=== PATIENT | male | born 1950 | race Caucasian/White ===

== ENCOUNTER → 2020-01-15 11:50 | Outpatient (CLI) | payer MEDICARE, OTHER, SELFPAY | PROVIDERS: PCP Family Medicine; Referring Provider Physician Assistant; Visit Provider Physician Assistant | DX: R50.9 Fever, unspecified (principal); R19.7 Diarrhea, unspecified | CPT/HCPCS: 87635; G2023; U0003 ==

== ENCOUNTER → 2020-11-22 16:24 | Outpatient (CLI) | payer MEDICARE, OTHER, SELFPAY | PROVIDERS: PCP Family Medicine; Referring Provider Physician Assistant Surgical; Visit Provider Physician Assistant Surgical | DX: U07.1 COVID-19 (principal) | CPT/HCPCS: 87635; C9803; U0002 ==

== ENCOUNTER → 2020-11-29 15:33 | Outpatient (CLI) | payer MEDICARE, OTHER, SELFPAY | PROVIDERS: PCP Family Medicine; Referring Provider Specialist; Visit Provider Specialist | DX: Z11.52 Encounter for screening for COVID-19 (principal) | CPT/HCPCS: 87635; C9803; U0002 ==

== ENCOUNTER 2022-08-21 10:38 | Outpatient (CLI) | payer MEDICARE, SELFPAY ==
[2022-08-21 12:18] LABS: Absolute Lymphocyte Count 1.38 X10^3/uL (0.83-4.51); Absolute Neutrophil Count 3.7 X10^3/uL (2.0-7.7); Basophil# 0.03 X10^3/uL; Basophil% 0.5 % (0-1); Eosinophil# 0.12 X10^3/uL; Eosinophils% 2.1 % (0-5); Hematocrit 42.5 % (40-54); Hemoglobin 14.8 g/dL (13.0-16.5); Lymphocyte # 1.38 X10^3/ul (0.83-4.51); Lymphocyte % 24.2 % (19-41); Mean Corp Hgb Conc 34.8 g/dL (32-36); Mean Corpuscular Hgb 31.8 pg (27.0-32.0); Mean Corpuscular Volume 91.4 fL (80-94); Mean Platelet Vol. 9.9 fl (6.2-12.0); Monocyte# 0.46 X10^3/uL; Monocyte% 8.1 % (0-10); NRBC Flagged by Analyzer 0 % (0-5); Neutrophil % 64.7 % (47-70); Platelet Count 226 K/mm3 (150-450); RBC Distribution Width CV 12.4 % (11.6-14.6); RBC Distribution Width SD 41.1 fl (35.1-43.9); Red Blood Count 4.65 M/mm3 (4.6-6.2); White Blood Count 5.7 K/mm3 (4.4-11.0)
[2022-08-21 12:19] LABS: Erythrocyte Sedimentation Rate 6 mm/hr (0-20)
[2022-08-21 12:52] LABS: CRP 4.56 mg/L (0.0-3.0)
== END 2022-08-21 23:59 | disposition home or self-care (01) ==
PROVIDERS: PCP Family Medicine; Referring Provider Specialist; Visit Provider Specialist
DX: Z96.641 Presence of right artificial hip joint (principal)
CPT/HCPCS: 36415; 85025; 85652; 86140

== ENCOUNTER 2023-02-18 14:59 | Inpatient (IN) | payer MEDICARE, SELFPAY ==
[2023-02-18] VITALS (18 sets, daily range): BP systolic 143–173; BP diastolic 84–119; PULSE 62–82; RESP 10–20; TEMP 36.1–36.7; O2SAT 95–100; BMI 31.8
--- NOTE | 2023-02-18 15:11 | EKG12_ITS ---
Test Reason : CHEST PAIN Blood Pressure : / mmHG Vent. Rate : 073 BPM Atrial Rate : 073 BPM P-R Int : 190 ms QRS Dur : 118 ms QT Int : 404 ms P-R-T Axes : 058 030 063 degrees QTc Int : 445 ms Normal sinus rhythm Non-specific intra-ventricular conduction delay ST elevation consider inferolateral injury or acute infarct ACUTE MO / STEMI Abnormal ECG Confirmed by MARRY MORALES, RICARDO ([id number]), order editor ELIZA VELASQUEZ ([id number]) on 02/22/2023 8:38:49 AM Referred By: Mame Foss Confirmed By:BRIGHT FOSS MD
--- NOTE | 2023-02-18 15:12 | ED.VIS.CHEST ---
HPI History of Present Illness Chief Complaint: Chest Pain Informant: patient Onset/Context/Timing Onset: Today Activity at onset: sudden Timing: Continuous Quality: Positive for Pressure Location: Substernal Worsened By: Nothing Relieved By: Nothing Associated Symptoms: Positive for Nausea and Dyspnea; Negative for Vomiting, Diaphoresis, Cough, Fever, Lightheadedness, Acid Reflux or Palpitations Narrative Narrative: Presents with chest pain that began approximately 50 minutes prior to arrival. Patient states he was working on his car when he started having some pain in his chest. Patient describes it as a pressure. Patient states nothing makes it better nothing makes it worse. Patient denies any diaphoresis. Patient admits to nausea but denies any vomiting. Patient denies any cough or fevers. Patient states he was able to mow his lawn earlier today. Patient admits to some slight shortness of breath. CVD Risk Factors: Positive for Hypertension; Negative for Diabetes, Hypercholesterolemia, Family History 1' </=55 or Smoking PE Risk Factors: Negative for Recent Travel/Surgery, Recent Immobilization, Prior DVT or PE or Cancer [facility] Medical History (Updated 02/18/23 @ 15:[address] Emre Domingo MD) Hypertension Home Medications hydrochlorothiazide 25 mg tablet 25 mg PO DAILY 04/08/14 [History Last Taken Unknown] potassium chloride 10 mEq tablet,extended release (Klor-Con) 10 meq PO DAILY 04/08/14 [History Last Taken 02/17/23] amlodipine 10 mg tablet mg 02/18/23 [History Last Taken 02/17/23] Allergy/AdvReac Type Severity Reaction Status Date / Time No Known Allergies Allergy Verified 02/18/23 15:03 Surgical History (Updated 02/18/23 @ 15:44 by Bernardo Quiles) History of herniorrhaphy History of total right hip replacement Hx of appendectomy Social History Smoking Status: Never smoker ROS ROS ED Constitutional Constitutional ED: Denies chills or fever(s) Eyes Eyes: Denies blurry vision or change in vision ENT ENT ED: Denies rhinorrhea or sore throat Cardiovascular Cardiovascular: Reports chest pain; Denies palpitations Respiratory/Chest Respiratory/Chest: Denies cough or dyspnea Gastrointestinal Gastrointestinal: Reports nausea; Denies abdominal pain or vomiting Genitourinary Genitourinary ED: Denies dysuria or hematuria Musculoskeletal Musculoskeletal: Denies back pain or neck pain Integumentary Denies abscess or rash Neurologic Neurologic: Denies headache(s) or weakness Allergic/Immunologic Allergic/Immunologic ED: Denies mouth swelling or urticaria EXAM Physical Exam Const Vital Signs: 02/18/23 15:03 02/18/23 15:08 02/18/23 15:13 Temperature 97.0 F L Temperature Source Temporal Pulse Rate 75 78 Respiratory Rate 18 10 L 13 Blood Pressure 173/100 H Blood Pressure Mean 124 Pulse Ox 97 97 Oxygen Delivery Method Room Air Room Air Oxygen Flow Rate (L/min) 02/18/23 15:17 02/18/23 15:21 02/18/23 15:23 Temperature Temperature Source Pulse Rate 78 77 Respiratory Rate 12 15 Blood Pressure 164/119 H 158/84 H Blood Pressure Mean 134 108 Pulse Ox 99 99 Oxygen Delivery Method Room Air Nasal Cannula Nasal Cannula Oxygen Flow Rate (L/min) 3 3 02/18/23 15:30 Temperature Temperature Source Pulse Rate 74 Respiratory Rate 11 L Blood Pressure 162/99 H Blood Pressure Mean 120 Pulse Ox 99 Oxygen Delivery Method Nasal Cannula Oxygen Flow Rate (L/min) Positive well nourished, well developed and obese General Appearance ED: well developed and NAD Nutritional Appearance: obese HEENT normocephalic and atraumatic Eyes PERRL and EOMs intact bilaterally Neck supple and no JVD Chest Wall palpation of chest normal Resp normal respiratory effort and clear to auscultation bilaterally Effort and Inspection: Negative for respiratory distress Cardio regular rate, regular rhythm and no murmurs GI normal to inspection, nondistended, normoactive bowel sounds, soft to palpation, non-tender and non-distended Extremity normal to inspection Extremity Narrative: Radial and femoral pulses are equal bilaterally. General Extremety ED: Negative for edema or tenderness General Extremity: Negative for edema Neuro oriented x3, CN's II-XII intact bilaterally and no sensory deficits noted Sensorium / Orientation: awake and alert Motor Exam: strength 5/5 throughout Psych mental status grossly normal Heart Score History: Highly Suspicious ECG: Significant ST-Depression Age: >/= 65 years Risk Factors: 1 or 2 Risk Factors Score: 7 MDM MDM MDM Narrative Medical decision making narrative: Differential diagnosis includes STEMI, and cardiac ischemia. EKG will be obtained to assess for cardiac ischemia and STEMI. CBC will be obtained to assess for leukocytosis and anemia. Basic metabolic profile will be obtained to assess for electrolyte abnormality and renal function. High-sensitivity troponin will be obtained to assess for cardiac ischemia. PT with INR and PTT will be obtained to assess for coagulopathy. Chest x-ray will be obtained to assess for pneumonia and widened mediastinum. Lab Data Attestation: I reviewed the patient's lab results. Lab results narrative: CBC was reviewed and was within normal limits. PT with INR and PTT were reviewed and were within normal limits. Basic metabolic profile was reviewed. BUN was slightly elevated at 19. Creatinine was 1.27. The remainder is within normal limits. High-sensitivity troponin was reviewed and was normal at 22. Labs: Laboratory Results - last 24 hr 02/18/23 15:17 WBC 10.1 RBC 4.71 Hgb 15.2 Hct 43.4 MCV 92.1 MCH 32.3 H MCHC 35.0 RDW Std Deviation 40.9 RDW Coeff of Shante 12.0 Plt Count 271 MPV 9.7 Immature Gran % (Auto) 0.200 Neut % (Auto) 77.3 H Lymph % (Auto) 14.3 L [place] % (Auto) 7.1 Eos % (Auto) 0.8 Baso % (Auto) 0.3 Absolute Neuts (auto) 7.8 H Absolute Lymphs (auto) 1.45 Nucleated RBC % 0 PT 13.3 INR 1.0 APTT 26.2 Sodium 138 Potassium 3.6 Chloride 104 Carbon Dioxide 29.0 Anion Gap 5 BUN 19 H Creatinine 1.27 Estim Creat Clear Calc 61.91 Est GFR (MDRD) Af Amer 71 Est GFR (MDRD) Non-Af 59 L BUN/Creatinine Ratio 15.0 Glucose 108 H Calcium 9.1 Troponin I High Sens 22 Radiography Chest X-Ray - ED: 1 View, Read by ED Physician, Read by Radiologist and No Acute Disease Diagnostic Testing: Portable 1 view chest x-ray was obtained. On my independent interpretation, lung jimenez are clear. There is normal cardiac silhouette. Bony thorax is normal. There is no acute process noted. Radiologist also interpreted the x-ray and agrees. EKG Initial EKG: Attestation: I personally reviewed and interpreted this EKG as follows: Interpretation: Sinus Rhythm (73), S-T Elevation (II, III, aVF, V4 through V6) and S-T Depression (I, aVL, V1, and V2) Comments: EKG was obtained. On my independent interpretation, there is a normal sinus rhythm with a rate of 73. [place] interval was normal at 190 ms. QRS interval was normal at 118 ms. QTc interval was normal at 445 ms. [place] was normal at 30. There is ST elevation in leads II, III, aVF, V4, V5, and V6. Prior EKG tracings: not available for review Prior: No Prior Management Discussion w/another healthcare provider: Industrial Commercial Groundskeeper (Dr. Foss) Treatment and Re-Evaluation :: STEMI alert was called. Patient was given aspirin, heparin, and Brilinta. Patient was also given a dose of morphine. Nitroglycerin was withheld due to the ST changes in the inferior leads. Case was discussed with Dr. Foss from cardiology. He will be in to evaluate the patient and take the patient to the [facility]. Case will be discussed with the hospitalist. Patient will be admitted to ICU after the Ing[facility]ient [facility] to the service of Dr. Domingo. Patient understood and was agreeable with the plan. All questions were answered. Critical Care Time Critical Care Time: Yes Critical care time (excluding procedures): 30-74 minutes (31), Including time spent:, Discussing w/Patient &/or Family/Parking Lot Spotter, Discussing w/Consultants, Arranging Admission or Transfer and Performing Direct Patient Care at Bedside Discharge Plan Dx/Rx/DC Orders Clinical Impression: Acute ST elevation myocardial infarction (STEMI), Hypertension Disposition [facility]
[2023-02-18] MEDS: TICAGRELOR 90 MG TABLET 180 MG PO (15:16)
[2023-02-18] MEDS: Morphine 4 MG/ML Syringe IV (15:16)
[2023-02-18] MEDS: Aspirin 81 MG TAB.CHEW 324 MG PO (15:16)
[2023-02-18] MEDS: Heparin Injection (Vial) 5,000 UNIT/ML VIAL 4000 UNIT IV (15:16)
--- NOTE | 2023-02-18 15:23 | ED.RN ---
Pt. belongings given to . belongings include shirt, shoes, shorts, wallet, phone
[2023-02-18 15:28] LABS: Absolute Lymphocyte Count 1.45 X10^3/uL (0.83-4.51); Absolute Neutrophil Count 7.8 X10^3/uL (2.0-7.7); Basophil# 0.03 X10^3/uL; Basophil% 0.3 % (0-1); Eosinophil# 0.08 X10^3/uL; Eosinophils% 0.8 % (0-5); Hematocrit 43.4 % (40-54); Hemoglobin 15.2 g/dL (13.0-16.5); Lymphocyte # 1.45 X10^3/ul (0.83-4.51); Lymphocyte % 14.3 % (19-41); Mean Corpuscular Hgb 32.3 pg (27.0-32.0); Mean Corpuscular Volume 92.1 fL (80-94); Mean Platelet Vol. 9.7 fl (6.2-12.0); Monocyte# 0.72 X10^3/uL; Monocyte% 7.1 % (0-10); NRBC Flagged by Analyzer 0 % (0-5); Neutrophil # 7.81 X10^3/uL (2.7-7.7); Neutrophil % 77.3 % (47-70); Platelet Count 271 K/mm3 (150-450); RBC Distribution Width SD 40.9 fl (35.1-43.9); Red Blood Count 4.71 M/mm3 (4.6-6.2); White Blood Count 10.1 K/mm3 (4.4-11.0)
--- NOTE | 2023-02-18 15:31 | RAD_ITS ---
EXAM: XR CHEST, 1 VIEW CLINICAL INDICATION: Chest pain. TECHNIQUE: Frontal view of the chest. COMPARISON: None. FINDINGS: LUNGS AND PLEURAL SPACES: Unremarkable. No pneumothorax. No effusion. No suspicious infiltrates. HEART: Cardiomegaly. MEDIASTINUM: Central airways and mediastinal contour are unremarkable. BONES/JOINTS: Unremarkable. SOFT TISSUES: Unremarkable. RAD/Chest 1 View (Portable) IMPRESSION: No acute findings in the chest. Electronically Signed: Momo Crump MD at 15:49 EDT ,
[2023-02-18 15:34] LABS: Prothrombin Time (Protime)PT. 13.3 SECONDS (11.7-14.9)
[2023-02-18 15:35] LABS: Partial Thromboplast Time 26.2 Seconds (24.1-36.2)
[2023-02-18 15:42] LABS: Anion Gap 5 (5-15); BUN 19 mg/dL (7-18); Calcium,Total 9.1 mg/dL (8.5-10.1); Chloride 104 mmol/L (98-107); Creatinine, Serum 1.27 mg/dL (0.70-1.30); EST Glomerular Filtration Rate 59 mL/min (>60); Est Glom Filt Rate - Afr Amer 71 mL/min (>60); Estimated Creatinine Clearance 61.91 ml/min; Glucose 108 mg/dL (74-106); Potassium 3.6 mmol/L (3.5-5.1); Sodium Level 138 mmol/L (136-145); Troponin-I HS 22 pg/mL (3.0-78.0)
--- NOTE | 2023-02-18 15:47 | PCM.HP.STD ---
HPI - General General Date of Admission: 02/18/23 Date of Service: 02/18/23 Chief Complaint: Sudden onset of chest pressure about 1 and half hours ago associated with shortness of breath. STEMI alert HPI Narrative DAYANNA SARABIA, is a 72 M with no significant past medical history except hypertension was brought to ED for chest pressure that is started about 50 minutes prior to arrival. Patient stated he was doing lawn mowing and then he was working on his car in the hot weather. He got tired and was resting in home when he got chest pressure. He described chest pressure as in the middle feels like heavyweight put on the chest, 6-7/10 in intensity without radiation to arms, back neck or in epigastric region. This is associated mild shortness of breath. Patient denies dizziness lightheadedness or vertigo. Patient never had MRI ordered chest pain/pressure like this. He denies any chronic heart disease or lung disease. He is a non-smoker. In ED, patient had twelve-lead EKG, individually reviewed shows normal sinus rhythm at [address] elevation V4 to V6, 2 3 and aVF about [address] depression in V1 V2 and aVR. [place] interval 190 ms, QRS 118 ms, QTc 445 ms. Previous EKG reviewed in April 08, 2014, normal sinus rhythm [address]-T changes. Patient stated he recently had echo about a month ago in [facility]. He had treadmill EKG stress test many years ago and was normal at that time as per patient. Patient was straight taken to the [facility] from ER. [facility] Medical History Hypertension Home Medications hydrochlorothiazide 25 mg tablet 25 mg PO DAILY 04/08/14 [History Last Taken Unknown] potassium chloride 10 mEq tablet,extended release (Klor-Con) 10 meq PO DAILY 04/08/14 [History Last Taken 02/17/23] amlodipine 10 mg tablet mg 02/18/23 [History Last Taken 02/17/23] Allergy/AdvReac Type Severity Reaction Status Date / Time No Known Allergies Allergy Verified 02/18/23 15:03 Family History no significant family his no significant family history Surgical History History of herniorrhaphy History of total right hip replacement Hx of appendectomy Social History Smoking Status: Never smoker ROS ROS Narrative Constitutional: Reports fatigue and weakness. No fever. HEENT: Reports systems reviewed and no addt'l complaints, except as documented Respiratory/Chest: Associated mild shortness of breath as described in HPI. Denies chronic lung disease/COPD or emphysema. CVS: Continued chest pressure, no improvement or deterioration. Denies history of peripheral arterial disease Gastrointestinal: Denies coffee ground emesis, hematemesis or vomiting Genitourinary: Denies burning urination or new urinary tract symptoms Musculoskeletal: Denies acute joint pain or limited range of motion. No acute injury Neurologic: Denies seizure-like symptoms. No prior stroke. skin: No ulcer. No rash Endocrinology: Reports systems reviewed and no addt'l complaints, except as documented Hematologic/Lymphatic: Reports systems reviewed and no addt'l complaints, except as documented Rest 14 ROS are negative except as mentioned in HPI Vital Signs Vital Signs Vital Signs: 02/18/23 15:03 02/18/23 15:08 02/18/23 15:13 Temperature 97.0 F L Temperature Source Temporal Pulse Rate 75 78 Respiratory Rate 18 10 L 13 Blood Pressure 173/100 H Blood Pressure Mean 124 Pulse Ox 97 97 Oxygen Delivery Method Room Air Room Air Oxygen Flow Rate (L/min) 02/18/23 15:17 02/18/23 15:21 02/18/23 15:23 Temperature Temperature Source Pulse Rate 78 77 Respiratory Rate 12 15 Blood Pressure 164/119 H 158/84 H Blood Pressure Mean 134 108 Pulse Ox 99 99 Oxygen Delivery Method Room Air Nasal Cannula Nasal Cannula Oxygen Flow Rate (L/min) 3 3 02/18/23 15:30 02/18/23 15:44 Temperature 97.6 F L Temperature Source Temporal Pulse Rate 74 76 Respiratory Rate 11 L 16 Blood Pressure 162/99 H 169/99 H Blood Pressure Mean 120 122 Pulse Ox 99 100 Oxygen Delivery Method Nasal Cannula Nasal Cannula Oxygen Flow Rate (L/min) 3 Weight Weight: 255 lb 1.197 oz Body Mass Index (BMI) 31.8 Physical Exam Narrative General: Alert, Oriented x3, Cooperative HEENT: Atraumatic, PERRLA, EOMI, Normocephalic Oral: Oral mucosa dry. No Gingival or Mucosal Lesions/ Ulcerations Neck: Supple, No JVD, Negative Carotid Bruits Lungs: Air entry equal and symmetrical in bilateral lung bases. No crepitation/rhonchi Cardiovascular: Regular rate, Regular Rhythm, Normal S1, Normal S2, No murmurs Abdomen: Bowel Sounds Present, Soft, Non Tender, Non-Distended : No renal angle tenderness. No suprapubic tenderness. Extremities: No edema, Capillary Refill Less than 3 Seconds Skin: No rashes, No breakdown Musculoskeletal: No Tenderness to Palpation of Joints or Extremities. Muscle strength 5/5 at major joints of extremities. Neurological: Cranial nerves II-XII grossly intact, DTR 2+/4. No acute focal neurological defic Psych/Mental Status: Flat affect. Results Lab / Micro Data 02/18/23 15:17 02/18/23 15:17 Labs: Laboratory Results - last 24 hr 02/18/23 15:17: WBC 10.1, RBC 4.71, Hgb 15.2, Hct 43.4, MCV 92.1, MCH 32.3 H, MCHC 35.0, RDW Std Deviation 40.9, RDW Coeff of Shante 12.0, Plt Count 271, MPV 9.7, Immature Gran % (Auto) 0.200, Neut % (Auto) 77.3 H, Lymph % (Auto) 14.3 L, [place] % (Auto) 7.1, Eos % (Auto) 0.8, Baso % (Auto) 0.3, Absolute Neuts (auto) 7.8 H, Absolute Lymphs (auto) 1.45, Nucleated RBC % 0, PT 13.3, INR 1.0, APTT 26.2, Sodium 138, Potassium 3.6, Chloride 104, Carbon Dioxide 29.0, Anion Gap 5, BUN 19 H, Creatinine 1.27, Estim Creat Clear Calc 61.91, Est GFR (MDRD) Af Amer 71, Est GFR (MDRD) Non-Af 59 L, BUN/Creatinine Ratio 15.0, Glucose 108 H, Calcium 9.1, Troponin I High Sens 22 Assessment & Plan Assessment/Plan (1) Acute ST elevation myocardial infarction (STEMI): QUALIFIERS: Involved coronary artery: unspecified coronary artery Qualified Code(s): I21.3 - ST elevation (STEMI) myocardial infarction of unspecified site PLAN: Plan This 72-year-old gentleman is being admitted for chest pressure and EKG changes consistent with anterior inferior wall STEMI. 1. Anterior inferior wall STEMI: STEMI protocol was followed in ED and the travel pta was notified. Patient is in [facility] and will be admitted to the ICU after the cardiac cath. The patient was given aspirin 324 mg, Brilinta 180 mg loading dose and IV heparin drip in ED. Continue aspirin, Brilinta and high intensity statin. Depending upon hemodynamic status patient will be considered for beta-maribel and SARAH BETH/ARB. Fasting profile,, A1c, TSH tomorrow AM. 2D echo tomorrow AM. 2. Hypertension: Patient on HCTZ 25 mg daily, amlodipine 10 mg daily and K-Dur 10 mEq at home. Serum potassium 3.6 at lower lower limit normal. KCl 40 mEq 1 dose ordered. Serum magnesium and phosphorus ordered. 3. VTE prophylaxis: Moderate-risk: Lovenox 40 mill subcu daily. Discontinue if platelet count drops less than 50,000 or hemoglobin less than 8 g% Living will/advanced directive/end of life care: Patient does have living will or advanced directive. 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 After discussion of benefits/risks procedures involved with full code, DNR CC arrest and DNR CC, the patient and his opted for full code for reversible causes of cardiac arrest/cardiopulmonary arrest Patient does want artificial life support including intubation, tube feed, ventilator and/chest compression, central venous catheter, vasopressor and DC shock if needed in the beginning but does not want to be in a very stable state if it becomes dependent on life support. Full code ordered Total time spent in [id number] encounter in discussion of advanced directive 17 minutes. Laboratory Results 02/18/23 15:17: WBC 10.1, RBC 4.71, Hgb 15.2, Hct 43.4, MCV 92.1, MCH 32.3 H, MCHC 35.0, RDW Std Deviation 40.9, RDW Coeff of Shante 12.0, Plt Count 271, MPV 9.7, Immature Gran % (Auto) 0.200, Neut % (Auto) 77.3 H, Lymph % (Auto) 14.3 L, [place] % (Auto) 7.1, Eos % (Auto) 0.8, Baso % (Auto) 0.3, Absolute Neuts (auto) 7.8 H, Absolute Lymphs (auto) 1.45, Nucleated RBC % 0, PT 13.3, INR 1.0, APTT 26.2, Sodium 138, Potassium 3.6, Chloride 104, Carbon Dioxide 29.0, Anion Gap 5, BUN 19 H, Creatinine 1.27, Estim Creat Clear Calc 61.91, Est GFR (MDRD) Af Amer 71, Est GFR (MDRD) Non-Af 59 L, BUN/Creatinine Ratio 15.0, Glucose 108 H, Calcium 9.1, Troponin I High Sens 22 Clinical Impression(s) from Imaging Studies Chest X-Ray 02/18/23 15:31 IMPRESSION: No acute findings in the chest. Charges/Coding Visit Charges Inpatient E&M: 30128 Init Hosp L3 Procedures Hospitalists Procedures: 52944 Advncd Care Plan 30 Min
[2023-02-18 16:19] LABS: Magnesium 1.9 mg/dL (1.6-2.6)
--- NOTE | 2023-02-18 16:30 | EKG12_ITS ---
Test Reason : AM Blood Pressure : / mmHG Vent. Rate : 065 BPM Atrial Rate : 065 BPM P-R Int : 174 ms QRS Dur : 122 ms QT Int : 444 ms P-R-T Axes : 041 -32 -36 degrees QTc Int : 461 ms Sinus rhythm with frequent Premature ventricular complexes Left axis deviation Inferior infarct , age undetermined ST & T wave abnormality, consider lateral ischemia Abnormal ECG When compared with ECG of 19-FEB-2023 10:50, MANUAL COMPARISON REQUIRED, DATA IS UNCONFIRMED Confirmed by MARRY MORALES, RICARDO ([id number]), purchase request editor ELIZA VELASQUEZ ([id number]) on 02/22/2023 9:02:52 AM Referred By: Mame Foss Confirmed By:BRIGHT FOSS MD
--- NOTE | 2023-02-18 17:41 | CON.PCM.CA_ITS ---
Assessment & Plan Assessment/Plan (1) Acute ST elevation myocardial infarction (STEMI): QUALIFIERS: Involved coronary artery: unspecified coronary artery Qualified Code(s): I21.3 - ST elevation (STEMI) myocardial infarction of unspecified site PLAN: Treated with thrombectomy and drug-eluting stent placement to the RCA. We will keep the patient on aspirin, Brilinta, statin and beta-maribel. We will keep him on Integrilin overnight. Agree with 2D echo for LV function. HPI Consult Data Date of Consult: 02/18/23 HPI Narrative Reason for Consultation: STEMI HPI Narrative: DAYANNA SARABIA, is a 72 M who presents with chest pain. Patient was found to have inferior ST elevation [place] on the EKG and a STEMI alert was called. Patient was evaluated and brought emergently to the cardiac Moving Worker and underwent coronary angiography. 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 He has some residual disease in the LAD and circumflex which are also ectatic. These lesions will be treated medically at this time. Patient is being admitted to the CCU for further management of his ST elevation ME. Review of systems: All systems reviewed. All else is negative except in HPI. [facility] Medical History Hypertension Home Medications hydrochlorothiazide 25 mg tablet 25 mg PO DAILY 04/08/14 [History Last Taken Unknown] potassium chloride 10 mEq tablet,extended release (Klor-Con) 10 meq PO DAILY 04/08/14 [History Last Taken 02/17/23] amlodipine 10 mg tablet mg 02/18/23 [History Last Taken 02/17/23] Allergy/AdvReac Type Severity Reaction Status Date / Time No Known Allergies Allergy Verified 02/18/23 15:03 Family History no significant family his Surgical History History of herniorrhaphy History of total right hip replacement Hx of appendectomy Social History Smoking Status: Never smoker Physical Exam Const alert and oriented x3 HEENT normocephalic Eyes no scleral icterus Resp normal respiratory effort Cardio Rate: regular rate Skin no rashes or lesions noted Psych mental status grossly normal Risk Stratification Risk Stratification Applicable: No Charges/Coding Visit Charges Inpatient E&M: 74944 Init Hosp L2 Objective Data Vital Signs: Vital Signs Temp Pulse Resp BP Pulse Ox O2 Del Method O2 Flow Rate 97.6 F L 76 16 169/99 H 100 Nasal Cannula 3 02/18/23 15:44 02/18/23 15:44 02/18/23 15:44 02/18/23 15:44 02/18/23 15:44 02/18/23 15:44 02/18/23 15:44 Oxygen Flow Rate (L/min) 3 Oxygen Delivery Method Nasal Cannula Weight: 255 lb 1.197 oz Body Mass Index (BMI) 31.8 Lab / Micro Data 02/18/23 15:17 02/18/23 15:17 Labs: Laboratory Results - last 24 hr 02/18/23 15:17: WBC 10.1, RBC 4.71, Hgb 15.2, Hct 43.4, MCV 92.1, MCH 32.3 H, MCHC 35.0, RDW Std Deviation 40.9, RDW Coeff of Shante 12.0, Plt Count 271, MPV 9.7, Immature Gran % (Auto) 0.200, Neut % (Auto) 77.3 H, Lymph % (Auto) 14.3 L, [place] % (Auto) 7.1, Eos % (Auto) 0.8, Baso % (Auto) 0.3, Absolute Neuts (auto) 7.8 H, Absolute Lymphs (auto) 1.45, Nucleated RBC % 0, PT 13.3, INR 1.0, APTT 26.2, Sodium 138, Potassium 3.6, Chloride 104, Carbon Dioxide 29.0, Anion Gap 5, BUN 19 H, Creatinine 1.27, Estim Creat Clear Calc 61.91, Est GFR (MDRD) Af Amer 71, Est GFR (MDRD) Non-Af 59 L, BUN/Creatinine Ratio 15.0, Glucose 108 H, Calcium 9.1, Magnesium 1.9, Troponin I High Sens 22 Cardiology Labs/Tests 02/18/23 15:17: WBC 10.1, RBC 4.71, Hgb 15.2, Hct 43.4, MCV 92.1, MCH 32.3 H, MCHC 35.0, Plt Count 271, MPV 9.7, Immature Gran % (Auto) 0.200, Neut % (Auto) 77.3 H, Lymph % (Auto) 14.3 L, [place] % (Auto) 7.1, Eos % (Auto) 0.8, Baso % (Auto) 0.3, Absolute Neuts (auto) 7.8 H, Nucleated RBC % 0, PT 13.3, INR 1.0, APTT 26.2, Sodium 138, Potassium 3.6, Chloride 104, Carbon Dioxide 29.0, Anion Gap 5, BUN 19 H, Creatinine 1.27, Est GFR (MDRD) Af Amer 71, Est GFR (MDRD) Non- Af 59 L, BUN/Creatinine Ratio 15.0, Glucose 108 H, Calcium 9.1, Magnesium 1.9 Rhythm: EKG: ECHO: Stress Test: Cardiac Cath: PCI: CT Surgery: Holter monitor: EPS: PPM: CXR: Chest CT Scan: Radiography Diagnostic Testing: Radiology Impression Chest X-Ray 02/18/23 15:31 IMPRESSION: No acute findings in the chest. Electronically Signed: Momo Crump MD at 15:49 EDT ,
--- NOTE | 2023-02-18 17:45 | EKG12_ITS ---
Test Reason : AM EKG Blood Pressure : / mmHG Vent. Rate : 066 BPM Atrial Rate : 066 BPM P-R Int : 178 ms QRS Dur : 124 ms QT Int : 458 ms P-R-T Axes : 055 -38 065 degrees QTc Int : 480 ms Sinus rhythm with occasional Premature ventricular complexes Left axis deviation Inferior infarct , age undetermined Abnormal ECG Confirmed by ELISE MORALES, JERED ([id number]), editor school photograph ELIZA VELASQUEZ ([id number]) on 02/19/2023 1:24:48 PM Referred By: Mame Foss Confirmed By:JERED OLIVARES MD
[2023-02-18] MEDS: EPTIFIBATIDE 75 MG/100 ML VIAL 18.5 MG CONT INF ×2 (18:17→22:16)
[2023-02-18] MEDS: 0.9% Normal Saline 1,000 ML 75 ML IV (18:17)
[2023-02-18 18:42] LABS: Hematocrit 40.6 % (40-54); Hemoglobin 14.5 g/dL (13.0-16.5); Mean Corp Hgb Conc 35.7 g/dL (32-36); Mean Corpuscular Hgb 32.7 pg (27.0-32.0); Mean Corpuscular Volume 91.4 fL (80-94); Mean Platelet Vol. 9.5 fl (6.2-12.0); Platelet Count 233 K/mm3 (150-450); RBC Distribution Width SD 40.1 fl (35.1-43.9); Red Blood Count 4.44 M/mm3 (4.6-6.2); White Blood Count 9.4 K/mm3 (4.4-11.0)
[2023-02-18 19:25] LABS: Troponin-I HS 3156 pg/mL (3.0-78.0)
[2023-02-18] MEDS: Potassium Chloride Oral Tablet 20 MEQ 40 MEQ PO (19:38)
[2023-02-18] MEDS: Atorvastatin Calcium 80 MG Tablet PO (21:35)
[2023-02-18] MEDS: Carvedilol 6.25 MG Tablet PO (21:35)
[2023-02-18 23:06] LABS: Troponin-I HS 16504 pg/mL (3.0-78.0)
[2023-02-19] VITALS (21 sets, daily range): BP systolic 106–147; BP diastolic 74–93; PULSE 62–79; RESP 10–19; TEMP 36.4–36.7; O2SAT 93–98; BMI 31.6
[2023-02-19] MEDS: EPTIFIBATIDE 75 MG/100 ML VIAL 18.5 MG CONT INF (03:06)
[2023-02-19 04:26] LABS: Absolute Lymphocyte Count 1.11 X10^3/uL (0.83-4.51); Absolute Neutrophil Count 7.1 X10^3/uL (2.0-7.7); Basophil# 0.03 X10^3/uL; Basophil% 0.3 % (0-1); Eosinophil# 0.11 X10^3/uL; Eosinophils% 1.2 % (0-5); Hematocrit 38.8 % (40-54); Hemoglobin 13.5 g/dL (13.0-16.5); Lymphocyte # 1.11 X10^3/ul (0.83-4.51); Lymphocyte % 12.1 % (19-41); Mean Corp Hgb Conc 34.8 g/dL (32-36); Mean Corpuscular Hgb 31.9 pg (27.0-32.0); Mean Corpuscular Volume 91.7 fL (80-94); Mean Platelet Vol. 9.6 fl (6.2-12.0); Monocyte% 8.7 % (0-10); NRBC Flagged by Analyzer 0 % (0-5); Neutrophil # 7.07 X10^3/uL (2.7-7.7); Neutrophil % 77.4 % (47-70); Platelet Count 246 K/mm3 (150-450); RBC Distribution Width SD 40.1 fl (35.1-43.9); Red Blood Count 4.23 M/mm3 (4.6-6.2); White Blood Count 9.2 K/mm3 (4.4-11.0)
[2023-02-19 05:01] LABS: ALB/GLOB Ratio 0.9 RATIO (0.9-2.4); AST(SGOT) 135 U/L (15-37); Alanine Aminotransfer ALT/SGPT 35 U/L (16-61); Albumin, Serum 2.7 g/dL (3.2-5.0); Alkaline Phosphatase 70 U/L (45-117); Anion Gap 7 (5-15); BUN 14 mg/dL (7-18); BUN/Creat Ratio 14.8 RATIO (10-20); Calcium,Total 7.7 mg/dL (8.5-10.1); Chloride 108 mmol/L (98-107); Cholesterol 165 mg/dL (200); Creatinine, Serum 0.95 mg/dL (0.70-1.30); EST Glomerular Filtration Rate 83 mL/min (>60); Est Glom Filt Rate - Afr Amer 100 mL/min (>60); Estimated Creatinine Clearance 82.77 ml/min; Globulin 3.1 g/dL (2.2-4.2); Glucose 129 mg/dL (74-106); High Density Lipoprotein 31 mg/dL; Potassium 3.3 mmol/L (3.5-5.1); Protein, Total 5.8 g/dL (6.4-8.2); Sodium Level 140 mmol/L (136-145); Thyroid Stim Hormone (TSH) 2.16 uIU/mL (0.358-3.74); Triglycerides 173 mg/dL; Very Low Density Lipoprotein 35 mg/dL (5-40)
[2023-02-19 05:15] LABS: Phosphorus 2.4 mg/dL (2.5-4.9)
--- NOTE | 2023-02-19 05:55 | ECHOD_ITS ---
Reason For Study: STEMI Procedure This was a 2D Doppler, Color Flow transthoracic echocardiogram. Exam performed portable in ICU/CCU. Left Ventricle Normal LV size. The estimated ejection fraction is 55 %. No evidence for diastolic dysfunction. Hypokinesis of the distal inferior wall. Right Ventricle Normal RV size. Normal systolic function. Atria Normal left atrium. Normal right atrium. No doppler evidence for ASD. Mitral Valve There is no mitral valve stenosis. No mitral valve insufficiency. Tricuspid Valve There is no tricuspid stenosis. Trivial tricuspid valve insufficiency. Unable to estimate RV systolic pressure due to insufficient tricuspid regurgitant envelope. Aortic Valve Trisinus/trileaflet aortic valve. There is no aortic stenosis. Mild (1+) aortic valve insufficiency. Pulmonic Valve There is no pulmonic valvular stenosis. No pulmonic valve insufficiency. Great Vessels Mild to moderately dilated ascending aorta. Pericardium/Pleural No pericardial effusion. MMode/2D Measurements & Calculations LVIDd: 5.6 cm IVSd: 1.4 cm LVOT diam: 2.1 cm LVIDs: 3.8 cm LVPWd: 1.3 cm LVOT area: 3.3 cm2 FS: 31.5 % Ao root diam: 4.8 cm LAV(MOD-bp): 54.7 ml LVAd ap4: 34.0 cm2 LAV(MOD-bp) Indexed: 22.4 ml/m2 LVLd ap4: 8.6 cm LAV(MOD-sp2): 53.4 ml EDV(MOD-sp4): 111.0 ml LAV(MOD-sp4): 53.5 ml EDV(sp4-el): 114.8 ml LVAs ap4: 20.7 cm2 LVLs ap4: 7.8 cm ESV(MOD-sp4): 48.6 ml ESV(sp4-el): 46.5 ml EF(MOD-sp4): 56.2 % EF(sp4-el): 59.4 % LVAd ap2: 30.9 cm2 SV(MOD-sp4): 62.4 ml SV(MOD-sp2): 52.9 ml LVLd ap2: 9.0 cm EDV(MOD-sp2): 91.1 ml EDV(sp2-el): 90.5 ml LVAs ap2: 18.6 cm2 LVLs ap2: 7.9 cm ESV(MOD-sp2): 38.2 ml ESV(sp2-el): 37.0 ml EF(MOD-sp2): 58.1 % SV(sp4-el): 68.2 ml LA A4 area: 19.2 cm2 RA A4 area: 17.6 cm2 TAPSE: 1.9 cm Time Measurements MV dec time: 0.22 sec Doppler Measurements & Calculations MV E max devon: 54.2 cm/sec Lat Peak E' Devon: 9.4 cm/sec Med Peak E' Devon: 7.9 cm/sec MV A max devon: 67.9 cm/sec E/E' lat: 5.8 E/E' med: 6.9 MV E/A: 0.80 MV V2 max: 90.6 cm/sec MV dec slope: 244.1 cm/sec2 Ao V2 max: 108.2 cm/sec MV max P.3 mmHg Ao max P.7 mmHg MV V2 mean: 55.1 cm/sec Ao V2 mean: 81.0 cm/sec MV mean P.3 mmHg Ao mean P.9 mmHg MV V2 VTI: 32.3 cm Ao V2 VTI: 23.9 cm MVA(VTI): 2.5 cm2 AV (velocity ratio): 1.0 HUNG(I,D): 3.4 cm2 HUNG(V,D): 3.3 cm2 LV V1 max: 107.7 cm/sec SV(LVOT): 80.4 ml PA V2 max: 76.2 cm/sec LV V1 max P.6 mmHg PA V2 mean: 59.3 cm/sec LV V1 mean P.5 mmHg LV V1 mean: 75.7 cm/sec LV V1 VTI: 24.2 cm ECHO/Echo Complete Interpretation Summary The estimated ejection fraction is 55 %. No evidence for diastolic dysfunction. Hypokinesis of the distal inferior wall Mild (1+) aortic valve insufficiency. Mild to moderately dilated ascending aorta. Ordering Physician: Emre Domingo Referring Physician: Mame Foss Performed By: Francia Alves RCS
[2023-02-19 07:38] LABS: Hemoglobin A1c 5.5 % (3.8-5.6)
--- NOTE | 2023-02-19 08:18 | CRPHASE1 ---
Patient Communication Patient Information PHII Cardiac Rehab Discussed with Patient:: Yes Guide to Cardiac Rehab Given to Patient:: Yes Cardiac Rehab Facility Choice List Given to Patient:: Yes Communication to Cardiac Rehab Choice Program [facility] CR PHII:: Communication Given to CR Gis Coordinator:: Mame Foss Cardiac Rehabilitation Info Program Information Cardiac Rehabilitation Program Information: Cardiac Rehab The cardiac rehab team at [facility] consists of highly skilled exercise physiologists, nurses, respiratory therapists and physicians working together with you. Our purpose is to help you have a full recovery and achieve the goals you set for yourself. Over the years many of our patients have returned to activities they assumed they would never do again! We can help restore your confidence and motivation to make lifestyle changes that can have a significant impact on your health and quality of life! We can help answer questions and concerns you may have about exercise, lifestyle, medications, diet, stress and anxiety which are common following a hospitalization. WE monitor ECG and vital signs during exercise and discuss your progress with you and report to your physician(s). Cardiac Rehab is proven to help reduce readmissions, improve functional capacity and lower recurrence of problems with your heart. Our Cardiac Rehab program is Certified by the [place] [employer] Pulmonary [employer] (AACVPR) and Accredited by the [place] [employer] through our [facility]. You can contact us at . We invite you to call us with your questions or to get started in our program. If you have other questions or concerns be sure to ask your physician/provider during your follow-up visit. WE look forward to seeing you!
--- NOTE | 2023-02-19 08:20 | CRPH1.INSTRU ---
General Education Discussed with Patient CAD and cardiac anatomy and function:: Patient communicates acknowledgment Explanation of diagnoses and procedures:: Patient communicates acknowledgment Sign/Symptoms of MD:: Patient communicates acknowledgment Antiplatelet therapy: Patient communicates acknowledgment Proper use of NTG-SL: Patient communicates acknowledgment Emergency procedures and activation of EMS: Patient communicates acknowledgment Compliance of all prescribed medications: Patient communicates acknowledgment Smoking Risk Factors Patient Nicotine/Smoking Risk Factors Are:: Never smoked Dyslipidemia Response Code Dyslipidemia Response Code:: Patient communicates acknowledgment Overweight/Obesity Risk Factors Patient Overweight/Obesity Risk Factors Are:: Overweight = 26-29 Recommendations Recommendations Include:: Reduced calorie diet Response Code Overweight/Obesity:: Patient communicates acknowledgment Hypertension Recommendations Recommendations Include:: Maintain BP <130/85 Response Code Hypertension:: Patient communicates acknowledgment Heart Disease Risk Factors Patient Heart Disease Risk Factors Are:: Family history of heart disease < 65 years old and Previous cardiac event Recommendations Recommendations Include:: Educated family members of their risk Response Code Heart Disease Response Code:: Patient communicates acknowledgment Diabetes Response Code Diabetes:: Not instructed Metabolic Syndrome Response Code Metabolic Syndrome Response Code:: Not instructed Sedentary Response Code Sedentary Response Code:: Patient communicates acknowledgment Stress Response Code Stress Response Code:: Patient communicates acknowledgment
[2023-02-19] MEDS: Carvedilol 6.25 MG Tablet PO ×2 (08:36→22:34)
[2023-02-19] MEDS: Potassium Chloride Oral Tablet 10 MEQ PO (08:36)
[2023-02-19] MEDS: TICAGRELOR 90 MG TABLET PO ×2 (08:36→22:34)
[2023-02-19] MEDS: Aspirin 81 MG TAB.CHEW PO (08:36)
--- NOTE | 2023-02-19 09:30 | CASEMGMT ---
RN?CM?WELDER 2ND SHIFT?CM?to room to meet with patient for initial transition planning/care coordination?assessment.?RN?CM?introduced self and role at [facility].? Pt voices understanding and consents to?assessment?at this time.? Pt sitting up in chair in room in no distress at this time.? @ bedside. Pt is A/O at this time and answers all questions appropriately.?? Care providers, pharmacy, and demographics verified/updated at this time. PCP: Dr Benitez Specialists: none Preferred Pharmacy: [facility] Insurance: Almas BELTRE Prescription Benefit:?Yes. Pt will be going home on Brilinta. 30-day savings card provided and instructed on use. Questions answered. They voice understanding. Living Will/HPOA:?Has both LW and HCPOA, who is his , Susan. He states they just provided this paperwork today to be placed on his chart. LNOK: , Susan Living Arrangements: Lives w/his in one-story home w/basement and 1 step to enter. He denies difficulty w/stairs. Independent. Transportation:?Pt states drives self and states no transportation concerns at this time.? also drives. DME: ? Denies using any DME and denies needs.? HHC/SNF: No hx of either. Has done OP @ [facility] in the past. No needs identified. Pt wishes to return home and states has no concerns with going home at time of discharge.? CM?to follow for any further discharge planning/needs.? Pt and voice no further concerns/needs at this time.? Plan: Home Rere SMITHN?RN?CM
--- NOTE | 2023-02-19 10:00 | EKG12_ITS ---
Test Reason : POST STEMISTENT Blood Pressure : / mmHG Vent. Rate : 066 BPM Atrial Rate : 066 BPM P-R Int : 180 ms QRS Dur : 126 ms QT Int : 418 ms P-R-T Axes : 059 -51 040 degrees QTc Int : 438 ms Normal sinus rhythm Left axis deviation Non-specific intra-ventricular conduction block Inferior infarct (cited on or before 18-FEB-2023) Abnormal ECG When compared with ECG of 19-FEB-2023 04:55, Premature ventricular complexes are no longer Present Nonspecific T wave abnormality, worse in Anterior leads Confirmed by MARRY MORALES, RICARDO ([id number]), development editor ELIZA VELASQUEZ ([id number]) on 02/22/2023 9:03:06 AM Referred By: Mame Foss Confirmed By:BRIGHT FOSS MD
--- NOTE | 2023-02-19 10:38 | CL.I_ITS ---
Patient Name: DAYANNA SARABIA Study Date: 02/18/2023 Performing: Ho Foss MD Ht: 75 inches 190.5 cm : 1950 Wt: 255.4 lbs 115.7 kg Age: 72 Gender: male BSA: 2.43 PROCEDURE(S) PERFORMED DC02-(63547)LHC/COR IC16-([id number]/[id number])AMI, JAVI OR PTCA, ARTERY/GRAFT, SINGLE VESSEL CLINICAL PROFILE AND CO-MORBIDITIES Indications: ACS <= 24 hrs Heart Failure: None Stress/Imaging Stress/Image Study Performed: No CAD Presentations: STEMI. Symptom onset Date/Time: 02/18/23 Time Not Available CONCLUSIONS CAD as described. Successful thrombectomy and JAIV to dRCA RECOMMENDATIONS DESCRIPTION OF PROCEDURE The patient arrived to the procedure lab. The risks and benefits of the procedure as well as a full description of our services here and lack of surgical backup were fully explained to the patient and/or their significant other prior to the catheterization. The Timeout was completed, verifying the correct patient and procedure. The patient's procedural site was prepped and draped in the usual fashion. Local anesthetic was given subcutaneously to right radial region with Lidocaine 2%. Using a modified Seldinger technique, arterial access was obtained via the right radial artery, a 6Fr sheath was inserted.. Right Coronary Artery selective angiography was then performed in multiple views using a 6 Fr. JR 4 guide catheter. Left Coronary Artery selective angiography was performed in multiple views using a 5 Fr. JL4 catheterThe images were reviewed and options discussed. A decision was then made to proceed with an Intervention, IVUS or other adjunct procedure. JR 4 Guide catheter was inserted and engaged into the RCA. BMW Guide wire was advanced to the RCA. Priority One inserted Pass # 1 Priority One Removed 5 x 12 Stacy Balloon catheter was inserted. Angiogram performed pre balloon dilatation. 2.5 x 12 Emerge Balloon catheter was inserted. Balloon catheter was advanced across lesion in the right coronary, distal. PTCA balloon inflated at 12 atms for 14 secs. PTCA balloon inflated at 12 atms for 22 secs. 5 x 12 Stacy Balloon catheter was inserted. Balloon catheter was advanced across lesion in the right coronary, mid. PTCA balloon inflated at 6 atms for 10 secs. PTCA balloon inflated at 6 atms for 17 secs. Angiogram performed post balloon dilatation. 4.5 x 26 Patricio Drug Eluting stent was inserted. Angiogram performed pre stent deployment. 5.5 x 12 NC Emerge Balloon catheter was inserted post stent. Angiogram performed post balloon dilatation. 4.5 x 12 Stacy Balloon catheter was inserted. PTCA balloon inflated at 14 atms for 20 secs. 3.5 x 15 Patricio Drug Eluting stent was advanced across the lesion in the right coronary, distal. Angiogram performed post stent deployment. 5 x 12 Stacy Balloon catheter was inserted post stent. PTCA balloon inflated at 6 atms for 10 secs. PTCA balloon inflated at 5 atms for 12 secs. Angiogram performed post balloon dilatation. The arterial sheath was pulled and a TR Band was applied for hemostasis. 10cc air inserted. CORONARY ANGIOGRAPHY DOMINANCE: Right Dominant LEFT MAIN: Mild luminal irregularities LEFT ANTERIOR DESCENDING ARTERY: Ectatic vessel. 60% pLAD CIRCUMFLEX ARTERY: mild to moderate disease. Saccular aneursym in the proximal portion. RIGHT CORONARY ARTERY: Severely ectatic vessel. 99% thrombotic lesion in the distal RCA. 40-50% mRPDA, INTERVENTION INFORMATION LESION SITE: RCA (Distal) Lesion Complexity: High/C, chronic total occlusion: No, lesion at bifurcation: No, thrombus present: Yes, lesion length: 30 mm, culprit lesion: Yes, Previously treated lesion: No Pre Stenosis: 99 % Pre intervention NEELA flow: 3 PROCEDURE: Thrombectomy, Drug Eluting Stent with pre and post dilatation The vessel was tortuous, ectatic Post Stenosis: 0 % Post intervention NEELA flow: 3 Lesion Devices: Mcintosh .014 190cm BMW [place] Straight Cordis 6 Fr JR4 100cm Guide Catheter Terumo Priority One Aspiration Catheter Stef Sci APEX MR 5.00x12 BALLOON [employer] 6 [place] GuideLiner Stef Sci EMERGE MR 2.50x12 BALLOON Medtronic Resolute Patricio RX JAVI 4.50x26 Stef Sci NC EMERGE MR 5.50x12 BALLOON Stef Sci APEX MR 4.50x12 BALLOON Medtronic Resolute Patricio RX JAVI 3.5x15 COMPLICATIONS No Complications PROCEDURE MEDICATIONS Oxygen: 2 L/min via nasal cannula Heparin given IA 02/18/2023 16:16:24 Heparin 2000 unit(s) IV 02/18/2023 17:02:48 Verapamil 2.5mg, Ntg 100mcgs, 3000 units of Heparin given IA 02/18/2023 16:16:24 SUMMARY OF HEMODYNAMIC DATA Time AIR REST ECG 15:56:23 AO 128/72 (97) SA 16:16:58 Signed By Ho Foss MD On 02/19/2023 10:37:43 Ho Foss MD
--- NOTE | 2023-02-19 11:08 | PCM.PN.CARD ---
Subjective Subjective Doing well. Denies any chest pain. Had short runs of nonsustained V. tach on telemetry. Objective Data Vital Signs: Vital Signs Temp Pulse Resp BP Pulse Ox O2 Del Method O2 Flow Rate 98.1 F 68 16 136/85 H 98 Room Air 3 02/19/23 00:00 02/19/23 10:00 02/19/23 10:00 02/19/23 08:55 02/19/23 10:00 02/19/23 10:00 02/18/23 17:46 Oxygen Flow Rate (L/min) 3 Oxygen Delivery Method Room Air Weight: 253 lb 15.56 oz Body Mass Index (BMI) 31.6 Intake & Output: Intake and Output for Last 24 Hours 02/17/23 02/18/23 02/19/23 23:59 23:59 23:59 Intake Total 123.69 / 143.69 1439.42 / 1439.42 Output Total 1475 / 1475 450 / 450 Balance -1351.31 / -1331.31 989.42 / 989.42 Lab / Micro Data 02/19/23 04:08 02/19/23 04:08 Labs: Laboratory Results - last 24 hr 02/18/23 15:17: WBC 10.1, RBC 4.71, Hgb 15.2, Hct 43.4, MCV 92.1, MCH 32.3 H, MCHC 35.0, RDW Std Deviation 40.9, RDW Coeff of Hsante 12.0, Plt Count 271, MPV 9.7, Immature Gran % (Auto) 0.200, Neut % (Auto) 77.3 H, Lymph % (Auto) 14.3 L, [place] % (Auto) 7.1, Eos % (Auto) 0.8, Baso % (Auto) 0.3, Absolute Neuts (auto) 7.8 H, Absolute Lymphs (auto) 1.45, Nucleated RBC % 0, PT 13.3, INR 1.0, APTT 26.2, Sodium 138, Potassium 3.6, Chloride 104, Carbon Dioxide 29.0, Anion Gap 5, BUN 19 H, Creatinine 1.27, Estim Creat Clear Calc 61.91, Est GFR (MDRD) Af Amer 71, Est GFR (MDRD) Non-Af 59 L, BUN/Creatinine Ratio 15.0, Glucose 108 H, Calcium 9.1, Magnesium 1.9, Troponin I High Sens 22 02/18/23 18:20: WBC 9.4, RBC 4.44 L, Hgb 14.5, Hct 40.6, MCV 91.4, MCH 32.7 H, MCHC 35.7, RDW Std Deviation 40.1, RDW Coeff of Shante 12.0, Plt Count 233, MPV 9.5, Troponin I High Sens 3156 H* 02/18/23 22:10: Troponin I [place] Sens 31520 H* 02/19/23 04:08: WBC 9.2, RBC 4.23 L, Hgb 13.5, Hct 38.8 L, MCV 91.7, MCH 31.9, MCHC 34.8, RDW Std Deviation 40.1, RDW Coeff of Shante 12.0, Plt Count 246, MPV 9.6, Immature Gran % (Auto) 0.300, Neut % (Auto) 77.4 H, Lymph % (Auto) 12.1 L, [place] % (Auto) 8.7, Eos % (Auto) 1.2, Baso % (Auto) 0.3, Absolute Neuts (auto) 7.1, Absolute Lymphs (auto) 1.11, Nucleated RBC % 0, Sodium 140, Potassium 3.3 L, Chloride 108 H, Carbon Dioxide 25.0, Anion Gap 7, BUN 14, Creatinine 0.95, Estim Creat Clear Calc 82.77, Est GFR (MDRD) Af Amer 100, Est GFR (MDRD) Non-Af 83, BUN/Creatinine Ratio 14.8, Glucose 129 H, Hemoglobin A1c 5.5, Calcium 7.7 L, Phosphorus 2.4 L, Total Bilirubin 0.90, Direct Bilirubin 0.20, AST 135 H, ALT 35, Alkaline Phosphatase 70, Total Protein 5.8 L, Albumin 2.7 L, Globulin 3.1, Albumin/Globulin Ratio 0.9, Triglycerides 173, Cholesterol 165, LDL Cholesterol 99, VLDL Cholesterol 35, HDL Cholesterol 31 L, TSH 2.16 Cardiology Labs/Tests 02/18/23 15:17: WBC 10.1, RBC 4.71, Hgb 15.2, Hct 43.4, MCV 92.1, MCH 32.3 H, MCHC 35.0, Plt Count 271, MPV 9.7, Immature Gran % (Auto) 0.200, Neut % (Auto) 77.3 H, Lymph % (Auto) 14.3 L, [place] % (Auto) 7.1, Eos % (Auto) 0.8, Baso % (Auto) 0.3, Absolute Neuts (auto) 7.8 H, Nucleated RBC % 0, PT 13.3, INR 1.0, APTT 26.2, Sodium 138, Potassium 3.6, Chloride 104, Carbon Dioxide 29.0, Anion Gap 5, BUN 19 H, Creatinine 1.27, Est GFR (MDRD) Af Amer 71, Est GFR (MDRD) Non-Af 59 L, BUN/Creatinine Ratio 15.0, Glucose 108 H, Calcium 9.1, Magnesium 1.9 02/18/23 18:20: WBC 9.4, RBC 4.44 L, Hgb 14.5, Hct 40.6, MCV 91.4, MCH 32.7 H, MCHC 35.7, Plt Count 233, MPV 9.5 02/19/23 04:08: WBC 9.2, RBC 4.23 L, Hgb 13.5, Hct 38.8 L, MCV 91.7, MCH 31.9, MCHC 34.8, Plt Count 246, MPV 9.6, Immature Gran % (Auto) 0.300, Neut % (Auto) 77.4 H, Lymph % (Auto) 12.1 L, [place] % (Auto) 8.7, Eos % (Auto) 1.2, Baso % (Auto) 0.3, Absolute Neuts (auto) 7.1, Nucleated RBC % 0, Sodium 140, Potassium 3.3 L, Chloride 108 H, Carbon Dioxide 25.0, Anion Gap 7, BUN 14, Creatinine 0.95, Est GFR (MDRD) Af Amer 100, Est GFR (MDRD) Non-Af 83, BUN/Creatinine Ratio 14.8, Glucose 129 H, Hemoglobin A1c 5.5, Calcium 7.7 L, Phosphorus 2.4 L, Total Bilirubin 0.90, Direct Bilirubin 0.20, Triglycerides 173, Cholesterol 165, LDL Cholesterol 99, VLDL Cholesterol 35, HDL Cholesterol 31 L Rhythm: EKG: ECHO: Stress Test: Cardiac Cath: PCI: CT Surgery: Holter monitor: EPS: PPM: CXR: Chest CT Scan: Radiography Diagnostic Testing: Radiology Impression Chest X-Ray 02/18/23 15:31 IMPRESSION: No acute findings in the chest. Electronically Signed: Momo Crump MD at 15:49 EDT , Physical Exam Const alert and oriented x3 HEENT normocephalic Eyes no scleral icterus Resp normal respiratory effort and clear to auscultation bilaterally Cardio regular rate Extremity no pedal edema Skin no rashes or lesions noted Psych mental status grossly normal Assessment & Plan Assessment/Plan (1) Acute ST elevation myocardial infarction (STEMI): QUALIFIERS: Involved coronary artery: unspecified coronary artery Qualified Code(s): I21.3 - ST elevation (STEMI) myocardial infarction of unspecified site PLAN: Treated with thrombectomy and drug-eluting stent placement to the RCA. We will keep the patient on aspirin, Brilinta, statin and beta-maribel. 2D echo will be reviewed when available. (2) Nonsustained ventricular tachycardia: PLAN: In the setting of acute STEMI. Continue telemetry monitoring. Okay to transfer to PCU. Continue beta-maribel. Charges/Coding Visit Charges Inpatient E&M: 85513 Subs Hosp L2
--- NOTE | 2023-02-19 13:51 | PN.HOSP_ITS ---
Reason for Visit Reason for Visit: Diagnoses ST elevation (STEMI) myocardial infarction of unspecified site (02/18/23) Other ventricular tachycardia (02/18/23) Subjective Subjective Patient feeling well with no further chest pain this morning or shortness of breath Objective Data Objective Data Vital Signs: Vital Signs Temp Pulse Resp BP Pulse Ox O2 Del Method O2 Flow Rate 97.6 F L 64 16 106/74 94 Room Air 3 02/19/23 12:00 02/19/23 12:00 02/19/23 12:00 02/19/23 12:00 02/19/23 12:00 02/19/23 12:00 02/18/23 17:46 Oxygen Flow Rate (L/min) 3 Oxygen Delivery Method Room Air Weight: 115.2 kg Body Mass Index (BMI) 31.6 Intake & Output: Intake and Output for Last 24 Hours 02/17/23 02/18/23 02/19/23 23:59 23:59 23:59 Intake Total 123.69 / 143.69 1639.42 / 1639.42 Output Total 1475 / 1475 700 / 700 Balance -1351.31 / -1331.31 939.42 / 939.42 Lab / Micro Data 02/19/23 04:08 02/19/23 04:08 Labs: Laboratory Results - last 24 hr 02/18/23 15:17: WBC 10.1, RBC 4.71, Hgb 15.2, Hct 43.4, MCV 92.1, MCH 32.3 H, M CHC 35.0, RDW Std Deviation 40.9, RDW Coeff of Shante 12.0, Plt Count 271, MPV 9.7, Immature Gran % (Auto) 0.200, Neut % (Auto) 77.3 H, Lymph % (Auto) 14.3 L, [place] % (Auto) 7.1, Eos % (Auto) 0.8, Baso % (Auto) 0.3, Absolute Neuts (auto) 7.8 H, Absolute Lymphs (auto) 1.45, Nucleated RBC % 0, PT 13.3, INR 1.0, APTT 26.2, Sodium 138, Potassium 3.6, Chloride 104, Carbon Dioxide 29.0, Anion Gap 5, BUN 19 H, Creatinine 1.27, Estim Creat Clear Calc 61.91, Est GFR (MDRD) Af Amer 71, Est GFR (MDRD) Non-Af 59 L, BUN/Creatinine Ratio 15.0, Glucose 108 H, Calcium 9.1, Magnesium 1.9, Troponin I High Sens 22 02/18/23 18:20: WBC 9.4, RBC 4.44 L, Hgb 14.5, Hct 40.6, MCV 91.4, MCH 32.7 H, MCHC 35.7, RDW Std Deviation 40.1, RDW Coeff of Shante 12.0, Plt Count 233, MPV 9.5, Troponin I High Sens 3156 H* 02/18/23 22:10: Troponin I High Sens 66260 H* 02/19/23 04:08: WBC 9.2, RBC 4.23 L, Hgb 13.5, Hct 38.8 L, MCV 91.7, MCH 31.9, MCHC 34.8, RDW Std Deviation 40.1, RDW Coeff of Shante 12.0, Plt Count 246, MPV 9.6, Immature Gran % (Auto) 0.300, Neut % (Auto) 77.4 H, Lymph % (Auto) 12.1 L, Clarke % (Auto) 8.7, Eos % (Auto) 1.2, Baso % (Auto) 0.3, Absolute Neuts (auto) 7.1, Absolute Lymphs (auto) 1.11, Nucleated RBC % 0, Sodium 140, Potassium 3.3 L , Chloride 108 H, Carbon Dioxide 25.0, Anion Gap 7, BUN 14, Creatinine 0.95, Estim Creat Clear Calc 82.77, Est GFR (MDRD) Af Amer 100, Est GFR (MDRD) Non-Af 83, BUN/Creatinine Ratio 14.8, Glucose 129 H, Hemoglobin A1c 5.5, Calcium 7.7 L, Phosphorus 2.4 L, Total Bilirubin 0.90, Direct Bilirubin 0.20, AST 135 H, ALT 35, Alkaline Phosphatase 70, Total Protein 5.8 L, Albumin 2.7 L, Globulin 3.1, A lbumin/Globulin Ratio 0.9, Triglycerides 173, Cholesterol 165, LDL Cholesterol 99, VLDL Cholesterol 35, HDL Cholesterol 31 L, TSH 2.16 Radiography Diagnostic Testing: Radiology Impression Chest X-Ray 02/18/23 15:31 IMPRESSION: No acute findings in the chest. Electronically Signed: Momo Crump MD at 15:49 EDT , Echocardiogram 02/19/23 05:55 Interpretation Summary The estimated ejection fraction is 55 %. No evidence for diastolic dysfunction. Hypokinesis of the distal inferior wall Mild (1+) aortic valve insufficiency. Mild to moderately dilated ascending aorta. Ordering Physician: Emre Domingo Referring Physician: Mame Foss Performed By: Francia Alves RCS Physical Exam Narrative General: Alert, oriented, no apparent distress HEENT: Atraumatic, normocephalic Eyes: Anicteric, normal conjunctiva, extraocular movements grossly intact Neck: Supple Respiratory: Clear to auscultation bilaterally, normal respiratory effort Cardiovascular: Regular rate and rhythm GI: Soft, nontender, nondistended Extremities: No edema Musculoskeletal: Moving all extremities Neuro: No overt focal neurological deficits Skin: No rashes appreciated Psych: Cooperative Assessment & Plan Assessment/Plan (1) Acute ST elevation myocardial infarction (STEMI): QUALIFIERS: Involved coronary artery: unspecified coronary artery Qualified Code(s): I21.3 - ST elevation (STEMI) myocardial infarction of unspecified site PLAN: Plan This 72-year-old gentleman is being admitted for chest pressure and EKG changes consistent with anterior inferior wall STEMI. 1. Anterior inferior wall STEMI: STEMI protocol was followed in ED and the fire code inspector was notified. Patient is in [place] and will be admitted to the ICU after the cardiac cath. The patient was given aspirin 324 mg, Brilinta 180 mg loading dose and IV heparin drip in ED. Continue aspirin, Brilinta and high intensity statin. Depending upon hemodynamic status patient will be considered for beta-maribel and SARAH BETH/ARB. Fasting profile,, A1c, TSH tomorrow AM. 2D echo tomorrow AM. -02/19: Treated with thrombectomy and JAVI to RCA 02/18, continue medication management, transfer to PCU. Cardiology following. Echocardiogram with i nferior hypokinesis with EF of 55% 2. Hypertension: Patient on HCTZ 25 mg daily, amlodipine 10 mg daily and K-Dur 10 mEq at home. Serum potassium 3.6 at lower lower limit normal. KCl 40 mEq 1 dose ordered. Serum magnesium and phosphorus ordered. -02/19: Continue present medications 3. VTE prophylaxis: Moderate-risk: Lovenox 40 mill subcu daily Time spent in the patient's overall evaluation,decision-making process, review of diagnostic data, adjustment of management, discussion with other providers, nursing nursing and ancillary staff involved in patient's care documentation, 36 minutes Charges/Coding Visit Charges Inpatient E&M: 90337 [facility] Hosp L2
[2023-02-19] MEDS: Atorvastatin Calcium 80 MG Tablet PO (22:35)
[2023-02-20] VITALS: BP 116/88; PULSE 69; RESP 13; TEMP 36.3; O2SAT 93
[2023-02-20 03:58] LABS: Absolute Lymphocyte Count 1.35 X10^3/uL (0.83-4.51); Absolute Neutrophil Count 5.8 X10^3/uL (2.0-7.7); Basophil# 0.04 X10^3/uL; Basophil% 0.5 % (0-1); Eosinophil# 0.15 X10^3/uL; Eosinophils% 1.8 % (0-5); Hematocrit 39.3 % (40-54); Hemoglobin 13.5 g/dL (13.0-16.5); Lymphocyte # 1.35 X10^3/ul (0.83-4.51); Lymphocyte % 16.5 % (19-41); Mean Corp Hgb Conc 34.4 g/dL (32-36); Mean Corpuscular Hgb 32.1 pg (27.0-32.0); Mean Corpuscular Volume 93.6 fL (80-94); Mean Platelet Vol. 9.4 fl (6.2-12.0); Monocyte# 0.78 X10^3/uL; Monocyte% 9.6 % (0-10); NRBC Flagged by Analyzer 0 % (0-5); Neutrophil # 5.81 X10^3/uL (2.7-7.7); Neutrophil % 71.2 % (47-70); Platelet Count 232 K/mm3 (150-450); RBC Distribution Width CV 12.2 % (11.6-14.6); RBC Distribution Width SD 42.1 fl (35.1-43.9); White Blood Count 8.2 K/mm3 (4.4-11.0)
[2023-02-20 04:00] VITALS: BP 105/73; PULSE 68; RESP 14; TEMP 36.3; O2SAT 94
[2023-02-20 04:23] LABS: Anion Gap 5 (5-15); BUN 16 mg/dL (7-18); BUN/Creat Ratio 14.3 RATIO (10-20); Calcium,Total 8.4 mg/dL (8.5-10.1); Chloride 106 mmol/L (98-107); Creatinine, Serum 1.12 mg/dL (0.70-1.30); EST Glomerular Filtration Rate 68 mL/min (>60); Est Glom Filt Rate - Afr Amer 83 mL/min (>60); Estimated Creatinine Clearance 70.21 ml/min; Glucose 109 mg/dL (74-106); Potassium 3.5 mmol/L (3.5-5.1); Sodium Level 140 mmol/L (136-145)
[2023-02-20 05:05] VITALS: BMI 32.1
[2023-02-20] MEDS: Potassium Chloride Oral Tablet 10 MEQ PO (07:59)
[2023-02-20] MEDS: Carvedilol 6.25 MG Tablet PO (07:59)
[2023-02-20] MEDS: TICAGRELOR 90 MG TABLET PO (07:59)
[2023-02-20] MEDS: Aspirin 81 MG TAB.CHEW PO (07:59)
[2023-02-20 08:09] VITALS: O2SAT 94
[2023-02-20 09:00] VITALS: BP 112/72; PULSE 70; RESP 15; TEMP 36.3; O2SAT 95
--- NOTE | 2023-02-20 10:00 | EKG12_ITS ---
Test Reason : STEMI POST PCI Blood Pressure : / mmHG Vent. Rate : 070 BPM Atrial Rate : 070 BPM P-R Int : 204 ms QRS Dur : 128 ms QT Int : 430 ms P-R-T Axes : 057 018 068 degrees QTc Int : 464 ms Normal sinus rhythm Non-specific intra-ventricular conduction block Inferior infarct , possibly acute Lateral injury pattern ACUTE [place] / STEMI Abnormal ECG When compared with ECG of 08-APR-2014 13:05, QRS duration has increased Inferior infarct is now Present ST elevation now present in Inferior leads Non-specific change in ST segment in Lateral leads Confirmed by MARRY MORALES, RICARDO ([id number]), social media editor ELIZA VELASQUEZ ([id number]) on 02/22/2023 9:03:23 AM Referred By: Mame Foss Confirmed By:BRIGHT FOSS MD
--- NOTE | 2023-02-20 13:08 | DCINST_ITS ---
Discharge Instructions Diet Discharge Diet: - (DASH diet) Activity Discharge Activity: Return to Normal Activity Follow Up Care Test Results: Test results from this visit will be discussed in further detail at your follow- up appointment, if applicable. Discharge Plan Admission Admit Date/Time: 02/18/23 15:50 Primary Reason for Your Visit: Heart attack Attending Provider: Merced Willard Primary Care Provider: Calvin Benitez Consulting Providers: Emre Domingo; Mame Foss Instructions Patient Instructions: Coronary Stents, Cardiac Catheterization Dc Additional Instructions / Restrictions: DISCHARGE INSTRUCTIONS PLEASE READ *Please take this with you to your next doctors appointment* -You will be started on an aspirin, statin, carvedilol, and Brilinta -You will stop taking amlodipine and hydrochlorothiazide -You will need to follow-up with cardiology upon discharge. As Dr. Foss does not see patients in the office he can follow with Dr. Blair, please call the office upon discharge to schedule your hospital follow-up appointment ( [phone]) -Please call your primary care provider's office upon discharge to schedule a hospital follow up within 1 week. -For any concerning signs or symptoms please call 911 or proceed to the nearest emergency department Discharge Orders/Prescriptions Prescriptions: New atorvastatin 80 mg Tablet 80 mg PO QHS 30 Days Qty: 30 0RF carvedilol 6.25 mg Tablet 6.25 mg PO BID 30 Days Qty: 60 0RF aspirin 81 mg Tablet,Chewable 81 mg PO BREAKFAST 30 Days Qty: 30 0RF Brilinta 90 mg Tablet 90 mg PO BID 30 Days Qty: 60 0RF Continued potassium chloride [Klor-Con 10] 10 MEQ tablet extended release 10 meq PO DAILY Discontinued hydrochlorothiazide 25 MG tablet 25 mg PO DAILY amlodipine 10 mg tablet Referrals / Follow Up: Ilya Blair MD [Med Staff - Active Staff] - Within 2 Weeks (-You will need to follow-up with cardiology upon discharge. As Dr. Foss does not see patients in the office he can follow with Dr. Blair, please call the office upon discharge to schedule your hospital follow-up appointment ( [phone])) Calvin Benitez MD [Primary Care Provider] - Within 1 Week Disposition Disposition (needs filled in before D/C Order can be placed): Home, Self Care
[2023-02-20 13:12] VITALS: BP 122/74; PULSE 72; RESP 18; TEMP 36.4; O2SAT 92
--- NOTE | 2023-02-20 13:12 | DS.PCM_ITS ---
Providers Date of Admission: 02/18/23 Date of Discharge: 02/20/23 Primary Care Physician: Dr. Calvin Benitez MD Consultations 02/18/23 16:20 Consult: Cardiology Stat Consulting Provider: Mame Foss Reason for Consult: Chest Pain EMERGENT Consult: No MD Notified: Yes Date Notified: 02/18/23 Time Notified: 15:20 Method of Notification: ED Physician Initiated Reason For Visit: ANTEROINFERIOR WALL STEMI Diagnosis Discharge Diagnosis (1) Acute ST elevation myocardial infarction (STEMI): Status: Acute Code(s): I21.3 - ST elevation (STEMI) myocardial infarction of unspecified site Qualifiers: Involved coronary artery: unspecified coronary artery Qualified Code(s): I21.3 - ST elevation (STEMI) myocardial infarction of unspecified site Plan #Anterior inferior wall STEMI #CAD s/p JAVI 2/2 #1 #Hypertension Medications at Discharge Home Medications potassium chloride 10 mEq tablet,extended release (Klor-Con) 10 meq PO DAILY 04/08/14 aspirin 81 mg chewable tablet 81 mg PO BREAKFAST 30 days #30 tabs 02/20/23 atorvastatin 80 mg tablet 80 mg PO QHS 30 days #30 tabs 02/20/23 carvedilol 6.25 mg tablet 6.25 mg PO BID 30 days #60 tabs 02/20/23 ticagrelor 90 mg tablet (Brilinta) 90 mg PO BID 30 days #60 tabs 02/20/23 Hospital Course Procedures Cardiac catheterization Summary of Care Provided Minutes Spent on Discharge: 32 Hospital Course: 72-year-old male with past medical history of hypertension presented to the emergency department 02/18/2023 with chest pressure for 1 hour prior to arrival while he was mowing his lawn. EKG showed ST elevation in V4 through V6, 2 3 and aVF and about [address] depression in V1, V2, and aVR and patient was taken [facility] from ER for STEMI alert. Treated with thrombectomy and JAVI to RCA 02/18 and was started on medication management. Echocardiogram with inferior hypokinesis with EF of 55%. Patient did have some extraventricular beats on telemetry and was managed with beta-sammy and medication management. On day of discharge patient had no complaints. No chest pain or shortness of breath and reports his legs and swelling are back to normal. Discharge instructions as follows: -You will be started on an aspirin, statin, carvedilol, and Brilinta -You will stop taking amlodipine and hydrochlorothiazide -You will need to follow-up with cardiology upon discharge. As Dr. Foss does not see patients in the office he can follow with Dr. Blair, please call the office upon discharge to schedule your hospital follow-up appointment ) -Please call your primary care provider's office upon discharge to schedule a hospital follow up within 1 week. -For any concerning signs or symptoms please call 911 or proceed to the nearest emergency department Physical Exam Narrative General: Alert, oriented, no apparent distress HEENT: Atraumatic, normocephalic Eyes: Anicteric, normal conjunctiva, extraocular movements grossly intact Neck: Supple Respiratory: Clear to auscultation bilaterally, normal respiratory effort Cardiovascular: Regular rate and rhythm GI: Soft, nontender, nondistended Extremities: Trace LE edema Musculoskeletal: Moving all extremities Neuro: No overt focal neurological deficits Skin: No rashes appreciated Psych: Cooperative Weight / BMI Weight Weight: 117 kg Body Mass Index (BMI) 32.1 ABG / Lab / Microbiology Data 02/20/23 03:50 02/20/23 03:50 Laboratory: Laboratory Results - last 24 hr 02/20/23 03:50: WBC 8.2, RBC 4.20 L, Hgb 13.5, Hct 39.3 L, MCV 93.6, MCH 32.1 H, MCHC 34.4, RDW Std Deviation 42.1, RDW Coeff of Shante 12.2, Plt Count 232, MPV 9.4, Immature Gran % (Auto) 0.400, Neut % (Auto) 71.2 H, Lymph % (Auto) 16.5 L, [place] % (Auto) 9.6, Eos % (Auto) 1.8, Baso % (Auto) 0.5, Absolute Neuts (auto) 5.8, Absolute Lymphs (auto) 1.35, Nucleated RBC % 0, Sodium 140, Potassium 3.5, Chloride 106, Carbon Dioxide 29.0, Anion Gap 5, BUN 16, Creatinine 1.12, Estim Creat Clear Calc 70.21, Est GFR (MDRD) Af Amer 83, Est GFR (MDRD) Non-Af 68, BUN/Creatinine Ratio 14.3, Glucose 109 H, Calcium 8.4 L D/C Instructions Discharge Diet: - (DASH diet) Meaningful Use Info Meaningful Use Diagnoses (Choose all that apply): AMI AMI/Post PCI/Angioplasty Aspirin given w/in 24hrs of arrival?: Yes ASA at discharge?: Yes Antiplatelet Therapy at Discharge:: Yes Statins at discharge?: Yes Chad/ARB at discharge?: No Reason Chad/ARB not ordered:: Hypotension Beta Sammy at discharge?: Yes Done w/ Acute NV measure.: Yes Documented LVEF (%): 55 Discharge Plan Admission Admit Date/Time: 02/18/23 15:50 Primary Reason for Your Visit: Heart attack Attending Provider: Merced Willard Primary Care Provider: Calvin Benitez Consulting Providers: Emre Domingo; Mame Foss Instructions Patient Instructions: Coronary Stents, Cardiac Catheterization Dc Additional Instructions / Restrictions: DISCHARGE INSTRUCTIONS PLEASE READ *Please take this with you to your next doctors appointment* -You will be started on an aspirin, statin, carvedilol, and Brilinta -You will stop taking amlodipine and hydrochlorothiazide -You will need to follow-up with cardiology upon discharge. As Dr. Foss does not see patients in the office he can follow with Dr. Blair, please call the office upon discharge to schedule your hospital follow-up appointment ) -Please call your primary care provider's office upon discharge to schedule a hospital follow up within 1 week. -For any concerning signs or symptoms please call 911 or proceed to the nearest emergency department Discharge Orders/Prescriptions Prescriptions: New atorvastatin 80 mg Tablet 80 mg PO QHS 30 Days Qty: 30 0RF carvedilol 6.25 mg Tablet 6.25 mg PO BID 30 Days Qty: 60 0RF aspirin 81 mg Tablet,Chewable 81 mg PO BREAKFAST 30 Days Qty: 30 0RF Brilinta 90 mg Tablet 90 mg PO BID 30 Days Qty: 60 0RF Continued potassium chloride [Klor-Con 10] 10 MEQ tablet extended release 10 meq PO DAILY Discontinued hydrochlorothiazide 25 MG tablet 25 mg PO DAILY amlodipine 10 mg tablet Referrals / Follow Up: Ilya Blair MD [Med Staff - Active Staff] - Within 2 Weeks (-You will need to follow-up with cardiology upon discharge. As Dr. Foss does not see patients in the office he can follow with Dr. Blair, please call the office upon discharge to schedule your hospital follow-up appointment (ph [phone])) Calvin Benitez MD [Primary Care Provider] - Within 1 Week Disposition Disposition (needs filled in before D/C Order can be placed): Home, Self Care Charges/Coding Visit Charges Inpatient E&M: 12427 Disch Hosp >30min
== END 2023-02-20 13:40 | disposition home or self-care (01) | DRG 247 ==
LOC: ED 15:38 → ICU 16:03
PROVIDERS: Admitting Provider Internal Medicine; Emergency Provider Emergency Medicine; PCP Family Medicine; Referring Provider Specialist; Visit Provider Internal Medicine
DX: I21.11 ST elevation (STEMI) myocardial infarction involving right coronary artery (principal); I47.29 Other ventricular tachycardia; I10 Essential (primary) hypertension; I25.10 Atherosclerotic heart disease of native coronary artery without angina pectoris; E66.9 Obesity, unspecified; Z68.31 Body mass index [BMI] 31.0-31.9, adult
CPT/HCPCS: 71045; 80048; 80053; 80061; 80076; 83036; 83735; 84100; 84443; 84484; 85025; 85027; 85610; 85730; 92941; 93005; 93306; 93454; 94762; 99285; C1757; C1874; J7030; Q9967; A4216; C1725; C1769; C1887; C1894; C9606; J1327

== ENCOUNTER → 2023-08-09 | Outpatient (CLI) | payer MEDICARE, SELFPAY ==
--- OUTSIDE RECORDS SUMMARY | 2023-08-09 16:36 | XMS RPT_ITS | CCD ---
Author Name Unknown Address [address] [place] [address] Organization [facility] Care Team Providers Care 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 Name Role Phone Thi Benitez MD Primary Care Provider [phone] THI BENITEZ Referring Unavailable DOLLY, THI Eagle Primary Care Unavailable THI BENITEZ Attending Unavailable DOLLY, THI Eagle Primary Care Unavailable DOLLY, THI Eagle Attending Unavailable DOLLY, THI Eagle Primary Care Unavailable DOLLY, THI Eagle Referring Unavailable DOLLY, THI Eagle Primary Care Unavailable DOLLY, THI Eagle Attending Unavailable THI BENITEZ Primary Care Unavailable DOLLY, THI Eagle Primary Care Unavailable LEATHA ZARAGOZA Referring Unavailable DOLLY, THI Eagle Primary Care Unavailable DOLLY, THI Eagle Attending Unavailable DOLLY, THI Eagle Primary Care Unavailable HAAGEN, LEATHA Referring Unavailable DOLLY, THI Eagle Primary Care Unavailable LEATHA ZARAGOZA Attending Unavailable HAAGEN, LEATHA Referring Unavailable DOLLY, THI Eagle Primary Care Unavailable DOLLY, THI Eagle Primary Care Unavailable LEATHA ZARAGOZA Attending Unavailable Brayden STEVEN Attending Unavailable DOLLY, THI Eagle Primary Care Unavailable DOLLY, THI Eagle Primary Care Unavailable LEATHA ZARAGOZA Attending Unavailable Medications Current Medications Medication Drug Class(es) Dates Sig (Normalized) Sig (Original) azithromycin 250 mg oral tablet (1 source) Macrolide Antimicrobial Start: 07-03-2022 End: 07-08-2022 azithromycin (ZITHROMAX Z-MAXIMINO) 250 mg tablet Take 2 tablets day one, then, 1 tablet daily until gone. 6 tablet 0 07/03/2022 07/08/2022 Active Completed/Discontinued Medications Medication Drug Class(es) Dates Sig (Normalized) Sig (Original) [id number] 200 actuat albuterol 0.09 mg/actuat metered dose inhaler (10 sources) beta2-Adrenergic Agonist Start: 12-01-2021 End: 07-27-2022 take 2 puff(s) by inhalation every four hours as needed for wheezing albuterol HFA (VENTOLIN HFA) 90 mcg/actuation inhaler Indications: SOB (shortness of breath) Inhale 2 Puffs as instructed every 4 hours as needed for wheezing/shortness of breath. 1 Each 1 06/29/2022 07/27/2022 Discontinued (Other) Problems Active Problems Problem Classification Problem Date Documented Da te Episodic/Chronic Anxiety disorders (3 sources) Mixed anxiety and depressive disorder; Translations: [Other specified anxiety disorders] Onset: 02-23-2023 02-23-2023 Chronic Aortic; peripheral; and visceral artery aneurysms (16 sources) Dilatation of aorta; Translations: [Aortic ectasia, unspecified site] Onset: 08-04-2022 Chronic Chronic obstructive pulmonary disease and bronchiectasis (1 source) Bronchitis; Translations: [Bronchitis, not specified as acute or chronic] Episodic Coronary atherosclerosis and other heart disease (10 sources) Coronary arteriosclerosis; Translations: [Atherosclerotic heart disease of [place] coronary artery without angina pectoris] Onset: 02-23-2023 02-23-2023 Chronic Disorders of lipid metabolism (20 sources) Mixed hyperlipidemia; Translations: [Mixed hyperlipidemia] Onset: 12-01-2021 Chronic Essential hypertension (20 sources) Benign essential hypertension; Translations: [Essential (primary) hypertension] Onset: 05-25-2005 Chronic Fluid and electrolyte disorders (3 sources) Hypokalemia; Translations: [Hypokalemia] Episodic Hyperplasia of prostate (20 sources) Benign prostatic hyperplasia; Translations: [Benign prostatic hyperplasia without lower urinary tract symptoms] Onset: 09-04-2013 09-04-2013 Chronic Immunizations and screening for infectious disease (1 source) Encounter for immunization; Translations: [Encounter for immunization] Onset: 05-04-2023 Episodic Other connective tissue disease (2 sources) Swelling of bilateral feet; Translations: [Other specified soft tissue disorders] Episodic Other ear and sense organ disorders (1 source) Impacted cerumen, left ear; Translations: [Impacted cerumen of left ear] Onset: 07-17-2023 Episodic Other lower respiratory disease (3 sources) Dyspnea; Translations: [Shortness of breath] Episodic Other lower respiratory disease (1 source) Wheezing; Translations: [Wheezing] Episodic Other lower respiratory disease (1 source) Cough; Translations: [Acute cough] Episodic Other male genital disorders (20 sources) Induratio penis plastica; 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 Other male genital disorders (1 source) Induration penis plastica; 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] Onset: 09-04-2013 Chronic Other non-traumatic joint disorders (1 source) Joint pain; Translations: [Pain in unspecified joint] Episodic Other screening for suspected conditions (not mental disorders or infectious disease) (2 sources) Patient encounter status; Translations: [Encounter for screening for malignant neoplasm of prostate] Episodic Other skin disorders (1 source) Skin lesion; Translations: [Disorder of the skin and subcutaneous tissue, unspecified] Episodic Residual codes; unclassified (1 source) Influenza-like symptoms; Translations: [Other general symptoms and signs] Episodic Past or Other Problems Problem Classification Problem Date Documented Da te Episodic/Chronic Abdominal hernia (20 sources) Left inguinal hernia ; Translations: [Unilateral inguinal hernia, without obstruction or gangrene, not specified as recurrent] Onset: 11-15-2011 11-15-2011 Episodic Genitourinary symptoms and ill-defined conditions (14 sources) Urgent desire to urinate; Translations: [Urgency of urination] Onset: 09-04-2013 09-04-2013 Episodic Other connective tissue disease (1 source) Other specified soft tissue disorders; Translations: [Bilateral swelling of feet] Onset: 08-03-2022 Episodic Other non-epithelial cancer of skin (20 sources) History of malignant neoplasm of skin; Translations: [Personal history of other malignant neoplasm of skin] Onset: 05-20-2021 Episodic Results Test Name Value Interpretation Reference Range Facil ity Vital Signs Date Time Vital Sign Value Performing Clinician Faci litmarcelino 05-22-2023 15:50-0400 Body weight 100.61 kg Leatha Zaragoza APRN.CNP Work Phone: [facility] 05-22-2023 15:50-0400 Diastolic blood pressure 82 mm[Hg] Leatha Zaragoza APRN.CNP Work Phone: [facility] 05-22-2023 15:50-0400 Heart rate 52 /min Leatha Zaragoza APRN.CNP Work Phone: [facility] 05-22-2023 15:50-0400 Respiratory rate 16 /min Leatha Zaragoza VESSEL OPERATOR.AIRCRAFT MAINTENANCE ENGINEER Work Phone: [facility] 05-22-2023 15:50-0400 SaO2% (BldA) [Mass fraction] 97 % Leatha Zaragoza VESSEL OPERATOR.AIRCRAFT MAINTENANCE ENGINEER Work Phone: [facility] 05-22-2023 15:50-0400 Systolic blood pressure 136 mm[Hg] Leatha Zaragoza VESSEL OPERATOR.AIRCRAFT MAINTENANCE ENGINEER Work Phone: [facility] 05-04-2023 16:46-0400 Diastolic blood pressure 76 mm[Hg] Thi Benitez MD Work Phone: [facility] 05-04-2023 16:46-0400 Systolic blood pressure 144 mm[Hg] Thi Benitez MD Work Phone: [facility] 05-04-2023 16:27-0400 Body weight 102.51 kg Thi Benitez MD Work Phone: [facility] 05-04-2023 16:27-0400 Heart rate 60 /min Thi Benitez MD Work Phone: [facility] 03-22-2023 16:31-0400 Body height 185.4 cm Thi Benitez MD Work Phone: [facility] 03-22-2023 16:31-0400 Body weight 107.05 kg Thi Benitez MD Work Phone: [facility] 03-22-2023 16:31-0400 Diastolic blood pressure 74 mm[Hg] Thi Benitez MD Work Phone: [facility] 03-22-2023 16:31-0400 Heart rate 51 /min Thi Benitez MD Work Phone: [facility] 03-22-2023 16:31-0400 Systolic blood pressure 158 mm[Hg] Thi Benitez MD Work Phone: [facility] 02-23-2023 14:58-0400 Diastolic blood pressure 86 mm[Hg] Thi Benitez MD Work Phone: [facility] 02-23-2023 14:58-0400 Systolic blood pressure 139 mm[Hg] Thi Benitez MD Work Phone: [facility] 02-23-2023 14:55-0400 Heart rate 64 /min Thi Benitez MD Work Phone: [facility] 02-23-2023 14:39-0400 Body weight 114.31 kg Thi Benitez MD Work Phone: [facility] 02-23-2023 14:39-0400 SaO2% (BldA) [Mass fraction] 97 % Thi Benitez MD Work Phone: [facility] 08-15-2022 17:40-0500 Diastolic blood pressure 72 mm[Hg] Leatha Haagen VESSEL OPERATOR.AIRCRAFT MAINTENANCE ENGINEER Work Phone: [facility] 08-15-2022 17:40-0500 Systolic blood pressure 132 mm[Hg] Leatha Haagen VESSEL OPERATOR.AIRCRAFT MAINTENANCE ENGINEER Work Phone: [facility] 08-15-2022 15:51-0500 Body weight 113.4 kg Leatha Haagen VESSEL OPERATOR.AIRCRAFT MAINTENANCE ENGINEER Work Phone: [facility] 08-15-2022 15:51-0500 Heart rate 71 /min Leatha Haagen VESSEL OPERATOR.AIRCRAFT MAINTENANCE ENGINEER Work Phone: [facility] 08-15-2022 15:51-0500 Respiratory rate 18 /min Leatha Haagen VESSEL OPERATOR.AIRCRAFT MAINTENANCE ENGINEER Work Phone: [facility] 08-15-2022 15:51-0500 SaO2% (BldA) [Mass fraction] 97 % Leatha Haagen VESSEL OPERATOR.AIRCRAFT MAINTENANCE ENGINEER Work Phone: [facility] 07-27-2022 08:17-0500 Diastolic blood pressure 81 mm[Hg] Leatha Haagen VESSEL OPERATOR.AIRCRAFT MAINTENANCE ENGINEER Work Phone: [facility] 07-27-2022 08:17-0500 Heart rate 60 /min Leatha Haagen VESSEL OPERATOR.AIRCRAFT MAINTENANCE ENGINEER Work Phone: [facility] 07-27-2022 08:17-0500 Systolic blood pressure 133 mm[Hg] Leatha Haagen VESSEL OPERATOR.AIRCRAFT MAINTENANCE ENGINEER Work Phone: [facility] 07-27-2022 08:13-0500 Body weight 114.31 kg Leatha Hakaren VESSEL OPERATOR.AIRCRAFT MAINTENANCE ENGINEER Work Phone: [facility] 07-27-2022 08:13-0500 Respiratory rate 18 /min Leatha Mila VESSEL OPERATOR.AIRCRAFT MAINTENANCE ENGINEER Work Phone: [facility] 07-27-2022 08:13-0500 SaO2% (BldA) [Mass fraction] 94 % Leatha Hakaren VESSEL OPERATOR.AIRCRAFT MAINTENANCE ENGINEER Work Phone: [facility] 07-10-2022 14:56-0500 Body weight 115.21 kg Thi Benitez MD Work Phone: [facility] 07-10-2022 14:56-0500 Diastolic blood pressure 72 mm[Hg] Thi Benitez MD Work Phone: [facility] 07-10-2022 14:56-0500 Heart rate 83 /min Thi Benitez MD Work Phone: [facility] 07-10-2022 14:56-0500 SaO2% (BldA) [Mass fraction] 97 % Thi Benitez MD Work Phone: [facility] 07-10-2022 14:56-0500 Systolic blood pressure 158 mm[Hg] Thi Benitez MD Work Phone: [facility] 06-29-2022 16:57-0500 Diastolic blood pressure 82 mm[Hg] Nannette Denbow PA-C Work Phone: [facility] 06-29-2022 16:57-0500 Systolic blood pressure 162 mm[Hg] Nannette Denbow PA-C Work Phone: [facility] 06-29-2022 16:38-0500 Body temperature 97.9 [degF] Nannette Denbow PA-C Work Phone: [facility] 06-29-2022 16:38-0500 Body weight 117.39 kg Nannette Denbow PA-C Work Phone: [facility] 06-29-2022 16:38-0500 Heart rate 83 /min Nannette Denbow PA-C Work Phone: [facility] 06-29-2022 16:38-0500 Respiratory rate 20 /min Nannette Denbow PA-C Work Phone: [facility] 06-29-2022 16:38-0500 SaO2% (BldA) [Mass fraction] 94 % Nannette Denbow PA-C Work Phone: [facility] 05-30-2022 16:43-0500 Body height 185.4 cm Thi Benitez MD Work Phone: [facility] 05-30-2022 16:43-0500 Body weight 113.85 kg Thi Benitez MD Work Phone: [facility] 05-30-2022 16:43-0500 Diastolic blood pressure 88 mm[Hg] Thi Benitez MD Work Phone: [facility] 05-30-2022 16:43-0500 Heart rate 54 /min Thi Benitez MD Work Phone: [facility] 05-30-2022 16:43-0500 SaO2% (BldA) [Mass fraction] 99 % Thi Benitez MD Work Phone: [facility] 05-30-2022 16:43-0500 Systolic blood pressure 146 mm[Hg] Thi Benitez MD Work Phone: [facility] 12-15-2021 16:40-0400 Body weight 111.13 kg hTi Benitez MD Work Phone: [facility] 12-15-2021 16:40-0400 Diastolic blood pressure 82 mm[Hg] Thi Benitez MD Work Phone: [facility] 12-15-2021 16:40-0400 Heart rate 64 /min Thi Benitez MD Work Phone: [facility] 12-15-2021 16:40-0400 Systolic blood pressure 132 mm[Hg] Thi Benitez MD Work Phone: [facility] 12-01-2021 08:20-0400 Body weight 113.85 kg Thi Benitez MD Work Phone: [facility] 12-01-2021 08:20-0400 Diastolic blood pressure 82 mm[Hg] Thi Benitez MD Work Phone: [facility] 12-01-2021 08:20-0400 Heart rate 67 /min Thi Benitez MD Work Phone: [facility] 12-01-2021 08:20-0400 SaO2% (BldA) [Mass fraction] 98 % Thi Benitez MD Work Phone: [facility] 12-01-2021 08:20-0400 Systolic blood pressure 132 mm[Hg] Thi Benitez MD Work Phone: [facility] 11-18-2021 16:00-0400 Body weight 115.21 kg Thi Benitez MD Work Phone: [facility] 11-18-2021 16:00-0400 Diastolic blood pressure 88 mm[Hg] Thi Benitez MD Work Phone: [facility] 11-18-2021 16:00-0400 Heart rate 72 /min Thi Benitez MD Work Phone: [facility] 11-18-2021 16:00-0400 Systolic blood pressure 138 mm[Hg] Thi Benitez MD Work Phone: [facility] Encounters Encounter Date Encounter Type Care Provider Facility Start: 07-17-2023 End: 07-18-2023 ambulatory Brayden STEVEN Facility:[facility] Start: 05-22-2023 End: 05-23-2023 ambulatory THI BENITEZ Facility:[facility] Start: 05-22-2023 End: 05-22-2023 Office outpatient visit 15 minutes Leatha Zaragoza APRN.CNP Work Phone: [facility] Procedures Date Procedure Procedure Detail Performing Clinician Start: 05-04-2023 INFLUENZA VACCINE, P RSV FREE, AGE 65+ YR, HIGH DOSE, QUADRIVALENT (FLUZONE HIGH-DOSE) Thi Benitez MD Work Phone: Start: 08-21-2022 Lipid 1996 panel - S tamir or Plasma Thi Benitez MD Work Phone: Start: 11-18-2021 Adult depression scr eening assessment Thi Benitez MD Work Phone: Start: 04-03-2018 Colonoscopy Thi Liu MD Work Phone: Plan of Treatment Date Care Activity Detail Author Start: 08-21-2027 Lipid 1996 panel - S tamir or Plasma Lipid Screening [facility] Start: 08-21-2027 LIPID SCREEN LIPID SCREEN [facility] Start: 11-30-2026 LIPID SCREEN LIPID SCREEN [facility] Start: 02-27-2026 DIABETES SCREEN DIABETES SCREEN [facility] Start: 02-27-2026 Diabetes Screening Diabetes Screenin g [facility] Start: 08-21-2025 DIABETES SCREEN DIABETES SCREEN [facility] Start: 06-22-2025 DIABETES SCREEN DIABETES SCREEN [facility] Start: 11-30-2024 DIABETES SCREEN DIABETES SCREEN [facility] Start: 05-22-2024 Annual PCP Team Microsoft Architect faye Disease Visit Annual PCP Team Chronic Disease Visit [facility] Start: 05-04-2024 Annual PCP Team [employer] Architect faye Disease Visit Annual PCP Team Chronic Disease Visit [facility] Start: 03-22-2024 ANNUAL PCP TEAM VALUATION CONSULTANT FAYE DISEASE VISIT ANNUAL PCP TEAM CHRONIC DISEASE VISIT [facility] Start: 03-22-2024 COVID-19 VACCINE (5 - Pfizer series) COVID-19 VACCINE (5 - Pfizer series) [facility] Immunizations Immunization Date Immunization Notes Care Provider Fa sal 05-04-2023 influenza (HD-IIV4) vaccine, age 65+ yr, high dose, quadrivalent, PF (FLUZONE HIGH-DOSE) Thi Benitez MD Work Phone: [facility] 05-02-2022 influenza, high-dose , quadrivalent vaccine (FLUZONE HIGH DOSE QUADRIVALENT) Thi Benitez MD Work Phone: [facility] 05-02-2022 influenza virus vacc ine, unspecified formulation Thi Benitez MD Work Phone: [facility] 05-19-2021 COVID-19 vaccine, ag e 12+ yr (3Touch - PURPLE TOP) Thi Benitez MD Work Phone: [facility] 05-19-2021 influenza, high dose seasonal, preservative-free Thi Benitez MD Work Phone: [facility] 09-28-2020 COVID-19 vaccine, ag e 12+ yr (PFIZER-BIONTECH - PURPLE TOP) Thi Benitez MD Work Phone: [facility] 09-08-2020 COVID-19 vaccine, ag e 12+ yr (PFIZER-BIONTECH - PURPLE TOP) Thi Benitez MD Work Phone: [facility] 06-04-2020 influenza (aIIV4) vaccine, age 65+ yr, quadrivalent, PF (FLUAD QUADRIVALENT) Thi Benitez MD Work Phone: [facility] 06-04-2020 influenza, high dose seasonal, preservative-free Thi Benitez MD Work Phone: [facility] 06-07-2019 influenza, high dose seasonal, preservative-free Thi Benitez MD Work Phone: [facility] 07-04-2018 influenza, high dose seasonal, preservative-free Thi Benitez MD Work Phone: [facility] Work Phone: 10-02-2016 pneumococcal polysaccharide vaccine, 23 valent Thi Benitez MD Work Phone: [facility] Work Phone: 02-15-2015 pneumococcal conjuga te vaccine, 13 valent Thi Benitez MD Work Phone: [facility] 08-19-2014 influenza, high dose seasonal, preservative-free Thi Benitez MD Work Phone: [facility] 08-06-2013 zoster vaccine, live Thi Benitez MD Work Phone: [facility] 06-20-2013 influenza virus vacc ine, unspecified formulation Thi Benitez MD Work Phone: [facility] 06-20-2013 tetanus toxoid, redu amber diphtheria toxoid, and acellular pertussis vaccine, adsorbed Thi Benitez MD Work Phone: [facility] 06-18-2007 influenza virus vacc ine, unspecified formulation Thi Benitez MD Work Phone: [facility] Work Phone: 06-09-2003 diphtheria and tetan us toxoids, adsorbed for pediatric use Thi Benitez MD Work Phone: [facility] Work Phone: Payers Date Payer Category Payer Unknown [employer] O [id number] 2021-Present [phone] [id number] O [id number] 2021 Unknown ANTHEM [employer] BLUE [employer]IELD ANTHEM MEDIBLUE O [id number] 2021-Present [id number] [place], [place] [id number] O [id number] 2021 Unknown [id number] Social History Date Type Detail Facility Start: 02-11-2014 Tobacco smoking stat [facility] Never smoked tobacco [facility] Start: 11-18-2021 End: 05-22-2023 Alcohol intake Current drinker of alcohol (finding) [facility] Start: 1950 Sex Assigned At Not on file [facility] Start: 11-19-2021 End: 05-30-2022 Exposure to SARS-CoV-2 (event) Not sure [facility] Work Phone: Start: 02-11-2014 Tobacco use and exposure Smokeless tobacco non-user [facility] Start: 12-30-2022 End: 02-23-2023 History of Social function [facility] Work Phone: Start: 12-30-2022 End: 02-23-2023 Tobacco use panel [facility] Work Phone: Adult Depression Screening Assessment 0 [facility] Work Phone: Medical Equipment Procedure Code Equipment Code Equipment Origin al Text Equipment Identifier Dates Mesh Srg Flat Te c 6x6in [facility] - [id number] Start: 12-27-2011 Clinical Notes 05-20-2021 to 07-18-2023 Patient InstructionsLeatha Zaragoza APRN.DANII - 05/22/2023 4:02 PM Thi Hart MD - 05/04/2023 4:25 PM EDTTelephone Encounter - Claudia Balderas - 04/04/2023 9:58 AM EDTPatient Instructions Note Date & Type Note Facility 07-18-2023 Note Patient Outreach (RENEE TNAV) FREEMAN SARABIA ([id number]) 1950 M Date Time Provider Department 07/18/23 BECKY ORTIZ During your visit today, we recorded the following information about you: Becky Ortiz, PLACIDO 07/18/2023 1:47 PM Signed POPULATION HEALTH NAVIGATION OUTREACH Action/ Pt due for: PCP Follow-up in 6 months. Colonoscopy AD LM, sent mychart message Patient Identified by Name and : NO Outreach Outcome/Action Unable to reach patient: Left message MyChart message sent Advance Directives sent Did you use a PCP flex slot to schedule this appointment? N/A Reason for Outreach Care Gap or Scheduling/Wellness visits Payer: Payor: [employer]IELD / Plan: [employer]M MED[employer] HMO / Product Type: HMO / Care Gap Reviewed:: Follow-up appointment Colorectal Cancer Screening Reminder: Reminder note to check Health Maintenance for items below Health Maintenance items due: RSV Vaccine(1 - 1-dose 60+ series) Never done BP Controlled (<130/80) due on 03/18/2019 Advance Directive Discussion due on 07/23/2022 Covid-19 Vaccine( season) due on 03/23/2023 Colorectal Cancer Screening due on 04/03/2023 DTaP,Tdap,Td Vaccine(3 - Td or Tdap) due on 06/20/2023 Navigation Signature: PLACIDO Carmona July 18, 2023 10:28 AM Allergies As of Date: 07/18/2023 (No Known Allergies) Date Reviewed: 07/17/2023 Reviewed by: Nannette Cuadra MA - Fully Assessed Reason for Visit: Population Health Navigation Outreach [3910] Cmt: [facility] Prescriptions as of 07/18/2023 - losartan (COZAAR) 100 mg tablet Take 1 tablet by mouth once daily. - sertraline (ZOLOFT) 50 mg tablet Take 1/2 tab once a day orally for one week then 1 tab once a day - aspirin 81 mg chewable tablet Take 81 mg by mouth once daily. - atorvastatin (LIPITOR) 80 mg tablet Take 80 mg by mouth once daily. - carvedilol (COREG) 6.25 mg tablet Take 1 tablet by mouth every 12 hours. - BRILINTA 90 mg tablet Take 1 tablet by mouth every 12 hours. - Cholecalciferol, Vitamin D3, 25 mcg (1,000 unit) cap Take 1,000 Units by mouth once daily. Facility-Administered Medications as of 07/18/2023 - perflutren lipid microspheres 1.3 mL in NaCl (PF) 0.9% 10 mL injection (DEFINITY) - sodium chloride 0.9 % (flush) 10 mL (BD POSIFLUSH) - perflutren lipid microspheres 1.3 mL in NaCl (PF) 0.9% 10 mL injection (DEFINITY) - sodium chloride 0.9 % (flush) 10 mL (BD POSIFLUSH) Problem List As Of Date 07/18/2023 Noted Resolved ELEV BL PRES W/O HYPERTN [R03.0] 04/22/2005 05/25/2005 Obesity, unspecified [E66.9] 04/22/2005 07/01/2010 BENIGN HYPERTENSION [I10] 05/25/2005 Left inguinal hernia [K40.90] 11/15/2011 Urinary urgency [R39.15] 09/04/2013 12/30/2022 Frequency of urination [R35.0] 09/04/2013 03/18/2018 Nocturia [R35.1] 09/04/2013 03/18/2018 Difficulty voiding [R39.198] 09/04/2013 11/18/2021 Peyronie's disease [N48.6] 09/04/2013 BPH (benign prostatic hyperplasia) [N40.0] 09/04/2013 Special screening for malignant neoplasms, colo*09/24/2014 09/24/2014 Skin cancers [C44.90] 05/20/2021 05/20/2021 History of skin cancer [Z85.828] 05/20/2021 Mixed hyperlipidemia [E78.2] 12/01/2021 Aortic dilatation (HCC) [I77.819] 08/04/2022 Coronary artery disease involving [place] curt[place]*02/23/2023 Nonsustained ventricular tachycardia (HCC) [I47*02/23/2023 02/23/2023 Encounter Status:Closed by BECKY ORTIZ on 07/18/[address] [facility] 07-18-2023 Note HNO ID: [id number] Author: Becky Ortiz PSS Service: ? Author Type: ? Type: Progress Notes Filed: 07/18/2023 1:47 PM Note Text: POPULATION HEALTH NAVIGATION OUTREACH Action/ Pt due for: PCP Follow-up in 6 months. Colonoscopy AD LM, sent mychart message Patient Identified by Name and : NO Outreach Outcome/Action Unable to reach patient: Left message MyChart message sent Advance Directives sent Did you use a PCP flex slot to schedule this appointment? N/A Reason for Outreach Care Gap or Scheduling/Wellness visits Payer: Payor: [employer] AND [employer] / Plan: [employer] HMO / Product Type: HMO / Care Gap Reviewed:: Follow-up appointment Colorectal Cancer Screening Reminder: Reminder note to check Health Maintenance for items below Health Maintenance items due: RSV Vaccine(1 - 1-dose 60+ series) Never done BP Controlled (<130/80) due on 03/18/2019 Advance Directive Discussion due on 07/23/2022 Covid-19 Vaccine( season) due on 03/23/2023 Colorectal Cancer Screening due on 04/03/2023 DTaP,Tdap,Td Vaccine(3 - Td or Tdap) due on 06/20/2023 Navigation Signature: Becky Ortiz, PLACIDO July 18, 2023 10:[address] [facility] 07-17-2023 Note HNO ID: [id number] Author: Brayden Steven PA-C Service: ? Author Type: Physician Shell Assembler Type: Progress Notes Filed: 07/17/2023 7:10 PM Note Text: 72 year old male with c/o Right ear feels plugged over about 2 weeks. Feels a little headache now and then. Covid 1 month ago Coronary artery disease involving [place] coronary artery of [place] heart without angina pectoris (primary encounter diagnosis) Aortic dilatation (hcc) Essential hypertension, benign Mixed hyperlipidemia Cardiovascular interval hx: 02/18/[address] [facility], [place] Cardiac cath intervention: Left main: Mild luminal irregularities LAD: Ectatic vessel, 60% pLAD CX: Mild to moderate disease, saccular aneurysm in the proximal portion RCA: Severely ectatic vessel, 99% thrombotic lesion in distal RCA, 40 to 50% mRPDA Procedure: RCA distal thrombectomy, drug-eluting stent with pre and post dilation, 99% to 0% 02/02/2023: Echocardiogram follow-up ascending aortic aneurysm: LV size and LVSF WNL, EF 64%, mild septal left ventricular hypertrophy, grade 1 ventricular diastolic dysfunction, wall motion also were normal. RV size and RV SF WNL, RVSP underestimated due to weak TR, estimate 30 mmHg, RAP 3 mmHg LA, RA size WNL No significant valvular abnormalities Visualized aorta dilated with maximal dimension of 4.8 cm, no significant change from prior 08/03/2022 echocardiogram, indication shortness of breath: LV size and LV SF WNL, grade 1 left ventricular diastolic dysfunction, ejection fraction 64%. Wall motion all scored normal. RV size and RV SF WNL, IVC not seen. LA, RA size WNL No significant valvular heart disease. Dilated aorta maximum dimension 4.7 cm Current meds: ASA 81 mg chewable tablet daily Atorvastatin 80 mg daily at bedtime Brilinta 90 mg 1 tablet every 12 hours Carvedilol 6.25 mg 1 tab every 12 hours Losartan 100 mg daily Use of NTG: No Chest pain, arm, jaw pain, neck, or upper back pain suggestive of angina: No. SOB: a little- a for a long time, attribute s to smoking parents. Dyspnea with exertion: No orthopnea: No Cough : A little bit racing or irregular heartbeats: No palpitations: No syncopal sx: No Headache: Last week or so: thinks r/t ear pressure. Tylenol helps. Unexplainable fatigue No Leg swelling: No Nausea: No diaphoresis: No Heartburn: No Claudication: No Smoking: No Following Low cholesterol, high fiber diet? Doing pretty well If on statin: muscle aches? No If on statin: GI sx or diarrhea? No Additional history none. Lab review: Component Latest Ref Rng AND Units 08/21/2022 05/22/2023 Protein, Total 6.3 - 8.0 g/dL 6.4 7.0 Albumin 3.9 - 4.9 g/dL 4.0 4.1 Calcium 8.5 - 10.2 mg/dL 9.0 9.5 Bilirubin, Total 0.2 - 1.3 mg/dL 0.4 1.2 Alkaline Phosphatase 38 - 113 U/L 72 111 AST 14 - 40 U/L 22 22 ALT 10 - 54 U/L 23 36 Glucose 74 - 99 mg/dL 97 82 BUN 9 - 24 mg/dL 20 21 Creatinine 0.73 - 1.22 mg/dL 1.12 1.13 Sodium 136 - 144 mmol/L 145 (H) 142 Potassium 3.7 - 5.1 mmol/L 3.5 (L) 4.1 Chloride 97 - 105 mmol/L 106 (H) 106 (H) CO2 22 - 30 mmol/L 29 24 Anion Gap 9 - 18 mmol/L 10 12 eGFR >=60 mL/min/1.73mA? 69 69 Cholesterol, Total <200 mg/dL 183 111 Triglyceride <150 mg/dL 166 (H) 84 HDL Cholesterol >39 mg/dL 31 (L) 34 (L) Non HDL Cholesterol <130 mg/dL 152 (H) 77 Fasting Time hrs 12 13 VLDL Cholesterol <30 mg/dL 33 (H) 17 TC:HDL Ratio <5.10 5.90 (H) 3.26 LDL Cholesterol <100 mg/dL 119 (H) 60 LDL:HDL Ratio <2.54 3.84 (H) 1.76 Bilateral swelling of feet Gone with d/c amlodipine Anxiety with depression Current medications: Sertraline 50 mg one tab daily Started after his heart cath and procedures. Patient states he is not sure why he is on it, does not feel particularly 1 way or the other as to whether it has made a difference. Ask if he could consider weaning it. Benign prostatic hyperplasia without lower urinary tract symptoms Peyronie's disease Urine flow: not so good for a long time Nocturia 2-3 times Waxing and waning PSA Screening (ng/mL) Date Value 06/22/2022 1.08 06/20/2013 0.75 HISTORIES FAMILY HISTORY Problem Relation Age of Onset COPD Mother Smoker Alcohol/Drug Mother COPD Father Smoker Alcohol/Drug Father Arthritis Sister Colon Cancer Sister PAST MEDICAL HISTORY Diagnosis Date BPH (benign prostatic hyperplasia) 09/04/2013 Essential hypertension, benign Family history of colon cancer sister Hyperlipidemia Snoring PAST SURGICAL HISTORY Procedure Laterality Date APPENDECTOMY COLONOSCOPY FLX DX W/COLLJ SPEC WHEN PFRMD 04/03/2018 Colonoscopy PAST SURGICAL HISTORY OF repeair or ear lesion. 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 Devlin RPR 1ST INGUN HRNA AGE 4 YRS/> REDUCIBLE Left 12/27/2011 Hernia repair, inguinal RPR INGUN HERNIA SLIDING ANY AGE Right 12/26/ (more content not included)... [facility] 05-22-2023 Note HNO ID: [id number] Author: Leatha Zaragoza APRN.AIRCRAFT MAINTENANCE ENGINEER Service: ? Author Type: Nurse Practitioner Type: Progress Notes Filed: 05/22/2023 5:26 PM Note Text: This is a 72 year old male who presents today with: Patient presents with: Follow Up: 2 wk BP check HISTORY OF PRESENT ILLNESS: Freeman Sarabia is a 72 year old male. Patient presents with: Follow Up: 2 wk BP check Pt presents today for repeat BP check. Was in to see Dr. Benitez about 2 weeks ago. Increased the losartan to 100 mg daily. HTN: Patient is compliant with meds Yes Monitors bp at home: on occasion. Denies side effects: No. Chest pain: No. Dyspnea: No. Edema: No. Palpitations: No. Syncope: No. Headache: No. Dizziness: No. PAST MEDICAL HISTORY: PAST MEDICAL HISTORY Diagnosis Date BPH (benign prostatic hyperplasia) 09/04/2013 Essential hypertension, benign Family history of colon cancer sister Hyperlipidemia Snoring PAST SURGICAL HISTORY Procedure Laterality Date APPENDECTOMY COLONOSCOPY FLX DX W/COLLJ SPEC WHEN PFRMD 04/03/2018 Colonoscopy PAST SURGICAL HISTORY OF repeair or ear lesion. 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 MEDICATIONS Current Outpatient Medications Medication Sig losartan (COZAAR) 100 mg tablet Take 1 tablet by mouth once daily. sertraline (ZOLOFT) 50 mg tablet Take 1/2 tab once a day orally for one week then 1 tab once a day (Patient taking differently: Take 50 mg by mouth once daily.) aspirin 81 mg chewable tablet Take 81 mg by mouth once daily. atorvastatin (LIPITOR) 80 mg tablet Take 80 mg by mouth once daily. carvedilol (COREG) 6.25 mg tablet Take 1 tablet by mouth every 12 hours. BRILINTA 90 mg tablet Take 1 tablet by mouth every 12 hours. Cholecalciferol, Vitamin D3, 25 mcg (1,000 unit) cap Take 1,000 Units by mouth once daily. Current Facility-Administered Medications Medication Dose Route Frequency perflutren lipid microspheres 1.3 mL in NaCl (PF) 0.9% 10 mL injection (DEFINITY) INTRAVENOUS DIRECTED PRN sodium chloride 0.9 % (flush) 10 mL (BD POSIFLUSH) 10 mL INTRAVENOUS DIRECTED PRN perflutren lipid microspheres 1.3 mL in NaCl (PF) 0.9% 10 mL injection (DEFINITY) INTRAVENOUS DIRECTED PRN sodium chloride 0.9 % (flush) 10 mL (BD POSIFLUSH) 10 mL INTRAVENOUS DIRECTED PRN FAMILY HISTORY Problem Relation Age of Onset COPD Mother Smoker Alcohol/Drug Mother COPD Father Smoker Alcohol/Drug Father Arthritis Sister Colon Cancer Sister Social History Tobacco Use Smoking status: Never Smokeless tobacco: Never Substance Use Topics Alcohol use: Yes Comment: rarely Drug use: No EXAM: BP 136/82 Pulse (!) 52 Resp 16 Wt 100.6 kg (221 lb 12.8 oz) SpO2 97% BMI 29.26 kg/m? 128/82 PHYSICAL EXAM: General Appearance: Well appearing, alert, in no acute distress, well-hydrated, well nourished.. Skin: Skin color, texture, turgor normal, no suspicious rashes or lesions. Head: Normocephalic, no masses, lesions, tenderness or abnormalities. Eyes: Anicteric sclera. Pupils are equally round and reactive to light. Extraocular movements are intact. . Lungs: Lungs clear to auscultation. No wheezing, rhonchi, rales.. Heart: RRR without murmur, gallop, or rubs. No ectopy. Neurologic: Gait normal. ASSESSMENT/PLAN: 1. Essential hypertension, benign - ICD9: 401.1, ICD10: I10 - Controlled - Improving control - Continue current medications - Recommend home blood pressure monitoring, to bring results to next visit - Encouraged sodium restriction, DASH or Mediterranean diet - Recommend regular aerobic exercise Follow-up in June, as scheduled. Discussed treatment plan and patient voices understanding. Patient's questions answered appropriately. Medications and potential side effects were discussed and patient voices understanding. Return to the office as scheduled or as needed for worsening/no improvement. Leatha Zaragoza APRN.CNP [facility] 05-22-2023 Instructions Leatha Zaragoza APRN.CNP - 05/22/2023 4:10 PM EDT Continue the same medication. Keep June appt with Elian. documented in this encounter [facility] 05-22-2023 History of Presen t illness Narrative This is a 72 year old male who presents today with: Patient presents with: Follow Up: 2 wk BP check HISTORY OF PRESENT ILLNESS: Freeman Sarabia is a 72 year old male. Patient presents with: Follow Up: 2 wk BP check Pt presents today for repeat BP check. Was in to see Dr. Benitez about 2 weeks ago. Increased the losartan to 100 mg daily. HTN: Patient is compliant with meds Yes Monitors bp at home: on occasion. Denies side effects: No. Chest pain: No. Dyspnea: No. Edema: No. Palpitations: No. Syncope: No. Headache: No. Dizziness: No. PAST MEDICAL HISTORY: PAST MEDICAL HISTORY Diagnosis Date BPH (benign prostatic hyperplasia) 09/04/2013 Essential hypertension, benign Family history of colon cancer sister Hyperlipidemia Snoring PAST SURGICAL HISTORY Procedure Laterality Date APPENDECTOMY COLONOSCOPY FLX DX W/COLLJ SPEC WHEN PFRMD 04/03/2018 Colonoscopy PAST SURGICAL HISTORY OF repeair or ear lesion. 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 MEDICATIONS Current Outpatient Medications Medication Sig losartan (COZAAR) 100 mg tablet Take 1 tablet by mouth once daily. sertraline (ZOLOFT) 50 mg tablet Take 1/2 tab once a day orally for one week then 1 tab once a day (Patient taking differently: Take 50 mg by mouth once daily.) aspirin 81 mg chewable tablet Take 81 mg by mouth once daily. atorvastatin (LIPITOR) 80 mg tablet Take 80 mg by mouth once daily. carvedilol (COREG) 6.25 mg tablet Take 1 tablet by mouth every 12 hours. BRILINTA 90 mg tablet Take 1 tablet by mouth every 12 hours. Cholecalciferol, Vitamin D3, 25 mcg (1,000 unit) cap Take 1,000 Units by mouth once daily. Current Facility-Administered Medications Medication Dose Route Frequency perflutren lipid microspheres 1.3 mL in NaCl (PF) 0.9% 10 mL injection (DEFINITY) INTRAVENOUS DIRECTED PRN sodium chloride 0.9 % (flush) 10 mL (BD POSIFLUSH) 10 mL INTRAVENOUS DIRECTED PRN perflutren lipid microspheres 1.3 mL in NaCl (PF) 0.9% 10 mL injection (DEFINITY) INTRAVENOUS DIRECTED PRN sodium chloride 0.9 % (flush) 10 mL (BD POSIFLUSH) 10 mL INTRAVENOUS DIRECTED PRN FAMILY HISTORY Problem Relation Age of Onset COPD Mother Smoker Alcohol/Drug Mother COPD Father Smoker Alcohol/Drug Father Arthritis Sister Colon Cancer Sister Social History Tobacco Use Smoking status: Never Smokeless tobacco: Never Substance Use Topics Alcohol use: Yes Comment: rarely Drug use: No EXAM: BP 136/82 Pulse (!) 52 Resp 16 Wt 100.6 kg (221 lb 12.8 oz) SpO2 97% BMI 29.26 kg/m 128/82 PHYSICAL EXAM: General Appearance: Well appearing, alert, in no acute distress, well-hydrated, well nourished.. Skin: Skin color, texture, turgor normal, no suspicious rashes or lesions. Head: Normocephalic, no masses, lesions, tenderness or abnormalities. Eyes: Anicteric sclera. Pupils are equally round and reactive to light. Extraocular movements are intact. . Lungs: Lungs clear to auscultation. No wheezing, rhonchi, rales.. Heart: RRR without murmur, gallop, or rubs. No ectopy. Neurologic: Gait normal. ASSESSMENT/PLAN: 1. Essential hypertension, benign - ICD9: 401.1, ICD10: I10 - Controlled - Improving control - Continue current medications - Recommend home blood pressure monitoring, to bring results to next visit - Encouraged sodium restriction, DASH or Mediterranean diet - Recommend regular aerobic exercise Follow-up in June, as scheduled. Discussed treatment plan and patient voices understanding. Patient's questions answered appropriately. Medications and potential side effects were discussed and patient voices understanding. Return to the office as scheduled or as needed for worsening/no improvement. Leatha Zaragoza APRN.AIRCRAFT MAINTENANCE ENGINEER documented in this encounter [facility] 05-04-2023 Note HNO ID: [id number] Author: Thi Benitez MD Service: ? Author Type: Physician Type: Progress Notes Filed: 05/04/2023 5:00 PM Note Text: Patient presents with: Hypertension HPI: Patient presents today for office visit for follow up. HTN: Patient is compliant with meds Yes Monitors bp at home: Yes. At home has been 150/80's. Denies side effects: Yes. Chest pain: No. Dyspnea: No. Edema: No. Palpitations: No. Syncope: No. Headache: No. Dizziness: No. He has been working on his weight. He is really working down. See previous notes: Discussed importance of keeping his bp tight particularly in light of his aorta. Reviewed with him the fact his heart cath also showed ectatic vessels as well. No family history of aneurysms or things like Marfan's etc. Dicussed that we could consider ct of chest and consider seeing if we could get an us of his abd aorta covered, even though he is not a smoker to rule out further vascular issues. He understands risks but wishes to hold on further testing. MEDICATIONS: Current Outpatient Medications Medication Sig aspirin 81 mg chewable tablet Take 81 mg by mouth once daily. atorvastatin (LIPITOR) 80 mg tablet Take 80 mg by mouth once daily. BRILINTA 90 mg tablet Take 1 tablet by mouth every 12 hours. carvedilol (COREG) 6.25 mg tablet Take 1 tablet by mouth every 12 hours. Cholecalciferol, Vitamin D3, 25 mcg (1,000 unit) cap Take 1,000 Units by mouth once daily. losartan (COZAAR) 50 mg tablet Take 1 tablet by mouth once daily. sertraline (ZOLOFT) 50 mg tablet Take 1/2 tab once a day orally for one week then 1 tab once a day (Patient taking differently: Take 50 mg by mouth once daily.) Current Facility-Administered Medications Medication Dose Route Frequency perflutren lipid microspheres 1.3 mL in NaCl (PF) 0.9% 10 mL injection (DEFINITY) INTRAVENOUS DIRECTED PRN perflutren lipid microspheres 1.3 mL in NaCl (PF) 0.9% 10 mL injection (DEFINITY) INTRAVENOUS DIRECTED PRN sodium chloride 0.9 % (flush) 10 mL (BD POSIFLUSH) 10 mL INTRAVENOUS DIRECTED PRN sodium chloride 0.9 % (flush) 10 mL (BD POSIFLUSH) 10 mL INTRAVENOUS DIRECTED PRN ALLERGIES: ALLERGIES No Known Allergies PAST MEDICAL HISTORY Diagnosis Date BPH (benign prostatic hyperplasia) 09/04/2013 Essential hypertension, benign Family history of colon cancer sister Hyperlipidemia Snoring PAST SURGICAL HISTORY Procedure Laterality Date APPENDECTOMY COLONOSCOPY FLX DX W/COLLJ SPEC WHEN PFRMD 04/03/2018 Colonoscopy PAST SURGICAL HISTORY OF repeair or ear lesion. 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 REVIEW OF SYSTEMS Did restart the zoloft. All other reviewed and negative other than HPI. HEALTH MAINTENANCE: Reviewed health maintenance issues today and recommended the following in detail. BP Controlled (<130/80) due on 03/18/2019 Advance Directive Discussion due on 07/23/2022 Influenza Vaccine(1) due on 03/23/2023 Covid-19 Vaccine( season) due on 03/23/2023 Colorectal Cancer Screening due on 04/03/2023 VITALS: BP 142/82 Pulse 60 Wt 102.5 kg (226 lb) BMI 29.82 kg/m? Last 4 Encounter Wt Readings: Date: Wt: 03/22/2023 107 kg (236 lb) 02/23/2023 114.3 kg (252 lb) 12/30/2022 115.2 kg (254 lb) 08/15/2022 113.4 kg (250 lb) PHYSICAL EXAMINATION: General appearance: Well appearing, alert, in no acute distress, well-hydrated, well nourished. Skin: Skin color, texture, turgor normal, no suspicious rashes or lesions Head: Normocephalic, no masses, lesions, tenderness or abnormalities Lungs: Lungs clear to auscultation. No wheezing, rhonchi, rales Heart: RRR without murmur, gallop, or rubs. No ectopy Abdomen: Normal abdominal exam, Abdomen soft, non-tender. Bowel sounds normal. No masses, organomegaly Extremities: No deformities, edema, skin discoloration, clubbing or cyanosis. Good capillary refill. ASSESSMENT/PLAN: 1. Coronary artery disease involving [place] coronary artery of [place] heart without angina pectoris - ICD9: 414.01, ICD10: I25.10 (primary diagnosis) - continue current meds. See cardiology. 2. Encounter for immunization - ICD9: V03.89, ICD10: Z23 - INFLUENZA VACCINE, PRSV FREE, AGE 65+ YR, HIGH DOSE, QUADR (more content not included)... [facility] 05-04-2023 History of Presen t illness Narrative Patient presents with: Hypertension HPI: Patient presents today for office visit for follow up. HTN: Patient is compliant with meds Yes Monitors bp at home: Yes. At home has been 150/80's. Denies side effects: Yes. Chest pain: No. Dyspnea: No. Edema: No. Palpitations: No. Syncope: No. Headache: No. Dizziness: No. He has been working on his weight. He is really working down. See previous notes: Discussed importance of keeping his bp tight particularly in light of his aorta. Reviewed with him the fact his heart cath also showed ectatic vessels as well. No family history of aneurysms or things like Marfan's etc. Dicussed that we could consider ct of chest and consider seeing if we could get an us of his abd aorta covered, even though he is not a smoker to rule out further vascular issues. He understands risks but wishes to hold on further testing. MEDICATIONS: Current Outpatient Medications Medication Sig aspirin 81 mg chewable tablet Take 81 mg by mouth once daily. atorvastatin (LIPITOR) 80 mg tablet Take 80 mg by mouth once daily. BRILINTA 90 mg tablet Take 1 tablet by mouth every 12 hours. carvedilol (COREG) 6.25 mg tablet Take 1 tablet by mouth every 12 hours. Cholecalciferol, Vitamin D3, 25 mcg (1,000 unit) cap Take 1,000 Units by mouth once daily. losartan (COZAAR) 50 mg tablet Take 1 tablet by mouth once daily. sertraline (ZOLOFT) 50 mg tablet Take 1/2 tab once a day orally for one week then 1 tab once a day (Patient taking differently: Take 50 mg by mouth once daily.) Current Facility-Administered Medications Medication Dose Route Frequency perflutren lipid microspheres 1.3 mL in NaCl (PF) 0.9% 10 mL injection (DEFINITY) INTRAVENOUS DIRECTED PRN perflutren lipid microspheres 1.3 mL in NaCl (PF) 0.9% 10 mL injection (DEFINITY) INTRAVENOUS DIRECTED PRN sodium chloride 0.9 % (flush) 10 mL (BD POSIFLUSH) 10 mL INTRAVENOUS DIRECTED PRN sodium chloride 0.9 % (flush) 10 mL (BD POSIFLUSH) 10 mL INTRAVENOUS DIRECTED PRN ALLERGIES: ALLERGIES No Known Allergies PAST MEDICAL HISTORY Diagnosis Date BPH (benign prostatic hyperplasia) 09/04/2013 Essential hypertension, benign Family history of colon cancer sister Hyperlipidemia Snoring PAST SURGICAL HISTORY Procedure Laterality Date APPENDECTOMY COLONOSCOPY FLX DX W/COLLJ SPEC WHEN PFRMD 04/03/2018 Colonoscopy PAST SURGICAL HISTORY OF repeair or ear lesion. 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 REVIEW OF SYSTEMS Did restart the zoloft. All other reviewed and negative other than HPI. HEALTH MAINTENANCE: Reviewed health maintenance issues today and recommended the following in detail. BP Controlled (<130/80) due on 03/18/2019 Advance Directive Discussion due on 07/23/2022 Influenza Vaccine(1) due on 03/23/2023 Covid-19 Vaccine(2022- season) due on 03/23/2023 Colorectal Cancer Screening due on 04/03/2023 VITALS: BP 142/82 Pulse 60 Wt 102.5 kg (226 lb) BMI 29.82 kg/m Last 4 Encounter Wt Readings: Date: Wt: 03/22/2023 107 kg (236 lb) 02/23/2023 114.3 kg (252 lb) 12/30/2022 115.2 kg (254 lb) 08/15/2022 113.4 kg (250 lb) PHYSICAL EXAMINATION: General appearance: Well appearing, alert, in no acute distress, well-hydrated, well nourished. Skin: Skin color, texture, turgor normal, no suspicious rashes or lesions Head: Normocephalic, no masses, lesions, tenderness or abnormalities Lungs: Lungs clear to auscultation. No wheezing, rhonchi, rales Heart: RRR without murmur, gallop, or rubs. No ectopy Abdomen: Normal abdominal exam, Abdomen soft, non-tender. Bowel sounds normal. No masses, organomegaly Extremities: No deformities, edema, skin discoloration, clubbing or cyanosis. Good capillary refill. ASSESSMENT/PLAN: 1. Coronary artery disease involving [place] coronary artery of [place] heart without angina pectoris - ICD9: 414.01, ICD10: I25.10 (primary diagnosis) - continue current meds. See cardiology. 2. Encounter for immunization - ICD9: V03.89, ICD10: Z23 - INFLUENZA VACCINE, PRSV FREE, AGE 65+ YR, HIGH DOSE, QUADRIVALENT (FLUZONE HIGH-DOSE) 3. Aortic dilatation (HCC) - ICD9: 447.70, ICD10: I77.819 - follow bp. Keep tight. 4. Essential hypertension, benign - ICD9: 401.1, ICD10: I10 Increase to 100 mg a day. Bp check and labs in two weeks. Thi Benitez MD documented in this encounter [facility] 04-04-2023 Miscellaneous Notes Pt has decided to stay on this medication. Was taking 1/2 tab to taper off but is now out as of today. Feels like he should stay on it. Patient has been identified by name and date of : Yes Last office visit in this department: 03/22/2023 RX INSTRUCTIONS: Patient aware RX will be sent to pharmacy. No need to notify patient. Patient phones requesting refills as follows: Requested Prescriptions Pending Prescriptions Disp Refills sertraline (ZOLOFT) 50 mg tablet 30 tablet 11 Sig: Take 1/2 tab once a day orally for one week then 1 tab once a day Please review and advise. Claudia Balderas documented in this encounter [facility] 03-22-2023 Note HNO ID: [id number] Author: Thi Benitez MD Service: ? Author Type: Physician Type: Progress Notes Filed: 03/22/2023 5:42 PM Note Text: Patient presents with: Follow Up HPI: Patient presents today for office visit for follow up. Started on trial of Sertraline 50 mg daily for anxiety post [place]. He feels he no longer needs med. States he's no longer experiencing any anxiety. Refers to being overwhelmed due to his circumstances surrounding the heart attack because everything was happening so quickly. States he's feeling fine now. Moods are good. Wants to stop. Discussed tapering and discontinue meds. Following with [facility]. [place] 02/18/23 Continues on all medications. Denies chest pain and shortness of breath Back to exercising on the treadmill and bowling He has elected not to do cardiac rehab. Cardiology is aware. Doing well No edema since stopping the amlodipine. Remains on brilinta. Following with derm for scalp lesions. Home bp has usually been above 140. His losartan and amlodipine Discussed importance of keeping his bp tight particularly in light of his aorta. Reviewed with him the fact his heart cath also showed ectatic vessels as well. No family history of aneurysms or things like Marfan's etc. Dicussed that we could consider ct of chest and consider seeing if we could get an us of his abd aorta covered, even though he is not a smoker to rule out further vascular issues. He understands risks but wishes to hold on further testing. MEDICATIONS: Current Outpatient Medications Medication Sig aspirin 81 mg chewable tablet Take 81 mg by mouth once daily. atorvastatin (LIPITOR) 80 mg tablet Take 80 mg by mouth once daily. carvedilol (COREG) 6.25 mg tablet Take 1 tablet by mouth every 12 hours. BRILINTA 90 mg tablet Take 1 tablet by mouth every 12 hours. sertraline (ZOLOFT) 50 mg tablet Take 1/2 tab once a day orally for one week then 1 tab once a day Cholecalciferol, Vitamin D3, 25 mcg (1,000 unit) cap Take 1,000 Units by mouth once daily. Current Facility-Administered Medications Medication Dose Route Frequency perflutren lipid microspheres 1.3 mL in NaCl (PF) 0.9% 10 mL injection (DEFINITY) INTRAVENOUS DIRECTED PRN sodium chloride 0.9 % (flush) 10 mL (BD POSIFLUSH) 10 mL INTRAVENOUS DIRECTED PRN perflutren lipid microspheres 1.3 mL in NaCl (PF) 0.9% 10 mL injection (DEFINITY) INTRAVENOUS DIRECTED PRN sodium chloride 0.9 % (flush) 10 mL (BD POSIFLUSH) 10 mL INTRAVENOUS DIRECTED PRN ALLERGIES: ALLERGIES No Known Allergies PAST MEDICAL HISTORY Diagnosis Date BPH (benign prostatic hyperplasia) 09/04/2013 Essential hypertension, benign Family history of colon cancer sister Hyperlipidemia Snoring PAST SURGICAL HISTORY Procedure Laterality Date APPENDECTOMY COLONOSCOPY FLX DX W/COLLJ SPEC WHEN PFRMD 04/03/2018 Colonoscopy PAST SURGICAL HISTORY OF repeair or ear lesion. 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 REVIEW OF SYSTEMS All other reviewed and negative other than HPI. HEALTH MAINTENANCE: Reviewed health maintenance issues today and recommended the following in detail. BP CONTROLLED (<130/80) due on 03/18/2019 ADVANCE DIRECTIVE DISCUSSION due on 07/23/2022 COVID-19 VACCINE(5 - Pfizer series) due on 09/02/2022 COLORECTAL CANCER SCREENING due on 04/03/2023 VITALS: BP 158/74 Pulse (!) 51 Ht 185.4 cm (6' 1 ) Wt 107 kg (236 lb) BMI 31.14 kg/m? Last 4 Encounter Wt Readings: Date: Wt: 02/23/2023 114.3 kg (252 lb) 12/30/2022 115.2 kg (254 lb) 08/15/2022 113.4 kg (250 lb) 07/27/2022 114.3 kg (252 lb) PHYSICAL EXAMINATION: General appearance: Well appearing, alert, in no acute distress, well-hydrated, well nourished. Skin: Skin color, texture, turgor normal, no suspicious rashes or lesions Head: Normocephalic, no masses, lesions, tenderness or abnormalities Lungs: Lungs clear to auscultation. No wheezing, rhonchi, rales Heart: RRR without murmur, gallop, or rubs. No ectopy Abdomen: Normal abdominal exam, Abdomen soft, non-tender. Bowel sounds normal. No masses, organomegaly Extremities: No deformities, edema, skin discoloration, clubbing or cyanosis. Good capillary refill. Musculoskeletal: No joint swe (more content not included)... [facility] 03-22-2023 History of Presen t illness Narrative Patient presents with: Follow Up HPI: Patient presents today for office visit for follow up. Started on trial of Sertraline 50 mg daily for anxiety post OH. He feels he no longer needs med. States he's no longer experiencing any anxiety. Refers to being overwhelmed due to his circumstances surrounding the heart attack because everything was happening so quickly. States he's feeling fine now. Moods are good. Wants to stop. Discussed tapering and discontinue meds. Following with [facility]. OH 02/18/23 Continues on all medications. Denies chest pain and shortness of breath Back to exercising on the treadmill and bowling He has elected not to do cardiac rehab. Cardiology is aware. Doing well No edema since stopping the amlodipine. Remains on brilinta. Following with derm for scalp lesions. Home bp has usually been above 140. His losartan and amlodipine Discussed importance of keeping his bp tight particularly in light of his aorta. Reviewed with him the fact his heart cath also showed ectatic vessels as well. No family history of aneurysms or things like Marfan's etc. Dicussed that we could consider ct of chest and consider seeing if we could get an us of his abd aorta covered, even though he is not a smoker to rule out further vascular issues. He understands risks but wishes to hold on further testing. MEDICATIONS: Current Outpatient Medications Medication Sig aspirin 81 mg chewable tablet Take 81 mg by mouth once daily. atorvastatin (LIPITOR) 80 mg tablet Take 80 mg by mouth once daily. carvedilol (COREG) 6.25 mg tablet Take 1 tablet by mouth every 12 hours. BRILINTA 90 mg tablet Take 1 tablet by mouth every 12 hours. sertraline (ZOLOFT) 50 mg tablet Take 1/2 tab once a day orally for one week then 1 tab once a day Cholecalciferol, Vitamin D3, 25 mcg (1,000 unit) cap Take 1,000 Units by mouth once daily. Current Facility-Administered Medications Medication Dose Route Frequency perflutren lipid microspheres 1.3 mL in NaCl (PF) 0.9% 10 mL injection (DEFINITY) INTRAVENOUS DIRECTED PRN sodium chloride 0.9 % (flush) 10 mL (BD POSIFLUSH) 10 mL INTRAVENOUS DIRECTED PRN perflutren lipid microspheres 1.3 mL in NaCl (PF) 0.9% 10 mL injection (DEFINITY) INTRAVENOUS DIRECTED PRN sodium chloride 0.9 % (flush) 10 mL (BD POSIFLUSH) 10 mL INTRAVENOUS DIRECTED PRN ALLERGIES: ALLERGIES No Known Allergies PAST MEDICAL HISTORY Diagnosis Date BPH (benign prostatic hyperplasia) 09/04/2013 Essential hypertension, benign Family history of colon cancer sister Hyperlipidemia Snoring PAST SURGICAL HISTORY Procedure Laterality Date APPENDECTOMY COLONOSCOPY FLX DX W/COLLJ SPEC WHEN PFRMD 04/03/2018 Colonoscopy PAST SURGICAL HISTORY OF repeair or ear lesion. 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 REVIEW OF SYSTEMS All other reviewed and negative other than HPI. HEALTH MAINTENANCE: Reviewed health maintenance issues today and recommended the following in detail. BP CONTROLLED (<130/80) due on 03/18/2019 ADVANCE DIRECTIVE DISCUSSION due on 07/23/2022 COVID-19 VACCINE(5 - Pfizer series) due on 09/02/2022 COLORECTAL CANCER SCREENING due on 04/03/2023 VITALS: BP 158/74 Pulse (!) 51 Ht 185.4 cm (6' 1 ) Wt 107 kg (236 lb) BMI 31.14 kg/m Last 4 Encounter Wt Readings: Date: Wt: 02/23/2023 114.3 kg (252 lb) 12/30/2022 115.2 kg (254 lb) 08/15/2022 113.4 kg (250 lb) 07/27/2022 114.3 kg (252 lb) PHYSICAL EXAMINATION: General appearance: Well appearing, alert, in no acute distress, well-hydrated, well nourished. Skin: Skin color, texture, turgor normal, no suspicious rashes or lesions Head: Normocephalic, no masses, lesions, tenderness or abnormalities Lungs: Lungs clear to auscultation. No wheezing, rhonchi, rales Heart: RRR without murmur, gallop, or rubs. No ectopy Abdomen: Normal abdominal exam, Abdomen soft, non-tender. Bowel sounds normal. No masses, organomegaly Extremities: No deformities, edema, skin discoloration, clubbing or cyanosis. Good capillary refill. Musculoskeletal: No joint swelling, deformity, or tenderness Peripheral pulses: Normal Psych: good affect. ASSESSMENT/PLAN: 1. Essential hypertension, benign - ICD9: 401.1, ICD10: I10 (primary diagnosis) - Worsening control - start losartan at low dose instead of amlodipine, since it caused edema. Check bp at home. Recheck in six weks. - LOSARTAN 50 MG TABLET 2. Mixed hyperlipidemia - ICD9: 272.2, ICD10: E78.2 - Control undetermined, due for labs - check labs. 3. Aortic dilatation (HCC) - ICD9: 447.70, ICD10: I77.819 - reinforced need for bp control. Consider ct of chest and or imaging of abd aorta given his heart cath findings as well. 4. Coronary artery disease involving [place] coronary artery of [place] heart without angina pectoris - ICD9: 414.01, ICD10: I25.10 Continue meds. Doing well. Call if any issues. Thi Benitez MD RTO in six weeks or prn. documented in this encounter [facility] 02-28-2023 Miscellaneous Notes Patient informed and verbalized understanding. Danitza Snow Let him know is potassium is good without potassium as I thought. One kidney lab is slightly up. That is likely due to not drinking enough. Call if any issues and keep his next appt documented in this encounter [facility] 02-23-2023 Note HNO ID: [id number] Author: Thi Benitez MD Service: ? Author Type: Physician Type: Progress Notes Filed: 02/23/2023 5:37 PM Note Text: Patient presents with: Hospital F/U HPI: Patient presents today for office visit for follow up. HOSPITAL/ER FOLLOW UP: Reason for visit: chest pain, felt like something sitting on chest, felt like was going to be sick. Was sudden and without warning while working outside. He had not had anything like this before. Which facility: [facility] Date of visit: 02/18/23 Discharge: 02/20/23 Diagnosis: STEMI Testing done: cardiac cath, echo (EF 55%) shows inferior mild hypokinesis -cath showed 99% thrombotic lesion in the RCA. Has mild disease of LAD and CIRC. Were also ectatic. Treatment given: started on ASA, statin, brilinta, stents placed x 2 Current symptoms: feels like some shallow breathing at times but feels like also some anxiety issues? Feeling pretty good overall. Is scheduled to see [facility] for follow up. Having severe anxiety isince hospitalized. Discussed that it is often an occurrence after cardiac issues. Some depression. Slightly tearful in the office. No suicidal ideation. His potassium was low normal in hospital. They had continued the potassium but he should not need it necessarily roasterman now that he is off of it. They had stopped his amlodipine as well. He has not been taking losartan and it is not mentioned to continue or discontinue it in the discharge. Discussed with him keeping it off for now. We discussed that he had an echo prior to his OH but that it is was not done when ordered by [facility] for CAD and that it was not a test to rule out CAD. It was to evaluate his enlarged aorta, that will need to continue to be monitored probably annually. Explained they do it after an OH, not to evaluate the coronary arteries but to evaluate the ejection fraction primarily. Discussed that he had ectatic coronary arteries as well and will require risk factor modification and close follow up with cardiology. His original echo was done when he saw her for edema that was due to the increase in his amlodipine which is a common side effect and that it improved after it was decreased and then obviously discontinued. MEDICATIONS: Current Outpatient Medications Medication Sig amLODIPine (NORVASC) 10 mg tablet Take 0.5 tablets by mouth once daily. potassium chloride (K-TAB) 10 mEq tablet Take 1 tablet by mouth once daily. hydroCHLOROthiazide (HYDRODIURIL, ESIDRIX) 12.5 mg capsule Take 1 capsule by mouth once daily. losartan (COZAAR) 100 mg tablet Take 1 tablet by mouth once daily. Cholecalciferol, Vitamin D3, 25 mcg (1,000 unit) cap Take 1,000 Units by mouth once daily. Current Facility-Administered Medications Medication Dose Route Frequency perflutren lipid microspheres 1.3 mL in NaCl (PF) 0.9% 10 mL injection (DEFINITY) INTRAVENOUS DIRECTED PRN sodium chloride 0.9 % (flush) 10 mL (BD POSIFLUSH) 10 mL INTRAVENOUS DIRECTED PRN perflutren lipid microspheres 1.3 mL in NaCl (PF) 0.9% 10 mL injection (DEFINITY) INTRAVENOUS DIRECTED PRN sodium chloride 0.9 % (flush) 10 mL (BD POSIFLUSH) 10 mL INTRAVENOUS DIRECTED PRN ALLERGIES: ALLERGIES No Known Allergies PAST MEDICAL HISTORY Diagnosis Date BPH (benign prostatic hyperplasia) 09/04/2013 Essential hypertension, benign Family history of colon cancer sister Hyperlipidemia Snoring PAST SURGICAL HISTORY Procedure Laterality Date APPENDECTOMY COLONOSCOPY FLX DX W/COLLJ SPEC WHEN PFRMD 04/03/2018 Colonoscopy PAST SURGICAL HISTORY OF repeair or ear lesion. 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 REVIEW OF SYSTEMS All other reviewed and negative other than HPI. VITALS: BP 139/86 Pulse 64 Wt 114.3 kg (252 lb) SpO2 97% BMI 33.25 kg/m? Last 4 Encounter Wt Readings: Date: Wt: 12/30/2022 115.2 kg (254 lb) 08/15/2022 113.4 kg (250 lb) 07/27/2022 114.3 kg (252 lb) 07/10/2022 115.2 kg (254 lb) PHYSICAL EXAMINATION: General appearance: Well appearing, alert, in no acute distress, well-hydrated, well nourished. Skin: Skin color, texture, turgor normal, no suspicious rashes or lesions Head: Normocephalic, no masses, lesions, tenderness or abnormalitie L (more content not included)... [facility] 02-23-2023 Instructions Thi Benitez MD - 02/23/2023 3:47 PM EDT Guidelines for low cholesterol, low triglyceride diets FOODS TO USE MEATS/FISH - Choose lean meats (chicken, turkey, veal, and nonfatty cuts of beef with excess fat trimmed; one serving = 3 oz. of cooked meat). Also, fresh or frozen fish, canned fish packed in water, and shellfish (lobster, crab, shrimp, oysters). Limit use to no more than one serving of one of these per week. Shellfish are high in cholesterol but low in saturated fat and should be used sparingly. Meats and fish should be broiled (zuniga or oven) or baked on a rack. EGGS - Egg substitutes and egg whites (use freely). Egg yolks (limit two per week). FRUITS - Eat three servings of fresh fruit per day (1 serving = 1/2 cup). Be sure to have at least one citrus fruit daily. Frozen or canned fruit with no sugar or syrup added may be used. VEGETABLES - Most vegetables are not limited (see Foods to Avoid). One dark green (string beans, escarole) or one deep yellow (squash) vegetable is recommended daily. Cauliflower, broccoli, and celery, as well as potato skins, are recommended for their fiber content (fiber is associated with cholesterol reduction). It is preferable to steam vegetables, but they may be boiled, strained, or braised with polyunsaturated vegetable oil (see below). BEANS - Dried peas or beans (1 serving = 1/2 cup) may be used as a bread substitute. NUTS - Almonds, walnuts, and peanuts may be used sparingly (1 serving = 1 tablespoon). Use pumpkin, sesame, or sunflower seeds. BREADS/GRAINS - One roll or one slice of whole grain or enriched bread may be used, or three soda crackers or four pieces of dennis toast as a substitute. Spaghetti, rice or noodles (1/2 cup) or 1/2 large ear of corn may be used as a bread substitute. In preparing these foods, do not use butter or shortening; use soft margarine. Also use egg and sugar substitutes. Choose high fiber grains, such as oats and whole wheat. CEREALS - Use 1/2 cup of hot cereal or 1/4 cup of cold cereal per day. Add a sugar substitute if desired, with 99% fat-free or skim milk. MILK PRODUCTS - Always use 99% fat-free or skim milk, dairy products such as low-fat cheeses (loving's, uncreamed diet cottage), low-fat yogurt, and powdered skim milk. FATS/OILS - Use soft (not stick) margarine, vegetable oils that are high in polyunsaturated fats (such as safflower, sunflower, soybean, corn, and cottonseed). Always refrigerate meat drippings to harden the fat and remove it before preparing gravies. DESSERTS/SNACKS - Limit to two servings per day; substitute each serving for a bread/cereal serving; ice milk or water sherbet (1/4 cup); unflavored gelatin or gelatin flavored with sugar substitute (1/2 cup); pudding prepared with skim milk (1/2 cup); egg white souffles; unbuttered popcorn (1 1/2 cups). Substitute carob for chocolate. BEVERAGES - Fresh fruit juices (limit to 4 oz. per day); black coffee; plain or herbal teas; soft drinks with sugar substitutes; club soda, preferably salt-free; cocoa made with skim milk or nonfat dried milk and water (sugar substitute added, if desired); clear broth. Alcohol - limit to two servings per day (see Foods to Avoid). MISCELLANEOUS - You may use the following freely: vinegar; spices; herbs; nonfat bouillon; mustard; Worcestershire sauce; soy sauce; flavoring essence. FOODS TO AVOID MEATS/FISH - Marbled beef, pork, knight, sausage and other pork products; fatty fowl (duck, goose); skin and fat of turkey and chicken; processed meats; luncheon meats (salami, bologna); frankfurters and fast food hambergers (they are loaded with fat); organ meats (kidneys, liver); canned fish packed in oil. EGGS - Limit egg yolks to two per week. FRUITS - Coconuts (rich in saturated fat) VEGETABLES - Avoid avocados. Starchy vegetables (potatoes, corn mcmillan beans, dried peas, beans) may be used only if they are substitutes for a serving of bread or cereal. (Baked potato skin, however, is desirable for its fiber content). BEANS - Commercial baked beans with sugar and/or pork added. NUTS - Avoid nuts. Limit peanuts and walnuts to one tablespoonful per day. BREADS/GRAINS - Any baked goods with shortening and/or sugar. Commercial mixes with dried eggs and whole milk. Avoid sweet rolls, doughnuts, breakfast pastries (Uzbek), and sweetened packaged cereals (the added sugar converts readily to triglycerides). MILK PRODUCTS - Whole milk and whole-milk packaged goods; cream; ice cream; whole-milk puddings, yogurt, or cheeses; nondairy cream substitutes. FATS/OILS - Butter, lard, animal fats, knight drippings, gravies, cream sauces, as well as palm and coconut oils. All these are high in saturated fats. Examine labels on cholesterol free products for hydrogenated fats. (These are oils that have been hardened into solids and in the process have become saturated.) DESSERTS/SNACKS - Fried snack foods like potato chips; chocolate; candies in general; jams, jellies, syrups; whole-milk puddings; ice cream and milk sherberts; hydrogenatd peanut butter. BEVERAGES - Sugared fruit juices and soft drinks; cocoa made with whole milk and/or sugar. When using alcohol (1 oz. liquor, 5 oz. beer, or 2 1/2 oz. dry table wine per serving), one serving must be substituted for one bread or cereal serving (limit two servings of alcohol per day). SPECIAL NOTES 1. Remember that even nonlimited foods should be used in moderation. 2. While on a cholesterol-lowering diet, be sure to avoid animal fats and marbled meats. 3. While on a triglyceride-lowering diet, be sure to avoid sweets and to control the amount of carbohydrates you eat (starchy foods such as flower, bread, or potatoes). 4. Buy a good low-fat cookbook, such as the one published by the [employer]. 5. Consult your physician if you have any questions. documented in this encounter [facility] 02-23-2023 History of Presen t illness Narrative Patient presents with: Hospital F/U HPI: Patient presents today for office visit for follow up. HOSPITAL/ER FOLLOW UP: Reason for visit: chest pain, felt like something sitting on chest, felt like was going to be sick. Was sudden and without warning while working outside. He had not had anything like this before. Which facility: [facility] Date of visit: 02/18/23 Discharge: 02/20/23 Diagnosis: STEMI Testing done: cardiac cath, echo (EF 55%) shows inferior mild hypokinesis -cath showed 99% thrombotic lesion in the RCA. Has mild disease of LAD and CIRC. Were also ectatic. Treatment given: started on ASA, statin, brilinta, stents placed x 2 Current symptoms: feels like some shallow breathing at times but feels like also some anxiety issues? Feeling pretty good overall. [facility] scheduled [facility] see [facility]. Having severe anxiety isince hospitalized. Discussed that it is often an occurrence after cardiac issues. Some depression. Slightly tearful in the office. No suicidal ideation. His potassium was low normal in hospital. They had continued the potassium but he should not need it necessarily care home now that he is off of it. They had stopped his amlodipine as well. He has not been taking losartan and it is not mentioned to continue or discontinue it in the discharge. Discussed with him keeping it off for now. We discussed that he had an echo prior to his OH but that it is was not done when ordered by [facility] for CAD and that it was not a test to rule out CAD. It was to evaluate his enlarged aorta, that will need to continue to be monitored probably annually. Explained they do it after an OH, not to evaluate the coronary arteries but to evaluate the ejection fraction primarily. Discussed that he had ectatic coronary arteries as well and will require risk factor modification and close follow up with cardiology. His original echo was done when he saw her for edema that was due to the increase in his amlodipine which is a common side effect and that it improved after it was decreased and then obviously discontinued. MEDICATIONS: Current Outpatient Medications Medication Sig amLODIPine (NORVASC) 10 mg tablet Take 0.5 tablets by mouth once daily. potassium chloride (K-TAB) 10 mEq tablet Take 1 tablet by mouth once daily. hydroCHLOROthiazide (HYDRODIURIL, ESIDRIX) 12.5 mg capsule Take 1 capsule by mouth once daily. losartan (COZAAR) 100 mg tablet Take 1 tablet by mouth once daily. Cholecalciferol, Vitamin D3, 25 mcg (1,000 unit) cap Take 1,000 Units by mouth once daily. Current Facility-Administered Medications Medication Dose Route Frequency perflutren lipid microspheres 1.3 mL in NaCl (PF) 0.9% 10 mL injection (DEFINITY) INTRAVENOUS DIRECTED PRN sodium chloride 0.9 % (flush) 10 mL (BD POSIFLUSH) 10 mL INTRAVENOUS DIRECTED PRN perflutren lipid microspheres 1.3 mL in NaCl (PF) 0.9% 10 mL injection (DEFINITY) INTRAVENOUS DIRECTED PRN sodium chloride 0.9 % (flush) 10 mL (BD POSIFLUSH) 10 mL INTRAVENOUS DIRECTED PRN ALLERGIES: ALLERGIES No Known Allergies PAST MEDICAL HISTORY Diagnosis Date BPH (benign prostatic hyperplasia) 09/04/2013 Essential hypertension, benign Family history of colon cancer sister Hyperlipidemia Snoring PAST SURGICAL HISTORY Procedure Laterality Date APPENDECTOMY COLONOSCOPY FLX DX W/COLLJ SPEC WHEN PFRMD 04/03/2018 Colonoscopy PAST SURGICAL HISTORY OF repeair or ear lesion. 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 REVIEW OF SYSTEMS All other reviewed and negative other than HPI. VITALS: BP 139/86 Pulse 64 Wt 114.3 kg (252 lb) SpO2 97% BMI 33.25 kg/m Last 4 Encounter Wt Readings: Date: Wt: 12/30/2022 115.2 kg (254 lb) 08/15/2022 113.4 kg (250 lb) 07/27/2022 114.3 kg (252 lb) 07/10/2022 115.2 kg (254 lb) PHYSICAL EXAMINATION: General appearance: Well appearing, alert, in no acute distress, well-hydrated, well nourished. Skin: Skin color, texture, turgor normal, no suspicious rashes or lesions Head: Normocephalic, no masses, lesions, tenderness or abnormalitie Lungs: Lungs clear to auscultation. No wheezing, rhonchi, rales Heart: RRR without murmur, gallop, or rubs. No ectopy Abdomen: Normal abdominal exam, Abdomen soft, non-tender. Bowel sounds normal. No masses, organomegaly Extremities: No deformities, edema, skin discoloration, clubbing or cyanosis. Good capillary refill. ASSESSMENT/PLAN: 1. Coronary artery disease involving [place] coronary artery of [place] heart without angina pectoris - ICD9: 414.01, ICD10: I25.10 (primary diagnosis) -continue current meds. Stop potassium to avoid hyperkalemia now that he is off hctz. Red flags for re-assessment reviewed with patient in detail. - bmp in one week.other labs in six weeks. - HEPATIC FUNCTION PNL - LIPID PANEL BASIC - CBC + DIFF 2. Mixed hyperlipidemia - ICD9: 272.2, ICD10: E78.2 - continue meds. - HEPATIC FUNCTION PNL - LIPID PANEL BASIC 3. Essential hypertension, benign - ICD9: 401.1, ICD10: I10 - Controlled 4. Aortic dilatation (HCC) - ICD9: 447.70, ICD10: I77.819 - stable. Will need periodic echo to follow up. 5. Anxiety with depression - ICD9: 300.4, ICD10: F41.8 - Discussed risks and benefits of new medication with the patient. Advised them to call if any side effects or questions. - SERTRALINE 50 MG TABLET Thi Benitez MD RTO in one month. documented in this encounter [facility] documented as of this encounter (statuses as of 02/24/2023) [facility]08-04-2023 History of Past illness Narrative* Problem Noted Date Diagnosed Date Resolved Date Nonsustained ventricular tachycardia 02/23/2023 02/23/2023 Skin cancers 05/20/2021 05/20/2021 Overview: Had ear surgery remotely. Does not recall type of cancer or who did it. Special screening for malign ant neoplasms, colon 09/24/2014 09/24/2014 Urinary urgency 09/04/2013 12/30/2022 Frequency of urination 09/04/201303/18 Nocturia 09/04/2013 03/18/2018 Difficulty voiding 09/04/2013 2 Elevated blood pressure read ing without diagnosis of hypertension 04/22/2005 05/25/2005 Obesity, unspecified 04/22/2005 010 documented as of this encounter (statuses as of 02/28/2023) [facility]08-04-[facility] History of Past illness Narrative* Problem Noted Date Diagnosed Date Resolved Date Nonsustained ventricular tachycardia 02/23/2023 02/23/2023 Skin cancers 05/20/2021 05/20/2021 Overview: Had ear surgery remotely. Does not recall type of cancer or who did it. Special screening for malign ant neoplasms, colon 09/24/2014 09/24/2014 Urinary urgency 09/04/2013 12/30/2022 Frequency of urination 09/04/201303/18 Nocturia 09/04/2013 03/18/2018 Difficulty voiding 09/04/2013 2 Elevated blood pressure read ing without diagnosis of hypertension 04/22/2005 05/25/2005 Obesity, unspecified 04/22/2005 010 documented as of this encounter (statuses as of 03/23/2023) [facility] History of Past illness Narrative* Problem Noted Date Diagnosed Date Resolved Date Nonsustained ventricular tachycardia 02/23/2023 02/23/2023 Skin cancers 05/20/2021 05/20/2021 Overview: Had ear surgery remotely. Does not recall type of cancer or who did it. Special screening for malign ant neoplasms, colon 09/24/2014 09/24/2014 Urinary urgency 09/04/2013 12/30/2022 Frequency of urination 09/04/201303/18 Nocturia 09/04/2013 03/18/2018 Difficulty voiding 09/04/2013 2 Elevated blood pressure read ing without diagnosis of hypertension 04/22/2005 05/25/2005 Obesity, unspecified 04/22/2005 010 documented as of this encounter (statuses as of 04/04/2023) [facility] History of Past illness Narrative* Problem Noted Date Diagnosed Date Resolved Date Nonsustained ventricular tachycardia 02/23/2023 02/23/2023 Skin cancers 05/20/2021 05/20/2021 Overview: Had ear surgery remotely. Does not recall type of cancer or who did it. Special screening for malign ant neoplasms, colon 09/24/2014 09/24/2014 Urinary urgency 09/04/2013 12/30/2022 Frequency of urination 09/04/201303/18 Nocturia 09/04/2013 03/18/2018 Difficulty voiding 09/04/2013 2 Elevated blood pressure read ing without diagnosis of hypertension 04/22/2005 05/25/2005 Obesity, unspecified 04/22/2005 010 documented as of this encounter (statuses as of 05/05/2023) [facility] History of Past illness Narrative* Problem Noted Date Diagnosed Date Resolved Date Nonsustained ventricular tachycardia 02/23/2023 02/23/2023 Skin cancers 05/20/2021 05/20/2021 Overview: Had ear surgery remotely. Does not recall type of cancer or who did it. Special screening for malign ant neoplasms, colon 09/24/2014 09/24/2014 Urinary urgency 09/04/2013 12/30/2022 Frequency of urination 09/04/201303/18 Nocturia 09/04/2013 03/18/2018 Difficulty voiding 09/04/2013 2 Elevated blood pressure read ing without diagnosis of hypertension 04/22/2005 05/25/2005 Obesity, unspecified 04/22/2005 010 documented as of this encounter (statuses as of 05/23/2023) [facility]06-10-2023 NoteHNO ID: [id number] Author: Thi Benitez MD Service: ? Author Type: Physician Type: Progress Notes Filed: 12/30/2022 9:09 AM Note Text: Patient presents with: Hypertension HPI: Patient presents today for office visit for follow up. HTN: Patient is compliant with meds Yes Monitors bp at home: Yes. Denies side effects: No. Chest pain: No. Dyspnea: No. Edema: stable. Palpitations: No. Syncope: No. Headache: No. Dizziness: No. Derm: Leatha froze spot on forehead last visit and is back a little. Spot to check to left leg. Last echo: CONCLUSIONS: - Technically difficult exam due to body habitus. - Exam indication: Shortness of Breath - The left ventricle is normal in size. Left ventricular systolic function is normal. EF = 64 ? 5% (2D biplane) Grade I left ventricular diastolic dysfunction. - The right ventricle is normal in size. Right ventricular systolic function is normal. - There are no significant valvular abnormalities. - The visualized aorta is dilated with a maximal dimension of 4.7 cm. - The patient has not had a prior CC echocardiographic exam for comparison. MEDICATIONS: Current Outpatient Medications Medication Sig amLODIPine (NORVASC) 10 mg tablet Take 0.5 tablets by mouth once daily. potassium chloride (K-TAB) 10 mEq tablet Take 1 tablet by mouth once daily. hydroCHLOROthiazide (HYDRODIURIL, ESIDRIX) 12.5 mg capsule Take 1 capsule by mouth once daily. losartan (COZAAR) 100 mg tablet Take 1 tablet by mouth once daily. Cholecalciferol, Vitamin D3, 25 mcg (1,000 unit) cap Take 1,000 Units by mouth once daily. Current Facility-Administered Medications Medication Dose Route Frequency perflutren lipid microspheres 1.3 mL in NaCl (PF) 0.9% 10 mL injection (DEFINITY) INTRAVENOUS DIRECTED PRN sodium chloride 0.9 % (flush) 10 mL (BD POSIFLUSH) 10 mL INTRAVENOUS DIRECTED PRN perflutren lipid microspheres 1.3 mL in NaCl (PF) 0.9% 10 mL injection (DEFINITY) INTRAVENOUS DIRECTED PRN sodium chloride 0.9 % (flush) 10 mL (BD POSIFLUSH) 10 mL INTRAVENOUS DIRECTED PRN ALLERGIES: ALLERGIES No Known Allergies PAST MEDICAL HISTORY Diagnosis Date BPH (benign prostatic hyperplasia) 09/04/2013 Essential hypertension, benign Family history of colon cancer sister Hyperlipidemia Snoring PAST SURGICAL HISTORY Procedure Laterality Date APPENDECTOMY COLONOSCOPY FLX DX W/COLLJ SPEC WHEN PFRMD 04/03/2018 Colonoscopy PAST SURGICAL HISTORY OF repeair or ear lesion. 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 REVIEW OF SYSTEMS GI: Negative for change in bowel habit : Negative All other reviewed and negative other than HPI. HEALTH MAINTENANCE: Reviewed health maintenance issues today and recommended the following in detail. SHINGRIX VACCINE(2 of 3) due on 10/01/2013 BP CONTROLLED (<130/80) due on 03/18/2019 ADVANCE DIRECTIVE DISCUSSION -has a living will, his is his surrogate. DEPRESSION ASSESSMENT Never done VITALS: BP 132/72 Pulse (!) 50 Wt 115.2 kg (254 lb) SpO2 100% BMI 33.51 kg/m? Last 4 Encounter Wt Readings: Date: Wt: 08/15/2022 113.4 kg (250 lb) 07/27/2022 114.3 kg (252 lb) 07/10/2022 115.2 kg (254 lb) 06/29/2022 117.4 kg (258 lb 12.8 oz) PHYSICAL EXAMINATION: General appearance: Well appearing, alert, in no acute distress, well-hydrated, well nourished. Skin: two scaly lesion. Head: Normocephalic, no masses, lesions, tenderness or abnormalities Eyes: Anicteric sclera. Pupils are equally round and reactive to light. Extraocular movements are intact. Neck: Supple, no adenopathy; thyroid symmetric, normal size, no bruits Lungs: Lungs clear to auscultation. No wheezing, rhonchi, rales Heart: RRR without murmur, gallop, or rubs. No ectopy Abdomen: Normal abdominal exam, Abdomen soft, non-tender. Bowel sounds normal. No masses, organomegaly Extremities: No deformities, edema, skin discoloration, clubbing or cyanosis. Good capillary refill. ASSESSMENT/PLAN: 1. Mixed hyperlipidemia - ICD9: 272.2, ICD10: E78.2 (primary diagnosis) - Control undetermined, due for labs - at next visit. - LIPID PANEL BASIC 2. Essential hypertension, benign - ICD9: 401.1, ICD10: I10 - Controlled - Continue current (more content not included)...[facility] 12-01-2022 Miscellaneous Notes* Telephone Encounter - Claudia Balderas - 12/01/2022 8:57 AM EDT Patient has been identified by name and date of : Yes Last office visit in this department: 08/15/2022 RX INSTRUCTIONS: Patient aware RX will be sent to pharmacy. No need to notify patient. Patient phones requesting refills as follows: Requested Prescriptions Pending Prescriptions Disp Refills amLODIPine (NORVASC) 10 mg tablet 90 tablet 3 Sig: Take 0.5 tablets by mouth once daily. potassium chloride (K-TAB) 10 mEq tablet 90 tablet 3 Sig: Take 1 tablet by mouth once daily. Please review and advise. Claudia Balderas [facility] NoteHNO ID: [id number] Author: Leatha Zaragoza APRN.AIRCRAFT MAINTENANCE ENGINEER Service: ? Author Type: Nurse Practitioner Type: Progress Notes Filed: 08/15/2022 5:48 PM Note Text: This is a 72 year old male who presents today with: Patient presents with: Recheck: 2 week follow up- leg edema HISTORY OF PRESENT ILLNESS: Freeman Sarabia is a 72 year old male. Patient presents with: Recheck: 2 week follow up- leg edema Patient presents today for 2-week follow-up of leg edema. He came in with edema after having his blood pressure medication (amlodipine) changed. At that visit, we decreased his amlodipine back to 5 mg and added a small dose of hydrochlorothiazide. He previously had been treated with a higher dose of hydrochlorothiazide and had problems maintaining his potassium. He reports that the swelling is improved. He was on his feet all day today, so does notice a little bit of swelling today. Reports in the mornings his feet are normal. He also reports a lesion on his right forehead/scalp. He reports that its been there for many months. He has picked it off before, but it returns. Can be tender to touch. PAST MEDICAL HISTORY: PAST MEDICAL HISTORY Diagnosis Date BPH (benign prostatic hyperplasia) 09/04/2013 Essential hypertension, benign Family history of colon cancer sister Hyperlipidemia Snoring PAST SURGICAL HISTORY Procedure Laterality Date APPENDECTOMY COLONOSCOPY FLX DX W/COLLJ SPEC WHEN PFRMD 04/03/2018 Colonoscopy PAST SURGICAL HISTORY OF repeair or ear lesion. 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 MEDICATIONS Current Outpatient Medications Medication Sig amLODIPine (NORVASC) 10 mg tablet Take 0.5 tablets by mouth once daily. hydroCHLOROthiazide (HYDRODIURIL, ESIDRIX) 12.5 mg capsule Take 1 capsule by mouth once daily. losartan (COZAAR) 100 mg tablet Take 1 tablet by mouth once daily. Cholecalciferol, Vitamin D3, 25 mcg (1,000 unit) cap Take 1,000 Units by mouth once daily. Current Facility-Administered Medications Medication Dose Route Frequency perflutren lipid microspheres 1.3 mL in NaCl (PF) 0.9% 10 mL injection (DEFINITY) INTRAVENOUS DIRECTED PRN sodium chloride 0.9 % (flush) 10 mL (BD POSIFLUSH) 10 mL INTRAVENOUS DIRECTED PRN perflutren lipid microspheres 1.3 mL in NaCl (PF) 0.9% 10 mL injection (DEFINITY) INTRAVENOUS DIRECTED PRN sodium chloride 0.9 % (flush) 10 mL (BD POSIFLUSH) 10 mL INTRAVENOUS DIRECTED PRN FAMILY HISTORY Problem Relation Age of Onset COPD Mother Smoker Alcohol/Drug Mother COPD Father Smoker Alcohol/Drug Father Arthritis Sister Colon Cancer Sister Social History Tobacco Use Smoking status: Never Smokeless tobacco: Never Substance Use Topics Alcohol use: Yes Comment: rarely Drug use: No EXAM: BP 142/80 Pulse 71 Resp 18 Wt 113.4 kg (250 lb) SpO2 97% BMI 32.98 kg/m? 132/72 PHYSICAL EXAM: General Appearance: Well appearing, alert, in no acute distress, well-hydrated, well nourished.. Skin: Skin color, texture, turgor normal. Superficial scaly lesion on the right forehead/scalp -- appx 7mm. Head: Normocephalic, no masses, lesions, tenderness or abnormalities. Eyes: Anicteric sclera. Pupils are equally round and reactive to light. Extraocular movements are intact. Lungs: Lungs clear to auscultation. No wheezing, rhonchi, rales.. Heart: RRR without murmur, gallop, or rubs. No ectopy. Extremities: No deformities, skin discoloration, clubbing or cyanosis. Good capillary refill. +1 ankle edema. Neurologic: Gait normal. ASSESSMENT/PLAN: 1. Essential hypertension, benign - ICD9: 401.1, ICD10: I10 (primary diagnosis) - fair control - Continue current medication(s) - Recommended regular aerobic exercise. - Recommend home blood pressure monitoring, to bring results in on next visit - Goal of BP <130/80 2. Mixed hyperlipidemia - ICD9: 272.2, ICD10: E78.2 - to be determined upon return of lab results - Continue current medication. - LIPID PANEL BASIC - COMP METABOLIC PANEL 3. Bilateral swelling of feet - ICD9: 729.81, ICD10: M79.89 Improved. 4. Skin lesion - ICD9: 709.9, ICD10: L98.9 Discussed with patient that difficult to identify exactly what the lesion is. Aware that this could be a skin cancer or precancerous lesion. Discussed options. He would like to go ahead and try cryotherapy to the lesion. He is aware that if the lesion does not improve/heal/resolve, he will need to see dermatology for likely excision/biopsy of lesion. After discussing the risks/benefits of treatment, informed consent was obtained. Time out performed. Cryotherapy using [id number]-[id number] method to the (more content not included)...[facility]01-24-2023 Instructions* Patient Instructions* Leatha Zaragoza APRN.CNP - 08/15/2022 4:13 PM EST Continue the same medications. Get the fasting labwork done in the next 1-2 weeks. Keep the scalp area clean and dry. Notify provider of any s/s of infection. [facility] History of Present illness Narrative* Leatha Zaragoza APRN.CNP - 08/15/2022 3:59 PM EST This is a 72 year old male who presents today with: Patient presents with: Recheck: 2 week follow up- leg edema HISTORY OF PRESENT ILLNESS: Freeman Sarabia is a 72 year old male. Patient presents with: Recheck: 2 week follow up- leg edema Patient presents today for 2-week follow-up of leg edema. He came in with edema after having his blood pressure medication (amlodipine) changed. At that visit, we decreased his amlodipine back to 5 mg and added a small dose of hydrochlorothiazide. He previously had been treated with a higher dose of hydrochlorothiazide and had problems maintaining his potassium. He reports that the swelling is improved. He was on his feet all day today, so does notice a little bit of swelling today. Reports in the mornings his feet are normal. He also reports a lesion on his right forehead/scalp. He reports that its been there for many months. He has picked it off before, but it returns. Can be tender to touch. PAST MEDICAL HISTORY: PAST MEDICAL HISTORY Diagnosis Date BPH (benign prostatic hyperplasia) 09/04/2013 Essential hypertension, benign Family history of colon cancer sister Hyperlipidemia Snoring PAST SURGICAL HISTORY Procedure Laterality Date APPENDECTOMY COLONOSCOPY FLX DX W/COLLJ SPEC WHEN PFRMD 04/03/2018 Colonoscopy PAST SURGICAL HISTORY OF repeair or ear lesion. 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 MEDICATIONS Current Outpatient Medications Medication Sig amLODIPine (NORVASC) 10 mg tablet Take 0.5 tablets by mouth once daily. hydroCHLOROthiazide (HYDRODIURIL, ESIDRIX) 12.5 mg capsule Take 1 capsule by mouth once daily. losartan (COZAAR) 100 mg tablet Take 1 tablet by mouth once daily. Cholecalciferol, Vitamin D3, 25 mcg (1,000 unit) cap Take 1,000 Units by mouth once daily. Current Facility-Administered Medications Medication Dose Route Frequency perflutren lipid microspheres 1.3 mL in NaCl (PF) 0.9% 10 mL injection (DEFINITY) INTRAVENOUS DIRECTED PRN sodium chloride 0.9 % (flush) 10 mL (BD POSIFLUSH) 10 mL INTRAVENOUS DIRECTED PRN perflutren lipid microspheres 1.3 mL in NaCl (PF) 0.9% 10 mL injection (DEFINITY) INTRAVENOUS DIRECTED PRN sodium chloride 0.9 % (flush) 10 mL (BD POSIFLUSH) 10 mL INTRAVENOUS DIRECTED PRN FAMILY HISTORY Problem Relation Age of Onset COPD Mother Smoker Alcohol/Drug Mother COPD Father Smoker Alcohol/Drug Father Arthritis Sister Colon Cancer Sister Social History Tobacco Use Smoking status: Never Smokeless tobacco: Never Substance Use Topics Alcohol use: Yes Comment: rarely Drug use: No EXAM: BP 142/80 Pulse 71 Resp 18 Wt 113.4 kg (250 lb) SpO2 97% BMI 32.98 kg/m 132/72 PHYSICAL EXAM: General Appearance: Well appearing, alert, in no acute distress, well-hydrated, well nourished.. Skin: Skin color, texture, turgor normal. Superficial scaly lesion on the right forehead/scalp -- appx 7mm. Head: Normocephalic, no masses, lesions, tenderness or abnormalities. Eyes: Anicteric sclera. Pupils are equally round and reactive to light. Extraocular movements are intact. Lungs: Lungs clear to auscultation. No wheezing, rhonchi, rales.. Heart: RRR without murmur, gallop, or rubs. No ectopy. Extremities: No deformities, skin discoloration, clubbing or cyanosis. Good capillary refill. +1 ankle edema. Neurologic: Gait normal. ASSESSMENT/PLAN: 1. Essential hypertension, benign - ICD9: 401.1, ICD10: I10 (primary diagnosis) - fair control - Continue current medication(s) - Recommended regular aerobic exercise. - Recommend home blood pressure monitoring, to bring results in on next visit - Goal of BP <130/80 2. Mixed hyperlipidemia - ICD9: 272.2, ICD10: E78.2 - to be determined upon return of lab results - Continue current medication. - LIPID PANEL BASIC - COMP METABOLIC PANEL 3. Bilateral swelling of feet - ICD9: 729.81, ICD10: M79.89 Improved. 4. Skin lesion - ICD9: 709.9, ICD10: L98.9 Discussed with patient that difficult to identify exactly what the lesion is. Aware that this couldbe a skin cancer or precancerous lesion. Discussed options. He would like to go ahead and try cryotherapy to the lesion. He is aware that if the lesion does not improve/heal/resolve, he will need to see dermatology for likely excision/biopsy of lesion. After discussing the risks/benefits of treatment, informed consent was obtained. Time out performed. Cryotherapy using [id number]-ripo-[id number] method to the skin lesion on the right forehead/scalp. The patient tolerated the procedure well. Aftercare was discussed. Pt will call with any adverse affects or s/s of infection. UNIVERSAL PROTOCOL / SAFETY CHECKLIST Procedure to be Performed: cryotherapy to right forehead/scalp lesion Sign In: A Moment of CARE was completed. Personnel directly involved with the procedure wore the appropriate PPE (Personal Protective Equipment). No special equipment needed. Patient/Surrogate Stated/Verified: PATIENT VERIFIED(optional for EMERGENT procedures): Patient name, Date of , Relevant allergies, and The intended procedure Time Out Communication: Intended patient and procedure match the source documents. Consent documented and matches the intended procedure. No relevant labs, photos, and/or imaging studies were applicable for review. Correct side/site marked and visible. No medications required for procedure. No fire risk assessment and interventions applicable. No implant(s) inserted. Sign Out: SIGN OUT (optional for EMERGENT procedures): No specimen collected. No instruments, equipment or retained foreign bodies applicable. Post-procedure follow-up management communicated and Plan of Care Visit completed when applicable. Discussed treatment plan and patient voices understanding. Patient's questions answered appropriately. Medications and potential side effects were discussed and patient voices understanding. Return to the office as scheduled or as needed for worsening/no improvement. Leatha Zaragoza APRN.CNP The patient indicates understanding of these issues and agrees with the plan. This note was partially generated using [employer] voice recognition system. Note was reviewed for accuracy. There may be minor misspellings or grammar miscues with [employer] voice recognition. [facility] Miscellaneous Notes* Telephone Encounter - Brayden Galindo RN - 08/04/2022 12:57 PM EST Phoned patient and given provider's message below with verbalized understanding. Patient agreeable. * Telephone Encounter - Leatha Zaragoza APRN.CNP - 08/04/2022 11:15 AM EST Can please let patient know that I received his echo results. It does show good strength of his heart. There were no significant valve abnormalities. It does show some dilation (widening) of the aorta. I would like to repeat the echocardiogram in 6 months to ensure this is stable and not changing. If it is unchanged at that time, we should continue to check this yearly. The order is in for the repeat echo. He should be able to go ahead and schedule this in 6 months. Leatha Zaragoza APRN.CNP documented [facility]23 NoteHNO ID: [id number] Author: Leatha Zaragoza APRN.CNP Service: ? Author Type: Nurse Practitioner Type: Progress Notes Filed: 07/27/2022 8:38 AM Note Text: This is a 72 year old male who presents today with: Patient presents with: Acute Visit: Edema- bilateral feet; feels may have started after starting Norvasc HISTORY OF PRESENT ILLNESS: Freeman Sarabia is a 72 year old male. Patient presents with: Acute Visit: Edema- bilateral feet; feels may have started after starting Norvasc Pt presents today with complaint of swollen feet. Refers a few months ago, he had to change his blood pressure medicine. Refers that he has been having swollen feet since that time. No pain in the feet. No redness. Does not really go down overnight when sleeping. Refers that he went to [facility]. Refers that he has cataracts. Advised by them that he has high blood pressure. HTN: Patient is compliant with meds Yes Monitors bp at home: Yes. Sometimes -- last time was 147/88 Denies side effects: maybe -- getting some leg swelling. Chest pain: No. Dyspnea: always has a little, but blames on growing up in a smoking environment. Edema: Yes. Palpitations: No. Syncope: No. Headache: occ, but nothing out of the ordinary. Dizziness: No. PAST MEDICAL HISTORY: PAST MEDICAL HISTORY Diagnosis Date BPH (benign prostatic hyperplasia) 09/04/2013 Essential hypertension, benign Family history of colon cancer sister Hyperlipidemia Snoring PAST SURGICAL HISTORY Procedure Laterality Date APPENDECTOMY COLONOSCOPY FLX DX W/COLLJ SPEC WHEN PFRMD 04/03/2018 Colonoscopy PAST SURGICAL HISTORY OF repeair or ear lesion. 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 MEDICATIONS Current Outpatient Medications Medication Sig amLODIPine (NORVASC) 10 mg tablet Take 1 tablet by mouth once daily. losartan (COZAAR) 100 mg tablet Take 1 tablet by mouth once daily. Cholecalciferol, Vitamin D3, 25 mcg (1,000 unit) cap Take 1,000 Units by mouth once daily. No current facility-administered medications for this visit. FAMILY HISTORY Problem Relation Age of Onset COPD Mother Smoker Alcohol/Drug Mother COPD Father Smoker Alcohol/Drug Father Arthritis Sister Colon Cancer Sister Social History Tobacco Use Smoking status: Never Smokeless tobacco: Never Substance Use Topics Alcohol use: Yes Comment: rarely Drug use: No EXAM: BP 124/72 Pulse 60 Resp 18 Wt 114.3 kg (252 lb) BMI 33.25 kg/m? PHYSICAL EXAM: General Appearance: Well appearing, alert, in no acute distress, well-hydrated, well nourished.. Skin: Skin color, texture, turgor normal, no suspicious rashes or lesions. Head: Normocephalic, no masses, lesions, tenderness or abnormalities. Eyes: Anicteric sclera. Pupils are equally round and reactive to light. Extraocular movements are intact. . Neck: Supple, no adenopathy; thyroid symmetric, normal size, no bruits. Lungs: Lungs clear to auscultation. No wheezing, rhonchi, rales.. Heart: RRR without murmur, gallop, or rubs. No ectopy. Abdomen: Abdomen soft, non-tender. Bowel sounds normal. No masses, organomegaly. Extremities: No deformities, +2 pitting edema, skin discoloration, clubbing or cyanosis. Good capillary refill. . Neurologic: Gait normal. ASSESSMENT/PLAN: 1. Bilateral swelling of feet - ICD9: 729.81, ICD10: M79.89 (primary diagnosis) Suspect from stopping hctz. Will go ahead and start small dose. Decrease amlodipine to 5 mg daily. - ECHO - PERFLUTREN LIPID MICROSPHERES 1.1 MG/ML INJECTION IN NS 10 ML - SODIUM CHLORIDE 0.9 % (FLUSH) INJECTION SYRINGE 2. Essential hypertension, benign - ICD9: 401.1, ICD10: I10 - good control Now with LE swelling. As above. - AMLODIPINE 10 MG TABLET -- 1/2 tab daily. - HYDROCHLOROTHIAZIDE 12.5 MG CAPSULE Recheck in 2 weeks. Plan on repeating labs that day. Pt previously had K replacement with higher dose of HCTZ. Discussed treatment plan and patient voices understanding. Patient's questions answered appropriately. Medications and potential side effects were discussed and patient voices understanding. Return to the office as scheduled or as needed for worsening/no improvement. Leatha Zaragoza APRN.[facility]II[facility] Instructions* Patient Instructions* Leatha Zaragoza APRN.AIRCRAFT MAINTENANCE ENGINEER - 07/27/2022 8:24 AM EST Restart HCTZ 12.5mg daily. Decrease the amlodipine to 5 mg daily. Schedule echocardiogram. Recheck in 2 weeks. Sooner if needed. If you have trouble cutting the pills, let me know and I can send in the lower dose. documented in this encounterWay[facility]01-[facility]23 History of Present illness Narrative* Leatha Zaragoza APRN.DANII - 07/27/2022 7:47 AM EST This is a 72 year old male who presents today with: Patient presents with: Acute Visit: Edema- bilateral feet; feels may have started after starting Norvasc HISTORY OF PRESENT ILLNESS: Freeman Sarabia is a 72 year old male. Patient presents with: Acute Visit: Edema- bilateral feet; feels may have started after starting Norvasc Pt presents today with complaint of swollen feet. Refers a few months ago, he had to change his blood pressure medicine. Refers that he has been having swollen feet since that time. No pain in the feet. No redness. Does not really go down overnight when sleeping. Refers that he went to [facility]. Refers that he has cataracts. Advised by them that he has high blood pressure. HTN: Patient is compliant with meds Yes Monitors bp at home: Yes. Sometimes -- last time was 147/88 Denies side effects: maybe -- getting some leg swelling. Chest pain: No. Dyspnea: always has a little, but blames on growing up in a smoking environment. Edema: Yes. Palpitations: No. Syncope: No. Headache: occ, but nothing out of the ordinary. Dizziness: No. PAST MEDICAL HISTORY: PAST MEDICAL HISTORY Diagnosis Date BPH (benign prostatic hyperplasia) 09/04/2013 Essential hypertension, benign Family history of colon cancer sister Hyperlipidemia Snoring PAST SURGICAL HISTORY Procedure Laterality Date APPENDECTOMY COLONOSCOPY FLX DX W/COLLJ SPEC WHEN PFRMD 04/03/2018 Colonoscopy PAST SURGICAL HISTORY OF repeair or ear lesion. 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 MEDICATIONS Current Outpatient Medications Medication Sig amLODIPine (NORVASC) 10 mg tablet Take 1 tablet by mouth once daily. losartan (COZAAR) 100 mg tablet Take 1 tablet by mouth once daily. Cholecalciferol, Vitamin D3, 25 mcg (1,000 unit) cap Take 1,000 Units by mouth once daily. No current facility-administered medications for this visit. FAMILY HISTORY Problem Relation Age of Onset COPD Mother Smoker Alcohol/Drug Mother COPD Father Smoker Alcohol/Drug Father Arthritis Sister Colon Cancer Sister Social History Tobacco Use Smoking status: Never Smokeless tobacco: Never Substance Use Topics Alcohol use: Yes Comment: rarely Drug use: No EXAM: BP 124/72 Pulse 60 Resp 18 Wt 114.3 kg (252 lb) BMI 33.25 kg/m PHYSICAL EXAM: General Appearance: Well appearing, alert, in no acute distress, well-hydrated, well nourished.. Skin: Skin color, texture, turgor normal, no suspicious rashes or lesions. Head: Normocephalic, no masses, lesions, tenderness or abnormalities. Eyes: Anicteric sclera. Pupils are equally round and reactive to light. Extraocular movements are intact. . Neck: Supple, no adenopathy; thyroid symmetric, normal size, no bruits. Lungs: Lungs clear to auscultation. No wheezing, rhonchi, rales.. Heart: RRR without murmur, gallop, or rubs. No ectopy. Abdomen: Abdomen soft, non-tender. Bowel sounds normal. No masses, organomegaly. Extremities: No deformities, +2 pitting edema, skin discoloration, clubbing or cyanosis. Good capillary refill. . Neurologic: Gait normal. ASSESSMENT/PLAN: 1. Bilateral swelling of feet - ICD9: 729.81, ICD10: M79.89 (primary diagnosis) Suspect from stopping hctz. Will go ahead and start small dose. Decrease amlodipine to 5 mg daily. - ECHO - PERFLUTREN LIPID MICROSPHERES 1.1 MG/ML INJECTION IN NS 10 ML - SODIUM CHLORIDE 0.9 % (FLUSH) INJECTION SYRINGE 2. Essential hypertension, benign - ICD9: 401.1, ICD10: I10 - good control Now with LE swelling. As above. - AMLODIPINE 10 MG TABLET -- 1/2 tab daily. - HYDROCHLOROTHIAZIDE 12.5 MG CAPSULE Recheck in 2 weeks. Plan on repeating labs that day. Pt previously had K replacement with higher dose of HCTZ. Discussed treatment plan and patient voices understanding. Patient's questions answered appropriately. Medications and potential side effects were discussed and patient voices understanding. Return to the office as scheduled or as needed for worsening/no improvement. Leatha Zaragoza APRN.CNP documented in this encounterWayne Hospital01-03-2023 Miscellaneous Notes* Telephone Encounter - Leatha Zaragoza APRN.CNP - 07/25/2022 4:59 PM EST Noted. Leatha Zaragoza APRN.CNP * Telephone Encounter - Alyssa Holm RN - 07/25/2022 2:40 PM EST Patient calls for bilateral edema to feet and ankles. Nurse triage completed. Protocol recommends see provider within 3 days. Appointment scheduled. Care advice reviewed. Patient verbalizes understanding. Reason for Disposition [1] MILD swelling of both ankles (i.e., pedal edema) AND [2] new-onset or worsening Answer Assessment - Initial Assessment Questions 1. ONSET: When changed blood pressure medication. About 6 weeks ago medication was changed. Swelling noted about a month ago and it has been getting worse. 2. LOCATION: Both feet 3. SEVERITY: - MILD pedal edema - swelling limited to foot and ankle, pitting edema < 1/4 inch (6 mm) deep, rest and elevation eliminate most or all swelling 4. REDNESS: No 5. PAIN: No 6. FEVER: No 7. CAUSE: Patient thinks maybe related to change in blood pressure medication. 8. MEDICAL HISTORY: No history of heart failure, kidney disease, liver failure, or cancer. 9. RECURRENT SYMPTOM: No 10. OTHER SYMPTOMS: No chest pain or difficulty breathing beyond his normal Protocols used: Leg Swelling and [id number] documented in this encounterWayne Hospital01-03-2023 Miscellaneous Notes* Telephone Encounter - Martha Pike RN - 07/25/2022 2:34 PM EST left for patient to call PCP office for further triage of stated symptoms in 07/24/22 message. Martha Pike RN documented in this encounterWayne Hospital12-19-2022 History of Present illness Narrative* Thi Benitez MD - 07/10/2022 3:01 PM EST Patient presents with: Cough HPI: Patient presents today for office visit for cough Cough x 3 weeks. Productive green yellow if brings anything up. Has used albuterol inhaler. Tessalon is helpful. Elian gave Zmax on 07/03/22. Blood pressures have been up while not feeling well and coughing. Has a large amount of post nasal drip. No sore throat. No ear pain. No gi issues. Had covid and flu testing which was up. Bp has been up MEDICATIONS: Current Outpatient Medications Medication Sig amLODIPine (NORVASC) 5 mg tablet Take 1 tablet by mouth once daily. losartan (COZAAR) 100 mg tablet Take 1 tablet by mouth once daily. Cholecalciferol, Vitamin D3, 25 mcg (1,000 unit) cap Take 1,000 Units by mouth once daily. benzonatate (TESSALON PERLES) 100 mg capsule Take 2 capsules by mouth three times daily as needed for cough. albuterol HFA (VENTOLIN HFA) 90 mcg/actuation inhaler Inhale 2 Puffs as instructed every 4 hours asneeded for wheezing/shortness of breath. Promethazine-DM (PHENERGAN-DM) 6.25-15 mg/5 mL syrup Take 5 mL by mouth four times daily as needed for cough. No current facility-administered medications for this visit. ALLERGIES: ALLERGIES No Known Allergies PAST MEDICAL HISTORY Diagnosis Date BPH (benign prostatic hyperplasia) 09/04/2013 Essential hypertension, benign Family history of colon cancer sister Hyperlipidemia Snoring PAST SURGICAL HISTORY Procedure Laterality Date APPENDECTOMY COLONOSCOPY FLX DX W/COLLJ SPEC WHEN PFRMD 04/03/2018 Colonoscopy PAST SURGICAL HISTORY OF repeair or ear lesion. 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 REVIEW OF SYSTEMS All other reviewed and negative other than HPI. VITALS: BP 158/72 Pulse 83 Wt 115.2 kg (254 lb) SpO2 97% BMI 33.51 kg/m Last 4 Encounter Wt Readings: Date: Wt: 07/10/2022 115.2 kg (254 lb) 06/29/2022 117.4 kg (258 lb 12.8 oz) 05/30/2022 113.9 kg (251 lb) 12/15/2021 111.1 kg (245 lb) PHYSICAL EXAMINATION: General appearance: Well appearing, alert, in no acute distress, well-hydrated, well nourished. Skin: Skin color, texture, turgor normal, no suspicious rashes or lesions Head: Normocephalic, no masses, lesions, tenderness or abnormalities Eyes: Anicteric sclera. Pupils are equally round and reactive to light. Extraocular movements are intact. Ears: External ears normal, canals clear Nose/Sinuses: Nares normal, septum midline, mucosa normal, no drainage or sinus tenderness Oropharynx: Lips, mucosa, and tongue normal, teeth and gums normal, oropharynx normal Neck: Negative findings: no adenopathy Lungs: Lungs clear to auscultation. No wheezing, rhonchi, rales Heart: RRR without murmur, gallop, or rubs. No ectopy Abdomen: Normal abdominal exam, Abdomen soft, non-tender. Bowel sounds normal. No masses, organomegaly Extremities: No deformities, edema, skin discoloration, clubbing or cyanosis. Good capillary refill. ASSESSMENT/PLAN: 1. Essential hypertension, benign - ICD9: 401.1, ICD10: I10 (primary diagnosis) - suboptimal control - increase amlodipine to 10 mg - Goal of BP <130/80 - AMLODIPINE 10 MG TABLET 2. Bronchitis - ICD9: 490, ICD10: J40 - Discussed risks and benefits of new medication with the patient. Advised them to call if any sideeffects or questions. Red flags for re-assessment reviewed with patient in detail. Call if symptoms worsen at all or if not better in one to two weeks Reviewed diagnosis and treatment options in detail. Questions were answered. Patient expressed understanding of treatment plan. - XR CHEST 2V FRONTAL/LAT - DOXYCYCLINE MONOHYDRATE 100 MG TABLET Thi Benitez MD documented in this encounterWayne Hospital12-12-2022 Miscellaneous Notes* Telephone Encounter - Sina Contreras LPN - 07/03/2022 4:08 PM EST TC to pt, notified of provider response. Pt verbalized understanding. Sina Contreras LPN * Telephone Encounter - Brayden Steven PA-C - 07/03/2022 1:11 PM EST Add amlodipine 5mg daily and recheck BP in 4 weeks Sound typical of bronchitis which is almost always viral. If no fever would give it another 1-2 weeks as it usually takes that long. If fever > 100.4F or progressive worsening: The following approved medication requests have been transmitted electronically. Requested Prescriptions Signed Prescriptions Disp Refills amLODIPine (NORVASC) 5 mg tablet 30 tablet 2 Sig: Take 1 tablet by mouth once daily. Authorizing Provider: Brayden STEVEN azithromycin (ZITHROMAX Z-MAXIMINO) 250 mg tablet 6 tablet 0 Sig: Take 2 tablets day one, then, 1 tablet daily until gone. Authorizing Provider: Brayden STEVEN PA-C * Telephone Encounter - Chanelle Ayers LPN - 07/03/2022 11:09 AM EST Pt calls for two reasons. 1) pt had OV 05/30/22 with pcp. Bp medication (HCTZ) was causing pt to have to urinate all the time.At that time pt was also on losartan 75 mg daily. Pt reports pcp stopped hctz and potassium and increased losartan to 100 mg daily. At on 06/29/22 bp was 162/82. Pt reports over the weekend bp readings were: 156/93, 174/97, and 192/98. Pt is asking if he should go back to taking hctz and potassium since bp is running high. 2) pt reports he was seen in for URI sx and prescribed benzonatate 100 ca, albuterol inhaler, and Phenergan-DM cough syrup. Pt reports he thought he was feeling a little better but the past coupleof days has been coughing up green/yellow phlegm where it was clear before. Pt reports his chest and ribs hurt from so much coughing. Pt reports he has been sick over 10 days and is asking if there is something else that can be prescribed to help. Please review and advise. Chanelle Ayers LPN documented in this encounterWayne Hospital12-08-2022 Instructions* Patient Instructions* Nannette Skelton PA-C - 06/29/2022 5:11 PM EST Bacterial vs. Viral/Respiratory Tract Infections What are the differences between bacteria and viruses? Although disease-causing bacteria and viruses cause many common infections, these organisms are notthe same. Bacteria can live and are found both inside and outside the human body. Viruses, on the other hand, are much smaller in size than bacteria and cannot survive outside the body s cells. Bacteria contain the genetic material they need to reproduce, while viruses need to invade healthy cells to reproduce. What are antibiotics? Antibiotics are powerful medicines used to treat some infections. However, antibiotics can be harmful when they are not used the right way. In fact, antibiotics themselves can also cause some germ-related problems, such as yeast infections of the vagina and mouth, and a severe form of diarrhea. Antibiotics should only be used when prescribed by a health care provider to treat bacterial infections. How can I tell if an illness or infection is caused by a virus or bacteria? Sometimes it s difficult to tell. The following are some basic guidelines regarding some of the most common illnesses: Colds and flu -- Viruses cause these illnesses. They cannot be cured with antibiotics. Both children and adults should consider being vaccinated with the influenza and pneumococcal vaccines. Ask yourdoctor or head field hockey coach. Cough or bronchitis -- Viruses almost always cause these. However, if you have a problem with your lungs or an illness that lasts a long time, bacteria might actually be the cause. Your doctor might decide to try using an antibiotic. Sore throat -- Most sore throats are caused by viruses and don t need antibiotics. However, strep throat is caused by bacteria. A throat swab and a lab test are usually needed before your doctor willprescribe an antibiotic for strep throat. Ear infections -- There are several types of ear infections. Antibiotics are used for some, but notall, ear infections. Sinus infections --A runny nose and yellow or green mucus do not necessarily mean you need an antibiotic. It is normal for mucus to get thick and change color during the course of a viral infection. For some long-lasting or severe cases, your doctor might decide to prescribe antibiotics. So antibiotics won t help cure all infections? That s correct. Antibiotics only work against infections caused by bacteria. They do not work against any infections caused by viruses. If you have a viral infection, antibiotics will not cure it, help you feel better, or prevent someone else from getting your virus. What is antibiotic resistance and why should I be concerned? Usually, antibiotics kill bacteria or stop them from growing. Antibiotic resistance occurs when bacteria adapt or change in a way that makes a specific antibiotic less able to kill them or stop them from growing. These resistant bacteria survive and multiply--causing more harm, such as a longer or more severe illness, more doctor visits, and the need for treatment with a more expensive and morepowerful antibiotic. Over time, more and more bacteria are becoming more and more resistant to someof the most commonly used antibiotics. As this happens, fewer antibiotics are able to treat common,severe, and even rare illnesses caused by bacteria. To make sure the antibiotics that we already have remain effective, they must be used appropriately. What can I do to help avoid antibiotic-resistant infections? Start by having an open-minded conversation with your health care provider about your illness and about antibiotic resistance. Ask if an antibiotic is likely to be effective in treating the illness. Don t demand an antibiotic when your health care provider determines that one is not appropriate. Now you know that antibiotics don t cure every illness and that you don t need to take antibiotics for most colds, coughs, sore throats, or runny noses because these illnesses are mainly caused by viruses. Often, these illnesses simply need to run their course. Sometimes, this can take two weeks. Do,however, call your health care provider if your illness gets worse or lasts longer than two weeks. Ask what you can do to help relieve your symptoms. For example, measures that can help a person with a cold or flu feel better include: taking a warm bath, increasing fluid intake, using a cool mist vaporizer or saline nasal spray (available from the [employer] drug store) to relieve congestion, or using a sore throat spray or ice chips to soothe the sore throat. If your health care provider does determine that an antibiotic is necessary to treat your illness: Take the antibiotic exactly as instructed. Do not skip does. Complete the prescribed course of treatment, even if you are feeling better. Sometimes, if treatment is stopped too soon, some bacteria might survive and cause the illness to return. Do not save any antibiotics for the next time you get sick. Never take someone else s antibiotic. Their antibiotic might not be appropriate for your illness, and taking the wrong drug can delay correct treatment and allow bacteria to multiply. Copyright 4208-[address] [facility]. All rights reserved documented in this encounterWayne Hospital12-08-2022 History of Present illness Narrative* Nannette Skelton PA-C - 06/29/2022 4:52 PM EST Subjective HPI HPI Freeman Sarabia is a 71 year old male who presents today for CC of chest congestion, cough, headache that started 4 days ago. Slightly SOB. +Fatigue, but thinks it's because he's been coughing so much at night that he hasn't slept. Recently had meds adjusted and was originally presenting for BP recheck. BP 182/96 Pulse 83 Temp 36.6 C (97.9 F) Resp 20 Wt 117.4 kg (258 lb 12.8 oz) SpO2 94% BMI 34.14 kg/m Pulse ox upon recheck 97% ALLERGIES No Known Allergies ACTIVE PROBLEM LIST Essential Hypertension, Benign Left Inguinal Hernia Urinary Urgency Peyronie's Disease Bph (Benign Prostatic Hyperplasia) History of Skin Cancer Mixed Hyperlipidemia Family History Problem Relation Age of Onset COPD Mother Smoker Alcohol/Drug Mother COPD Father Smoker Alcohol/Drug Father Arthritis Sister Colon Cancer Sister Social History Tobacco Use Smoking status: Never Smokeless tobacco: Never Substance Use Topics Alcohol use: Yes Comment: rarely Drug use: No Review of Systems Constitutional: Negative for chills, fever and malaise/fatigue. HENT: Positive for congestion. Negative for ear pain, sinus pain and sore throat. Respiratory: Positive for cough. Negative for sputum production, shortness of breath and wheezing. Cardiovascular: Negative for chest pain. Neurological: Positive for headaches. Objective BP 182/96 Pulse 83 Temp 36.6 C (97.9 F) Resp 20 Wt 117.4 kg (258 lb 12.8 oz) SpO2 94% BMI 34.14 kg/m Physical Exam Vitals and nursing note reviewed. Constitutional: General: He is not in acute distress. Appearance: He is well-developed. He is not ill-appearing. HENT: Head: Normocephalic and atraumatic. Right Ear: Tympanic membrane, ear canal and external ear normal. No middle ear effusion. Tympanic membrane is not injected, perforated, erythematous, retracted or bulging. Left Ear: Tympanic membrane, ear canal and external ear normal. No middle ear effusion. Tympanic membrane is not injected, perforated, erythematous, retracted or bulging. Nose: Mucosal edema and rhinorrhea present. Rhinorrhea is clear. Right Sinus: No maxillary sinus tenderness or frontal sinus tenderness. Left Sinus: No maxillary sinus tenderness or frontal sinus tenderness. Mouth/Throat: Pharynx: Uvula midline. No oropharyngeal exudate or posterior oropharyngeal erythema. Tonsils: No tonsillar abscesses. Cardiovascular: Rate and Rhythm: Normal rate and regular rhythm. Heart sounds: Normal heart sounds. Pulmonary: Effort: Pulmonary effort is normal. Breath sounds: Normal breath sounds. No wheezing, rhonchi or rales. Comments: Mildly diminished breath sounds bilaterally - no wheezing, rhonchi, or rales Musculoskeletal: Cervical back: Normal range of motion. Lymphadenopathy: Head: Right side of head: No submental, submandibular, tonsillar, preauricular, posterior auricular or occipital adenopathy. Left side of head: No submental, submandibular, tonsillar, preauricular, posterior auricular or occipital adenopathy. Cervical: No cervical adenopathy. Right cervical: No superficial or posterior cervical adenopathy. Left cervical: No superficial or posterior cervical adenopathy. Skin: General: Skin is warm and dry. Neurological: Mental Status: He is alert and oriented to person, place, and time. Psychiatric: Mood and Affect: Affect normal. Behavior: Behavior is cooperative. ASSESSMENT/PLAN: 1. Flu-like symptoms - ICD9: 780.99, ICD10: R68.89 (primary diagnosis) Covid and flu testing ordered; Results will be released to [facility] in 24-48 hours. Discussed quarantine, social distancing, hand washing/proper hygiene. Rest, fluids, OTC medications discussed. - COVID WITH FLUA+B, ROUTINE - BENZONATATE 100 MG CAPSULE - PROMETHAZINE-DM 6.25 MG-15 MG/5 ML ORAL SYRUP 2. Acute cough - ICD9: 786.2, ICD10: R05.1 Will tx for suspected viral URI/bronchitis. Rx for tessalon perles and scheduled dosing of albuterol inhaler during daytime. Rx for promethazine DM to assist w/ nighttime cough. Discussed medication indications, proper use, and potential adverse effects. All questions and concerns addressed to patient satisfaction. - BENZONATATE 100 MG CAPSULE - PROMETHAZINE-DM 6.25 MG-15 MG/5 ML ORAL SYRUP 3. SOB (shortness of breath) - ICD9: 786.05, ICD10: R06.02 Pulse ox upon recheck 97%-- pt didn't feel CXR necessary-- see above - ALBUTEROL SULFATE HFA 90 MCG/ACTUATION AEROSOL INHALER - PROMETHAZINE-DM 6.25 MG-15 MG/5 ML ORAL SYRUP 4. Hypertension, essential - ICD9: 401.9, ICD10: I10 - Recently adjusted meds, on 100 mg Losartan-- still suboptimally controlled- advised f/u again with PCP for further medication adjustment Pt advised to see PCP if symptoms persist or progress. Reviewed red flags with patient and when to seek care sooner. The patient indicates understanding of these issues and agrees with the plan. Nannette Skelton PA-C documented [facility] this [facility]Way[facility]11-08-[facility]22 Instructions* Patient Instructions* Thi Benitez MD - 05/30/2022 5:15 PM EST Stop hctz and potassium Increase losartan to 100 mg a day. Bp check in one month Hold atorvastatin. Give update in a month of the meds. documented in this encounterWay[facility]11-08-[facility]22 History of Present illness Narrative* Thi Benitez MD - 05/30/2022 4:43 PM EST Patient presents with: 6 Month Exam HPI: Patient presents today for office visit for follow up. Concerns with joint aches X a few months. Currently takes Atorvastatin 20 mg daily. Has been worse since on meds. HTN: BP is stable. Checks at home occasionally. No chest pain. No shortness of breath. No edema. No dizziness. Still taking potassium. Not sleeping due to some nocturia. Getting up 2-3 X a night. Noticed when forgot to take his HCTZ he didn't get up. No blood in the urine. No changes in the urine stream that is new. MEDICATIONS: Current Outpatient Medications Medication Sig potassium chloride (K-TAB) 10 mEq tablet Take 2 tablets by mouth once daily. atorvastatin (LIPITOR) 20 mg tablet Take 1 tablet by mouth daily at bedtime. For cholesterol. albuterol HFA (VENTOLIN HFA) 90 mcg/actuation inhaler Inhale 2 Puffs as instructed every 4 hours asneeded for wheezing/shortness of breath. losartan (COZAAR) 50 mg tablet TAKE 1 TABLET BY MOUTH ONCE DAILY. IN ADDITION TO 25 MG A DAY losartan (COZAAR) 25 mg tablet Take 1 tablet by mouth once daily. In addition to 50 mg A day hydroCHLOROthiazide (HYDRODIURIL, ESIDRIX) 25 mg tablet Take 1 tablet by mouth once daily. Cholecalciferol, Vitamin D3, 25 mcg (1,000 unit) cap Take 1,000 Units by mouth once daily. No current facility-administered medications for this visit. ALLERGIES: ALLERGIES No Known Allergies PAST MEDICAL HISTORY Diagnosis Date BPH (benign prostatic hyperplasia) 09/04/2013 Essential hypertension, benign Family history of colon cancer sister Hyperlipidemia Snoring PAST SURGICAL HISTORY Procedure Laterality Date APPENDECTOMY COLONOSCOPY FLX DX W/COLLJ SPEC WHEN PFRMD 04/03/2018 Colonoscopy PAST SURGICAL HISTORY OF repeair or ear lesion. 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 REVIEW OF SYSTEMS All other reviewed and negative other than HPI. VITALS: BP 146/88 Pulse (!) 54 Ht 185.4 cm (6' 1 ) Wt 113.9 kg (251 lb) SpO2 99% BMI 33.12 kg/m Last 4 Encounter Wt Readings: Date: Wt: 12/15/2021 111.1 kg (245 lb) 12/01/2021 113.9 kg (251 lb) 11/18/2021 115.2 kg (254 lb) 05/20/2021 112.9 kg (249 lb) PHYSICAL EXAMINATION: General appearance: Well appearing, alert, in no acute distress, well-hydrated, well nourished. Skin: Skin color, texture, turgor normal, no suspicious rashes or lesions Head: Normocephalic, no masses, lesions, tenderness or abnormalities Lungs: Lungs clear to auscultation. No wheezing, rhonchi, rales Heart: RRR without murmur, gallop, or rubs. No ectopy Abdomen: Normal abdominal exam, Abdomen soft, non-tender. Bowel sounds normal. No masses, organomegaly Extremities: No deformities, edema, skin discoloration, clubbing or cyanosis. Good capillary refill. Musculoskeletal: No joint swelling, deformity, or tenderness ASSESSMENT/PLAN: 1. Arthralgia, unspecified joint - ICD9: 719.40, ICD10: M25.50 (primary diagnosis) - hold lipitor. Check labs. Give update in one month. Watch cholesterol in the diet. - CK CREATINE KINASE - BASIC METABOLIC PNL - SED RATE WESTERGREN - CBC + DIFF 2. Essential hypertension, benign - ICD9: 401.1, ICD10: I10 - suboptimal control - increase losartan. Stop hctz and k - Goal of BP <130/80 3. Mixed hyperlipidemia - ICD9: 272.2, ICD10: E78.2 - as above. 4. Benign prostatic hyperplasia without lower urinary tract symptoms - ICD9: 600.00, ICD10: N40.0 - see if stopping diuretic continue to improve symptoms, consider other work up. Had discussion with patient regarding risks and benefits of prostate screening. Allowed them to decide if they wished to proceed with screening including LUMA and PSA. Thi Benitez MD documented in this encounterWayne Hospital05-26-2022 Instructions* Patient Instructions* Thi Benitez MD - 12/15/2021 4:50 PM EDT Guidelines for low cholesterol, low triglyceride diets FOODS TO USE MEATS/FISH - Choose lean meats (chicken, turkey, veal, and nonfatty cuts of beef with excess fat trimmed; one serving = 3 oz. of cooked meat). Also, fresh or frozen fish, canned fish packed in water,and shellfish (lobster, crab, shrimp, oysters). Limit use to no more than one serving of one of these per week. Shellfish are high in cholesterol but low in saturated fat and should be used sparingly. Meats and fish should be broiled (zuniga or oven) or baked on a rack. EGGS - Egg substitutes and egg whites (use freely). Egg yolks (limit two per week). FRUITS - Eat three servings of fresh fruit per day (1 serving = 1/2 cup). Be sure to have at least one citrus fruit daily. Frozen or canned fruit with no sugar or syrup added may be used. VEGETABLES - Most vegetables are not limited (see Foods to Avoid). One dark green (string beans, escarole) or one deep yellow (squash) vegetable is recommended daily. Cauliflower, broccoli, and celery, as well as potato skins, are recommended for their fiber content (fiber is associated with cholesterol reduction). It is preferable to steam vegetables, but they may be boiled, strained, or braisedwith polyunsaturated vegetable oil (see below). BEANS - Dried peas or beans (1 serving = 1/2 cup) may be used as a bread substitute. NUTS - Almonds, walnuts, and peanuts may be used sparingly (1 serving = 1 tablespoon). Use pumpkin,sesame, or sunflower seeds. BREADS/GRAINS - One roll or one slice of whole grain or enriched bread may be used, or three soda crackers or four pieces of dennis toast as a substitute. Spaghetti, rice or noodles (1/2 cup) or 1/2 large ear of corn may be used as a bread substitute. In preparing these foods, do not use butter or shortening; use soft margarine. Also use egg and sugar substitutes. Choose high fiber grains, such asoats and whole wheat. CEREALS - Use 1/2 cup of hot cereal or 1/4 cup of cold cereal per day. Add a sugar substitute if desired, with 99% fat-free or skim milk. MILK PRODUCTS - Always use 99% fat-free or skim milk, dairy products such as low-fat cheeses (loving's, uncreamed diet cottage), low-fat yogurt, and powdered skim milk. FATS/OILS - Use soft (not stick) margarine, vegetable oils that are high in polyunsaturated fats (such as safflower, sunflower, soybean, corn, and cottonseed). Always refrigerate meat drippings to harden the fat and remove it before preparing gravies. DESSERTS/SNACKS - Limit to two servings per day; substitute each serving for a bread/cereal serving; ice milk or water sherbet (1/4 cup); unflavored gelatin or gelatin flavored with sugar substitute (1/2 cup); pudding prepared with skim milk (1/2 cup); egg white souffles; unbuttered popcorn (1 1/2 cups). Substitute carob for chocolate. BEVERAGES - Fresh fruit juices (limit to 4 oz. per day); black coffee; plain or herbal teas; soft drinks with sugar substitutes; club soda, preferably salt- free; cocoa made with skim milk or nonfat dried milk and water (sugar substitute added, if desired); clear broth. Alcohol - limit to two servings per day (see Foods to Avoid). MISCELLANEOUS - You may use the following freely: vinegar; spices; herbs; nonfat bouillon; mustard;Worcestershire sauce; soy sauce; flavoring essence. FOODS TO AVOID MEATS/FISH - Marbled beef, pork, knight, sausage and other pork products; fatty fowl (duck, goose); skin and fat of turkey and chicken; processed meats; luncheon meats (salami, bologna); frankfurters and fast food hambergers (they are loaded with fat); organ meats (kidneys, liver); canned fish packed in oil. EGGS - Limit egg yolks to two per week. FRUITS - Coconuts (rich in saturated fat) VEGETABLES - Avoid avocados. Starchy vegetables (potatoes, corn mcmillan beans, dried peas, beans) may be used only if they are substitutes for a serving of bread or cereal. (Baked potato skin, however, is desirable for its fiber content). BEANS - Commercial baked beans with sugar and/or pork added. NUTS - Avoid nuts. Limit peanuts and walnuts to one tablespoonful per day. BREADS/GRAINS - Any baked goods with shortening and/or sugar. Commercial mixes with dried eggs and whole milk. Avoid sweet rolls, doughnuts, breakfast pastries (Uzbek), and sweetened packaged cereals (the added sugar converts readily to triglycerides). MILK PRODUCTS - Whole milk and whole-milk packaged goods; cream; ice cream; whole-milk puddings, yogurt, or cheeses; nondairy cream substitutes. FATS/OILS - Butter, lard, animal fats, knight drippings, gravies, cream sauces, as well as palm and coconut oils. All these are high in saturated fats. Examine labels on cholesterol free products for hydrogenated fats. (These are oils that have been hardened into solids and in the process have become saturated.) DESSERTS/SNACKS - Fried snack foods like potato chips; chocolate; candies in general; jams, jellies, syrups; whole-milk puddings; ice cream and milk sherberts; hydrogenatd peanut butter. BEVERAGES - Sugared fruit juices and soft drinks; cocoa made with whole milk and/or sugar. When using alcohol (1 oz. liquor, 5 oz. beer, or 2 1/2 oz. dry table wine per serving), one serving must be substituted for one bread or cereal serving (limit two servings of alcohol per day). SPECIAL NOTES 1. Remember that even nonlimited foods should be used in moderation. 2. While on a cholesterol-lowering diet, be sure to avoid animal fats and marbled meats. 3. While on a triglyceride-lowering diet, be sure to avoid sweets and to control the amount of carbohydrates you eat (starchy foods such as flower, bread, or potatoes). 4. Buy a good low-fat cookbook, such as the one published by the [employer] [place] [employer]. 5. Consult your physician if you have any questions. documented in this encounterWay[facility] Hospital05-26-2022 History of Present illness Narrative* Thi Benitez MD - 12/15/2021 4:43 PM EDT Patient presents with: Follow Up: feeling much better after Pred HPI: Patient presents today for office visit for follow up. INTERIM: Begin steroids and inhaler. Did chest xray and ekg. Begun on statin. Chest xray was negative. He feels back to normal currently. Steroids helped significantly. He had even had congestion prior that has cleared. No chest pain or shortness of breath. No edema. His is making him watch his diet aggressively. Will give low cholesterol diet. 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 Feels as if it is his lungs. No fever or chills. Some cough on and off. No worse on Sunday. No chest pain. No edema. Was diaphoretic. Does not necessarily feel short of breath today but for instance has squeaking when breathing at times. Has been there continuously since Sunday No fever or chills. No sore throat. His right ear is slightly sore. Was not really concerned with it. No issues with taste or smell. No gi issues. No palpitations or syncope. Discussed his cholesterol and statin usage. Reviewed his labs. He did not take the potassium before he came in which might explain the potassium. He did not drink fluid before lab draw. The 10-year ASCVD risk score (Husseinenma PERDOMO Jr., et al., 2013) is: 30.2% Values used to calculate the score: Age: 71 years Sex: Male Is Non- : No Diabetic: No Tobacco smoker: No Systolic Blood Pressure: 132 mmHg Is BP treated: Yes HDL Cholesterol: 30 mg/dL Total Cholesterol: 205 mg/dL MEDICATIONS: Current Outpatient Medications Medication Sig atorvastatin (LIPITOR) 20 mg tablet Take 1 tablet by mouth daily at bedtime. For cholesterol. albuterol HFA (VENTOLIN HFA) 90 mcg/actuation inhaler Inhale 2 Puffs as instructed every 4 hours asneeded for wheezing/shortness of breath. losartan (COZAAR) 50 mg tablet TAKE 1 TABLET BY MOUTH ONCE DAILY. IN ADDITION TO 25 MG A DAY losartan (COZAAR) 25 mg tablet Take 1 tablet by mouth once daily. In addition to 50 mg A day potassium chloride (K-TAB) 10 mEq tablet Take 2 tablets by mouth once daily. hydroCHLOROthiazide (HYDRODIURIL, ESIDRIX) 25 mg tablet Take 1 tablet by mouth once daily. Cholecalciferol, Vitamin D3, (VITAMIN D) 25 mcg (1,000 unit) cap Take 1,000 Units by mouth once daily. No current facility-administered medications for this visit. ALLERGIES: ALLERGIES No Known Allergies PAST MEDICAL HISTORY Diagnosis Date BPH (benign prostatic hyperplasia) 09/04/2013 Essential hypertension, benign Family history of colon cancer sister Hyperlipidemia Snoring PAST SURGICAL HISTORY Procedure Laterality Date APPENDECTOMY COLONOSCOPY FLX DX W/COLLJ SPEC WHEN PFRMD 04/03/2018 Colonoscopy PAST SURGICAL HISTORY OF repeair or ear lesion. 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 REVIEW OF SYSTEMS All other reviewed and negative other than HPI. VITALS: BP 132/82 Pulse 64 Wt 111.1 kg (245 lb) BMI 31.61 kg/m Last 4 Encounter Wt Readings: Date: Wt: 12/15/2021 111.1 kg (245 lb) 12/01/2021 113.9 kg (251 lb) 11/18/2021 115.2 kg (254 lb) 05/20/2021 112.9 kg (249 lb) PHYSICAL EXAMINATION: General appearance: Well appearing, alert, in no acute distress, well-hydrated, well nourished. Skin: Skin color, texture, turgor normal, no suspicious rashes or lesions Head: Normocephalic, no masses, lesions, tenderness or abnormalities Lungs: Lungs clear to auscultation. No wheezing, rhonchi, rales Heart: RRR without murmur, gallop, or rubs. No ectopy Abdomen: Normal abdominal exam, Abdomen soft, non-tender. Bowel sounds normal. No masses, organomegaly ASSESSMENT/PLAN: 1. Wheezing - ICD9: 786.07, ICD10: R06.2 (primary diagnosis) - resolved. Call if recurs. 2. SOB (shortness of breath) - ICD9: 786.05, ICD10: R06.02 - call if recurs. 3. Essential hypertension, benign - ICD9: 401.1, ICD10: I10 - good control - Continue current medication(s) - Goal of BP <130/80 Thi Benitez documented in this encounterWayne [facility]05-12-2022 History of Present illness Narrative* Thi Benitez MD - 12/01/2021 8:22 AM EDT Patient presents with: Shortness of Breath HPI: Patient presents today for office visit for acute visit. 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 Feels as if it is his lungs. No fever or chills. Some cough on and off. No worse on Sunday. No chest pain. No edema. Was diaphoretic. Does not necessarily feel short of breath today but for instance has squeaking when breathing at times. Has been there continuously since Sunday No fever or chills. No sore throat. His right ear is slightly sore. Was not really concerned with it. No issues with taste or smell. No gi issues. No palpitations or syncope. Discussed his cholesterol and statin usage. Reviewed his labs. He did not take the potassium before he came in which might explain the potassium. He did not drink fluid before lab draw. The 10-year ASCVD risk score (Hussein PERDOMO Jr., et al., 2013) is: 30.2% Values used to calculate the score: Age: 71 years Sex: Male Is Non- : No Diabetic: No Tobacco smoker: No Systolic Blood Pressure: 132 mmHg Is BP treated: Yes HDL Cholesterol: 30 mg/dL Total Cholesterol: 205 mg/dL Component Latest Ref Rng & Units 11/30/2021 WBC 3.70 - 11.00 k/uL 6.25 RBC 4.20 - 6.00 m/uL 4.72 Hemoglobin 13.0 - 17.0 g/dL 15.1 Hematocrit 39.0 - 51.0 % 44.9 MCV 80.0 - 100.0 fL 95.1 MCH 26.0 - 34.0 pg 32.0 MCHC 30.5 - 36.0 g/dL 33.6 RDW-CV 11.5 - 15.0 % 12.7 Platelet Count 150 - 400 k/uL 257 MPV 9.0 - 12.7 fL 10.0 Neut% % 55.2 Abs Neut (ANC) 1.45 - 7.50 k/uL 3.45 Lymph% % 30.2 Abs Lymph 1.00 - 4.00 k/uL 1.89 [place]% % 10.4 Abs [place] <0.87 k/uL 0.65 Eosin% % 3.4 Abs Eosin <0.46 k/uL 0.21 Baso% % 0.5 Abs Baso <0.11 k/uL 0.03 Immature Gran % % 0.3 IMMATURE GRANS (ABS) <0.10 k/uL <0.03 NRBC /100 WBC 0.0 Absolute nRBC <0.01 k/uL <0.01 DTYPE Auto Protein, Total 6.3 - 8.0 g/dL 6.5 Albumin 3.9 - 4.9 g/dL 4.1 Calcium 8.5 - 10.2 mg/dL 9.6 Bilirubin, Total 0.2 - 1.3 mg/dL 0.6 Alkaline Phosphatase 38 - 113 U/L 73 AST 14 - 40 U/L 17 ALT 10 - 54 U/L 16 Glucose 74 - 99 mg/dL 102 (H) BUN 9 - 24 mg/dL 25 (H) Creatinine 0.73 - 1.22 mg/dL 1.15 Sodium 136 - 144 mmol/L 142 Potassium 3.7 - 5.1 mmol/L 3.4 (L) Chloride 97 - 105 mmol/L 102 CO2 22 - 30 mmol/L 30 Anion Gap 9 - 18 mmol/L 10 eGFR >=60 mL/min/1.73m 68 Cholesterol, Total <200 mg/dL 205 (H) Triglyceride <150 mg/dL 160 (H) HDL Cholesterol >39 mg/dL 30 (L) Non HDL Cholesterol <130 mg/dL 175 (H) Fasting Time hrs 14 VLDL Cholesterol <30 mg/dL 32 (H) TC:HDL Ratio <5.10 6.83 (H) LDL Cholesterol <100 mg/dL 143 (H) LDL:HDL Ratio <2.54 4.77 (H) MEDICATIONS: Current Outpatient Medications Medication Sig losartan (COZAAR) 50 mg tablet TAKE 1 TABLET BY MOUTH ONCE DAILY. IN ADDITION TO 25 MG A DAY losartan (COZAAR) 25 mg tablet Take 1 tablet by mouth once daily. In addition to 50 mg A day potassium chloride (K-TAB) 10 mEq tablet Take 2 tablets by mouth once daily. hydroCHLOROthiazide (HYDRODIURIL, ESIDRIX) 25 mg tablet Take 1 tablet by mouth once daily. Cholecalciferol, Vitamin D3, (VITAMIN D) 25 mcg (1,000 unit) cap Take 1,000 Units by mouth once daily. No current facility-administered medications for this visit. ALLERGIES: ALLERGIES No Known Allergies PAST MEDICAL HISTORY Diagnosis Date BPH (benign prostatic hyperplasia) 09/04/2013 Essential hypertension, benign Family history of colon cancer sister Hyperlipidemia Snoring PAST SURGICAL HISTORY Procedure Laterality Date APPENDECTOMY COLONOSCOPY FLX DX W/COLLJ SPEC WHEN PFRMD 04/03/2018 Colonoscopy PAST SURGICAL HISTORY OF repeair or ear lesion. 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 REVIEW OF SYSTEMS All other reviewed and negative other than HPI. HEALTH MAINTENANCE: Reviewed health maintenance issues today VITALS: BP 132/82 Pulse 67 Wt 113.9 kg (251 lb) SpO2 98% BMI 32.38 kg/m Last 4 Encounter Wt Readings: Date: Wt: 12/01/2021 113.9 kg (251 lb) 11/18/2021 115.2 kg (254 lb) 05/20/2021 112.9 kg (249 lb) 03/03/2021 114.8 kg (253 lb) PHYSICAL EXAMINATION: General appearance: Well appearing, alert, in no acute distress, well-hydrated, well nourished. Skin: Skin color, texture, turgor normal, no suspicious rashes or lesions Head: Normocephalic, no masses, lesions, tenderness or abnormalities Eyes: Anicteric sclera. Pupils are equally round and reactive to light. Extraocular movements are intact. Neck: Supple, no adenopathy; thyroid symmetric, normal size, no bruits Back: Normal exam Lungs: Lungs clear to auscultation. Mild end expiratory wheeze. Heart: RRR without murmur, gallop, or rubs. No ectopy Abdomen: Normal abdominal exam, Abdomen soft, non-tender. Bowel sounds normal. No masses, organomegaly Extremities: No deformities, edema, skin discoloration, clubbing or cyanosis. Good capillary refill. Musculoskeletal: No joint swelling, deformity, or tenderness Peripheral pulses: Normal Neuro: Negative. ASSESSMENT/PLAN: 1. SOB (shortness of breath) - ICD9: 786.05, ICD10: R06.02 (primary diagnosis) - Does not sound cardiac. Labs were just done. Discussed risks and benefits of new medication with the patient. Advised them to call if any side effects or questions. - Red flags for re-assessment reviewed with patient in detail. - recheck in two weeks. Work up further once stable. Consider pft's etc. - ECG COMPLETE - XR CHEST 2V FRONTAL/LAT - METHYLPREDNISOLONE 4 MG TABLETS IN A DOSE PACK - ALBUTEROL SULFATE HFA 90 MCG/ACTUATION AEROSOL INHALER 2. Essential hypertension, benign - ICD9: 401.1, ICD10: I10 - good control - Continue current medication(s) - Goal of BP <130/80 3. Mixed hyperlipidemia - ICD9: 272.2, ICD10: E78.2 - suboptimal control - Continue current medication. - ATORVASTATIN 20 MG TABLET - HEPATIC FUNCTION PNL - LIPID PANEL BASIC 4. Hypokalemia - ICD9: 276.8, ICD10: E87.6 - push fluids and take potassium before next lab draw. - BASIC METABOLIC PNL Thi Benitez RTO in two weeks. and prn. documented in this encounterWayne Hospital05-02-2022 Miscellaneous Notes* Telephone Encounter - Thi Benitez MD - 11/21/2021 10:31 AM EDT I am confused. Both 50 mg and 25 were sent and received at office visit. Did they not receive the 25? * Telephone Encounter - Sina Contreras LPN - 11/21/2021 10:07 AM EDT Images from the original note were not included. [facility] History of Present illness Narrative* Thi Benitez MD - 11/18/2021 4:09 PM EDT Patient presents with: Hypertension HPI: Patient presents today for office visit for follow up. HYPERTENSION:no chest discomfort. No edema. No dizziness. No significant dyspnea. Still taking his potassium No skin issues. Sees [facility] annually. See ortho next week for hip follow up. MEDICATIONS: Current Outpatient Medications Medication Sig losartan (COZAAR) 25 mg tablet Take 1 tablet by mouth once daily. losartan (COZAAR) 50 mg tablet Take 1 tablet by mouth once daily. potassium chloride (K-TAB) 10 mEq tablet Take 2 tablets by mouth once daily. hydroCHLOROthiazide (HYDRODIURIL, ESIDRIX) 25 mg tablet Take 1 tablet by mouth once daily. Cholecalciferol, Vitamin D3, (VITAMIN D) 25 mcg (1,000 unit) cap Take 1,000 Units by mouth once daily. No current facility-administered medications for this visit. ALLERGIES: ALLERGIES No Known Allergies PAST MEDICAL HISTORY Diagnosis Date BPH (benign prostatic hyperplasia) 09/04/2013 Essential hypertension, benign Family history of colon cancer sister Hyperlipidemia Snoring PAST SURGICAL HISTORY Procedure Laterality Date APPENDECTOMY COLONOSCOPY FLX DX W/COLLJ SPEC WHEN PFRMD 04/03/2018 Colonoscopy PAST SURGICAL HISTORY OF repeair or ear lesion. 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 REVIEW OF SYSTEMS GI: Negative for change in bowel habit : Negative All other reviewed and negative other than HPI. HEALTH MAINTENANCE: Reviewed health maintenance issues today and recommended the following in detail. ADVANCE DIRECTIVE DISCUSSION-has advanced directive. is his surrogate. VITALS: BP 138/88 Pulse 72 Wt 115.2 kg (254 lb) BMI 32.77 kg/m Last 4 Encounter Wt Readings: Date: Wt: 11/18/2021 115.2 kg (254 lb) 05/20/2021 112.9 kg (249 lb) 03/03/2021 114.8 kg (253 lb) 11/08/2020 113.4 kg (250 lb) PHYSICAL EXAMINATION: General appearance: alert Skin: Skin color, texture, turgor normal, no suspicious rashes or lesions Head: Normocephalic, no masses, lesions, tenderness or abnormalities Lungs: Lungs clear to auscultation. No wheezing, rhonchi, rales Heart: RRR without murmur, gallop, or rubs. No ectopy Abdomen: Normal abdominal exam, Abdomen soft, non-tender. Bowel sounds normal. No masses, organomegaly Extremities: No deformities, edema, skin discoloration, clubbing or cyanosis. Good capillary refill. Musculoskeletal: No joint swelling, deformity, or tenderness Peripheral pulses: Normal Neuro: Negative. ASSESSMENT/PLAN: 1. Essential hypertension, benign - ICD9: 401.1, ICD10: I10 - good control - Continue current medication(s) - Goal of BP <130/80 - LOSARTAN 25 MG TABLET - LOSARTAN 50 MG TABLET - CBC + DIFF - COMP METABOLIC PANEL - LIPID PANEL BASIC 2. Hypokalemia - ICD9: 276.8, ICD10: E87.6 - POTASSIUM CHLORIDE ER 10 MEQ TABLET,EXTENDED RELEASE 3. History of skin cancer - ICD9: V10.83, ICD10: Z85.828 Follow with derm. Thi Benitez RTO in six months and prn. documented in [facility] History of Past illness Narrative* Problem Noted Date Resolved Date Skin cancers 05/20/2021 05/20/2021 Overview: Had ear surgery remotely. Does not recall type of cancer or who did it. Special screening for malignant neoplasms, colon 09/24/2014 09/24/2014 Frequency of urination 09/04/2013 8 Nocturia 09/04/2013 03/18/2018 Difficulty voiding 09/04/2013 11/18/2021 Elevated blood pressure read ing without diagnosis of hypertension 04/22/2005 05/25/2005 Obesity, unspecified 04/22/2005 07/01/2010 documented as of this encounter (statuses as of 11/18/2021) [facility] of [facility] illness Narrative* Problem Noted Date Resolved Date Skin cancers 05/20/2021 05/20/2021 Overview: Had ear surgery remotely. Does not recall type of cancer or who did it. Special screening for malignant neoplasms, colon 09/24/2014 09/24/2014 Frequency of urination 09/04/2013 8 Nocturia 09/04/2013 03/18/2018 Difficulty voiding 09/04/2013 11/18/2021 Elevated blood pressure read ing without diagnosis of hypertension 04/22/2005 05/25/2005 Obesity, unspecified 04/22/2005 07/01/2010 documented as of this encounter (statuses as of 11/21/2021) [facility] illness Narrative* Problem Noted Date Resolved Date Skin cancers 05/20/2021 05/20/2021 Overview: Had ear surgery remotely. Does not recall type of cancer or who did it. Special screening for malignant neoplasms, colon 09/24/2014 09/24/2014 Frequency of urination 09/04/2013 8 Nocturia 09/04/2013 03/18/2018 Difficulty voiding 09/04/2013 11/18/2021 Elevated blood pressure read ing without diagnosis of hypertension 04/22/2005 05/25/2005 Obesity, unspecified 04/22/2005 07/01/2010 documented as of this encounter (statuses as of 12/01/2021) [facility] Narrative* Problem Noted Date Resolved Date Skin cancers 05/20/2021 05/20/2021 Overview: Had ear surgery remotely. Does not recall type of cancer or who did it. Special screening for malignant neoplasms, colon 09/24/2014 09/24/2014 Frequency of urination 09/04/2013 8 Nocturia 09/04/2013 03/18/2018 Difficulty voiding 09/04/2013 11/18/2021 Elevated blood pressure read ing without diagnosis of hypertension 04/22/2005 05/25/2005 Obesity, unspecified 04/22/2005 07/01/2010 documented as of this encounter (statuses as of 12/15/2021) [facility] Narrative* Problem Noted Date Resolved Date Skin cancers 05/20/2021 05/20/2021 Overview: Had ear surgery remotely. Does not recall type of cancer or who did it. Special screening for malignant neoplasms, colon 09/24/2014 09/24/2014 Frequency of urination 09/04/2013 8 Nocturia 09/04/2013 03/18/2018 Difficulty voiding 09/04/2013 11/18/2021 Elevated blood pressure read ing without diagnosis of hypertension 04/22/2005 05/25/2005 Obesity, unspecified 04/22/2005 07/01/2010 documented as of this encounter (statuses as of 05/31/2022) [facility] Narrative* Problem Noted Date Resolved Date Skin cancers 05/20/2021 05/20/2021 Overview: Had ear surgery remotely. Does not recall type of cancer or who did it. Special screening for malignant neoplasms, colon 09/24/2014 09/24/2014 Frequency of urination 09/04/2013 8 Nocturia 09/04/2013 03/18/2018 Difficulty voiding 09/04/2013 11/18/2021 Elevated blood pressure read ing without diagnosis of hypertension 04/22/2005 05/25/2005 Obesity, unspecified 04/22/2005 07/01/2010 documented as of this encounter (statuses as of 06/30/2022) [facility] Narrative* Problem Noted Date Resolved Date Skin cancers 05/20/2021 05/20/2021 Overview: Had ear surgery remotely. Does not recall type of cancer or who did it. Special screening for malignant neoplasms, colon 09/24/2014 09/24/2014 Frequency of urination 09/04/2013 8 Nocturia 09/04/2013 03/18/2018 Difficulty voiding 09/04/2013 11/18/2021 Elevated blood pressure read ing without diagnosis of hypertension 04/22/2005 05/25/2005 Obesity, unspecified 04/22/2005 07/01/2010 documented as of this encounter (statuses as of 07/03/2022) [facility] Narrative* Problem Noted Date Resolved Date Skin cancers 05/20/2021 05/20/2021 Overview: Had ear surgery remotely. Does not recall type of cancer or who did it. Special screening for malignant neoplasms, colon 09/24/2014 09/24/2014 Frequency of urination 09/04/2013 8 Nocturia 09/04/2013 03/18/2018 Difficulty voiding 09/04/2013 11/18/2021 Elevated blood pressure read ing without diagnosis of hypertension 04/22/2005 05/25/2005 Obesity, unspecified 04/22/2005 07/01/2010 documented as of this encounter (statuses as of 07/10/2022) [facility] Narrative* Problem Noted Date Resolved Date Skin cancers 05/20/2021 05/20/2021 Overview: Had ear surgery remotely. Does not recall type of cancer or who did it. Special screening for malignant neoplasms, colon 09/24/2014 09/24/2014 Frequency of urination 09/04/2013 8 Nocturia 09/04/2013 03/18/2018 Difficulty voiding 09/04/2013 11/18/2021 Elevated blood pressure read ing without diagnosis of hypertension 04/22/2005 05/25/2005 Obesity, unspecified 04/22/2005 07/01/2010 documented as of this encounter (statuses as of 07/27/2022) [facility] Narrative* Problem Noted Date Resolved Date Skin cancers 05/20/2021 05/20/2021 Overview: Had ear surgery remotely. Does not recall type of cancer or who did it. Special screening for malignant neoplasms, colon 09/24/2014 09/24/2014 Frequency of urination 09/04/2013 8 Nocturia 09/04/2013 03/18/2018 Difficulty voiding 09/04/2013 11/18/2021 Elevated blood pressure read ing without diagnosis of hypertension 04/22/2005 05/25/2005 Obesity, unspecified 04/22/2005 07/01/2010 documented as of this encounter (statuses as of 07/28/2022) [facility] Narrative* Problem Noted Date Resolved Date Skin cancers 05/20/2021 05/20/2021 Overview: Had ear surgery remotely. Does not recall type of cancer or who did it. Special screening for malignant neoplasms, colon 09/24/2014 09/24/2014 Frequency of urination 09/04/2013 8 Nocturia 09/04/2013 03/18/2018 Difficulty voiding 09/04/2013 11/18/2021 Elevated blood pressure read ing without diagnosis of hypertension 04/22/2005 05/25/2005 Obesity, unspecified 04/22/2005 07/01/2010 documented as of this encounter (statuses as of 08/04/2022) [facility] Narrative* Problem Noted Date Resolved Date Skin cancers 05/20/2021 05/20/2021 Overview: Had ear surgery remotely. Does not recall type of cancer or who did it. Special screening for malignant neoplasms, colon 09/24/2014 09/24/2014 Frequency of urination 09/04/2013 8 Nocturia 09/04/2013 03/18/2018 Difficulty voiding 09/04/2013 11/18/2021 Elevated blood pressure read ing without diagnosis of hypertension 04/22/2005 05/25/2005 Obesity, unspecified 04/22/2005 07/01/2010 documented as of this encounter (statuses as of 08/10/2022) [facility] Narrative* Problem Noted Date Resolved Date Skin cancers 05/20/2021 05/20/2021 Overview: Had ear surgery remotely. Does not recall type of cancer or who did it. Special screening for malignant neoplasms, colon 09/24/2014 09/24/2014 Frequency of urination 09/04/2013 8 Nocturia 09/04/2013 03/18/2018 Difficulty voiding 09/04/2013 11/18/2021 Elevated blood pressure read ing without diagnosis of hypertension 04/22/2005 05/25/2005 Obesity, unspecified 04/22/2005 07/01/2010 documented as of this encounter (statuses as of 08/16/2022) [facility] Narrative* Problem Noted Date Resolved Date Skin cancers 05/20/2021 05/20/2021 Overview: Had ear surgery remotely. Does not recall type of cancer or who did it. Special screening for malignant neoplasms, colon 09/24/2014 09/24/2014 Frequency of urination 09/04/2013 8 Nocturia 09/04/2013 03/18/2018 Difficulty voiding 09/04/2013 11/18/2021 Elevated blood pressure read ing without diagnosis of hypertension 04/22/2005 05/25/2005 Obesity, unspecified 04/22/2005 07/01/2010 documented as of this encounter (statuses as of 12/02/2022) [facility] Diagnosis Essential hypertension, benign Hypokalemia Hypopotassemia History of skin cancer Personal history of other malignant neoplasm of skin documented [facility] this encounter [facility]* Diagnosis Essential hypertension, benign [facility]* Diagnosis SOB (shortness of breath)- Primary Shortness of breath Essential hypertension, benign Mixed hyperlipidemia Hypokalemia Hypopotassemia documented [facility]* Diagnosis Wheezing- Primary SOB (shortness of breath) Shortness of breath Essential hypertension, benign [facility]* Diagnosis Arthralgia, unspecified joint- Primary Essential hypertension, benign Mixed hyperlipidemia Benign prostatic hyperplasia without lower urinary tract symptoms Screening for prostate cancer Special screening for malignant neoplasm of prostate documented [facility] this encounter [facility]* Diagnosis Flu-like symptoms- Primary Other general symptoms Acute cough SOB (shortness of breath) Shortness of breath Hypertension, essential Unspecified essential hypertension [facility]* Diagnosis Essential hypertension, benign- Primary Bronchitis Bronchitis, not specified as acute or chronic [facility]* Diagnosis Bilateral swelling of feet- Primary Swelling of limb Essential hypertension, benign [facility]* Diagnosis Aortic dilatation (HCC)- Primary Aortic ectasia, unspecified site [facility] this [facility]* Diagnosis Essential hypertension, benign- Primary Mixed hyperlipidemia Bilateral swelling of feet Swelling of limb Skin lesion Unspecified disorder of skin and subcutaneous tissue Aortic dilatation (HCC) Aortic ectasia, unspecified site [facility] this encounter [facility]* Diagnosis Essential hypertension, benign Hypokalemia Hypopotassemia documented [facility]* Diagnosis Coronary artery disease involving [place] coronary artery of [place] heart without angina pectoris- Primary Mixed hyperlipidemia Essential hypertension, benign Aortic dilatation (HCC) Aortic ectasia, unspecified site Anxiety with depression [facility]* Diagnosis Essential hypertension, benign- Primary Mixed hyperlipidemia Aortic dilatation (HCC) Aortic ectasia, unspecified site Coronary artery disease involving [place] coronary artery of [place] heart without angina pectoris documented [facility] this encounter [facility]* Diagnosis Anxiety with depression [facility] this [facility]* Diagnosis Coronary artery disease involving [place] coronary artery of [place] heart without angina pectoris- Primary Encounter for immunization Need for other specified prophylactic vaccination against single bacterial disease Aortic dilatation (HCC) Aortic ectasia, unspecified site Essential hypertension, benign [facility] this [facility]* Diagnosis Essential hypertension, benign- Primary documented in this encounter [facility] for referral (narrative)* Outpatient Procedure (Routine) - Closed Specialty Diagnoses / Procedures Referred By Contac t Referred To [facility] Diagnoses SOB (shortness of breath) Procedures ECG COMPLETE ECG ROUTINE ECG W/LEAST 12 LDS W/I&R Thi Benitez MD [address] [place] [address] [facility] [address] [place] [id number] Referral ID Status Reason Start Date Expiration Date V isits Requested Visits Authorized [id number] Closed Auto-Generate d Referral 12/01/2021 12/01/2022 1 1 [facility] for referral (narrative)* Outpatient Procedure (Routine) - Pending Review Specialty Diagnoses / Procedures Referred By Contac t Referred To Contact [facility] [place] Diagnoses Bilateral swelling of feet Procedures ECHO ECHO TTHRC R-T 2D W/WOM-MODE COMPL SPEC&COLR Leatha Warren APRN.AIRCRAFT MAINTENANCE ENGINEER [address] [place] [address] [facility] [address] [place] [address] Referral ID Status Reason Start Date Expiration Date Visits Requested Visits Authorized [id number] Pending Review Auto-Generat ed Referral 07/27/2022 07/27/2023 1 1 [facility] for referral (narrative)* Outpatient Procedure (Routine) - Pending Review Specialty Diagnoses / Procedures Referred By Contac t Referred To Contact [facility] [place] Diagnoses Aortic dilatation (HCC) Procedures ECHO ECHO TTHRC R-T 2D W/WOM-MODE COMPL SPEC&COLLeatha Candelaria APRN.AIRCRAFT MAINTENANCE ENGINEER [address] [place] [address] [facility] [address] [place] [address] Referral ID Status Reason Start Date Expiration Date Visits Requested Visits Authorized [id number] Pending Review Auto-Generat ed Referral 02/01/2023 08/04/2023 1 1 [facility] Advance Directives No Advanced Directives Records FoundDocuments on File Type Date 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 Advance Directive(s) 04/03/2018 8:05 AM Documents on File Type Date 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 Advance 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(s) 04/03/2018 8:05 AM Summary Purpose Family History No Family History Records Found Additional Source Comments Source Comments (unrecognize d section and content) In the event this informatio n is protected by the Federal Confidentiality of Alcohol and Drug Abuse Patient Records regulations: The Federal rules restrict any use of the information to criminally investigate or prosecute any alcohol or drug abuse patient.[facility] the event this information is protected by the Federal Confidentiality of Alcohol and Drug Abuse Patient Records regulations: The Federal rules restrict any use of the information to criminally investigate or prosecute any alcohol or drug abuse patient.[facility] HospitalIn the event this information is protected by the Federal Confidentiality of Alcohol and Drug Abuse Patient Records regulations: The Federal rules restrict any use of the information to criminally investigate or prosecute any alcohol or drug abuse patient.[facility] HospitalIn the event this information is protected by the Federal Confidentiality of Alcohol and Drug Abuse Patient Records regulations: The Federal rules restrict any use of the information to criminally investigate or prosecute any alcohol or drug abuse patient.[facility] HospitalIn the event this information is protected by the Federal Confidentiality of Alcohol and Drug Abuse Patient Records regulations: The Federal rules restrict any use of the information to criminally investigate or prosecute any alcohol or drug abuse patient.[facility] HospitalIn the event this information is protected by the Federal Confidentiality of Alcohol and Drug Abuse Patient Records regulations: The Federal rules restrict any use of the information to criminally investigate or prosecute any alcohol or drug abuse patient.[facility] HospitalIn the event this information is protected by the Federal Confidentiality of Alcohol and Drug Abuse Patient Records regulations: The Federal rules restrict any use of the information to criminally investigate or prosecute any alcohol or drug abuse patient.[facility] HospitalIn the event this information is protected by the Federal Confidentiality of Alcohol and Drug Abuse Patient Records regulations: The Federal rules restrict any use of the information to criminally investigate or prosecute any alcohol or drug abuse patient.[facility] HospitalIn the event this information is protected by the Federal Confidentiality of Alcohol and Drug Abuse Patient Records regulations: The Federal rules restrict any use of the information to criminally investigate or prosecute any alcohol or drug abuse patient.[facility] HospitalIn the event this information is protected by the Federal Confidentiality of Alcohol and Drug Abuse Patient Records regulations: The Federal rules restrict any use of the information to criminally investigate or prosecute any alcohol or drug abuse patient.[facility] HospitalIn the event this information is protected by the Federal Confidentiality of Alcohol and Drug Abuse Patient Records regulations: The Federal rules restrict any use of the information to criminally investigate or prosecute any alcohol or drug abuse patient.[facility] HospitalIn the event this information is protected by the Federal Confidentiality of Alcohol and Drug Abuse Patient Records regulations: The Federal rules restrict any use of the information to criminally investigate or prosecute any alcohol or drug abuse patient.[facility] HospitalIn the event this information is protected by the Federal Confidentiality of Alcohol and Drug Abuse Patient Records regulations: The Federal rules restrict any use of the information to criminally investigate or prosecute any alcohol or drug abuse patient.[facility] HospitalIn the event this information is protected by the Federal Confidentiality of Alcohol and Drug Abuse Patient Records regulations: The Federal rules restrict any use of the information to criminally investigate or prosecute any alcohol or drug abuse patient.[facility] HospitalIn the event this information is protected by the Federal Confidentiality of Alcohol and Drug Abuse Patient Records regulations: The Federal rules restrict any use of the information to criminally investigate or prosecute any alcohol or drug abuse patient.[facility] HospitalIn the event this information is protected by the Federal Confidentiality of Alcohol and Drug Abuse Patient Records regulations: The Federal rules restrict any use of the information to criminally investigate or prosecute any alcohol or drug abuse patient.[facility] HospitalIn the event this information is protected by the Federal Confidentiality of Alcohol and Drug Abuse Patient Records regulations: The Federal rules restrict any use of the information to criminally investigate or prosecute any alcohol or drug abuse patient.[facility] HospitalIn the event this information is protected by the Federal Confidentiality of Alcohol and Drug Abuse Patient Records regulations: The Federal rules restrict any use of the information to criminally investigate or prosecute any alcohol or drug abuse patient.[facility] HospitalIn the event this information is protected by the Federal Confidentiality of Alcohol and Drug Abuse Patient Records regulations: The Federal rules restrict any use of the information to criminally investigate or prosecute any alcohol or drug abuse patient.[facility] HospitalIn the event this information is protected by the Federal Confidentiality of Alcohol and Drug Abuse Patient Records regulations: The Federal rules restrict any use of the information to criminally investigate or prosecute any alcohol or drug abuse patient.[facility] Reason for Visit (unrecogniz ed section and content) Reason Comments Refill Request Reason Comments Shortness of Breath Reason Comments Follow Up feeling much better after Pred Reason Comments 6 Month Exam Reason Comments Cough Chest congestion, HOWELL x4 days Reason Comments Blood Pressure Check High blood pressure Reason Comments Cough Reason Comments feet swelling Reason Comments Acute Visit Edema- bilateral fee t; feels may have started after starting Norvasc Reason Comments Results Reason Comments Recheck 2 week follow up- le g edema Reason Comments Hospital F/U Reason Comments Results Reason Comments Follow Up Reason Comments Follow Up 2 wk BP check Care Teams (unrecognized sec tion and content) 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 Specialty Start Date End Date Thi Benitez MD [address] [place] [address] PCP - General Family Practice 06/20/13 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 Specialty Start Date End Date Thi Benitez MD [address] [place] [address] PCP - General Family Practice 06/20/13 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 Specialty Start Date End Date Thi Benitez MD [address] [facility] [place] [address] PCP - General Family Practice 06/20/13 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 Specialty Start Date End Date Thi Benitez MD [address] [place] [address] PCP - General Family Medicine 06/20/13 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 Specialty Start Date End Date Thi Benitez MD [address] [place] [address] PCP - General Family Medicine 06/20/13 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 Specialty Start Date End Date Thi Benitez MD [address] [place] [address] PCP - General Family Medicine 06/20/13 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 Specialty Start Date End Date Thi Benitez MD [address] [place] [address] PCP - General Family Medicine 06/20/13 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 Specialty Start Date End Date Thi Benitez MD [address] [place] [address] PCP - General Family Medicine 06/20/13 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 Specialty Start Date End Date Thi Benitez MD [address] [place] [address] PCP - General Family Medicine 06/20/13 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 Specialty Start Date End Date Thi Benitez MD [address] [place] [address] PCP - General Family Medicine 06/20/13 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 Specialty Start Date End Date Thi Benitez MD [address] [place] [address] PCP - General Family Medicine 06/20/13 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 Specialty Start Date End Date Thi Benitez MD [address] [place] [address] PCP - General Family Medicine 06/20/13 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 Specialty Start Date End Date Thi Benitez MD [address] [place] [address] PCP - General Family Medicine 06/20/13 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 Specialty Start Date End Date Thi Benitez MD [address] [place] [address] PCP - General Family Medicine 06/20/13 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 Specialty Start Date End Date Thi Benitez MD [address] [place] [address], [place] [address] PCP - General Family Medicine 06/20/13 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 Specialty Start Date End Date Thi Benitez MD [address] [place], [place] [id number] PCP - General Family Medicine 06/20/13 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 Specialty Start Date End Date Thi Benitez MD [address] [place], [place] [address] PCP - General Family Medicine 06/20/13 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 This clinical summary was aggregated from multiple sources. Caution should be exercised in using it in the provision of clinical care. This summary normalizes information from multiple sources, and as a consequence, information in this document may materially change the coding, format and clinical context of patient data. In addition, data may be omitted in some cases. CLINICAL DECISIONS SHOULD BE BASED ON THE PRIMARY CLINICAL RECORDS. [email or web address] provides no warranty or guarantee of the accuracy or completeness of information in this document.
[2023-08-09 17:13] LABS: Absolute Lymphocyte Count 1.09 X10^3/uL (0.83-4.51); Absolute Neutrophil Count 2.9 X10^3/uL (2.0-7.7); Basophil# 0.02 X10^3/uL; Basophil% 0.4 % (0-1); Eosinophil# 0.24 X10^3/uL; Eosinophils% 5.2 % (0-5); Hematocrit 42.5 % (40-54); Hemoglobin 14.3 g/dL (13.0-16.5); Lymphocyte # 1.09 X10^3/ul (0.83-4.51); Lymphocyte % 23.4 % (19-41); Mean Corp Hgb Conc 33.6 g/dL (32-36); Mean Corpuscular Hgb 31.7 pg (27.0-32.0); Mean Corpuscular Volume 94.2 fL (80-94); Mean Platelet Vol. 10.3 fl (6.2-12.0); Monocyte# 0.45 X10^3/uL; Monocyte% 9.7 % (0-10); NRBC Flagged by Analyzer 0 % (0-5); Neutrophil # 2.85 X10^3/uL (2.7-7.7); Neutrophil % 61.1 % (47-70); Platelet Count 220 K/mm3 (150-450); RBC Distribution Width CV 13.3 % (11.6-14.6); RBC Distribution Width SD 45.5 fl (35.1-43.9); Red Blood Count 4.51 M/mm3 (4.6-6.2); White Blood Count 4.7 K/mm3 (4.4-11.0)
[2023-08-09 17:21] LABS: Burr Cells 4.7; Erythrocyte Sedimentation Rate 4 mm/hr (0-20)
[2023-08-09 17:47] LABS: CRP < 2.90 mg/L (0.0-3.0)
== END | disposition home or self-care (01) ==
LOC: LAB 16:14
PROVIDERS: PCP Family Medicine; Referring Provider Physician Assistant; Visit Provider Physician Assistant
DX: Z96.641 Presence of right artificial hip joint (principal)
CPT/HCPCS: 36415; 85025; 85652; 86140

== ENCOUNTER → 2023-11-30 | Outpatient (CLI) | payer MEDICARE, SELFPAY | END | disposition home or self-care (01) | PROVIDERS: PCP Family Medicine; Referring Provider Nurse Practitioner Gerontology; Visit Provider Nurse Practitioner Gerontology | DX: I47.29 Other ventricular tachycardia (principal); I25.10 Atherosclerotic heart disease of native coronary artery without angina pectoris; Z95.5 Presence of coronary angioplasty implant and graft | CPT/HCPCS: 93225; 93226 ==

== ENCOUNTER → 2024-01-30 | Outpatient (CLI) | payer MEDICARE, SELFPAY ==
--- NOTE | 2024-01-30 17:44 | CT_ITS ---
STUDY: CTA CHEST REASON FOR EXAM: Male, 73 years old. Aortic Root Measurement RADIATION DOSAGE (If Supplied By Facility): CTDIvol = ( 22.01 ) mGy, DLP = ( 490.26 ) mGycm TECHNIQUE: The examination was performed with the intravenous administration of IV 100mL Isovue-370. Post-processing of the angiographic images was performed, with multiplanar reformation and 3D reconstruction. Individualized dose optimization techniques were used for this CT. COMPARISON: None. FINDINGS: Normal enhancement of the main pulmonary artery and right and left pulmonary arteries. Normal enhancement of the bilateral peripheral pulmonary arteries. There is no demonstrated pulmonary embolism. There is aneurysmal dilatation of the ascending aorta. The transverse diameter of the ascending aorta measures 46.8 mm''s. Mild atherosclerotic plaque formation of the aortic arch. There is no demonstrated aortic dissection. There are calcifications of the coronary arteries. There are visualized mediastinal lymph nodes, which are within normal size limits, and with normal morphology. Normal hilar regions. Normal visualized trachea and bronchi. The lungs are well expanded. Normal pulmonary parenchyma. Normal pleura. Normal chest wall structures. Normal osseous structures. Normal visualized upper abdomen. CT/CTA Chest W/WO Contrast IMPRESSION: The aortic root is dilated measuring 46.8 mm in transverse dimension. Electronically Signed: Greg Weaver MD at 9:20 EDT ,
[2024-01-30 18:14] LABS: CREATININE FINGERSTICK < 1.0 mg/dL (0.70-1.30); EGFR FINGERSTICK > 60.0000 mL/min (>60)
== END | disposition home or self-care (01) ==
PROVIDERS: PCP Family Medicine; Referring Provider Nurse Practitioner Family; Visit Provider Nurse Practitioner Family
DX: I71.21 Aneurysm of the ascending aorta, without rupture (principal)
CPT/HCPCS: 71275; Q9967

== ENCOUNTER → 2024-04-01 | Outpatient (CLI) | payer MEDICARE, SELFPAY ==
[2024-04-01 16:26] LABS: AST(SGOT) 17 U/L (15-37); Alanine Aminotransfer ALT/SGPT 20 U/L (16-61); Albumin, Serum 3.4 g/dL (3.2-5.0); Alkaline Phosphatase 89 U/L (45-117); Anion Gap 5 (5-15); BUN 14 mg/dL (7-18); BUN/Creat Ratio 14.4 RATIO (10-20); Calcium,Total 8.8 mg/dL (8.5-10.1); Chloride 103 mmol/L (98-107); Cholesterol 122 mg/dL (200); Creatinine, Serum 0.97 mg/dL (0.70-1.30); EST Glomerular Filtration Rate 80 mL/min (>60); Est Glom Filt Rate - Afr Amer 97 mL/min (>60); Globulin 3.3 g/dL (2.2-4.2); Glucose 95 mg/dL (74-106); High Density Lipoprotein 40 mg/dL; Potassium 3.5 mmol/L (3.5-5.1); Protein, Total 6.7 g/dL (6.4-8.2); Sodium Level 138 mmol/L (136-145); Triglycerides 176 mg/dL; Very Low Density Lipoprotein 35 mg/dL (5-40)
== END | disposition home or self-care (01) ==
LOC: LAB 15:15
PROVIDERS: PCP Family Medicine; Referring Provider Internal Medicine Cardiovascular Disease; Visit Provider Internal Medicine Cardiovascular Disease
DX: I25.10 Atherosclerotic heart disease of native coronary artery without angina pectoris (principal); I10 Essential (primary) hypertension; Z95.5 Presence of coronary angioplasty implant and graft
CPT/HCPCS: 36415; 80053; 80061

== ENCOUNTER → 2024-08-15 | Outpatient (CLI) | payer MEDICARE, SELFPAY ==
--- NOTE | 2024-08-15 05:53 | ECHOD_ITS ---
Reason For Study: IYER Procedure This was a 2D Doppler, Color Flow transthoracic echocardiogram. Exam performed in department. Left Ventricle Mild concentric left ventricular hypertrophy. Normal LV size. The left ventricular ejection fraction is 60 %. Stage 1 diastolic dysfunction. Right Ventricle Normal right ventricle. Atria The left and right atria are normal. Mitral Valve Mild (1+) mitral valve insufficiency. Tricuspid Valve Trivial tricuspid valve insufficiency. Unable to estimate RV systolic pressure due to insufficient tricuspid regurgitant envelope. Aortic Valve Trisinus/trileaflet aortic valve. Mild (1+) aortic valve insufficiency. Pulmonic Valve The pulmonic valve is not well visualized. Great Vessels Moderately dilated aortic root. Pericardium/Pleural No pericardial effusion. MMode/2D Measurements & Calculations LVIDd: 4.6 cm IVSd: 1.5 cm LVOT diam: 2.0 cm LVIDs: 3.2 cm LVPWd: 1.3 cm LVOT area: 3.1 cm2 FS: 31.2 % Ao root diam: 4.5 cm LAV(MOD-bp): 58.9 ml LVAd ap4: 34.6 cm2 LAV(MOD-bp) Indexed: 24.6 ml/m2 LVLd ap4: 9.6 cm LAV(MOD-sp2): 53.0 ml EDV(MOD-sp4): 108.4 ml LAV(MOD-sp4): 64.0 ml EDV(sp4-el): 105.7 ml LVAs ap4: 19.8 cm2 LVLs ap4: 8.2 cm ESV(MOD-sp4): 44.6 ml ESV(sp4-el): 40.8 ml EF(MOD-sp4): 58.9 % EF(sp4-el): 61.4 % SV(MOD-sp4): 63.8 ml SV(sp4-el): 65.0 ml LA A4 area: 20.3 cm2 SI(MOD-sp4): 26.6 ml/m2 RA A4 area: 14.8 cm2 Time Measurements MV dec time: 0.24 sec Doppler Measurements & Calculations MV E max devon: 47.4 cm/sec Lat Peak E' Devon: 10.8 cm/sec Med Peak E' Devon: 8.5 cm/sec MV A max devon: 102.5 cm/sec E/E' lat: 4.4 E/E' med: 5.6 MV E/A: 0.46 MV V2 max: 94.4 cm/sec Ao V2 max: 109.0 cm/sec MV max P.6 mmHg MV dec slope: 211.4 cm/sec2 Ao max P.8 mmHg MV V2 mean: 50.2 cm/sec Ao V2 mean: 74.5 cm/sec MV mean P.2 mmHg Ao mean P.6 mmHg MV V2 VTI: 28.7 cm Ao V2 VTI: 25.2 cm AV (velocity ratio): 0.93 MVA(VTI): 2.6 cm2 HUNG(I,D): 2.9 cm2 HUNG(V,D): 3.1 cm2 LV V1 max: 108.7 cm/sec SV(LVOT): 73.9 ml PA V2 max: 71.7 cm/sec LV V1 max P.7 mmHg PA V2 mean: 46.6 cm/sec LV V1 mean P.8 mmHg LV V1 mean: 80.2 cm/sec LV V1 VTI: 23.5 cm ECHO/Echo Complete Interpretation Summary Mild concentric left ventricular hypertrophy. The left ventricular ejection fraction is 60 %. Stage 1 diastolic dysfunction. Mild (1+) mitral valve insufficiency. Mild (1+) aortic valve insufficiency. Moderately dilated aortic root. Ordering Physician: Mady Fonseca Referring Physician: Mady Fonseca Performed By: Francia Alves RCS
--- NOTE | 2024-08-18 12:14 | STRESSREP_ITS ---
Stress Test Report Date: 08/15/2024 Procedure: Exercise tolerance test/imaging study Indications: Coronary artery disease Consent: Per the patient Procedure: The patient exercised on a Ronn protocol for 4 minutes and 31 seconds achieving a peak heart rate of 130 bpm (89% predicted maximal heart rate) with a peak blood pressure 176/82 mmHg and a peak MET capacity of 7.0 METs. The baseline ECG demonstrated sinus rhythm with right bundle branch block. The peak exercise ECG demonstrated no diagnostic ischemic changes. There were no cardiac dysrhythmias pretest, during exercise, or recovery. The functional capacity was considered average for age. There was no complaint of chest discomfort during exercise or recovery. The examination was discontinued secondary to dyspnea. The patient was injected with 15.0 mCi of technetium 99m Cardiolite and subsequently rest SPECT Cardiolite nuclear imaging was obtained in the horizontal long, vertical long, and short axis views. Post-exercise, the patient was injected with 35.0 mCi of technetium 99m Cardiolite and subsequently stress SPECT Cardiolite nuclear imaging was obtained in the horizontal long, vertical long, and short axis views. A gated Cardiolite study at peak stress was obtained. Rest and stress SPECT Cardiolite nuclear imaging status post realignment, normalization, and attenuation correction, demonstrates the appearance of relative uniform tracer uptake and myocardial perfusion appearing within normal limits. There is end systolic thickening and brightening. The gated Cardiolite study demonstrates myocardial thickening and inward wall motion. The reported LVEF is 59%. Impression: 1. Technically adequate (percent predicted maximal heart rate greater than 85%) exercise tolerance test 2. Peak exercise ECG with no diagnostic ischemic changes 3. There were no cardiac dysrhythmias pretest, during exercise, or recovery 4. Rest and stress SPECT Cardiolite nuclear imaging demonstrate relative uniform tracer uptake and myocardial perfusion appearing within normal limits. 5. The gated Cardiolite study reports an LVEF of 59%. This note was generated with [employer] software. It may contain incorrect words, spelling, and punctuation that were not noted in checking the note before signing.
== END | disposition home or self-care (01) ==
LOC: CVS 05:51
PROVIDERS: PCP Family Medicine; Referring Provider Physician Assistant Medical; Visit Provider Physician Assistant Medical
DX: R06.09 Other forms of dyspnea (principal); Z95.5 Presence of coronary angioplasty implant and graft
CPT/HCPCS: 78452; 93017; 93225; 93226; 93306; A9500

== ENCOUNTER → 2024-10-06 | Outpatient (CLI) | payer MEDICARE, SELFPAY ==
[2024-10-06 13:05] LABS: ALB/GLOB Ratio 1.5 RATIO (0.9-2.4); AST(SGOT) 22 U/L (<=37); Alanine Aminotransfer ALT/SGPT 19 U/L (<=46); Alkaline Phosphatase 93 U/L (40-129); Anion Gap 8 (5-15); BUN 18 mg/dL (4-19); Calcium,Total 9.2 mg/dL (7.6-11.0); Carbon Dioxide 28.3 mmol/L (21.0-32.0); Chloride 105 mmol/L (98-108); Creatinine, Serum 1.03 mg/dL (0.70-1.20); EST Glomerular Filtration Rate 76 (>60); Globulin 2.6 g/dL (2.2-4.2); Glucose 98 mg/dL (70-99); Potassium 4.1 mmol/L (3.3-5.1); Protein, Total 6.6 g/dL (5.9-8.4); Sodium Level 141 mmol/L (133-145); Total Bilirubin 0.51 mg/dL (0.00-1.30)
[2024-10-06 22:25] LABS: Cholesterol 152 mg/dL (<=200); High Density Lipoprotein 44 mg/dL; Low Density Lipoprotein Calc. 87 mg/dL; Triglycerides 103 mg/dL; Very Low Density Lipoprotein 21 mg/dL (5-40); cholesterol:hdl ratio screen 3.45
== END | disposition home or self-care (01) ==
LOC: LAB 11:24
PROVIDERS: PCP Family Medicine; Referring Provider Internal Medicine Cardiovascular Disease; Visit Provider Internal Medicine Cardiovascular Disease
DX: I25.10 Atherosclerotic heart disease of native coronary artery without angina pectoris (principal); R06.09 Other forms of dyspnea
CPT/HCPCS: 36415; 80053; 80061

== ENCOUNTER → 2024-11-24 | Outpatient (CLI) | payer MEDICARE, SELFPAY ==
--- NOTE | 2024-11-24 07:42 | ECHOD_ITS ---
Reason For Study Reason For Study: OTHER Procedure This was a 2D Doppler, Color Flow transthoracic echocardiogram. Exam performed in department. Left Ventricle Mild concentric left ventricular hypertrophy. The LV systolic function is normal. EF is 65 %. Stage 1 diastolic dysfunction. Right Ventricle Normal right ventricle. Atria The left and right atria are normal. Mitral Valve Mild (1+) mitral valve insufficiency. Tricuspid Valve Trivial tricuspid valve insufficiency. Normal pulmonary artery pressure. Aortic Valve Trisinus/trileaflet aortic valve. Mild (1+) aortic valve insufficiency. Pulmonic Valve The pulmonic valve is not well visualized. Great Vessels Moderately dilated aortic root. Pericardium/Pleural No pericardial effusion. MMode/2D Measurements & Calculations LVIDd: 5.8 cm IVSd: 1.4 cm LVOT diam: 2.0 cm LVIDs: 4.6 cm LVPWd: 1.4 cm LVOT area: 3.3 cm2 RVDd: 3.7 cm FS: 21.3 % Ao root diam: 4.5 cm LAV(MOD-bp): 40.8 ml LVAd ap4: 36.7 cm2 LAV(MOD-bp) Indexed: 16.9 ml/m2 LVLd ap4: 9.4 cm LAV(MOD-sp2): 33.0 ml EDV(MOD-sp4): 123.6 ml LAV(MOD-sp4): 41.5 ml EDV(sp4-el): 122.2 ml LVAs ap4: 18.6 cm2 LVLs ap4: 8.0 cm ESV(MOD-sp4): 38.7 ml ESV(sp4-el): 36.8 ml EF(MOD-sp4): 68.7 % EF(sp4-el): 69.9 % SV(MOD-sp4): 84.9 ml SV(sp4-el): 85.3 ml LA A4 area: 16.9 cm2 SI(MOD-sp4): 35.2 ml/m2 LA dimension(2D): 3.2 cm RA A4 area: 13.9 cm2 Time Measurements MV dec time: 0.29 sec Doppler Measurements & Calculations MV E max devon: 70.8 cm/sec Lat Peak E' Devon: 11.8 cm/sec Med Peak E' Devon: 6.6 cm/sec MV A max devon: 98.6 cm/sec E/E' lat: 6.0 E/E' med: 10.8 MV E/A: 0.72 MV V2 max: 109.5 cm/sec Ao V2 max: 143.9 cm/sec MV max P.8 mmHg MV dec slope: 258.9 cm/sec2 Ao max P.5 mmHg MV V2 mean: 50.6 cm/sec Ao V2 mean: 100.3 cm/sec MV mean P.3 mmHg Ao mean P.6 mmHg MV V2 VTI: 29.3 cm Ao V2 VTI: 35.2 cm AV (velocity ratio): 0.70 MVA(VTI): 2.7 cm2 HUNG(I,D): 2.3 cm2 HUNG(V,D): 2.4 cm2 LV V1 max: 107.1 cm/sec SV(LVOT): 80.2 ml PA V2 max: 66.9 cm/sec LV V1 max P.6 mmHg PA V2 mean: 43.3 cm/sec LV V1 mean P.5 mmHg LV V1 mean: 72.7 cm/sec LV V1 VTI: 24.6 cm ECHO/Echo Complete Interpretation Summary Mild concentric left ventricular hypertrophy. The LV systolic function is normal. EF is 65 %. Stage 1 diastolic dysfunction. Mild (1+) mitral valve insufficiency. Mild (1+) aortic valve insufficiency. Moderately dilated aortic root. Ordering Physician: Viktor Rutledge Referring Physician: Viktor Rutledge Performed By: Francia Alves RCS
--- NOTE | 2024-11-24 07:42 | AAAS_ITS ---
Reason For Study Reason For Study: AAA Screening Aorta Measurements Aorta Doppler Measurements Proximal aorta measures2.55cm x 2.57cm. in cross-sectional Peak systolic flow velocities within the proximal aorta axis. measure 58 cm/sec. Proximal aorta measures2.10cm. in longitudinal axis. Peak systolic flow velocities within the mid aorta measure Mid aorta measures2.64cm x 2.64cm. in cross-sectional axis. 69 cm/sec. Mid aorta measures2.59cm. in longitudinal axis. Peak systolic flow velocities within the distal aorta Distal aorta measures2.00cm x 1.89cm. in cross-sectional measure 74 cm/sec. axis. Distal aorta measures1.95cm. in longitudinal axis. Left Iliac Artery Left iliac artery measures 1.39cm x 1.54 cm. in the cross-sectional axis. Left iliac artery measures 1.37 cm. in the longitudinal axis. Peak systolic velocity in the left iliac artery measures 78 cm/sec. Right Iliac Artery Right iliac artery measures 2.14cm x 1.24 cm. in the cross-sectional axis. Right iliac artery measures 1.35 cm. in the longitudinal axis. Peak systolic velocity in the right iliac artery measures 96 cm/sec. Procedure Aorta IVC Iliac vasculature or bypass grafts [id number]. Exam performed in department. 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 Ordering Physician: Viktor Rutledge Referring Physician: Calvin Benitez Performed By: Nannette Garcia, TOÑO, RVT
== END | disposition home or self-care (01) ==
LOC: CVS 07:41
PROVIDERS: PCP Family Medicine; Referring Provider Internal Medicine Cardiovascular Disease; Visit Provider Internal Medicine Cardiovascular Disease
DX: I71.21 Aneurysm of the ascending aorta, without rupture (principal); I10 Essential (primary) hypertension; I35.1 Nonrheumatic aortic (valve) insufficiency
CPT/HCPCS: 76706; 93306; C8929

== ENCOUNTER → 2025-02-09 | Outpatient (CLI) | payer MEDICARE, SELFPAY ==
--- NOTE | 2025-02-09 06:19 | CT_ITS ---
PROCEDURE: CTA CHEST W/WO CONTRAST 02/09/2025 REASON FOR EXAM: TAA TECHNIQUE: CTA CHEST W/WO CONTRAST Multiplanar Sagittal and Coronal images were obtained. CONTRAST: Isovue 370 VOLUME: 97 mL One or more dose reduction techniques were used (e.g., Automated exposure control, adjustment of the mA and/or kV according to patient size, use of iterative reconstruction technique). RADIATION DOSE SUMMARY: CTDlvol: 41 mGy DLP: 574 mGycm COMPARISON: 01/31/2024 FINDINGS: Unremarkable base of neck and axilla. Thoracic spine degeneration. Normal esophagus. Normal heart size, possible LVH. No aortic dissection. No central pulmonary embolism. No acute chest wall findings. No acute upper abdominal findings. Dilated aortic root measuring up to 4.6 cm, stable. Dilated mid ascending aorta, measuring up to 4.8 cm, stable. Dilated proximal arch, measuring up to 4.1 cm, stable. The mid/distal thoracic arch, and descending thoracic aorta are otherwise unremarkable. The proximal abdominal aorta is unremarkable. Central airways are patent. Well inflated lungs. No consolidation, effusion or pneumothorax. CT/CTA Chest W/WO Contrast IMPRESSION: Stable dilatation of the aortic root, ascending aorta, and proximal aortic arch . No dissection, embolism, or other acute chest process. Reading Location: [facility]
--- OUTSIDE RECORDS SUMMARY | 2025-02-09 06:21 | XMS RPT_ITS | CCD ---
Author Organization [facility] Care Team Providers Care Professor Of Management Name Role Phone Calvin Stephens MD Primary Care Provider Dr. Calvin Stephens Primary Care Provider Dr. Kris Rose Emergency Provider Dr. Mame Foss Attending Provider Dr. Mame Foss Referring Provider [phone] Dr. Mame Foss Other Provider Dr. Emre Domingo Admit Provider Dr. Emre Domingo Other Provider Dr. Merced Willard Other Provider Dr. Merced Willard Attending Provider Calvin Stephens MD Primary Care Provider Dr. Calvin Stephens Primary Care Provider Dr. Calvin Stephens Referring Provider Marian JIMÉNEZ, PA Mady Owen Attending Provider Calvin Stephens MD Primary Care Provider Haagen [employer] VOLLEYBALL COACH.CORING MACHINE OPERATOR, Leatha Unavailable Suppan [employer]CHO[employer] VOLLEYBALL COACH.CORING MACHINE OPERATOR, Noreen A Unavailable Suppan [employer] SCHOOL VOLLEYBALL COACH.CORING MACHINE OPERATOR, Noreen A Unavailable Suppan [employer]CHOOL VOLLEYBALL COACH.CORING MACHINE OPERATOR, Noreen A Unavailable [phone] Dr. Calvin Stephens MD Primary Care Provider Dr. Calvin Stephens MD Referring Provider Mady Cespedes Attending Provider Dr. Viktor Rutledge MD Attending Provider Mady Cespedes Referring Provider [phone] Dr. Ilya Blair MD Attending Provider Mady Cespedes Other Provider Aamir MORALES, Dr. Hoang Referring Provider Robe MORALES, Dr. Ponce Attending Provider Aamir, Viktor Referring Unavailable Aamir, Viktor Attending Unavailable Dolly, Calvin Primary Care Unavailable Mady Cespedes Attending Unavail able Lomax, Calvin Primary Care Unavailable Mady Cespedes Referring Unavail able Aamir, Viktor Attending Unavailable Aamir, Viktor Referring Unavailable Dolly, Calvin Primary Care Unavailable Aamir, Viktor Attending Unavailable Aamir, Viktor Referring Unavailable Lomax, Calvin Primary Care Unavailable Kris Nagel Attending Unavailable Lomax, Calvin Primary Care Unavailable Mady Cespedes Referring Unavail able Mayd Cespedes Consulting Unavail able Aamir, Viktor Attending Unavailable Dolly, Calvin Primary Care Unavailable Roof FACE CLEANER, Vincent Monzon Attending Unavailable Lomax, Calvin Referring Unavailable Dolly, Calvin Primary Care Unavailable Mady Cespedes Attending Unavail able Lomax, Calvin Referring Unavailable Dolly, Calvin Primary Care Unavailable Aamir, Viktor Attending Unavailable Dolly, Calvin Referring Unavailable Lomax, Calvin Primary Care Unavailable Aamir, Viktor Attending Unavailable Lomax, Calvin Primary Care Unavailable Dolly, Calvin Referring Unavailable Roof FACE CLEANER, Vincent Monzon Attending Unavailable Lomax, Calvin Referring Unavailable Lomax, Calvin Primary Care Unavailable Mady Cespedes Referring Unavail able Ilya Blair Attending Unavailable Dolly, Calvin Primary Care Unavailable Aamir, Viktor Attending Unavailable Dolly, Calvin Primary Care Unavailable Mady Cespedes Referring Unavail able Aamir, Viktor Attending Unavailable Dolly, Calvin Primary Care Unavailable Aamir, Viktor Attending Unavailable Dolly, Calvin Primary Care Unavailable Roof FACE CLEANER, Vincent H Referring Unavailable Roof FACE CLEANER, Vincent Monzon Attending Unavailable Lomax, Calvin Primary Care Unavailable DOLLY, CALVIN J Attending Unavailable CALVIN STEPHENS Primary Care Unavailable CALVIN STEPHENS Referring Unavailable CALVIN STEPHENS Primary Care Unavailable BENEDICT TORRES Attending Unavailable LATONIA FONTAINE Referring Unavailable CALVIN STEPHENS Primary Care Unavailable TOÑA BEST Attending Unavailable DOLLYCALVIN Primary Care Unavailable LATONIA FONTAINE Attending Unavailable CALVIN STEPHENS Referring Unavailable CALVIN STEPHENS Primary Care Unavailable CALVIN STEPHENS Referring Unavailable CALVIN STEPHENS Primary Care Unavailable CALVIN STEPHENS Referring Unavailable DOLLYCALVIN Primary Care Unavailable CALVIN STEPHENS Attending Unavailable CALVIN STEPHENS Primary Care Unavailable DOLLYCALVIN Attending Unavailable CALVIN STEPHENS Primary Care Unavailable CALVIN STEPHENS Primary Care Unavailable CALVIN STEPHENS Attending Unavailable CALVIN STEPHENS Primary Care Unavailable Medications Current Medications Medication Drug Class(es) Dates Sig (Normalized) Sig (Original) amoxicillin 875 mg / clavulanate 125 mg oral tablet (1 source) Penicillin-class Antibacterial Start: 08-31-2024 End: 09-10-2024 take 1 tablet by mouth twice daily amoxicillin-clav ulanate potassium (AUGMENTIN) 875-125 mg per tablet Take 1 tablet by mouth two times a day for 10 days. 20 tablet 08/31/2024 09/10/2024 Active aspirin 81 mg chewable tablet (20 sources) Platelet Aggregation Inhibitor, Nonsteroidal Anti-inflammatory Drug Start: 03-22-2023 take 1 tablet by mouth once daily Aspirin (Adult Aspirin Regimen) 81 mg tablet,delayed release (DR/EC) Active 81 mg PO DAILY 90 March 22, 2023 12:00am Start: 02-20-2023 End: 10-03-2025 take 1 tablet by mouth once daily aspirin 81 mg chewable tablet Take 1 tablet by mouth once daily. 90 tablet 3 10/03/2024 10/03/2025 Active Comment on above: Take 81 mg by mouth once daily. atorvastatin 80 mg oral tablet (20 sources) HMG-CoA Reductase Inhibitor Start: End: take 1 tablet by mouth once daily atorvastatin (LIPITOR) 80 mg tablet Take 80 mg by mouth once daily. 02/20/2023 Active Start: 12-01-2021 End: 12-01-2022 take 1 tablet by mouth once daily at bedtime for hyperlipidemia atorvastatin (LIPITOR) 20 mg tablet Indications: Mixed hyperlipidemia Take 1 tablet by mouth daily at bedtime. For cholesterol. 30 tablet 11 12/01/2021 05/30/2022 Discontinued Comment on above: Take 1 tablet by genet th daily at bedtime. For cholesterol. Take 80 mg by mouth once daily. azithromycin 250 mg oral tablet (1 source) Macrolide Antimicrobial Start: End: azithromycin (ZITHROMAX Z-MAXIMINO) 250 mg tablet Take 2 tablets day one, then, 1 tablet daily until gone. 6 tablet 0 07/03/2022 07/08/2022 Active Comment on above: Take 2 tablets day o ne, then, 1 tablet daily until gone. cholecalciferol 0.025 mg oral capsule (20 sources) Vitamin D Start: take 1 capsule by mouth once daily Cholecalciferol (Vitamin D3) 25 mcg (1,000 unit) capsule Active 25 ug PO DAILY May 08, 2023 12:00am take 1 capsule by mouth once mariella ly Cholecalciferol, Vitamin D3, 25 mcg (1,000 unit) cap Take 1,000 Units by mouth once daily. Active Cholecalciferol, Vitamin D3, (VITAMIN D) 25 mcg (1,000 unit) cap Take 1,000 Units by mouth once daily. 0 Active Comment on above: Take 1,000 Units by mouth once daily. doxycycline hyclate 100 mg oral tablet (2 sources) Tetracycline-cla ss Drug Start: 04-07-2024 End: 04-14-2024 take 1 tablet by mouth twice daily doxycycline (VIBRA-TABS) 100 mg tablet Take 1 tablet by mouth two times a day for 7 days. 14 tablet 04/07/2024 04/14/2024 Active Start: 07-10-2022 End: 07-20-2022 take 1 tablet by mouth twice daily doxycycline monohydrate 100 mg tablet Indications: Bronchitis Take 1 tablet by mouth twice daily for 10 days. 20 tablet 0 07/10/2022 07/20/2022 Active Comment on above: Take 1 tablet by genet th twice daily for 10 days. fluticasone propionate 0.05 mg/actuat metered dose nasal spray (8 sources) Corticosteroid Start : 08-31 take 2 spray(s) by mouth once daily fluticasone (FLONASE) 50 mcg/actuation nasal spray Use 2 Sprays in each nostril once daily. Rinse mouth after use. 9.9 mL 08/31/2024 Active hydroCHLOROthiazide 12.5 mg oral capsule (20 sources) Thiazide Diuretic Start : 12-06 take 1 tablet by mouth once daily Hydrochlorothiazide 12.5 mg tablet Active 12.5 mg PO DAILY December 07, 2023 12:00am Start: 12-04-2023 End: 01-05-2025 take 1 capsule by mouth once daily hydroCHLOROthiazide 12.5 mg capsule Indications: Essential hypertension, benign Take 1 capsule by mouth once daily. 90 capsule 3 01/05/2025 Active Start: 07-27-2022 End: 02-23-2023 take 1 capsule by mouth once daily hydroCHLOROthiazide (HYDRODIURIL, ESIDRIX) 12.5 mg capsule Indications: Essential hypertension, benign Take 1 capsule by mouth once daily. 30 capsule 12 07/27/2022 02/23/2023 Discontinued (Discontinued by another Health Care Provider) Start: 04-08-2014 End: 02-20-2023 take 1 tablet by mouth once daily Hydrochlorothiazide 25 MG tablet Discontinued 25 mg PO DAILY April 08, 2014 12:00am February 20, 2023 7:35am Comment on above: Take 1 tablet by genet once daily. Take 1 capsule by mo [place] once daily. losartan potassium 100 mg oral tablet (20 sources) Angiotensin 2 Receptor Maribel Start: End: take 1 tablet by mouth once daily Losartan 50 mg tablet Discontinued 50 mg PO daily January 15, 2024 12:00am April 01, 2024 2:42pm Start: 05-30-2022 End: 12-25-2025 take 1 tablet by mouth once daily losartan (COZAAR) 100 mg tablet Indications: Essential hypertension, benign Take 1 tablet by mouth once daily. 90 tablet 3 12/25/2024 12/25/2025 Active Start: 08-04-2021 End: 05-30-2022 take 1 tablet by mouth once daily losartan (COZAAR) 25 mg tablet Indications: Essential hypertension, benign Take 1 tablet by mouth once daily. In addition to 50 mg A day 90 tablet 3 11/21/2021 05/30/2022 Discontinued Start: 08-04-2021 End: 05-30-2022 take 1 tablet by mouth once daily losartan (COZAAR) 50 mg tablet Indications: Essential hypertension, benign TAKE 1 TABLET BY MOUTH ONCE DAILY. IN ADDITION TO 25 MG A DAY 90 tablet 3 11/21/2021 05/30/2022 Discontinued Comment on above: Take 1 tablet by genet th once daily. In addition to 50 mg A day Take 1 tablet by genet th once daily. In addition to 25 mg a day Take 1 tablet by genet th once daily. perflutren lipid microspheres 1.3 mL in NaCl (PF) 0.9% 10 mL injection (DEFINITY) (20 sources) Start: 08-04-2022 End: 11-04-2023 perflutren lipid microspheres 1.3 mL in NaCl (PF) 0.9% 10 mL injection (DEFINITY) Start: 07-27-2022 End: 10-27-2023 perflutren lipid microsphere s 1.3 mL in NaCl (PF) 0.9% 10 mL injection (DEFINITY) polyethylene glycol 3350 [id number] mg / potassium chloride 2970 mg / sodium bicarbonate 6740 mg / sodium chloride 5860 mg / sodium sulfate 81489 mg powder for oral solution (1 source) Osmotic Laxative Start: 08-11-2024 End: 08-11-2024 peg 3350-Electrolytes (GOLYTELY) 236-22.74-6.74 -5.86 gram suspension Indications: Screen for colon cancer Take 4,000 mL by mouth one time only for 1 dose. Refer to printed prep instructions from your provider. 4000 mL 08/11/2024 08/11/2024 Active potassium chloride 10 meq extended release oral tablet (20 sources) Start: 01-02-2024 End: 12-25-2025 take 1 tablet by mouth once daily at breakfast potassium chloride (K-TAB) 10 mEq tablet Indications: Hypokalemia Take 1 tablet by mouth daily with breakfast. 90 tablet 3 12/25/2024 12/25/2025 Active Start: 09-29-2020 End: 08-21-2022 take 2 tablets by mouth once daily potassium chloride (K-TAB) 10 mEq tablet Indications: Hypokalemia Take 2 tablets by mouth once daily. 180 tablet 3 11/18/2021 08/21/2022 Discontinued Start: 04-08-2014 End: 05-30-2023 Potassium Chloride (Klor-Con 10) 10 MEQ tablet extended release Discontinued 10 meq PO DAILY April 08, 2014 12:00am March 06, 2023 2:20pm Comment on above: Take 2 tablets by mo uth once daily. Take 1 tablet by genet th once daily. predniSONE 10 mg oral tablet (7 sources) Start: 04-07-2024 End: 04-16-2024 predniSONE (DELTASONE) 10 mg tablet Take 4 tabs daily for 3 days, then 2 tabs daily for 3 days, then 1 tab daily for 3 days with food. 21 tablet 04/07/2024 04/16/2024 Active Start: 10-29-2016 End: 02-18-2023 take 2 tablets by mouth once daily Prednisone 20 MG tablet Discontinued 40 mg PO DAILY October 29, 2016 12:00am February 18, 2023 3:21pm Start: 10-29-2016 End: 02-18-2023 take 40 mg by mouth once daily Prednisone Discontinued 40 MG PO DAILY October 28, 2016 11:00pm February 18, 2023 2:21pm sertraline 50 mg oral tablet (20 sources) Serotonin Reuptake Inhibitor Start: 03-21-2024 End: 01-09-2025 take 1 tablet by mouth once daily sertraline (ZOLOFT) 50 mg tablet Indications: Anxiety with depression Take 1 tablet by mouth once daily. 90 tablet 3 01/09/2025 Active Start: 04-04-2023 End: 03-21-2024 take 0.5 tablet by mouth once daily, then take 1 tablet by mouth once daily sertraline (ZOLOFT) 50 mg tablet Indications: Anxiety with depression Take 1/2 tab once a day orally for one week then 1 tab once a day 30 tablet 11 04/04/2023 03/21/2024 Discontinued Start: 03-06-2023 End: 05-08-2023 take 1 tablet by mouth once daily sertraline (ZOLOFT) 50 mg tablet Indications: Anxiety with depression Take 1 tablet by mouth once daily. 90 tablet 3 03/21/2024 Active Start: 03-06-2023 End: 05-08-2023 Sertraline Discontinued MG P O March 05, 2023 11:00pm May 08, 2023 2:06pm Start: 02-23-2023 End: 03-22-2023 take 0.5 tablet by mouth once daily, then take 1 tablet by mouth once daily sertraline (ZOLOFT) 50 mg tablet Indications: Anxiety with depression Take 1/2 tab once a day orally for one week then 1 tab once a day 30 tablet 11 02/23/2023 03/22/2023 Discontinued Comment on above: Take 1/2 tab once a day orally for one week then 1 tab once a day 125 ml sodium chloride 9 mg/ml prefilled syringe (20 sources) Start: 07-27-2022 End: 11-04-2023 sodium chloride 0.9 % (flush) 10 mL (BD POSIFLUSH) verapamil hydrochloride 120 mg extended release oral tablet (20 sources) Calcium Channel Maribel Start: 12-09-2023 take 1 tablet by mouth twice daily verapamil SR (CALAN SR) 120 mg CR tablet Take 120 mg by mouth two times a day. 12/09/2023 Active Start: 12-07-2023 End: 01-15-2024 take 1 tablet by mouth once daily Verapamil 120 mg tablet extended release Discontinued 120 mg PO DAILY December 07, 2023 8:51am January 15, 2024 4:04pm Completed/Discontinued Medications Medication Drug Class(es) Dates Sig (Normalized) Sig (Original) acetaminophen 325 mg / oxyCODONE hydrochloride 5 mg oral tablet (6 sources) Opioid Agonist Start: 04-15-2014 End: 02-18-2023 Oxycodone-Acetamino phen 1 TABLET tablet Discontinued 1 - 2 {tbl} PO 4 TIMES DAILY NEEDED as needed for Pain April 15, 2014 3:10pm February 18, 2023 3:20pm Start: 04-15-2014 End: 02-18-2023 take 1 tablet by mouth four times daily as needed Oxycodone-Acetaminophen Discontinued 1 - 2 TABLET PO 4 TIMES DAILY NEEDED April 15, 2014 2:10pm February 18, 2023 2:20pm [id number] 200 actuat albuterol 0.09 mg/actuat metered dose inhaler (11 sources) beta2-Adrenergic Agonist Start: 12-01-2021 End: 07-27-2022 take 2 puff(s) by inhalation every four hours as needed for wheezing albuterol HFA (VENTOLIN HFA) 90 mcg/actuation inhaler Indications: SOB (shortness of breath) Inhale 2 Puffs as instructed every 4 hours as needed for wheezing/shortness of breath. 1 Inhaler 12/01/2021 06/29/2022 Discontinued Comment on above: Inhale 2 Puffs as instructed every 4 kaylyn rs as needed for wheezing/shortness of breath. amLODIPine 10 mg oral tablet (17 sources) Dihydropyridine Calcium Channel Maribel Start: 02-18-2023 End: 02-20-2023 Amlodipine Discontinued MG February 17, 2023 11:00pm February 20, 2023 6:35am Start: 07-27-2022 End: 12-01-2023 take 0.5 tablet by mouth once daily amLODIPine (NORVASC) 10 mg tablet Indications: Essential hypertension, benign Take 0.5 tablets by mouth once daily. 90 tablet 3 12/01/2022 02/23/2023 Discontinued (Discontinued by another Health Care Provider) Start: 07-10-2022 End: 07-10-2023 Amlodipine 10 mg tablet Disc ontinued mg February 18, 2023 12:00am February 20, 2023 7:35am Start: 07-03-2022 End: 07-10-2022 take 1 tablet by mouth once daily amLODIPine (NORVASC) 5 mg tablet Take 1 tablet by mouth once daily. 30 tablet 2 07/03/2022 07/10/2022 Discontinued Comment on above: Take 1 tablet by genet th once daily. Take 0.5 tablets by mouth once daily. benzonatate 100 mg oral capsule (8 sources) Non-narcotic Antitussive Start: End: take 1 capsule by mouth every eight hours as needed benzonatate (TESSALON PERLE) 100 mg capsule Take 1 capsule by mouth three times a day as needed. 21 capsule 04/07/2024 07/04/2024 Discontinued (Other) Start: 06-29-2022 End: 07-27-2022 take 2 capsules by mouth three times daily as needed for cough benzonatate (TESSALON PERLES) 100 mg capsule Indications: Flu-like symptoms , Acute cough Take 2 capsules by mouth three times daily as needed for cough. 30 capsule 0 06/29/2022 07/27/2022 Discontinued (Other) Comment on above: Take 2 capsules by out three times daily as needed for cough. calcium chloride 0.0014 meq/ml / potassium chloride 0.004 meq/ml / sodium chloride 0.103 meq/ml / sodium lactate 0.028 meq/ml injectable solution (1 source) Start: 09-23-19 End: 09-23-19 take 30 mL intravenously every hour 30 mL/hr, INTRAVENOUS, CONTINUOUS, Starting on Sun09/22/24 at 0930, Until Sun09/22/24 at 1004, Preprocedure carvedilol 6.25 mg oral tablet (20 sources) alpha-Adrenergic Maribel, beta-Adrenergic Maribel Start: 02-21-20 End: 01-02-20 take 1 tablet by mouth every twelve hours carvedilol (COREG) 6.25 mg tablet Take 1 tablet by mouth every 12 hours. 0 02/20/2023 01/02/2024 Discontinued (Other) Start: 02-20-2023 End: 12-07-2023 take 1 tablet by mouth twice daily Carvedilol 6.25 mg tablet Discontinued 6.25 mg PO TWICE A DAY 60 March 06, 2023 2:22pm December 07, 2023 8:42am Comment on above: Take 1 tablet by [facility] every 12 hours. clindamycin 300 mg oral capsule (6 sources) Lincosamide Antibacterial Start: 014 End: take 1 capsule by mouth three times daily Clindamycin Hcl (Cleocin) 300 MG capsule Discontinued 300 mg PO THREE TIMES A DAY April 15, 2014 12:00am February 18, 2023 3:20pm dextromethorphan hydrobromide 3 mg/ml / promethazine hydrochloride 1.25 mg/ml oral solution (6 sources) Phenothiazine, Uncompetitive [place]-aspartate Receptor Antagonist, Sigma-1 Agonist Start: 022 End: take 5 mL by mouth four times daily as needed for cough Promethazine-DM (PHENERGAN-DM) 6.25-15 mg/5 mL syrup Indications: Flu-like symptoms , Acute cough , SOB (shortness of breath) Take 5 mL by mouth four times daily as needed for cough. 120 mL 1 06/29/2022 07/27/2022 Discontinued Comment on above: Take 5 mL by mouth f our times daily as needed for cough. diphenhydrAMINE (1 source) Histamine-1 Receptor Antagonist Start: 025 End: 025 12.5-50 mg, INTRAVENOUS, DIRECTED, Starting on Sun09/22/24 at 1000, Until Sun09/22/24 at 1359, DOSING DIRECTED BY PHYSICIAN FOR PROCEDURAL SEDATION ONLY, Intraprocedure doxazosin 2 mg oral tablet (7 sources) alpha-Adrenergic Maribel Start: 024 End: take 1 tablet by mouth once daily at bedtime doxazosin (CARDURA) 2 mg tablet Indications: Essential hypertension, benign , Dysuria Take 1 tablet by mouth daily at bedtime. 30 tablet 2 11/29/2023 12/04/2023 Discontinued Comment on above: Take 1 tablet by genet th daily at bedtime. 1 ml fentaNYL 0.05 mg/ml injection (1 source) Opioid Agonist Start: 025 End: 25-100 mcg, INTRAVENOUS, DIRECTED, Starting on Sun09/22/24 at 1000, Until Sun09/22/24 at 1359, DOSING DIRECTED BY PHYSICIAN FOR PROCEDURAL SEDATION ONLY, Intraprocedure furosemide 20 mg oral tablet (12 sources) Loop Diuretic Start: 025 End: take 1 tablet by mouth once daily furosemide (LASIX) 20 mg tablet Indications: SOB (shortness of breath) , Edema, unspecified type Take 1 tablet by mouth once daily for 6 days. 3 tablet 1 08/04/2024 01/05/2025 Discontinued (Course of therapy completed) lactobacillus acidophilus [id number] unt / pectin 100 mg oral tablet (6 sources) Start: 014 End: 023 take 1 tablet by mouth twice daily Acidophilus-Pectin, [place] 1 EACH tablet Discontinued 1 NMA PO TWICE A DAY April 15, 2014 12:00am February 18, 2023 3:21pm Start: 04-15-2014 End: 02-18-2023 Acidophilus-Pectin, [place] D iscontinued 1 EACH PO TWICE A DAY April 14, 2014 11:00pm February 18, 2023 2:21pm lisinopril 5 mg oral tablet (6 sources) Angiotensin Converting Enzyme Inhibitor Start: 04-08-2014 End: 02-18-2023 take 1 tablet by mouth once daily Lisinopril 5 MG tablet Discontinued 5 mg PO DAILY April 08, 2014 12:00am February 18, 2023 3:20pm methylPREDNISolone (2 sources) Corticosteroid Start: 12-01-2021 End: 12-07-2021 methylPREDNISolone (MEDROL, MAXIMINO,) 4 mg Dose-Pack Indications: SOB (shortness of breath) Follow dosing instructions, take with food. 1 Package 12/01/2021 12/07/2021 Start: 12-01-2021 End: 12-07-2021 methylPREDNISolone (MEDROL, MAXIMINO,) 4 mg Dose-Pack Indications: SOB (shortness of breath) Follow dosing instructions, take with food. 1 Package 0 12/01/2021 12/07/2021 Active Comment on above: Follow dosing instru ctions, take with food. 5 ml midazolam 1 mg/ml injection (1 source) Benzodiazepine Start: 09-23-19 End: 09-23-19 1-5 mg, INTRAVENOUS, DIRECTED, Starting on Sun09/22/24 at 1000, Until Sun09/22/24 at 1359, DOSING DIRECTED BY PHYSICIAN FOR PROCEDURAL SEDATION ONLY, Intraprocedure oxybutynin chloride 5 mg oral tablet (6 sources) Cholinergic Muscarinic Antagonist Start: 04-08-20 End: 02-19-20 take 1 tablet by mouth once daily Oxybutynin Chloride 5 MG tablet Discontinued 5 mg PO DAILY April 08, 2014 12:00am February 18, 2023 3:20pm ticagrelor 90 mg oral tablet (20 sources) Start: 02-21-20 End: 07-04-20 take 1 tablet by mouth every twelve hours BRILINTA 90 mg tablet Take 1 tablet by mouth every 12 hours. 02/20/2023 07/04/2024 Discontinued (Other) Start: 02-20-2023 End: 02-26-2024 take 1 tablet by mouth twice daily Ticagrelor (Brilinta) 90 mg tablet Discontinued 90 mg PO TWICE A DAY 60 March 06, 2023 2:22pm February 26, 2024 2:13pm Comment on above: Take 1 tablet by genet th every 12 hours. Problems Active Problems Problem Classification Problem Date Documented Da te Episodic/Chronic Acute myocardial infarction (7 sources) Acute ST segment elevation myocardial infarction; Translations: [ST elevation (STEMI) myocardial infarction of unspecified site] 02-18-2023 Chronic Anxiety disorders (4 sources) Mixed anxiety and depressive disorder; Translations: [Other specified anxiety disorders] 02-23-2023 Chronic Aortic; peripheral; and visceral artery aneurysms (20 sources) Dilatation of aorta; Translations: [Aortic ectasia, unspecified site] Onset: 08-04-2022 Chronic Cardiac dysrhythmias (20 sources) Nonsustained ventricular tachycardia ; Translations: [Nonsustained ventricular tachycardia] Onset: 02-23-2023 Resolved: 02-23-2023 02-19-2023 Chronic Chronic obstructive pulmonary disease and bronchiectasis (3 sources) Bronchitis; Translations: [Bronchitis, not specified as acute or chronic] Episodic Coronary atherosclerosis and other heart disease (20 sources) Coronary atherosclerosis; Translations: [Atherosclerotic heart disease of [place] coronary artery without angina pectoris] Onset: 02-23-2023 02-20-2023 Chronic Coronary atherosclerosis and other heart disease (11 sources) Stented coronary artery; Translations: [Presence of coronary angioplasty implant and graft] Onset: 02-19-2023 02-20-2023 Episodic Comment on above: Thrombectomy and JAVI to dRCA Disorders of lipid metabolism (20 sources) Mixed hyperlipidemia; Translations: [Mixed hyperlipidemia] Onset: 12-01-2021 Chronic Essential hypertension (20 sources) Benign essential hypertension; Translations: [Essential (primary) hypertension] Onset: 05-25-2005 Chronic Fluid and electrolyte disorders (5 sources) Hypokalemia; Translations: [Hypokalemia] Episodic Heart valve disorders (5 sources) Aortic valve regurgitation; Translations: [Nonrheumatic aortic (valve) insufficiency] Onset: 10-06-2024 10-06-2024 Chronic Hyperplasia of prostate (20 sources) Benign prostatic hyperplasia; Translations: [Benign prostatic hyperplasia without lower urinary tract symptoms] Onset: 09-04-2013 09-04-2013 Chronic Other connective tissue disease (2 sources) Swelling of bilateral feet; Translations: [Other specified soft tissue disorders] Episodic Other lower respiratory disease (7 sources) Dyspnea; Translations: [Shortness of breath] Episodic Other lower respiratory disease (1 source) Wheezing; Translations: [Wheezing] Episodic Other lower respiratory disease (1 source) Cough; Translations: [Acute cough] Episodic Other lower respiratory disease (2 sources) Dyspnea on exertion; Translations: [Other forms of dyspnea] 08-05-2024 Episodic Other lower respiratory disease (2 sources) Other forms of dyspnea; Translations: [Other forms of dyspnea] Onset: 09-05-2024 Episodic Other lower respiratory disease (2 sources) Dyspnea, unspecified; Translations: [Dyspnea, unspecified] Onset: 08-05-2024 Episodic Other male genital disorders (20 sources) Induratio penis plastica; 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 Other non-traumatic joint disorders (1 source) Joint pain; Translations: [Pain in unspecified joint] Episodic Other screening for suspected conditions (not mental disorders or infectious disease) (20 sources) Patient encounter status; Translations: [Encounter for screening for malignant neoplasm of prostate] Onset: 09-24-2014 Resolved: 09-24-2014 Episodic Other skin disorders (1 source) Skin lesion; Translations: [Disorder of the skin and subcutaneous tissue, unspecified] Episodic Other upper respiratory infections (2 sources) Chronic sinusitis; Translations: [Chronic sinusitis, unspecified] 04-07-2024 Chronic Residual codes; unclassified (1 source) Influenza-like symptoms; Translations: [Other general symptoms and signs] Episodic Residual codes; unclassified (2 sources) Edema; Translations: [Edema, unspecified] 08-04-2024 Episodic Screening and history of mental health and substance abuse codes (2 sources) Encounter for screening examination for other mental health and behavioral disorders; Translations: [Encounter for screening for depression] Onset: 01-05-2025 Episodic Unclassified (1 source) Aneurysm of the ascending aorta, without rupture; Translations: [Aneurysm of the ascending aorta, without rupture] Onset: 11-28-2024 Unclassified (1 source) Thoracic aortic aneurysm, without rupture, unspecified; Translations: [Thoracic aortic aneurysm, without rupture, unspecified] Onset: 10-06-2024 Unclassified (1 source) Other ventricular tachycardia; Translations: [Other ventricular tachycardia] Onset: 01-15-2024 Unclassified (1 source) History of colonic polyps; Translations: [History of colonic polyps] Onset: 09-22-2024 Past or Other Problems Problem Classification Problem Date Documented Da te Episodic/Chronic Abdominal hernia (20 sources) Left inguinal hernia ; Translations: [Unilateral inguinal hernia, without obstruction or gangrene, not specified as recurrent] Onset: 11-15-2011 11-15-2011 Episodic Genitourinary symptoms and ill-defined conditions (20 sources) Urgent desire to urinate; Translations: [Urgency of urination] Onset: 09-04-2013 Resolved: 12-30-2022 09-04-2013 Episodic Immunizations and screening for infectious disease (2 sources) Vaccination needed; Translations: [Encounter for immunization] Onset: 07-04-2024 07-04-2024 Episodic Other and unspecified benign neoplasm (10 sources) History of polyp of colon; Translations: [History of colonic polyps] Onset: 09-22-2024 07-04-2024 Episodic Other circulatory disease (20 sources) Elevated blood-pressure reading without diagnosis of hypertension; Translations: [Elevated blood-pressure reading, without diagnosis of hypertension] Onset: 04-22-2005 Resolved: 05-25-2005 05-25-2005 Episodic Other lower respiratory disease (1 source) Shortness of breath; Translations: [SOB (shortness of breath)] Onset: 08-04-2024 Episodic Other non-epithelial cancer of skin (20 sources) History of malignant neoplasm of skin; Translations: [Personal history of other malignant neoplasm of skin] Onset: 05-20-2021 Resolved: 05-20-2021 Episodic Other nutritional; endocrine; and metabolic disorders (20 sources) Obesity; Translations: [Obesity, unspecified] Onset: 04-22-2005 Resolved: 07-01-2010 07-01-2010 Chronic Residual codes; unclassified (1 source) Edema, unspecified; Translations: [Edema, unspecified type] Onset: 08-04-2024 Episodic Unclassified (1 source) Patient encounter status 09-22-2024 Results Test Name Value Interpretation Reference Range Facility CBC W Auto Differential pane l (Bld)on 01-19-2025 Basophils (Bld) [#/Vol] 0.03 10*3/uL Normal <0.11 [facility] Comment on above: Order Comment: Speci men Type: BLOOD SPECIMENOrdering Facility: [facility] Address: [address] [place] [address] Performed By: #### 5 7021-8 ####[facility] LABCLIA [id number] [address], [place] [address] [place] Basophils/100 WBC (Bld) 0.4 % Normal [facility] Comment on above: Order Comment: Speci men Type: BLOOD SPECIMENOrdering Facility: [facility] Address: [address] [place] [address] Performed By: #### 5 7021-8 ####[facility] LABCLIA [id number] [address], [place] [address] [place] Differential cell count method Nom (Bld) Auto Normal [facility] Comment on above: Order Comment: Speci men Type: BLOOD SPECIMENOrdering Facility: [facility] Address: [address] [place] [address] Performed By: #### 5 7021-8 ####[facility] LABCLIA [id number] [address], [place] [address] [place] Eosinophils (Bld) [#/Vol] 0.20 10*3/uL Normal <0.46 [facility] Comment on above: Order Comment: Speci men Type: BLOOD SPECIMENOrdering Facility: [facility] Address: [address] [place] [address] Performed By: #### 5 7021-8 ####[facility] LABCLIA [id number] [address], [facility] [place] Eosinophils/100 WBC (Bld) 2.9 % Normal [facility] Comment on above: Order Comment: Speci men Type: BLOOD SPECIMENOrdering Facility: [facility] Address: [address] [place] [address] Performed By: #### 5 7021-8 ####[facility] LABCLIA [id number] [address] [place] Erythrocyte distribution width (RBC) [Ratio] 13.5 % Normal 11.5-15.0 [facility] Comment on above: Order Comment: Speci men Type: BLOOD SPECIMENOrdering Facility: [facility] Address: [address] [place] [address] Performed By: #### 5 7021-8 ####[facility] LABCLIA [id number] [place] [address] [place] Hematocrit (Bld) [Volume fraction] 43.6 % Normal 39.0-51.0 [facility] Comment on above: Order Comment: Speci men Type: BLOOD SPECIMENOrdering Facility: [facility] Address: [address] [place] [address] Performed By: #### 5 7021-8 ####[facility] LABIA [id number] [place] [address] [place] Hemoglobin (Bld) [Mass/Vol] 14.3 g/dL Normal 13.0-17.0 [facility] Comment on above: Order Comment: Speci men Type: BLOOD SPECIMENOrdering Facility: [facility] Address: [address] [place] [address] Performed By: #### 5 7021-8 ####[facility] LABIA [id number] [place] [address] [place] Immature granulocytes (Bld) [#/Vol] 0.03 10*3/uL Normal <0.10 [facility] Comment on above: Order Comment: Speci men Type: BLOOD SPECIMENOrdering Facility: [facility] Address: [address] [place] [address] Performed By: #### 5 7021-8 ####[facility] LABCLIA [id number] [place] [address] [place] Immature granulocytes/100 WBC (Bld) 0.4 % Normal [facility] Comment on above: Order Comment: Speci men Type: BLOOD SPECIMENOrdering Facility: [facility] Address: [address] [place] [address] Performed By: #### 5 7021-8 ####[facility] LABCLIA [id number] [place] [address] [place] Lymphocytes (Bld) [#/Vol] 1.63 10*3/uL Normal 1.00-4.00 [facility] Comment on above: Order Comment: Speci men Type: BLOOD SPECIMENOrdering Facility: [facility] Address: [address] [place] [address] Performed By: #### 5 7021-8 ####[facility] LABCLIA [id number] [place] [address] [place] Lymphocytes/100 WBC (Bld) 23.9 % Normal [facility] Comment on above: Order Comment: Speci men Type: BLOOD SPECIMENOrdering Facility: [facility] Address: [address] [place] [address] Performed By: #### 5 7021-8 ####[facility] LABCLIA [id number] [place] [address] [place] MCH (RBC) [Entitic mass] 31.3 pg Normal 26.0-34.0 [facility] Comment on above: Order Comment: Speci men Type: BLOOD SPECIMENOrdering Facility: [facility] Address: [address] [place] [address] Performed By: #### 5 7021-8 ####[facility] LABCLIA [id number] [place] [address] [place] MCHC (RBC) [Mass/Vol] 32.8 g/dL Normal 30.5-36.0 [facility] Comment on above: Order Comment: Speci men Type: BLOOD SPECIMENOrdering Facility: [facility] Address: [address] [place] [address] Performed By: #### 5 7021-8 ####[facility] LABCLIA [id number] [place] [address] [place] MCV (RBC) [Entitic vol] 95.4 fL Normal 80.0-100.0 [facility] Comment on above: Order Comment: Speci men Type: BLOOD SPECIMENOrdering Facility: [facility] Address: [address] [place] [address] Performed By: #### 5 7021-8 ####[facility] LABIA [id number] [place] [address] [place] Monocytes (Bld) [#/Vol] 0.61 10*3/uL Normal <0.87 [facility] Comment on above: Order Comment: Speci men Type: BLOOD SPECIMENOrdering Facility: [facility] Address: [address] [place] [address] Performed By: #### 5 7021-8 ####[facility] LABIA [id number] [place] [address] [place] Monocytes/100 WBC (Bld) 9.0 % Normal [facility] Comment on above: Order Comment: Speci men Type: BLOOD SPECIMENOrdering Facility: [facility] Address: [address] [place] [address] Performed By: #### 5 7021-8 ####[facility] LABIA [id number] [place] [address] [place] Neutrophils (Bld) [#/Vol] 4.31 10*3/uL Normal 1.45-7.50 [facility] Comment on above: Order Comment: Speci men Type: BLOOD SPECIMENOrdering Facility: [facility] Address: [address] [place] [address] Performed By: #### 5 7021-8 ####[facility] LABCLIA [id number] [place] [address] [place] Neutrophils/100 WBC (Bld) 63.4 % Normal [facility] Comment on above: Order Comment: Speci men Type: BLOOD SPECIMENOrdering Facility: [facility] Address: [address] [place] [address] Performed By: #### 5 7021-8 ####[facility] LABIA [id number] [address] [address] [place] Nucleated RBC (Bld) [#/Vol] 10*3/uL Normal <0.01 [facility] Comment on above: Order Comment: Speci men Type: BLOOD SPECIMENOrdering Facility: [facility] Address: [address] [place] [address] Performed By: #### 5 7021-8 ####[facility] LABIA [id number] [place] [address] [place] Nucleated RBC/100 WBC (Bld) [Ratio] 0.0 /100 WBC Normal [facility] Comment on above: Order Comment: Speci men Type: BLOOD SPECIMENOrdering Facility: [facility] Address: [address] [place] [address] Performed By: #### 5 7021-8 ####[facility] LABIA [id number] [place] [address] [place] Platelet mean volume (Bld) [Entitic vol] 10.5 fL Normal 9.0-12.7 [facility] Comment on above: Order Comment: Speci men Type: BLOOD SPECIMENOrdering Facility: [facility] Address: [address] [place] [address] Performed By: #### 5 7021-8 ####[facility] LABIA [id number] [place] [address] [place] Platelets (Bld) [#/Vol] 224 10*3/uL Normal 150-400 [facility] Comment on above: Order Comment: Speci men Type: BLOOD SPECIMENOrdering Facility: [facility] Address: [address] [place] [address] Performed By: #### 5 7021-8 ####[facility] LABCLIA [id number] [address] [place] [address] [place] RBC (Bld) [#/Vol] 4.57 10*6/uL Normal 4.20-6.00 [facility] Comment on above: Order Comment: Speci men Type: BLOOD SPECIMENOrdering Facility: [facility] Address: [address] [place] [address] Performed By: #### 5 7021-8 ####[facility] LABCLIA [id number] [address] [place] [address] [place] WBC (Bld) [#/Vol] 6.81 10*3/uL Normal 3.70-11.00 [facility] Comment on above: Order Comment: Speci men Type: BLOOD SPECIMENOrdering Facility: [facility] Address: [address] [place] [address] Performed By: #### 5 7021-8 ####[facility] LABIA [id number] [address] [address] [place] Comprehensive metabolic 2000 panelon 01-19-2025 Albumin [Mass/Vol] 3.8 g/dL Low 3.9-4.9 [facility] Comment on above: Order Comment: Speci men Type: BLOOD SPECIMENOrdering Facility: [facility] Address: [address] [place] [address] Performed By: #### 2 4323-8, 55901-8 ####[facility] LABIA [id number] [address] [address] [place] ALP [Catalytic activity/Vol] 92 U/L Normal 38-113 [facility] Comment on above: Order Comment: Speci men Type: BLOOD SPECIMENOrdering Facility: [facility] Address: [address] [place], [place] [address] Performed By: #### 2 4323-8, 01100-7 ####[facility] LABIA [id number] [address] [place] [address] [place] ALT [Catalytic activity/Vol] 18 U/L Normal 10-54 [facility] Comment on above: Order Comment: Speci men Type: BLOOD SPECIMENOrdering Facility: [facility] Address: [address] [place] [address] Performed By: #### 2 4323-8, 34002-7 ####[facility] LABCLIA [id number] [address], [facility]95 [place] Anion gap [Moles/Vol] 10 mmol/L Normal 8-15 [facility] Comment on above: Order Comment: Speci men Type: BLOOD SPECIMENOrdering Facility: [facility] Address: [address] [place] [address] Performed By: #### 2 4323-8, 69292-3 ####[facility] LABCLIA [id number] [place] [address] [place] AST [Catalytic activity/Vol] 21 U/L Normal 14-40 [facility] Comment on above: Order Comment: Speci men Type: BLOOD SPECIMENOrdering Facility: [facility] Address: [address] [place] [address] Performed By: #### 2 4323-8, 00765-6 ####[facility] LABCLIA [id number] [facility] [address], [facility]95 [place] Bilirubin [Mass/Vol] 0.7 mg/dL Normal 0.2-1.3 [facility] Comment on above: Order Comment: Speci men Type: BLOOD SPECIMENOrdering Facility: [facility] Address: [address] [place], [place] [address] Performed By: #### 2 4323-8, 40704-8 ####[facility] LABCLIA [id number] [address], [facility]95 [place] Calcium [Mass/Vol] 9.2 mg/dL Normal 8.5-10.2 [facility] Comment on above: Order Comment: Speci men Type: BLOOD SPECIMENOrdering Facility: [facility] Address: [address] [place], [place] [address] Performed By: #### 2 4323-8, 66229-0 ####[facility] LABCLIA [id number] [address] [address] [place] Chloride [Moles/Vol] 102 mmol/L Normal 98-107 [facility] Comment on above: Order Comment: Speci men Type: BLOOD SPECIMENOrdering Facility: [facility] Address: [address] [place] [address] Performed By: #### 2 4323-8, 40911-0 ####[facility] LABCLIA [id number] [place] [address] [place] CO2 [Moles/Vol] 27 mmol/L Normal 22-30 [facility] Comment on above: Order Comment: Speci men Type: BLOOD SPECIMENOrdering Facility: [facility] Address: [address] [place] [address] Performed By: #### 2 4323-8, 45668-8 ####[facility] LABIA [id number] [place] [address] [place] Creatinine [Mass/Vol] 1.07 mg/dL Normal 0.73-1.22 [facility] Comment on above: Order Comment: Speci men Type: BLOOD SPECIMENOrdering Facility: [facility] Address: [address] [place] [address] Performed By: #### 2 4323-8, 23382-4 ####[facility] LABIA [id number] [place] [address] [place] Creatinine and Glomerular filtration rate.predicted panel (S/P/Bld) 72 mL/min/1.73m??? Normal >=60 [facility] Comment on above: Order Comment: Speci men Type: BLOOD SPECIMENOrdering Facility: [facility] Address: [address] [place], [place] [address] Result Comment: Lenka mated Glomerular Filtration Rate (eGFR) is calculated using the 2020 CKD-EPI creatinine equation. This equation utilizes serum creatinine, sex, and age as parameters. The creatinine assay has traceable calibration to isotope dilution-mass spectrometry. Refer to KDIGO guidelines for clinical interpretation. In patients with unstable renal function, e.g. those with acute kidney injury, the eGFR may not accurately reflect actual GFR. Performed By: #### 2 4323-8, 06388-2 ####[facility] LABIA [id number] [place] [address] [place] Glucose [Mass/Vol] 95 mg/dL Normal 74-99 [facility] Comment on above: Order Comment: Speckeyonna men Type: BLOOD SPECIMENOrdering Facility: [facility] Address: [address] [place] [address] Result Comment: The [place] Diabetes Association (ADA) provides guidance for cutoff values for fasting glucose and random glucose. The ADA defines fasting as no caloric intake for at least 8 hours. Fasting plasma glucose results between 100 to 125 mg/dL indicate increased risk for diabetes (prediabetes). Fasting plasma glucose results greater than or equal to 126 mg/dL meet the criteria for diagnosis of diabetes. In the absence of unequivocal hyperglycemia, results should be confirmed by repeat testing. In a patient with classic symptoms of hyperglycemia or hyperglycemic crisis, random plasma glucose results greater than or equal to 200 mg/dL meet the criteria for diagnosis of diabetes. Reference: Standards of Medical Care in Diabetes 2016, [place] [employer] Association. Diabetes Care. 2016.39(Suppl 1). Performed By: #### 2 4323-8, 53336-0 ####[facility] LABIA [id number] [place] [address] [place] Potassium [Moles/Vol] 4.5 mmol/L Normal 3.7-5.1 [facility] Comment on above: Order Comment: Vitor men Type: BLOOD SPECIMENOrdering Facility: [facility] Address: [address] [place] [address] Performed By: #### 2 4323-8, 66491-6 ####[facility] LABCLIA [id number] [address] [address] [place] Protein [Mass/Vol] 6.2 g/dL Low 6.3-8.0 [facility] Comment on above: Order Comment: Speci men Type: BLOOD SPECIMENOrdering Facility: [facility] Address: [address] [place] [address] Performed By: #### 2 4323-8, 90112-3 ####[facility] LABCLIA [id number] [place] [address] [place] Sodium [Moles/Vol] 139 mmol/L Normal 136-144 [facility] Comment on above: Order Comment: Speci men Type: BLOOD SPECIMENOrdering Facility: [facility] Address: [address] [place] [address] Performed By: #### 2 4323-8, 61267-5 ####[facility] LABCLIA [id number] [place] [address] [place] Urea nitrogen [Mass/Vol] 19 mg/dL Normal 9-24 [facility] Comment on above: Order Comment: Speci men Type: BLOOD SPECIMENOrdering Facility: [facility] Address: [address] [place] [address] Performed By: #### 2 4323-8, 38497-6 ####[facility] LABCLIA [id number] [place] [address] [place] Lipid 1996 panelon 5 Cholesterol [Mass/Vol] 132 mg/dL Normal <200 [facility] Comment on above: Order Comment: Speci men Type: BLOOD SPECIMENOrdering Facility: [facility] Address: [address] [place] [address] Result Comment: <200 mg/dL, Desirable 200-239 mg/dL, Borderline high >239 mg/dL, High Performed By: #### 2 4323-8, 61067-6 ####[facility] LABCLIA [id number] [place] [address] [facility] Cholesterol in HDL [Mass/Vol] 34 mg/dL Low >39 [facility] Comment on above: Order Comment: Jimii lauren Type: BLOOD SPECIMENOrdering Facility: [facility] Address: [address] [place] [address] Result Comment: 40-5 9 mg/dL, Acceptable >59 mg/dL, High: Negative risk factor for coronary heart disease <40 mg/dL, Low: Positive risk factor for coronary heart disease Performed By: #### 2 4323-8, 33260-3 ####[facility] LABCLIA [id number] [address] Cholesterol in LDL [Mass/Vol] 80 mg/dL Normal <100 [facility] Comment on above: Order Comment: Vitor lauren Type: BLOOD SPECIMENOrdering Facility: [facility] Address: [address] [place] [address] Result Comment: <100 mg/dL, Optimal 100-129 mg/dL, Near optimal/above optimal 130-159 mg/dL, Borderline high 160-189 mg/dL, High >189 mg/dL, Very high Secondary prevention optimal LDL Cholesterol levels are recommended to be <70 mg/dL LDL cholesterol is calculated using the Seay-NIH equation. Performed By: #### 2 4323-8, ####[facility] LABCLIA [id number] [address] [facility] Cholesterol in LDL/Cholesterol in HDL [Mass ratio] 2.35 {ratio} Normal <2.54 [facility] Comment on above: Order Comment: Jimii lauren Type: BLOOD SPECIMENOrdering Facility: [facility] Address: [address] [place] [address] Result Comment: Ghulam barrios: 1. National Cholesterol Education Program ATP III Guideline At-A-Glance Quick Desk Reference: National Heart, Lung, and Blood [place]. National Institutes of Health. 2001: NIH Publication No. 01-3305. 2. An International Atherosclerosis Society position paper: global recommendations for the management of dyslipidemia: executive summary, Atherosclerosis. 2014: 232(2):410-413. Performed By: #### 2 4323-8, 76894-2 ####[facility] LABCLIA [id number] [facility] [address] [place] [address] [place] Cholesterol in VLDL [Mass/Vol] 14 mg/dL Normal <30 [facility] Comment on above: Order Comment: Speci men Type: BLOOD SPECIMENOrdering Facility: [facility] Address: [address] [place] [address] Performed By: #### 2 4323-8, 53633-9 ####[facility] LABCLIA [id number] [address] [place] [address] [place] Cholesterol non HDL [Mass/Vol] 98 mg/dL Normal <130 [facility] Comment on above: Order Comment: Speci men Type: BLOOD SPECIMENOrdering Facility: [facility] Address: [address] [place] [address] Result Comment: <130 mg/dL, Optimal 130-159 mg/dL, Near optimal/above optimal 160-189 mg/dL, Borderline high 190-219 mg/dL, High >219 mg/dL, Very high Secondary prevention optimal non HDL Cholesterol levels are recommended to be <100 mg/dL Performed By: #### 2 4323-8, 99392-0 ####[facility] LABCLIA [id number] [facility] [address] [place] [address] [place] Cholesterol.total/Cho lesterol in HDL [Mass ratio] 3.88 {ratio} Normal <5.10 [facility] Comment on above: Order Comment: Speci men Type: BLOOD SPECIMENOrdering Facility: [facility] Address: [address] [place], [place] [address] Performed By: #### 2 4323-8, 79259-7 ####[facility] LABCLIA [id number] [facility] [address] [place] [address] [place] FASTING TIME 13 hrs Normal [facility] Comment on above: Order Comment: Speci men Type: BLOOD SPECIMENOrdering Facility: [facility] Address: [address] [place] [address] Performed By: #### 2 4323-8, 15958-4 ####[facility] LABIA [id number] [place] [id number] [place] Triglyceride [Mass/Vol] 93 mg/dL Normal <150 [facility] Comment on above: Order Comment: Speci men Type: BLOOD SPECIMENOrdering Facility: [facility] Address: [address] [place] [address] Result Comment: <150 mg/dL, Normal 150-199 mg/dL, Borderline high 200-499 mg/dL, High >499 mg/dL, Very high Performed By: #### 2 4323-8, 23463-9 ####[facility] LABIA [id number] [place] [address] [place] PSA/PROSTATE SPECIFIC ANTIGE N SCREENINGon 01-19-2025 Prostate specific Ag [Mass/Vol] 1.16 ng/mL Normal <2.60 [facility] Comment on above: Order Comment: Speci men Type: BLOOD SPECIMENOrdering Facility: [facility] Address: [address] [place] [address] Result Comment: Tota l PSA test methodology used is the Electrochemiluminescence Immunoassay by [employer]. Total PSA values by differing methodologies cannot be interchanged. Performed By: #### P SAS1 ####[facility] [id number] [place] [address] [facility] [place] CNOVon 01-05-2025 CNOV Office Visit (FAMPWS ) FREEMAN SARABIA ([id number]) 1950 M Date Time Provider Department 01/05/25 9:20 AM CALVIN STEPHENSWS During your visit today, we recorded the following information about you: Pulse Blood pressure Weight 64/minute 110/62 117 kg Calvin Stephens MD 01/05/2025 9:53 AM Signed - A refill for hydrochlorothiazide has been sent to your pharmacy; continue taking it as prescribed. - Obtain fasting blood tests (CBC, CMP, fasting lipid panel, PSA) at your convenience; if you?ve eaten today, schedule them for another day while fasting. - Keep your blood pressure well controlled--this helps prevent further enlargement of your aorta and iliac arteries. - Continue with cardiology?s monitoring of your aorta and iliac arteries; they will track any changes in the ectasia and aneurysm. - Schedule an annual skin exam with elbert Thibodeaux (or your dermatology provider) to check for new lesions. - Plan to repeat your colonoscopy in five years, per your last report of one polyp. - Consider getting RSV and shingles vaccines now while Medicare covers them; tetanus can also be done at the pharmacy under your prescription plan. - If you develop new or worsening shortness of breath, chest pain, or swelling, contact the office promptly. - Return for your next routine check-up in six months to review your blood pressure and overall health. Calvin Stephens MD 01/05/2025 12:49 PM Signed Freeman Sarabia is a 74-year-old male with a history of HTN, presenting for a follow-up visit to address dyspnea and review recent test results. HPI Dyspnea: - Reports improvement in dyspnea since last visit. - Denies current chest pain or edema. Aortic Ectasia: - Recent ultrasound on 11/24 showed mild enlargement of the abdominal aorta, not considered aneurysmal. - Aortic root enlargement noted. 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 Diastolic Dysfunction: - Echocardiogram on 11/24 showed normal left ventricular systolic function with EF of 65%. - Stage 1 diastolic dysfunction noted. - Mild mitral and aortic valve insufficiency observed. Skin Cancer: - History of skin cancer. - Freeman has not followed up with dermatology recently. - Denies new skin rashes or lesions. 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 - Reports difficulty sleeping due to stress. - Denies feeling down, depressed, or hopeless in the last two weeks. - Denies loss of interest or pleasure in activities. MEDICATIONS: Current Outpatient Medications Medication Sig hydroCHLOROthiazide 12.5 mg capsule Take 1 capsule by mouth once daily. losartan (COZAAR) 100 mg tablet Take 1 tablet by mouth once daily. potassium chloride (K-TAB) 10 mEq tablet Take 1 tablet by mouth daily with breakfast. aspirin 81 mg chewable tablet Take 1 tablet by mouth once daily. fluticasone (FLONASE) 50 mcg/actuation nasal spray Use 2 Sprays in each nostril once daily. Rinse mouth after use. sertraline (ZOLOFT) 50 mg tablet Take 1 tablet by mouth once daily. verapamil SR (CALAN SR) 120 mg CR tablet Take 120 mg by mouth two times a day. atorvastatin (LIPITOR) 80 mg tablet Take 80 mg by mouth once daily. Cholecalciferol, Vitamin D3, [...] Use Smoking status: Never Smokeless tobacco: Never Vaping Use Vaping status: Never Used Substance Use Topics Alcohol use: Yes Comment: rarely Drug use: No Reviewed current medications, allergies, past medical history, surgical history, family history and social history today. REVIEW OF SYSTEMS Constitutional: (+) weight gain, (+) insomnia Cardiovascular: (-) chest pain, (-) edema Skin: (-) rash, (-) skin lesion Psychiatric: (+) anxiety, (-) depressed mood, (-) anhedonia HEALTH MAINTENANCE: Reviewed healt (more content not included)... Normal [facility] AAA Screeningon 11-24-2024 AAA Screening [facility] Cardiovascular Services [address] [place] [address] AAA Screening 11/24/24 08 MR#: [id number] Acct: [id number] Name: FREEMAN SARABIA Rep #: [id number] : 1950 74 From: Kris Nagel MD Attending Dr: Dr. Viktor Rutledge MD Status: REG CLI Ordering Dr: Viktor Rutledge MD Date: 11/24/24 Location: [facility] Sex: M C Admitted: Reason For Study Reason For Study: AAA Screening Aorta Measurements Aorta Doppler Measurements Proximal aorta measures2.55cm x 2.57cm. in cross-sectional Peak systolic flow velocities within the proximal aorta axis. measure 58 cm/sec. Proximal aorta measures2.10cm. in longitudinal axis. Peak systolic flow velocities within the mid aorta measure Mid aorta measures2.64cm x 2.64cm. in cross-sectional axis. 69 cm/sec. Mid aorta measures2.59cm. in longitudinal axis. Peak systolic flow velocities within the distal aorta Distal aorta measures2.00cm x 1.89cm. in cross-sectional measure 74 cm/sec. axis. Distal aorta measures1.95cm. in longitudinal axis. Left Iliac Artery Left iliac artery measures 1.39cm x 1.54 cm. in the cross-sectional axis. Left iliac artery measures 1.37 cm. in the longitudinal axis. Peak systolic velocity in the left iliac artery measures 78 cm/sec. Right Iliac Artery Right iliac artery measures 2.14cm x 1.24 cm. in the cross-sectional axis. Right iliac artery measures 1.35 cm. in the longitudinal axis. Peak systolic velocity in the right iliac artery measures 96 cm/sec. Procedure Aorta IVC Iliac vasculature or bypass grafts [id number]. Exam performed in department. 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 Ordering Physician: Viktor Rutledge Referring Physician: Calvin Stephens Performed By: Nannette Garcia, RDCS, RVT 11/24/24 1351 Date Kris Nagel MD CC: Dr. Viktor Rutledge MD; Dr. Calvin Stephens MD Date Dictated: 11/24/24 08 Date Transcribed: 11/24/24 135 Title Camera Operator: Signed Normal [facility] Cardiovascular ultrasound re portOrdered By: Kris Nagel on 11-24-2024 Study report [facility] [address] [place] [address] AAA Screening 11/24/24 08 MR#: [id number] Acct: [id number] Name: FREEMAN SARABIA Rep #:[id number] : 1950 74 From: Kris Monge Attending Dr: Dr. Viktor Rutledge MD Status: REG CLI Ordering Dr: Viktor Rutledge MD Date: Location: [facility] Sex: M C Admitted: Reason For Study Reason For Study: AAA Screening Aorta Measurements Aorta Doppler Measurements Proximal aorta measures2.55cm x 2.57cm. in cross-sectional Peak systolic flow velocities within the proximal aorta axis. measure 58 cm/sec. Proximal aorta measures2.10cm. in longitudinal axis. Peak systolic flow velocities within the mid aorta measure Mid aorta measures2.64cm x 2.64cm. in cross-sectional axis. 69 cm/sec. Mid aorta measures2.59cm. in longitudinal axis. Peak systolic flow velocities within the distal aorta Distal aorta measures2.00cm x 1.89cm. in cross-sectional measure 74 cm/sec. axis. Distal aorta measures1.95cm. in longitudinal axis. Left Iliac Artery Left iliac artery measures 1.39cm x 1.54 cm. in the cross-sectional axis. Left iliac artery measures 1.37 cm. in the longitudinal axis. Peak systolic velocity in the left iliac artery measures 78 cm/sec. Right Iliac Artery Right iliac artery measures 2.14cm x 1.24 cm. in the cross-sectional axis. Rightiliac artery measures 1.35 cm. in the longitudinal axis. Peak systolic velocity in the right iliac artery measures 96 cm/sec. Procedure Aorta IVC Iliac vasculature or bypass grafts [id number]. Exam performed in department. 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 Ordering Physician: Viktor Rutledge Referring Physician: Calvin Stephens Performed By: Nannette Garcia, APOLINARCS, RVT 11/24/24 1351 Date _ Kris Nagel MD CC: Dr. Viktor Rutledge MD; Dr. Calvin Stephens MD ~ Date Dictated: 11/24/24 0801 Date Transcribed: 11/24/24 1351 Title Camera Operator: Signed [facility] Work Phone: Echo Completeon 11-24-2024 Echo Complete [facility] Cardiovascular Services [address] [place] [address] Echo Complete 11/24/24 08 MR#: [id number] Acct: [id number] Name: FREEMAN SARABIA Rep #: [id number] : 1950 74 From: Viktor Rutledge MD Attending Dr: Dr. Viktor Rutledge MD Status: REG CLI Ordering Dr: Viktor Rutledge MD Date: 11/24/24 Location: [facility] Sex: M C Admitted: Reason For Study Reason For Study: OTHER Procedure This was a 2D Doppler, Color Flow transthoracic echocardiogram. Exam performed in department. Left Ventricle Mild concentric left ventricular hypertrophy. The LV systolic function is normal. EF is 65 %. Stage 1 diastolic dysfunction. Right Ventricle Normal right ventricle. Atria The left and right atria are normal. Mitral Valve Mild (1+) mitral valve insufficiency. Tricuspid Valve Trivial tricuspid valve insufficiency. Normal pulmonary artery pressure. Aortic Valve Trisinus/trileaflet aortic valve. Mild (1+) aortic valve insufficiency. Pulmonic Valve The pulmonic valve is not well visualized. Great Vessels Moderately dilated aortic root. Pericardium/Pleural No pericardial effusion. MMode/2D Measurements Calculations LVIDd: 5.8 cm IVSd: 1.4 cm LVOT diam: 2.0 cm LVIDs: 4.6 cm LVPWd: 1.4 cm LVOT area: 3.3 cm2 RVDd: 3.7 cm FS: 21.3 % Ao root diam: 4.5 cm LAV(MOD-bp): 40.8 ml LVAd ap4: 36.7 cm2 LAV(MOD-bp) Indexed: 16.9 ml/m2 LVLd ap4: 9.4 cm LAV(MOD-sp2): 33.0 ml EDV(MOD-sp4): 123.6 ml LAV(MOD-sp4): 41.5 ml EDV(sp4-el): 122.2 ml LVAs ap4: 18.6 cm2 LVLs ap4: 8.0 cm ESV(MOD-sp4): 38.7 ml ESV(sp4-el): 36.8 ml EF(MOD-sp4): 68.7 % EF(sp4-el): 69.9 % SV(MOD-sp4): 84.9 ml SV(sp4-el): 85.3 ml LA A4 area: 16.9 cm2 SI(MOD-sp4): 35.2 ml/m2 LA dimension(2D): 3.2 cm RA A4 area: 13.9 cm2 Time Measurements MV dec time: 0.29 sec Doppler Measurements Calculations MV E max chuy: 70.8 cm/sec Lat Peak E' Chuy: 11.8 cm/sec Med Peak E' Chuy: 6.6 cm/sec MV A max chuy: 98.6 cm/sec E/E' lat: 6.0 E/E' med: 10.8 MV E/A: 0.72 MV V2 max: 109.5 cm/sec Ao V2 max: 143.9 cm/sec MV max P.8 mmHg MV dec slope: 258.9 cm/sec2 Ao max P.5 mmHg MV V2 mean: 50.6 cm/sec Ao V2 mean: 100.3 cm/sec MV mean P.3 mmHg Ao mean P.6 mmHg MV V2 VTI: 29.3 cm Ao V2 VTI: 35.2 cm AV (velocity ratio): 0.70 MVA(VTI): 2.7 cm2 HUNG(I,D): 2.3 cm2 HUNG(V,D): 2.4 cm2 LV V1 max: 107.1 cm/sec SV(LVOT): 80.2 ml PA V2 max: 66.9 cm/sec LV V1 max P.6 mmHg PA V2 mean: 43.3 cm/sec LV V1 mean P.5 mmHg LV V1 mean: 72.7 cm/sec LV V1 VTI: 24.6 cm ECHO/Echo Complete Interpretation Summary Mild concentric left ventricular hypertrophy. The LV systolic function is normal. EF is 65 %. Stage 1 diastolic dysfunction. Mild (1+) mitral valve insufficiency. Mild (1+) aortic valve insufficiency. Moderately dilated aortic root. Ordering Physician: Viktor Rutledge Referring Physician: Viktor Rutledge Performed By: Francia Alves RCS 11/24/24 1147 Date Viktor Rutledge MD CC: Dr. Viktor Rutledge MD; Dr. Calvin Stephens MD Date Dictated: 11/24/24820 Date Transcribed: 11/24/24 1147 Title Camera Operator: Signed Normal [facility] Echocardiogram study reportO rdered By: Viktor Rutledge on 11-24-2024 Study report [facility] Cardi[facility] Services [address] [place] [address] Echo Complete 11/24/24820 MR#: [id number] Acct: [id number] Name: FREEMAN SARABIA Rep #:[id number] : 1950 74 From: Viktor Rutledge MD Attending Dr: Dr. Viktor Rutledge MD Status: REG CLI Ordering Dr: Viktor Rutledge MD Date: Location: [facility] Sex: M C Admitted: Reason For Study Reason For Study: OTHER Procedure This was a 2D Doppler, Color Flow transthoracic echocardiogram. Exam performed in department. Left Ventricle Mild concentric left ventricular hypertrophy. The LV systolic function is normal. EF is 65 %. Stage 1 diastolic dysfunction. Right Ventricle Normal right ventricle. Atria The left and right atria are normal. Mitral Valve Mild (1+) mitral valve insufficiency. Tricuspid Valve Trivial tricuspid valve insufficiency. Normal pulmonary artery pressure. Aortic Valve Trisinus/trileaflet aortic valve. Mild (1+) aortic valve insufficiency. Pulmonic Valve The pulmonic valve is not well visualized. Great Vessels Moderately dilated aortic root. Pericardium/Pleural No pericardial effusion. MMode/2D Measurements & Calculations LVIDd: 5.8 cm IVSd: 1.4 cm LVOT diam: 2.0 cm LVIDs: 4.6 cm LVPWd: 1.4 cm LVOT area: 3.3 cm2 RVDd: 3.7 cm FS: 21.3 % Ao root diam: 4.5 cm LAV(MOD-bp): 40.8 ml LVAd ap4: 36.7 cm2 LAV(MOD-bp) Indexed: 16.9 ml/m2 LVLd ap4: 9.4 cm LAV(MOD-sp2): 33.0 ml EDV(MOD-sp4): 123.6 ml LAV(MOD-sp4): 41.5 ml EDV(sp4-el): 122.2 ml LVAs ap4: 18.6 cm2 LVLs ap4: 8.0 cm ESV(MOD-sp4): 38.7 ml ESV(sp4-el): 36.8 ml EF(MOD-sp4): 68.7 % EF(sp4-el): 69.9 % SV(MOD-sp4): 84.9 ml SV(sp4-el): 85.3 ml LA A4 area: 16.9 cm2 SI(MOD-sp4): 35.2 ml/m2 LA dimension(2D): 3.2 cm RA A4 area: 13.9 cm2 Time Measurements MV dec time: 0.29 sec Doppler Measurements & Calculations MV E max chuy: 70.8 cm/sec Lat Peak E' Chuy: 11.8 cm/sec Med Peak E' Chuy: 6.6 cm/sec MV A max chuy: 98.6 cm/sec E/E' lat: 6.0 E/E' med: 10.8 MV E/A: 0.72 MV V2 max: 109.5 cm/sec Ao V2 max: 143.9 cm/sec MV max P.8 mmHg MV dec slope: 258.9 cm/sec2 Ao max P.5 mmHg MV V2 mean: 50.6 cm/sec Ao V2 mean: 100.3 cm/sec MV mean P.3 mmHg Ao mean P.6 mmHg MV V2 VTI: 29.3 cm Ao V2 VTI: 35.2 cm AV (velocity ratio): 0.70 MVA(VTI): 2.7 cm2 HUNG(I,D): 2.3 cm2 HUNG(V,D): 2.4 cm2 _ LV V1 max: 107.1 cm/sec SV(LVOT): 80.2 ml PA V2 max: 66.9 cm/sec LV V1 max P.6 mmHg PA V2 mean: 43.3 cm/sec LV V1 mean P.5 mmHg LV V1 mean: 72.7 cm/sec LV V1 VTI: 24.6 cm ECHO/Echo Complete Interpretation Summary Mild concentric left ventricular hypertrophy. The LV systolic function is normal. EF is 65 %. Stage 1 diastolic dysfunction. Mild (1+) mitral valve insufficiency. Mild (1+) aortic valve insufficiency. Moderately dilated aortic root. Ordering Physician: Viktor Rutledge Referring Physician: Viktor Rutledge Performed By: Francia Alves RCS 11/24/24 1147 Date _ Viktor Rutledge MD CC: Dr. Viktor Rutledge MD; Dr. Calvin Stephens MD ~ Date Dictated: 11/24/24820 Date Transcribed: 11/24/24 1147 Title Camera Operator: Signed [facility] Work Phone: Anion gap in Serum or Plasma Ordered By: Viktor Rutledge on 10-06-2024 Anion gap [Moles/Vol] 8 mmol/L 5-15 [facility] BUN/creatinine ratioOrdered By: Viktor Rutledge on 10-06-2024 Urea nitrogen/Creatinine [Mass ratio] 17.0 mg/mg 10-20 [facility] Bilirubin, totalOrdered By: Viktor Rutledge on 10-06-2024 Bilirubin [Mass/Vol] 0.51 mg/dL 0.00-1.30 [facility] Calculated very low density lipoprotein (VLDL) cholesterol measurementOrdered By: Viktor Rutledge on 10-06-2024 Calculated very low density lipoprotein (VLDL) cholesterol measurement 21 mg/dL - [facility] VLDL Cholesterol 21 mg/dL - [facility] Carbon dioxide, total [Moles /volume] in Central venous bloodOrdered By: Viktor Rutledge on 10-06-2024 CO2 [Moles/Vol] 28.3 mmol/L 21.0-32.0 [facility] Cardiology Visit Reporton Cardiology Visit Report [facility] [address] [place] [address] OFFICE VISIT Date of Service: 10/06/24 MR#: [id number] Acct: [id number] Name: FREEMAN SARABIA Rep #: [id number] : 1950 Provider: Dr. 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 Denies any angina. No dyspnea. No orthopnea or PND. No ankle edema. Denies any palpitations. No lightheadedness or dizziness. No syncope or presyncope. 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 Accompanied by: Self Is patient in pain?: No Allergies No Known Allergies Allergy (Verified 10/06/24 10:38) Medications ???Medication ???Instructions ???Recorded ???Confirmed ???Type aspirin 81 mg tablet,delayed 81 mg PO DAILY #90 tabs 03/22/23 0 10/06/24 Rx release (Adult Aspirin Regimen) cholecalciferol (vitamin D3) 25 25 mcg PO DAILY 05/08/23 10/06/24 History mcg (1,000 unit) capsule sertraline 50 mg tablet 50 mg PO DAILY 05/08/23 10/06/24 H istory hydrochlorothiazide 12.5 mg tablet 12.5 mg PO DAILY 12/07/23 History potassium chloride 10 mEq 10 meq PO QDAY 01/15/24 10/06/24 H istory tablet,extended release verapamil 120 mg tablet,extended 120 mg PO BID #60 tabs 01/15/24 Rx release atorvastatin 80 mg tablet 80 mg PO QHS #90 tabs 03/18/24 Rx losartan 100 mg tablet 100 mg PO QDAY 04/01/24 10/06/24 H istory Ejection fraction %: 60 Have you fallen in the past year?: No PFSH Medical History Acute ST elevation myocardial infarction (STEMI) Ascending aortic aneurysm Atherosclerotic heart disease of [place] coronary artery without angina pectoris Hypertension Nonsustained ventricular tachycardia Surgical History History of herniorrhaphy History of Mohs surgery for squamous cell carcinoma of skin History of total right hip replacement Hx of appendectomy Stented coronary artery (02/19/23) Family History Father Myocardial infarction CAD (coronary artery disease) Social History Smoking Status: Never smoker alcohol intake: current alcohol intake frequency: a few times a month substance use type: does not use caffeine: No ROS Const Const: Negative for fatigue, weakness, headache(s) or weight gain ENT ENT: Negative for headache(s), dizziness, Nosebleed/epistaxis or balance problems Cardio Chest Pain: No Palpitations: No Edema: None Muscle aches with walking: None Resp Respiratory: Negative for SOB with activity, SOB at rest or SOB orthopnea SOB lying down GI GI: Negative nausea, vomiting or heartburn Musc Musc: Negative for muscle aches/ myalgia, muscle weakness, joint pain or balance problems Neuro Neuro: Negative for dizziness, lightheadedness, near syncope, syncope, headache(s) or weakness Endo Endo: Negative for fatigue Cardiology Exam Const Appearance: comfortable and no acute distress Nutritional Appearance: well nourished Neck Neck: no JVD Carotids: Negative bruit Chest Auscultation: Bilateral: Clear to Auscultation Cardio Rate: regular rate Rhythm: regular rhythm Heart sounds: S1 normal and S2 normal Neuro General: patient alert, patient awake and patient oriented x3 Extremities Lower Extremity Edema: None: Bilateral Supplemental Info Supplemental Information Echo Complete 08/15/2024: Interpretation Summary Mild concentric left ventricular hypertrophy. The left ventricular ejection fraction is 60 %. Stage 1 diastolic dysfunction. Mild (1+) mitral valve insufficiency. Mild (1+) aortic valve insufficiency. Moderately dilated aortic root. Echocardiogram 02/19/2023: The estimated ejection fraction is 55 %. No evidence for diastolic dysfunction. Hypokinesis of the distal inferior wall Mild (1+) aortic valve insufficiency. Mild to moderately dilated ascending aorta Stress Test Report 08/15/2024: Procedure: Exercise tolerance test/imaging study Indications: Coronary artery disease Consent: Per the patient Procedure: The patient exercised on a Ronn protocol for 4 minutes and 31 seconds achieving a peak heart rate of 130 bpm (89% predicted nirmal (more content not included)... Normal [facility] Chloride assayOrdered By: Javier Rutledge on 10-06-2024 Chloride [Moles/Vol] 105 mmol/L 98-108 [facility] Comprehensive Metabolic Prof ilon 10-06-2024 Albumin [Mass/Vol] 4.0 g/dL Normal 3.4-4.8 [facility] Comment on above: Performed By: #### L 500.4050, L500.4100 #### [facility] Laboratory [address] [place], [address] Albumin/Globulin [Mass ratio] 1.5 {ratio} Normal 0.9-2.4 [facility] Comment on above: Performed By: #### L 500.4050, L500.4100 #### [facility] Laboratory [address] [place], [address] ALK PHOS 93 U/L Normal 40-129 [facility] Comment on above: Performed By: #### L 500.4050, L500.4100 #### [facility] Laboratory [address] [place], [address] ALT [Catalytic activity/Vol] 19 U/L Normal <=46 [facility] Comment on above: Performed By: #### L 500.4050, L500.4100 #### [facility] [address] [place], [address] AST [Catalytic activity/Vol] 22 U/L Normal <=37 [facility] Comment on above: Performed By: #### L 500.4050, L500.4100 #### [facility] Laboratory [address] [place], [address] Bilirubin [Mass/Vol] 0.51 mg/dL Normal 0.00-1.30 [facility] Comment on above: Performed By: #### L 500.4050, L500.4100 #### [facility] Laboratory [address] [place], [address] BUN/CRE 17.0 RATIO Normal 10-20 [facility] Comment on above: Performed By: #### L 500.4050, L500.4100 #### [facility] Laboratory [address] [place], [place], [address] Calcium [Mass/Vol] 9.2 mg/dL Normal 7.6-11.0 [facility] Comment on above: Performed By: #### L 500.4050, L500.4100 #### [facility] [address] [place], [address] Chloride [Moles/Vol] 105 mmol/L Normal 98-108 [facility] Comment on above: Performed By: #### L 500.4050, L500.4100 #### [facility] [address] [place], [address] CO2 [Moles/Vol] 28.3 mmol/L Normal 21.0-32.0 [facility] Comment on above: Performed By: #### L 500.4050, L500.4100 #### [facility] [address] [place], [address] Creatinine [Mass/Vol] 1.03 mg/dL Normal 0.70-1.20 [facility] Comment on above: Performed By: #### L 500.4050, L500.4100 #### [facility] [address] [place], [address] GAP 8 Normal 5-15 [facility] Comment on above: Performed By: #### L 500.4050, L500.4100 #### [facility] [address] [place], [address] GFR/1.73 sq M.predicted among non-blacks MDRD (S/P/Bld) [Vol rate/Area] 76 mL/min/{1.73_m2} Normal >60 [facility] Comment on above: Result Comment: mL/m in/1.73m2 CKD-EPI Creatinine Equation (2020) Performed By: #### L 500.4050, L500.4100 #### [facility] [address] [place], [address] Globulin (S) [Mass/Vol] 2.6 g/dL Normal 2.2-4.2 [facility] Comment on above: Performed By: #### L 500.4050, L500.4100 #### [facility] [address] [place], [address] Glucose [Mass/Vol] 98 mg/dL Normal 70-99 [facility] Comment on above: Performed By: #### L 500.4050, L500.4100 #### [facility] [address] [place], [address] Potassium [Moles/Vol] 4.1 mmol/L Normal 3.3-5.1 [facility] Comment on above: Performed By: #### L 500.4050, L500.4100 #### [facility] [address] [place], [address] Sodium [Moles/Vol] 141 mmol/L Normal 133-145 [facility] Comment on above: Performed By: #### L 500.4050, L500.4100 #### [facility] [address] [place], [address] T PROT 6.6 g/dL Normal 5.9-8.4 [facility] Comment on above: Performed By: #### L 500.4050, L500.4100 #### [facility] [address] [place], [place], [id number] Urea nitrogen [Mass/Vol] 18 mg/dL Normal 4-19 [facility] Comment on above: Performed By: #### L 500.4050, L500.4100 #### [facility] [address] [place], [place], [id number] GFR/1.73 sq M.predicted acssius g non-blacks MDRD (S/P/Bld) [Vol rate/Area]Ordered By: Viktor Rutledge on 10-06-2024 Estimated GFR (MDRD) Non-Af Amer 76 >60 [facility] Comment on above: mL/min/1.73m2 CKD-EP I Creatinine Equation (2020) Glomerular filtration rate ( GFR) estimation/1.73 sq m using serum, plasma, or whole bOrdered By: Viktor Rutledge on 10-06-2024 GFR/1.73 sq M.predicted among non-blacks MDRD (S/P/Bld) [Vol rate/Area] 76 mL/min/{1.73_m2} >60 [facility] Comment on above: mL/min/1.73m2 CKD-EP I Creatinine Equation (2020) LDL calc ser/plasOrdered By: Viktor Rutledge on 10-06-2024 Cholesterol in LDL [Mass/Vol] 87 mg/dL [facility] Comment on above: Visoczvyhm=340-164 m g/dL & Higher Pdnr=634 mg/dL or greater LDL Cholesterol, Calculated 87 mg/dL [facility] Comment on above: Lrnrdvrcmw=105-907 m g/dL & Higher Efcw=290 mg/dL or greater Laboratory - Chemistry and C hemistry - challengeOrdered By: Viktor Rtuledge on 10-06-2024 AST [Catalytic activity/Vol] 22 U/L <38 [facility] Lipid Profileon 10-06-2024 CHOL:HDL 3.45 Normal [facility] Comment on above: Performed By: #### L 500.4050, L500.4100 #### [facility] [address] [place], [address] Cholesterol [Mass/Vol] 152 mg/dL Normal <=200 [facility] Comment on above: Result Comment: Chol esterol level, Desirable <200 mg/dL Borderline high cholesterol 200-239 mg/dL High cholesterol >=240 mg/dL Recommendations of the NCEP Adult Treatment Panel for the following risk-cutoff thresholds for the [place] population. Performed By: #### L 500.4050, L500.4100 #### [facility] [address] [place], [address] Cholesterol in HDL [Mass/Vol] 44 mg/dL Normal [facility] Comment on above: Result Comment: Tonja onal Cholesterol Education Program (NCEP) guidelines: <40 mg/dL: Low HDL-cholesterol (major risk factor for CHD) >= 60 mg/dL: High HDL-cholesterol (negative risk factor for CHD) HDL-cholesterol is affected by a number of factors, e.g. smoking, exercise, hormones, sex and age. Performed By: #### L 500.4050, L500.4100 #### [facility] [address] [place], [address] Cholesterol in LDL [Mass/Vol] 87 mg/dL Normal [facility] Comment on above: Result Comment: Bord larmkj=018-730 mg/dL Higher Erku=181 mg/dL or greater Performed By: #### L 500.4050, L500.4100 #### [facility] [address] [place], [address] Cholesterol in VLDL [Mass/Vol] 21 mg/dL Normal 5-40 [facility] Comment on above: Performed By: #### L 500.4050, L500.4100 #### [facility] [address] [place], [address] Triglyceride [Mass/Vol] 103 mg/dL Normal [facility] Comment on above: Result Comment: The drugs N-Acetylcysteine and Metamizole may falsely depress this assay. Normal range: <150 mg/dL Borderline High: 150-199 mg/dL High: 200-499 mg/dL Very High: >500 mg/dL Performed By: #### L 500.4050, L500.4100 #### [facility] [address] [place], [address] Potassium (Unsp spec) [Mass/ Vol]Ordered By: Viktor Rutledge on 10-06-2024 Potassium [Moles/Vol] 4.1 mmol/L 3.3-5.1 [facility] Potassium measurement (mass/ volume)Ordered By: Viktor Rutledge on 10-06-2024 Potassium (Unsp spec) [Mass/Vol] 4.1 mmol/L 3.3-5.1 [facility] Screening total cholesterol/ high density lipoprotein (HDL) cholesterol ratioOrdered By: Viktor Rutledge on 10-06-2024 Cholesterol.total/Cho lesterol in HDL [Mass ratio] 3.45 {ratio} [facility] Serum creatinine measurement (mass/volume)Ordered By: Viktor Rutledge on 10-06-2024 Creatinine [Mass/Vol] 1.03 mg/dL 0.70-1.20 [facility] Serum globulin measurementOr dered By: Viktor Rutledge on 10-06-2024 Globulin (S) [Mass/Vol] 2.6 g/dL 2.2-4.2 [facility] Serum glucose measurement (m ass/volume)Ordered By: Viktor Rutledge on 10-06-2024 Glucose [Mass/Vol] 98 mg/dL 70-99 [facility] Serum or plasma alanine jacob otransferase (ALT) measurementOrdered By: Viktor Rutledge 10-06-2024 ALT [Catalytic activity/Vol] 19 U/L <47 [facility] Serum or plasma albumin marcie urement (mass/volume)Ordered By: Viktor Rutledge on 10-06-2024 Albumin [Mass/Vol] 4.0 g/dL 3.4-4.8 [facility] Serum or plasma albumin/glob ulin mass ratioOrdered By: Viktor Rutledge on 10-06-2024 Albumin/Globulin [Mass ratio] 1.5 {ratio} 0.9-2.4 [facility] Serum or plasma alkaline wiliam sphatase measurementOrdered By: Viktor Rutledge on 10-06-2024 ALP [Catalytic activity/Vol] 93 U/L 40-129 [facility] Serum or plasma calcium marcie urement (mass/volume)Ordered By: Viktor Rutledge on 10-06-2024 Calcium [Mass/Vol] 9.2 mg/dL 7.6-11.0 [facility] Serum or plasma cholesterol in HDL measurement (mass/volume)Ordered By: Viktor Rutledge on 10-06-2024 Cholesterol in HDL [Mass/Vol] 44 mg/dL >40 [facility] Comment on above: National Cholesterol Education Program (NCEP) guidelines:<40 mg/dL: Low HDL-cholesterol (major risk factor for CHD)>= 60 mg/dL: High HDL-cholesterol (negative risk factor for CHD)HDL-cholesterol is affected by a number of factors, e.g. smoking, exercise, hormones, sex and age. Serum or plasma cholesterol measurement (mass/volume)Ordered By: Viktor Rutledge on 10-06-2024 Cholesterol [Mass/Vol] 152 mg/dL <201 [facility] Comment on above: Cholesterol level, D esirable <200 mg/dLBorderline high cholesterol 200-239 mg/dLHigh cholesterol >=240 mg/dLRecommendations of the NCEP Adult Treatment Panel for the following risk-cutoff thresholds for the [place] population. Serum or plasma urea nitroge n measurement (mass/volume)Ordered By: Viktor Rutledge on 10-06-2024 Urea nitrogen [Mass/Vol] 18 mg/dL 4-19 [facility] Sodium levelOrdered By: Jaylen Rutledge on 10-06-2024 Sodium [Moles/Vol] 141 mmol/L 133-145 [facility] Total proteinOrdered By: Amy Rutledge on 10-06-2024 Protein [Mass/Vol] 6.6 g/dL 5.9-8.4 [facility] Triglycerides measurementOrd ered By: Viktor Rutledge on 10-06-2024 Triglyceride [Mass/Vol] 103 mg/dL <199 [facility] Comment on above: The drugs N-Acetylcy steine and Metamizole may falsely depress this assay. Normal range: <150 mg/dLBorderline High: 150-199 mg/dLHigh: 200-499 mg/dLVery High: >500 mg/dL [id number] 09-22-2024 [id number] HNO ID: [id number] Author: JACKLYN MCCANN RN Service: ? Author Type: Registered Nurse Type: [id number] Filed: 09/22/2024 10:28 Note Text: The patient received a copy of Colonoscopy discharge instructions that contain information for how to contact the physician who performed the procedure and when to seek medical care. Normal [facility] Colonoscopyon 09-22-2024 Colonoscopy [facility] Gastrointestinal Endoscopy Patient Name: Freeman Sarabia Procedure Date: 09/22/2024 9:32 AM Date of : 1950 Admit Type: Outpatient Age: 74 Gender: Male Note Status: Finalized Procedure: Colonoscopy Indications: Screening for colorectal malignant neoplasm Providers: Benedict Torres MD Patient Profile: This is a 74 year old male. Refer to note in patient chart for documentation of history and physical. Last Colonoscopy: March 2018. Referring Physician: Latonia Fontaine (Referring MD) Medicines: Fentanyl 50 micrograms IV, Midazolam 5 mg IV, Diphenhydramine 50 mg IV Complications: No immediate complications. Estimated blood loss: Minimal. Requesting Provider: Procedure: Pre-Anesthesia Assessment: - Prior to the procedure, a History and Physical was performed, and patient medications and allergies were reviewed. The patient's tolerance of previous anesthesia was also reviewed. The risks and benefits of the procedure and the sedation options and risks were discussed with the patient. All questions were answered, and informed consent was obtained. Prior Anticoagulants: The patient has taken no anticoagulant or antiplatelet agents except for aspirin. ASA Grade Assessment: III - A patient with severe systemic disease. After reviewing the risks and benefits, the patient was deemed in satisfactory condition to undergo the procedure. After I obtained informed consent, the scope was passed under direct vision. Throughout the procedure, the patient's blood pressure, pulse, and oxygen saturations were monitored continuously. The Colonoscope was introduced through the anus and advanced to 3 cm into the ileum. The colonoscopy was performed without difficulty. The patient tolerated the procedure well. The quality of the bowel preparation was good. The terminal ileum, ileocecal valve, appendiceal orifice, and rectum were photographed. Moderate Sedation: The administration of moderate sedation was initiated at 09:39. Moderate (conscious) sedation was personally administered by the endoscopist. The following parameters were monitored: oxygen saturation, heart rate, blood pressure, respiratory rate, EKG, adequacy of pulmonary ventilation, and response to care. Total physician intraservice time was 15 minutes. Findings: The perianal and digital rectal examinations were normal. A diminutive (1-3 mm) polyp was found in the ascending colon. The polyp was sessile. The polyp was removed with a jumbo cold forceps. Resection and retrieval were complete. Non-bleeding internal hemorrhoids were found during retroflexion. The hemorrhoids were mild and small. Multiple small-mouthed diverticula were found in the sigmoid colon. The exam was otherwise without abnormality. Impression: - One diminutive (1-3 mm) polyp in the ascending colon, removed with a jumbo cold forceps. Resected and retrieved. - Non-bleeding internal hemorrhoids. - Diverticulosis in the sigmoid colon. - The examination was otherwise normal. Recommendation: - Patient has a contact number available for emergencies. The signs and symptoms of potential delayed complications were discussed with the patient. Return to normal activities tomorrow. Written discharge instructions were provided to the patient. - Resume previous diet. - Continue present medications. - Await pathology results. - Repeat colonoscopy in 5 years for surveillance. - Return to nurse practitioner at appointment to be scheduled. - Resume previous antiplatelet medication tomorrow at prior dose. Procedure Code(s): --- Professional --- 45877, Colonoscopy, flexible; with biopsy, single or multiple G0500, Moderate sedation services provided by the same physician or other qualified health md do resident urgent care performing a gastrointestinal endoscopic service that sedation supports, requiring the presence of an independent trained observer to assist in the monitoring of the patient's level of consciousness and physiological status; initial 15 minutes of intra-service time; patient age 5 years or older (additional time may be reported with 03886, as appropriate) Diagnosis Code(s): --- Professional --- Z12.11, Encounter for screening for malignant neoplasm of colon D12.2, Benign neoplasm of ascending colon K64.8, Other hemorrhoids K57.30, Diverticulosis of large intestine without perforation or abscess without bleeding CPT copyright 2020 [employer]. All rights reserved. The codes documented in this report are preliminary and upon brim presser review may be revised to meet current compliance requirements. Attending Participation: I personally performed the entire procedure. Scope In: 9:44:29 AM Scope Out: 9:54:36 AM MD Benedict Parada MD 09/22/2024 9:59:03 AM This report has been signed electronically by Benedict Torres MD Number of Adde (more content not included)... Normal [facility] Colonoscopy Study observatio non 09-22-2024 [facility] Gastrointestinal Endoscopy Patient Name: Freeman Sarabia Procedure Date: 09/22/2024 9:32 AM Date of : 1950 Admit Type: Outpatient Age: 74 Gender: Male Note Status: Finalized Procedure: Colonoscopy Indications: Screening for colorectal malignant neoplasm Providers: Benedict Torres MD Patient Profile: This is a 74 year old male. Refer to note in patient chart for documentation of history and physical. Last Colonoscopy: March 2018. Referring Physician: Latonia Fontaine (Referring MD) Medicines: Fentanyl 50 micrograms IV, Midazolam 5 mg IV, Diphenhydramine 50 mg IV Complications: No immediate complications. Estimated blood loss: Minimal. Requesting Provider: Procedure: Pre-Anesthesia Assessment: - Prior to the procedure, a History and Physical was performed, and patient medications and allergies were reviewed. The patient's tolerance of previous anesthesia was also reviewed. The risks and benefits of the procedure and the sedation options and risks were discussed with the patient. All questions were answered, and informed consent was obtained. Prior Anticoagulants: The patient has taken no anticoagulant or antiplatelet agents except for aspirin. ASA Grade Assessment: III - A patient with severe systemic disease. After reviewing the risks and benefits, the patient was deemed in satisfactory condition to undergo the procedure. After I obtained informed consent, the scope was passed under direct vision. Throughout the procedure, the patient's blood pressure, pulse, and oxygen saturations were monitored continuously. The Colonoscope was introduced through the anus and advanced to 3 cm into the ileum. The colonoscopy was performed without difficulty. The patient tolerated the procedure well. The quality of the bowel preparation was good. The terminal ileum, ileocecal valve, appendiceal orifice, and rectum were photographed. Moderate Sedation: The administration of moderate sedation was initiated at 09:39. Moderate (conscious) sedation was personally administered by the endoscopist. The following parameters were monitored: oxygen saturation, heart rate, blood pressure, respiratory rate, EKG, adequacy of pulmonary ventilation, and response to care. Total physician intraservice time was 15 minutes. Findings: The perianal and digital rectal examinations were normal. A diminutive (1-3 mm) polyp was found in the ascending colon. The polyp was sessile. The polyp was removed with a jumbo cold forceps. Resection and retrieval were complete. Non-bleeding internal hemorrhoids were found during retroflexion. The hemorrhoids were mild and small. Multiple small-mouthed diverticula were found in the sigmoid colon. The exam was otherwise without abnormality. Impression: - One diminutive (1-3 mm) polyp in the ascending colon, removed with a jumbo cold forceps. Resected and retrieved. - Non-bleeding internal hemorrhoids. - Diverticulosis in the sigmoid colon. - The examination was otherwise normal. Recommendation: - Patient has a contact number available for emergencies. The signs and symptoms of potential delayed complications were discussed with the patient. Return to normal activities tomorrow. Written discharge instructions were provided to the patient. - Resume previous diet. - Continue present medications. - Await pathology results. - Repeat colonoscopy in 5 years for surveillance. - Return to nurse practitioner at appointment to be scheduled. - Resume previous antiplatelet medication tomorrow at prior dose. Procedure Code(s): --- Professional --- 15292, Colonoscopy, flexible; with biopsy, single or multiple (more content not included)... PROVATION [facility] Radiology Study observation (narrative) [facility] HISTORY PHYSICALon HISTORY PHYSICAL HNO ID: [id number] Author: BENEDICT TORRES MD Service: General Surgery Author Type: Physician Type: H&P Filed: 09/22/2024 09:08 Note Text: HISTORY AND PHYSICAL Freeman Sarabia : 1950 REFERRING PHYSICIAN: Calvin Stephens [address] [facility] [address] CHIEF COMPLAINT: Patient presents with: Consult: Colonoscopy previous colonoscopy 2017 HPI: Freeman is a 74 year old male referred for endoscopy. Freeman notes due for colon cancer screening- hx of polyps(2014). Freeman denies abdominal pain.. Freeman denies diarrhea. Freeman notes occasional constipation. Freeman denies a change in bowel habits. Freeman denies melena. Freeman denies bright red blood per rectum. Freeman denies hemorrhoids. Freeman denies heartburn. Freeman denies dysphagia. Freeman denies a history of ulcers/ peptic ulcer disease. Freeman notes family history of colon issues. Freeman notes an increase in IYER AND BLE edema for the last month. Hx of STEMI with stent to RCA in 2022. He had cardiology visit with [facility] on 08/05/24. ECHO AND exercise stress test is is scheduled for 08/15/24. Freeman has undergone prior endoscopy. Last colonoscopy was 03/[address] Berrios at [facility]. Sedation:Midazolam 7 mg IV, Fentanyl 100 micrograms IV, Diphenhydramine 50 mg IV Impression: - Diverticulosis in the sigmoid colon. - Non-bleeding external and internal hemorrhoids. - No specimens collected. CURRENT MEDICATIONS Current Outpatient Medications Medication Sig furosemide (LASIX) 20 mg tablet Take 1 tablet by mouth once daily for 6 days. sertraline (ZOLOFT) 50 mg tablet Take 1 tablet by mouth once daily. verapamil SR (CALAN SR) 120 mg CR tablet Take 120 mg by mouth two times a day. potassium chloride (K-TAB) 10 mEq tablet Take 1 tablet by mouth daily with breakfast. losartan (COZAAR) 100 mg tablet Take 1 tablet by mouth once daily. hydroCHLOROthiazide 12.5 mg capsule Take 1 capsule by mouth once daily. aspirin 81 mg chewable tablet Take 1 tablet by mouth once daily. atorvastatin (LIPITOR) 80 mg tablet Take 80 mg by mouth once daily. Cholecalciferol, Vitamin D3, 25 mcg (1,000 unit) cap Take 1,000 Units by mouth once daily. No current facility-administered medications for this visit. ALLERGIES: Patient has no known allergies. PAST MEDICAL HISTORY PAST MEDICAL HISTORY Diagnosis Date BPH (benign prostatic hyperplasia) 09/04/2013 Essential hypertension, benign Family history of colon cancer sister Hyperlipidemia Snoring PAST SURGICAL HISTORY PAST SURGICAL HISTORY Procedure Laterality Date APPENDECTOMY [...] SLIDING ANY AGE Right 12/27/2011 FAMILY HISTORY FAMILY HISTORY Problem Relation Age of Onset COPD Mother Smoker Alcohol/Drug Mother COPD Father Smoker Alcohol/Drug Father Arthritis Sister Colon Cancer Sister SOCIAL HISTORY Social History Tobacco Use Smoking status: Never Smokeless tobacco: Never Vaping Use Vaping status: Never Used Substance Use Topics Alcohol use: Yes Comment: rarely Drug use: No REVIEW OF SYMPTOMS: The review of systems data was entered by the nurse and reviewed by me SEE NURSING NOTE PHYSICAL EXAMINATION: General: The patient is 74 year old, male well nourished, well hydrated in no acute distress. The patient is oriented to time, place, and person. VITALS: Blood pressure 146/82, pulse 75, temperature 36.3 ?C (97.3 ?F), height 190.5 cm (6' 3), weight 114.8 kg (253 lb), SpO2 96%. Body mass index is 31.62 kg/m?. HEENT: Normal cephalic, ataumatic, pupils are equally round, sclera are anicteric, mucous membranes are moist, oropharynx is clear. Neck has no masses, asymmetry or lymphadenopathy. Respiratory: Clear to auscultation and percussion. Normal respiratory excursion and pattern. Cardiac: Examination is regular rate and rhythm. Normal S1/S2 Abdominal exam: Soft, nontender, with no palpable masses. No hepatosplenomegaly. No palpable hernias. Extremities: no clubbing, cyanosis or edema. No adenopathy. LABORATORY VALUES: As Noted RADIOLOGIC STUDIES: As Noted Assessment IMPRESSION: screen for colon cancer, history of polyps PLAN: I have reviewed my findings with the surgeon. Will plan for lower endoscopy. We discussed the risks and benefits of the planned endoscopy. I have informed the patient that complications can occur including failure to complete the endoscopy and perforation. Freeman had the opportunity to ask questions concerning the planned endoscopy. My staff has also explained the procedure to the patient in understandable terms and (more content not included)... Normal [facility] Pathology biopsy report Art (Tiss)on 09-22-2024 AP DISCLAIMER Normal [facility] Comment on above: Order Comment: Speci men Type: TISSUE SPECIMENOrdering Facility: [facility] Address: [address] [place] [address] Result Comment: Tati Morales Test (LDT) Disclaimer: Performance characteristics of immunohistochemical, immunofluorescent, and chromogenic in-situ hybridization tests have been determined by the performing laboratory within [facility] Pathology and Laboratory Medicine Department ([facility], [facility], [facility], [facility], [facility], [facility], or [facility]) in a manner consistent with CLIA requirements. One or more of these tests may not have been cleared or approved by the FDA. [facility] is regulated under CLIA as qualified to perform high-complexity testing. These tests are used for clinical purposes. These should not be regarded as investigational or for research. Positive and negative controls stain appropriately. Performed By: #### 6 6121-5 ####[facility] LABORATORYCLIA [id number] [address] LABCLIA [id number] [address] CASE REPORT Normal [facility] Comment on above: Order Comment: Speci men Type: TISSUE SPECIMENOrdering Facility: [facility] Address: [address] [place] [address] Result Comment: Surg [facility] Pathology Report Case: [id number] Authorizing Provider: Benedict Torres MD Collected: 09/22/2024 09:50 AM Ordering Location: Ambulatory Surgery Received: 09/22/2024 12:19 PM Pathologist: Tate Montero MD Specimen: Colon, Ascending Polyp Performed By: #### 6 6121-5 ####GILLES LABORATORYCLIA [id number] [address] LABCLIA [id number] [address] FINAL DIAGNOSIS Normal [facility] Comment on above: Order Comment: Speci men Type: TISSUE SPECIMENOrdering Facility: [facility] Address: [address], [place] [address] Result Comment: Asce nding colon polyp, biopsy: - Tubular adenoma. JEL 09/23/2024 at 1016 EST Performed By: #### 6 6121-5 ####GILLES LABORATORYCLIA [id number] [address] LABCLIA [id number] [address] OF [place] FINAL PERFORMING LAB Normal [facility] Comment on above: Order Comment: Speci men Type: TISSUE SPECIMENOrdering Facility: [facility] Address: [address] [place] [address] Result Comment: Diag nostic interpretation performed at: [facility], [address] [place] [address] CLIA# [id number] Predatory Hunter: Jacinto Lopez MD Performed By: #### 6 6121-5 ####GILLES LABORATORYCLIA [id number] [address] LABCLIA [id number] [address] GROSS DESCRIPTION Normal [facility] Comment on above: Order Comment: Speci men Type: TISSUE SPECIMENOrdering Facility: [facility] Address: [address] [place] [address] Result Comment: A. C olon, Ascending Polyp Received in formalin are multiple pieces of guadarrama, soft tissue aggregating to 1.8 x 0.3 x 0.1 cm. Totally submitted in one cassette. DB September 22, 2024 5:32 PM Gross examination performed at [facility], [address] [place] [address] Performed By: #### 6 6121-5 ####GILLES LABORATORYCLIA [id number] [address] LABCLIA [id number] [address] OF [place] CNPDimple 09-04-2024 CNPN Telephone (GENSWS) FREEMAN SARABIA ([id number]) 1950 M Date Time Provider Department 09/04/24 LATONIA FONTAINE During your visit today, we recorded the following information about you: Sayda Son MA 09/04/2024 1:46 PM Signed Surgical clearance form received via fax and is as follows. Scanned into [employer]. Scan on 09/04/2024 1:29 PM by Provider, HANNAH Johnson: Surgical Clearace Sayda Son MA Allergies As of Date: 09/04/2024 (No Known Allergies) Date Reviewed: 08/31/2024 Reviewed by: Almaz Liu MA - Fully Assessed Reason for Visit: surgical clearance [Other] Prescriptions as of 09/17/2024 - fluticasone (FLONASE) 50 mcg/actuation nasal spray Use 2 Sprays in each nostril once daily. Rinse mouth after use. - furosemide (LASIX) 20 mg tablet Take 1 tablet by mouth once daily for 6 days. - sertraline (ZOLOFT) 50 mg tablet Take 1 tablet by mouth once daily. - verapamil SR (CALAN SR) 120 mg CR tablet Take 120 mg by mouth two times a day. - potassium chloride (K-TAB) 10 mEq tablet Take 1 tablet by mouth daily with breakfast. - losartan (COZAAR) 100 mg tablet Take 1 tablet by mouth once daily. - hydroCHLOROthiazide 12.5 mg capsule Take 1 capsule by mouth once daily. - aspirin 81 mg chewable tablet Take 1 tablet by mouth once daily. - atorvastatin (LIPITOR) 80 mg tablet Take 80 mg by mouth once daily. - Cholecalciferol, Vitamin D3, 25 mcg (1,000 unit) cap Take 1,000 Units by mouth once daily. Problem List As Of Date 09/04/2024 Noted Resolved ELEV BL PRES W/O HYPERTN [...] (HCC) [I77.819] 08/04/2022 Coronary artery disease involving [place]*02/23/2023 Nonsustained ventricular tachycardia (HCC) [I47*02/23/2023 02/23/2023 SVT (supraventricular tachycardia) (HCC) [I47.1*01/02/2024 Encounter Status:Closed by SAYDA SON on 09/17/24 [facility] CNOVon 08-31-2024 CNOV Office Visit (UCWSTR ) FREEMAN SARABIA ([id number]) 1950 M Date Time Provider Department 08/31/24 8:45 AM TOÑA BEST WSTR During your visit today, we recorded the following information about you: Temperature Pulse Respiration Blood pressure 96.8 degrees 70/minute 18/minute 140/82 Weight 113.1 kg Toña Best, [employer]CHO[employer] 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 He states two days ago he developed a fever. He is eating and drinking well, using otc decongestant. PAST MEDICAL HISTORY Diagnosis Date BPH (benign [...] ALLERGIES Patient has no known allergies. MEDICATIONS sertraline (ZOLOFT) 50 mg tablet Take 1 tablet by mouth once daily. verapamil SR (CALAN SR) 120 mg CR tablet Take 120 mg by mouth two times a day. potassium chloride (K-TAB) 10 mEq tablet Take 1 tablet by mouth daily with breakfast. losartan (COZAAR) 100 mg tablet Take 1 tablet by mouth once daily. hydroCHLOROthiazide 12.5 mg capsule Take 1 capsule by mouth once daily. aspirin 81 mg chewable tablet Take 1 tablet by mouth once daily. atorvastatin (LIPITOR) 80 mg tablet Take 80 mg by mouth once daily. Cholecalciferol, Vitamin D3, 25 mcg (1,000 unit) cap Take 1,000 Units by mouth once daily. furosemide (LASIX) 20 mg tablet Take 1 tablet by mouth once daily for 6 days. (Patient not taking: Reported on 08/18/2024) FAMILY HISTORY Problem Relation Age of Onset COPD Mother Smoker Alcohol/Drug Mother COPD Father Smoker Alcohol/Drug Father Arthritis Sister Colon Cancer Sister Social History Tobacco Use Smoking status: Never Smokeless tobacco: Never Vaping Use Vaping status: Never Used Substance Use Topics Alcohol use: Yes Comment: rarely Drug use: No Review of Systems Constitutional: Positive for fever. HENT: Positive for congestion and sinus pain. Respiratory: Positive for cough. All other systems reviewed and are negative. Objective Physical Exam Vitals reviewed. Constitutional: General: He is not in acute distress. Appearance: Normal appearance. HENT: Head: Normocephalic and atraumatic. Right Ear: Tympanic membrane, ear canal and external ear normal. Left Ear: Tympanic membrane, ear canal and external ear normal. Nose: Congestion present. Comments: Bilateral turbinate edema, Mouth/Throat: Mouth: Mucous membranes are moist. Pharynx: Oropharynx is clear. No oropharyngeal exudate or posterior oropharyngeal erythema. Comments: Pnd noted Eyes: Extraocular Movements: Extraocular movements intact. Conjunctiva/sclera: Conjunctivae normal. Pupils: Pupils are equal, round, and reactive to light. Cardiovascular: Rate and Rhythm: Normal rate and regular rhythm. Pulses: Normal pulses. Heart sounds: Normal heart sounds. Pulmonary: Effort: Pulmonary effort is normal. No respiratory distress. Breath sounds: Normal breath sounds. No stridor. No wheezing, rhonchi or rales. Chest: Chest wall: No tenderness. Abdominal: General: Bowel sounds are normal. Palpations: Abdomen is soft. Musculoskeletal: General: Normal range of motion. Cervical back: Normal range of motion and neck supple. Skin: General: Skin is warm and dry. Capillary Refill: Capillary refill takes less than 2 seconds. Neurological: General: No focal deficit present. Mental Status: He is alert and oriented to person, place, and time. Psychiatric: Mood and Affect: Mood normal. ASSESSMENT/PLAN: 1. Bronchitis - ICD9: 490, ICD10: J40 (primary diagnosis) Vaporizer at bedside Tea and honey Increase fluids 2. Bacterial sinusitis - ICD9: 473.9, 041.9, ICD10: J32.9, B96.89 - Will begin treatment with Augmentin 875 mg PO BID for 10 days - The patient should also be given OTC decongestants prn, warm salt water gargles, throat lozenges and/or OTC throat spray as needed, and nasal saline gtts and suction prn for the first 5-7 days of treatment. - Supportive care with plenty of fluids, rest, and analgesia prn. - Follow up in 3-5 days if symptoms persist or worsen. 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 Normal [facility] CNOVon 08-18-2024 CNOV Office Visit (FAMPWS ) CORNELLFREEMAN ([id number]) 1950 M Date Time Provider Department 08/18/24 9:00 AM [facility] During your visit today, we recorded the following information about you: Pulse Blood pressure Weight Height 69/minute 133/73 115.2 kg 1.905 m Calvin Stephens MD 08/18/2024 9:14 AM Signed Patient presents with: Follow Up HPI: Patient presents today for office visit for 2 week follow up. Here for follow up from last OV on 08/04/24 where he presented for mildly swollen ankles and shortness of breath. Sent to Cardiology. Saw [facility] on 08/05/24. 24 hr Holter completed on 08/05/24. Stress test and Echo completed on 08/15/24. We do not hav any of those results. Denies any chest pain today. No new or worsening shortness of breath. Refers to being the same. Swelling is better. Did have some cough one night but otherwise ok. Chest xray was negative. Discussed considering pulmonary work up. Latest Ref Rng 08/04/2024 WBC 3.70 - 11.00 k/uL 7.75 RBC 4.20 - 6.00 m/uL 4.71 Hemoglobin 13.0 - 17.0 g/dL 14.9 Hematocrit 39.0 - 51.0 % 45.4 MCV 80.0 - 100.0 fL 96.4 MCH 26.0 - 34.0 pg 31.6 MCHC 30.5 - 36.0 g/dL 32.8 RDW-CV 11.5 - 15.0 % 13.1 Platelet Count 150 - 400 k/uL 244 MPV 9.0 - 12.7 fL 9.9 Neut% % 60.7 Abs Neut (ANC) 1.45 - 7.50 k/uL 4.70 Lymph% % 25.3 Abs Lymph 1.00 - 4.00 k/uL 1.96 Montcalm% % 9.5 Abs [place]calm <0.87 k/uL 0.74 Eosin% % 3.2 Abs Eosin <0.46 k/uL 0.25 Baso% % 0.8 Abs Baso <0.11 k/uL 0.06 Immature Gran % % 0.5 IMMATURE GRANS (ABS) <0.10 k/uL 0.04 NRBC /100 WBC 0.0 Absolute nRBC <0.01 k/uL <0.01 DTYPE Auto Glucose 74 - 99 mg/dL 100 (H) BUN 9 - 24 mg/dL 22 Creatinine 0.73 - 1.22 mg/dL 0.99 Sodium 136 - 144 mmol/L 142 Potassium 3.7 - 5.1 mmol/L 4.0 Chloride 98 - 107 mmol/L 103 CO2 22 - 30 mmol/L 28 Anion Gap 8 - 15 mmol/L 11 Calcium 8.5 - 10.2 mg/dL 9.4 eGFR >=60 mL/min/1.73m? 79 NT Pro BNP <450 pg/mL 139 Magnesium 1.7 - 2.3 mg/dL 1.9 Legend: (H) High Note was copied and pasted, without alteration from last ov: Ankles are mildly swollen, no nearly like he had on the amlodipine. Feels like shortness of breath is getting worse. More fatigued. Blood pressure has been up at home. Had had edema in the past when on calcium channel blockers. His now on verapamil which is less likely to cause edema but can still cause some. Has been worse with exertion. Has noted it is worse with exertion. Last saw cardiology in March. Weight is up a little since March. Has not been watching the diet. Unsure if any salt intake. No chest pain. No syncope or near syncope. No pnd. No redness or warmth in the ankle. Last echo last year showed ef of 55 % and hypokinesis of inf wall. [facility] asked him about his irregular heartbeat? He is not feeling anything. No complaints of palpitations. Has known hx of svt. He is on verapamil from cardiology for same. Asking about taking magnesium before bedtime. MEDICATIONS: Current Outpatient Medications Medication Sig sertraline (ZOLOFT) 50 mg tablet Take 1 tablet by mouth once daily. verapamil SR (CALAN SR) 120 mg CR tablet Take 120 mg by mouth two times a day. potassium chloride (K-TAB) 10 mEq tablet Take 1 tablet by mouth daily with breakfast. losartan (COZAAR) 100 mg tablet Take 1 tablet by mouth once daily. hydroCHLOROthiazide 12.5 mg capsule Take 1 capsule by mouth once daily. aspirin 81 mg chewable tablet Take 1 tablet by mouth once daily. atorvastatin (LIPITOR) 80 mg tablet Take 80 mg by mouth once daily. Cholecalciferol, Vitamin D3, 25 mcg (1,000 unit) cap Take 1,000 Units by mouth once daily. furosemide (LASIX) 20 mg tablet Take 1 tablet by mouth once daily for 6 days. (Patient not taking: Reported on 08/18/2024) No current facility-administered medications for this visit. [...] Use Smoking status: Never Smokeless tobacco: Never Vaping Use Vaping status: Never Used Substance Use Topics A (more content not included)... Normal [facility] Stress Reporton 08-18-2024 Stress Report [facility] [address] [place] [id number] MR#: [id number] Acct: [id number] Name: FREEMAN SARABIA Rep #: [id number] : 1950 74 From: Viktor Rutledge MD Primary Care: Dr. Calvin Stephens MD Status: REG CLI Referring Dr: Mady Fonseca Sex: M C Stress Test Report Date: 08/15/2024 Procedure: Exercise tolerance test/imaging study Indications: Coronary artery disease Consent: Per the patient Procedure: The patient exercised on a Ronn protocol for 4 minutes and 31 seconds achieving a peak heart rate of 130 bpm (89% predicted maximal heart rate) with a peak blood pressure 176/82 mmHg and a peak MET capacity of 7.0 METs. The baseline ECG demonstrated sinus rhythm with right bundle branch block. The peak exercise ECG demonstrated no diagnostic ischemic changes. There were no cardiac dysrhythmias pretest, during exercise, or recovery. The functional capacity was considered average for age. There was no complaint of chest discomfort during exercise or recovery. The examination was discontinued secondary to dyspnea. The patient was injected with 15.0 mCi of technetium 99m Cardiolite and subsequently rest SPECT Cardiolite nuclear imaging was obtained in the horizontal long, vertical long, and short axis views. Post-exercise, the patient was injected with 35.0 mCi of technetium 99m Cardiolite and subsequently stress SPECT Cardiolite nuclear imaging was obtained in the horizontal long, vertical long, and short axis views. A gated Cardiolite study at peak stress was obtained. Rest and stress SPECT Cardiolite nuclear imaging status post realignment, normalization, and attenuation correction, demonstrates the appearance of relative uniform tracer uptake and myocardial perfusion appearing within normal limits. There is end systolic thickening and brightening. The gated Cardiolite study demonstrates myocardial thickening and inward wall motion. The reported LVEF is 59%. Impression: 1. Technically adequate (percent predicted maximal heart rate greater than 85%) exercise tolerance test 2. Peak exercise ECG with no diagnostic ischemic changes 3. There were no cardiac dysrhythmias pretest, during exercise, or recovery 4. Rest and stress SPECT Cardiolite nuclear imaging demonstrate relative uniform tracer uptake and myocardial perfusion appearing within normal limits. 5. The gated Cardiolite study reports an LVEF of 59%. This note was generated with Sunpremeation software. It may contain incorrect words, spelling, and punctuation that were not noted in checking the note before signing. 08/18/24 1216 Date Viktor Rutledge MD CC: Dr. Calvin Stephens MD; TINO Ware Date Dictated: 08/18/241213 Date Transcribed: 08/18/241213 Title Camera Operator: JAVIER Horn Normal [facility] Echo Completeon 08-15-2024 Echo Complete [facility] [address] [place] [address] Echo Complete 08/15/24 0817 MR#: [id number] Acct: [id number] Name: FREEMAN SARABIA Rep #: [id number] : 1950 74 From: Viktor Rutledge MD Attending Dr: TINO Ware Status: REG CLI Ordering Dr: Mady Fonseca PA Date: 07/24 11/14 Location: [facility] Sex: M C Admitted: Reason For Study: IYER Procedure This was a 2D Doppler, Color Flow transthoracic echocardiogram. Exam performed in department. Left Ventricle Mild concentric left ventricular hypertrophy. Normal LV size. The left ventricular ejection fraction is 60 %. Stage 1 diastolic dysfunction. Right Ventricle Normal right ventricle. Atria The left and right atria are normal. Mitral Valve Mild (1+) mitral valve insufficiency. Tricuspid Valve Trivial tricuspid valve insufficiency. Unable to estimate RV systolic pressure due to insufficient tricuspid regurgitant envelope. Aortic Valve Trisinus/trileaflet aortic valve. Mild (1+) aortic valve insufficiency. Pulmonic Valve The pulmonic valve is not well visualized. Great Vessels Moderately dilated aortic root. Pericardium/Pleural No pericardial effusion. MMode/2D Measurements Calculations LVIDd: 4.6 cm IVSd: 1.5 cm LVOT diam: 2.0 cm LVIDs: 3.2 cm LVPWd: 1.3 cm LVOT area: 3.1 cm2 FS: 31.2 % Ao root diam: 4.5 cm LAV(MOD-bp): 58.9 ml LVAd ap4: 34.6 cm2 LAV(MOD-bp) Indexed: 24.6 ml/m2 LVLd ap4: 9.6 cm LAV(MOD-sp2): 53.0 ml EDV(MOD-sp4): 108.4 ml LAV(MOD-sp4): 64.0 ml EDV(sp4-el): 105.7 ml LVAs ap4: 19.8 cm2 LVLs ap4: 8.2 cm ESV(MOD-sp4): 44.6 ml ESV(sp4-el): 40.8 ml EF(MOD-sp4): 58.9 % EF(sp4-el): 61.4 % SV(MOD-sp4): 63.8 ml SV(sp4-el): 65.0 ml LA A4 area: 20.3 cm2 SI(MOD-sp4): 26.6 ml/m2 RA A4 area: 14.8 cm2 Time Measurements MV dec time: 0.24 sec Doppler Measurements Calculations MV E max chuy: 47.4 cm/sec Lat Peak E' Chuy: 10.8 cm/sec Med Peak E' Chuy: 8.5 cm/sec MV A max chuy: 102.5 cm/sec E/E' lat: 4.4 E/E' med: 5.6 MV E/A: 0.46 MV V2 max: 94.4 cm/sec Ao V2 max: 109.0 cm/sec MV max P.6 mmHg MV dec slope: 211.4 cm/sec2 Ao max P.8 mmHg MV V2 mean: 50.2 cm/sec Ao V2 mean: 74.5 cm/sec MV mean P.2 mmHg Ao mean P.6 mmHg MV V2 VTI: 28.7 cm Ao V2 VTI: 25.2 cm AV (velocity ratio): 0.93 MVA(VTI): 2.6 cm2 HUNG(I,D): 2.9 cm2 HUNG(V,D): 3.1 cm2 LV V1 max: 108.7 cm/sec SV(LVOT): 73.9 ml PA V2 max: 71.7 cm/sec LV V1 max P.7 mmHg PA V2 mean: 46.6 cm/sec LV V1 mean P.8 mmHg LV V1 mean: 80.2 cm/sec LV V1 VTI: 23.5 cm ECHO/Echo Complete Interpretation Summary Mild concentric left ventricular hypertrophy. The left ventricular ejection fraction is 60 %. Stage 1 diastolic dysfunction. Mild (1+) mitral valve insufficiency. Mild (1+) aortic valve insufficiency. Moderately dilated aortic root. Ordering Physician: Mady Fonseca Referring Physician: Mady Fonseca Performed By: Francia Alves RCS 08/18/24 1222 Date Viktor Rutledge MD CC: Dr. Calvin Stephens MD; TINO Ware Date Dictated: 08/15/24816 Date Transcribed: 08/18/241221 Title Camera Operator: [facility]igned [facility] Office Visit (GENSWS ) FREEMAN SARABIA ([id number]) 1950 M Date Time Provider Department 08/11/24 9:30 AM LATONIA FONTAINE GENSWS During your visit today, we recorded the following information about you: Temperature Pulse Blood pressure Weight 97.3 degrees 75/minute 146/82 114.8 kg Height 1.905 m Karina StanleyJEAN PAUL 08/11/2024 9:39 AM Signed REVIEW OF SYSTEMS: General: The patient denies fatigue, denies weight loss, denies weight gain, denies feeling hot, and denies feelings of cold. Eyes: The patient denies glaucoma, denies eye injury/surgery, wears glasses or contacts. Ear/Nose/Throat: The patient denies allergies, denies hayfever, denies ear infections, and denies bloody noses. Cardiovascular: The patient denies chest pain, denies heart disease, denies high blood pressure,notes cardiac stent, notes prior heart attack, notes irregular heart beat, denies high cholesterol, denies poor circulation, denies heart failure, other cardiac issues, denies claudication, denies cold feet, denies peripheral arterial stent. Respiratory: The patient denies tuberculosis, denies pneumonia, denies frequent cough, denies pulmonary embolism, denies shortness of breath, and denies coughing up blood. Gastrointestinal: The patient denies difficulty swallowing, denies acid reflux, denies ulcers, denies vomiting, denies jaundice/hepatitis, denies gallbladder problems, denies black or tarry stools, denies hemorrhoids, denies bleeding from rectum, denies diverticulitis, denies constipation, denies diarrhea, denies loss of stool control, and denies hernias. Kidney/Bladder: The patient denies kidney stones, denies urine infections, and denies bloody urine. Skin: The patient notes a history of skin cancer, denies bleeding/changing moles, and denies a history of skin rash. Neurologic: The patient denies a history of epilepsy/convulsions, denies headaches, denies head/spinal injuries, and denies stroke/TIA. Psychiatric: The patient denies psychiatric medications, denies depression, and denies voices, denies substance abuse. Endocrine: The patient denies thyroid disorders, denies diabetes, and denies hormonal problems. Hematologic: The patient denies a history of bruising, denies bleeding, and denies anemia, denies blood clots. Infections: The patient denies a history of measles and mumps, denies rheumatic fever, and denies sexually transmitted diseases. Musculoskeletal: The patient denies back pain/injury, denies back problems, denies sciatica, denies knee/foot trouble, denies arthritis, or denies gout. When was patient's last Mammogram screening? N/A Last Colonoscopy: 2018 Karina Stanley, Latonia Woodard APRN.CORING MACHINE OPERATOR 08/11/2024 9:39 AM Signed HISTORY AND PHYSICAL Freeman Sarabia : 1950 REFERRING PHYSICIAN: Calvin Stephens [address] [facility] [address] CHIEF COMPLAINT: Patient presents with: Consult: Colonoscopy previous colonoscopy 2017 HPI: Freeman is a 74 year old male referred for endoscopy. Freeman notes due for colon cancer screening- hx of polyps(2014). Freeman denies abdominal pain.. Freeman denies diarrhea. Freeman notes occasional constipation. Freeman denies a change in bowel habits. Freeman denies melena. Freeman denies bright red blood per rectum. Freeman denies hemorrhoids. Freeman denies heartburn. Freeman denies dysphagia. Freeman denies a history of ulcers/ peptic ulcer disease. Freeman notes family history of colon issues. Freeman notes an increase in IYER AND BLE edema for the last month. Hx of STEMI with stent to RCA in 2022. He had cardiology visit with [facility] on 08/05/24. ECHO AND exercise stress test is is scheduled for 08/15/24. Freeman has undergone prior endoscopy. Last colonoscopy was 03/[address] Berrios at [facility]. Sedation:Midazolam 7 mg IV, Fentanyl 100 micrograms IV, Diphenhydramine 50 mg IV Impression: - Diverticulosis in the sigmoid colon. - Non-bleeding external and internal hemorrhoids. - No specimens collected. Current Outpatient Medications Medication Sig furosemide (LASIX) 20 mg tablet Take 1 tablet by mouth once daily for 6 days. sertraline (ZOLOFT) 50 mg tablet Take 1 tablet by mouth once daily. verapamil SR (CALAN SR) 120 mg CR tablet Take 120 mg by mouth two times a day. potassium chloride (K-TAB) 10 mEq tablet Take 1 tablet by mouth daily with breakfast. losartan (COZAAR) 100 mg tablet Take 1 tablet by mouth once daily. hydroCHLOROthiazide 12.5 mg capsule Take 1 capsule by mouth once daily. aspirin 81 mg chewable tablet Take 1 tablet by mouth once daily. atorvastatin (LIPITOR) 80 mg tablet Take 80 mg by mouth once daily. Cholecalciferol, Vitamin D3, 25 mcg (1,000 unit) cap Take 1,000 Units by mouth once daily. No current facility-administered medications for this visit. ALLERGIES: Patient has no known harmony (more content not included)... Normal [facility] Cardiology Visit Reporton Cardiology Visit Report [facility] [address] [place] [address] OFFICE VISIT Date of Service: 08/05/24 MR#: [id number] Acct: [id number] Name: FREEMAN SARABIA Rep #: [id number] : 1950 Provider: TINO Brown Age/Sex: 74/M Location: [facility] [place] [facility] Status: Signed HPI HPI History of Present Illness Details: Freeman Sarabia is a 74-year-old that presented to [facility] on 02/18/2023 with an anterior inferior wall STEMI. He had chest pain 1 hour prior to arrival while he was mowing his lawn. He is EKG noted ST elevation in V4 through V6, 2, 3, and aVF with about [address] depression in V1, V2, and VR. Patient was urgently taken to the [facility] Legal [employer]. He underwent thrombectomy and drug- eluting stent to his RCA. Echocardiogram demonstrated inferior wall hypokinesis with an ejection fraction of 55% and aortic root measuring 4.8 cm. He was discharged home on Brilinta, carvedilol, aspirin, statin. He stopped taking his amlodipine and hydrochlorothiazide. He does have a history of hypertension and dilated ascending aorta. Was seen with primary care team and evaluated for PVCs. Laboratory testing showed a potassium level 3.6. He was started on potassium. He was in his PCP office yesterday, there was concern over his increase in fatigue and SOB with any exertion. Labs and CXR were normal. He is able to do ADLS without issues, just anything more than that makes him more SOB. He does not have any orthopnea. He does not have any lightheadedness/dizziness. He does sometimes has swelling. He does sometimes have swelling. [facility] keeps telling him that they detect an irregular heart beat. His HR has been as low as 37. 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 Required: No Is patient in pain?: No Allergies No Known Allergies Allergy (Verified 08/05/24 10:46) Medications ???Medication ???Instructions ???Recorded ???Confirmed ???Type aspirin 81 mg tablet,delayed 81 mg PO DAILY #90 tabs 03/22/23 08/05/24 Rx release (Adult Aspirin Regimen) cholecalciferol (vitamin D3) 25 25 mcg PO DAILY 05/08/23 08/05/24 History mcg (1,000 unit) capsule sertraline 50 mg tablet 50 mg PO DAILY 05/08/23 08/05/24 History hydrochlorothiazide 12.5 mg tablet 12.5 mg PO DAILY 12/07/23 08/05/24 History potassium chloride 10 mEq 10 meq PO QDAY 01/15/24 08/05/24 History tablet,extended release verapamil 120 mg tablet,extended 120 mg PO BID #60 tabs 01/15/24 08/05/24 Rx release atorvastatin 80 mg tablet 80 mg PO QHS #90 tabs 03/18/24 04/01/24 Rx losartan 100 mg tablet 100 mg PO QDAY 04/01/24 08/05/24 History furosemide 20 mg tablet 20 mg PO QDAY 08/05/24 08/05/24 History Have you fallen in the past year?: No Nurse's Note: patient was started on a new medication by dr. stephens does not know what it is. patient had ekg done yesterday at [facility]. [facility] Medical History Ascending aortic aneurysm Atherosclerotic heart disease of [place] coronary artery without angina pectoris Nonsustained ventricular tachycardia Acute ST elevation myocardial infarction (STEMI) Hypertension Surgical History History of Mohs surgery for squamous cell carcinoma of skin Stented coronary artery (02/19/23) Hx of appendectomy History of herniorrhaphy History of total right hip replacement Family History Father Myocardial infarction CAD (coronary artery disease) Social History Smoking Status: Never smoker alcohol intake: current alcohol intake frequency: a few times a month substance use type: does not use caffeine: No ROS Const Const: Positive for fatigue and weakness; Negative for headache(s) Eyes Eyes: Negative for blurry vision or change in vision ENT ENT: Negative for headache(s), dizziness or hearing loss Cardio Chest Pain: No Palpitations: No Edema: None Muscle aches with walking: None Resp Respiratory: Positive for SOB with activity; Negative for SOB at rest or SOB orthopnea SOB lying down GI GI: Negative nausea, vomiting or heartburn : Negative for hematuria Neuro Neuro: Positive for weakness; Negative for dizziness, headache(s) or blurry vision Endo Endo: Positive for fatigue Cardiology Exam Const Appearance: comfortable and (more content not included)... Normal [facility] Basic metabolic 2000 panelon 08-04-2024 Anion gap [Moles/Vol] 11 mmol/L Normal 8-15 [facility] Comment on above: Order Comment: Speci men Type: BLOOD SPECIMENOrdering Facility: [facility] Address: [address] [place] [address] Performed By: #### 1 9123-9, 92984-6, 23579-5 ####[facility] LABCLIA [id number] [place] [address] [place] Calcium [Mass/Vol] 9.4 mg/dL Normal 8.5-10.2 [facility] Comment on above: Order Comment: Speci men Type: BLOOD SPECIMENOrdering Facility: [facility] Address: [address] [place] [address] Performed By: #### 1 9123-9, 93004-1, 86564-4 ####[facility] LABCLIA [id number] [place] [address] [place] Chloride [Moles/Vol] 103 mmol/L Normal 98-107 [facility] Comment on above: Order Comment: Speci men Type: BLOOD SPECIMENOrdering Facility: [facility] Address: [address] [place] [address] Performed By: #### 1 9123-9, 98560-1, 11399-2 ####[facility] LABCLIA [id number] [place] [id number] [place] CO2 [Moles/Vol] 28 mmol/L Normal 22-30 [facility] Comment on above: Order Comment: Speci men Type: BLOOD SPECIMENOrdering Facility: [facility] Address: [address] [place] [address] Performed By: #### 1 9123-9, 07037-3, 84062-1 ####[facility] LABIA [id number] [place] [id number] [place] Creatinine [Mass/Vol] 0.99 mg/dL Normal 0.73-1.22 [facility] Comment on above: Order Comment: Vitor aguilar Type: BLOOD SPECIMENOrdering Facility: [facility] Address: [address] [place] [address] Performed By: #### 1 9123-9, 99982-9, 13865-5 ####[facility] LABIA [id number] [place] [address] [place] Creatinine and Glomerular filtration rate.predicted panel (S/P/Bld) 79 mL/min/1.73m??? Normal >=60 [facility] Comment on above: Order Comment: Vitor aguilar Type: BLOOD SPECIMENOrdering Facility: [facility] Address: [address] [place] [address] Result Comment: Lenka mated Glomerular Filtration Rate (eGFR) is calculated using the 2020 CKD-EPI creatinine equation. This equation utilizes serum creatinine, sex, and age as parameters. The creatinine assay has traceable calibration to isotope dilution-mass spectrometry. Refer to KDIGO guidelines for clinical interpretation. In patients with unstable renal function, e.g. those with acute kidney injury, the eGFR may not accurately reflect actual GFR. Performed By: #### 1 9123-9, 01885-9, 81448-2 ####[facility] LABIA [id number] [place] [id number] [place] Glucose [Mass/Vol] 100 mg/dL High 74-99 [facility] Comment on above: Order Comment: Vitor aguilar Type: BLOOD SPECIMENOrdering Facility: [facility] Address: [address] [place] [address] Result Comment: The [place] Diabetes Association (ADA) provides guidance for cutoff values for fasting glucose and random glucose. The ADA defines fasting as no caloric intake for at least 8 hours. Fasting plasma glucose results between 100 to 125 mg/dL indicate increased risk for diabetes (prediabetes). Fasting plasma glucose results greater than or equal to 126 mg/dL meet the criteria for diagnosis of diabetes. In the absence of unequivocal hyperglycemia, results should be confirmed by repeat testing. In a patient with classic symptoms of hyperglycemia or hyperglycemic crisis, random plasma glucose results greater than or equal to 200 mg/dL meet the criteria for diagnosis of diabetes. Reference: Standards of Medical Care in Diabetes 2016, [place] Diabetes Association. Diabetes Care. 2016.39(Suppl 1). Performed By: #### 1 9123-9, 59504-6, 73468-1 ####[facility] LABCLIA [id number] [place] [address] [place] Potassium [Moles/Vol] 4.0 mmol/L Normal 3.7-5.1 [facility] Comment on above: Order Comment: Vitor aguilar Type: BLOOD SPECIMENOrdering Facility: [facility] Address: [address] [place] [address] Performed By: #### 1 9123-9, 29020-0, 18661-5 ####[facility] LABCLIA [id number] [place] [address] [place] Sodium [Moles/Vol] 142 mmol/L Normal 136-144 [facility] Comment on above: Order Comment: Vitor aguilar Type: BLOOD SPECIMENOrdering Facility: [facility] Address: [address] [place] [address] Performed By: #### 1 9123-9, 46454-5, 83295-9 ####[facility] LABCLIA [id number] [place] [address] [place] Urea nitrogen [Mass/Vol] 22 mg/dL Normal 9-24 [facility] Comment on above: Order Comment: Jimii men Type: BLOOD SPECIMENOrdering Facility: [facility] Address: [address] [place] [address] Performed By: #### 1 9123-9, 37764-1, 18770-3 ####[facility] LABCLIA [id number] [place] [id number] [place] CBC W Auto Differential pane l (Bld)on 08-04-2024 Basophils (Bld) [#/Vol] 0.06 10*3/uL Normal <0.11 [facility] Comment on above: Order Comment: Speci men Type: BLOOD SPECIMENOrdering Facility: [facility] Address: [address] [place] [address] Performed By: #### 5 7021-8 ####[facility] LABCLIA [id number] [place] [address] [place] Basophils/100 WBC (Bld) 0.8 % Normal [facility] Comment on above: Order Comment: Speci men Type: BLOOD SPECIMENOrdering Facility: [facility] Address: [address] [place] [address] Performed By: #### 5 7021-8 ####[facility] LABCLIA [id number] [place] [address] [place] Differential cell count method Nom (Bld) Auto Normal [facility] Comment on above: Order Comment: Speci men Type: BLOOD SPECIMENOrdering Facility: [facility] Address: [address] [place] [address] Performed By: #### 5 7021-8 ####[facility] LABCLIA [id number] [place] [address] [place] Eosinophils (Bld) [#/Vol] 0.25 10*3/uL Normal <0.46 [facility] Comment on above: Order Comment: Speci men Type: BLOOD SPECIMENOrdering Facility: [facility] Address: [address] [place] [address] Performed By: #### 5 7021-8 ####[facility] LABCLIA [id number] [place] [address] [place] Eosinophils/100 WBC (Bld) 3.2 % Normal [facility] Comment on above: Order Comment: Speci men Type: BLOOD SPECIMENOrdering Facility: [facility] Address: [address] [place] [address] Performed By: #### 5 7021-8 ####[facility] LABCLIA [id number] [place] [address] [place] Erythrocyte distribution width (RBC) [Ratio] 13.1 % Normal 11.5-15.0 [facility] Comment on above: Order Comment: Speci men Type: BLOOD SPECIMENOrdering Facility: [facility] Address: [address] [place] [address] Performed By: #### 5 7021-8 ####[facility] LABIA [id number] [place] [address] [place] Hematocrit (Bld) [Volume fraction] 45.4 % Normal 39.0-51.0 [facility] Comment on above: Order Comment: Speci men Type: BLOOD SPECIMENOrdering Facility: [facility] Address: [address] [place] [address] Performed By: #### 5 7021-8 ####[facility] LABIA [id number] [place] [address] [place] Hemoglobin (Bld) [Mass/Vol] 14.9 g/dL Normal 13.0-17.0 [facility] Comment on above: Order Comment: Speci men Type: BLOOD SPECIMENOrdering Facility: [facility] Address: [address] [place] [address] Performed By: #### 5 7021-8 ####[facility] LABCLIA [id number] [place] [address] [place] Immature granulocytes (Bld) [#/Vol] 0.04 10*3/uL Normal <0.10 [facility] Comment on above: Order Comment: Speci men Type: BLOOD SPECIMENOrdering Facility: [facility] Address: [address] [place] [address] Performed By: #### 5 7021-8 ####[facility] LABCLIA [id number] [place] [address] [place] Immature granulocytes/100 WBC (Bld) 0.5 % Normal [facility] Comment on above: Order Comment: Speci men Type: BLOOD SPECIMENOrdering Facility: [facility] Address: [address] [place] [address] Performed By: #### 5 7021-8 ####[facility] LABCLIA [id number] [place] [address] [place] Lymphocytes (Bld) [#/Vol] 1.96 10*3/uL Normal 1.00-4.00 [facility] Comment on above: Order Comment: Speci men Type: BLOOD SPECIMENOrdering Facility: [facility] Address: [address] [place] [address] Performed By: #### 5 7021-8 ####[facility] LABIA [id number] [place] [address] [place] Lymphocytes/100 WBC (Bld) 25.3 % Normal [facility] Comment on above: Order Comment: Speci men Type: BLOOD SPECIMENOrdering Facility: [facility] Address: [address] [place] [address] Performed By: #### 5 7021-8 ####[facility] LABIA [id number] [place] [address] [place] MCH (RBC) [Entitic mass] 31.6 pg Normal 26.0-34.0 [facility] Comment on above: Order Comment: Speci men Type: BLOOD SPECIMENOrdering Facility: [facility] Address: [address] [place] [address] Performed By: #### 5 7021-8 ####[facility] LABCLIA [id number] [place] [address] [place] MCHC (RBC) [Mass/Vol] 32.8 g/dL Normal 30.5-36.0 [facility] Comment on above: Order Comment: Speci men Type: BLOOD SPECIMENOrdering Facility: [facility] Address: [address] [place] [address] Performed By: #### 5 7021-8 ####[facility] LABCLIA [id number] [place] [address] [place] MCV (RBC) [Entitic vol] 96.4 fL Normal 80.0-100.0 [facility] Comment on above: Order Comment: Speci men Type: BLOOD SPECIMENOrdering Facility: [facility] Address: [address] [place] [address] Performed By: #### 5 7021-8 ####[facility] LABIA [id number] [place] [address] [place] Monocytes (Bld) [#/Vol] 0.74 10*3/uL Normal <0.87 [facility] Comment on above: Order Comment: Speci men Type: BLOOD SPECIMENOrdering Facility: [facility] Address: [address] [place] [address] Performed By: #### 5 7021-8 ####[facility] LABIA [id number] [place] [address] [place] Monocytes/100 WBC (Bld) 9.5 % Normal [facility] Comment on above: Order Comment: Speci men Type: BLOOD SPECIMENOrdering Facility: [facility] Address: [address] [place] [address] Performed By: #### 5 7021-8 ####[facility] LABIA [id number] [place] [address] [place] Neutrophils (Bld) [#/Vol] 4.70 10*3/uL Normal 1.45-7.50 [facility] Comment on above: Order Comment: Speci men Type: BLOOD SPECIMENOrdering Facility: [facility] Address: [address] [place] [address] Performed By: #### 5 7021-8 ####[facility] LABCLIA [id number] [place] [address] [place] Neutrophils/100 WBC (Bld) 60.7 % Normal [facility] Comment on above: Order Comment: Speci men Type: BLOOD SPECIMENOrdering Facility: [facility] Address: [address] [place] [address] Performed By: #### 5 7021-8 ####[facility] LABCLIA [id number] [place] [address] [place] Nucleated RBC (Bld) [#/Vol] 10*3/uL Normal <0.01 [facility] Comment on above: Order Comment: Speci men Type: BLOOD SPECIMENOrdering Facility: [facility] Address: [address] [place] [address] Performed By: #### 5 7021-8 ####[facility] LABCLIA [id number] [place] [address] [place] Nucleated RBC/100 WBC (Bld) [Ratio] 0.0 /100 WBC Normal [facility] Comment on above: Order Comment: Speci men Type: BLOOD SPECIMENOrdering Facility: [facility] Address: [address] [place] [address] Performed By: #### 5 7021-8 ####[facility] LABCLIA [id number] [place] [address] [place] Platelet mean volume (Bld) [Entitic vol] 9.9 fL Normal 9.0-12.7 [facility] Comment on above: Order Comment: Speci men Type: BLOOD SPECIMENOrdering Facility: [facility] Address: [address] [place] [address] Performed By: #### 5 7021-8 ####[facility] LABCLIA [id number] [place] [address] [place] Platelets (Bld) [#/Vol] 244 10*3/uL Normal 150-400 [facility] Comment on above: Order Comment: Speci men Type: BLOOD SPECIMENOrdering Facility: [facility] Address: [address] [place] [address] Performed By: #### 5 7021-8 ####[facility] LABCLIA [id number] [place] [address] [place] RBC (Bld) [#/Vol] 4.71 10*6/uL Normal 4.20-6.00 [facility] Comment on above: Order Comment: Speci men Type: BLOOD SPECIMENOrdering Facility: [facility] Address: [address] [place] [address] Performed By: #### 5 7021-8 ####[facility] LABCLIA [id number] [place] [address] [place] WBC (Bld) [#/Vol] 7.75 10*3/uL Normal 3.70-11.00 [facility] Comment on above: Order Comment: Speci men Type: BLOOD SPECIMENOrdering Facility: [facility] Address: [address] [place] [address] Performed By: #### 5 7021-8 ####[facility] LABCLIA [id number] [place] [address] [place] CNOVon 08-04-2024 CNOV Office Visit (FAMPWS ) FREEMAN SARABIA ([id number]) 1950 M Date Time Provider Department 08/04/24 9:00 AM CALVIN STEPHENS During your visit today, we recorded the following information about you: Pulse Blood pressure Weight 67/minute 136/72 115.7 kg Calvin Stephens MD 08/04/2024 9:46 AM Signed Patient presents with: Blood Pressure HPI: Patient presents today for office visit for follow up. Ankles are mildly swollen, no nearly like he had on the amlodipine. Feels like shortness of breath is getting worse. More fatigued. Blood pressure has been up at home. Had had edema in the past when on calcium channel blockers. His now on verapamil which is less likely to cause edema but can still cause some. Has been worse with exertion. Has noted it is worse with exertion. Last saw cardiology in March. Weight is up a little since March. Has not been watching the diet. Unsure if any salt intake. No chest pain. No syncope or near syncope. No pnd. No redness or warmth in the ankle. Last echo last year showed ef of 55 % and hypokinesis of inf wall. [facility] asked him about his irregular heartbeat? He is not feeling anything. No complaints of palpitations. Has known hx of svt. He is on verapamil from cardiology for same. Asking about taking magnesium before bedtime. MEDICATIONS: Current Outpatient Medications Medication Sig sertraline (ZOLOFT) 50 mg tablet Take 1 tablet by mouth once daily. verapamil SR (CALAN SR) 120 mg CR tablet Take 120 mg by mouth once daily. potassium chloride (K-TAB) 10 mEq tablet Take 1 tablet by mouth daily with breakfast. losartan (COZAAR) 100 mg tablet Take 1 tablet by mouth once daily. hydroCHLOROthiazide 12.5 mg capsule Take 1 capsule by mouth once daily. aspirin 81 mg chewable tablet Take 1 tablet by mouth once daily. atorvastatin (LIPITOR) 80 mg tablet Take 80 mg by mouth once daily. Cholecalciferol, Vitamin D3, [...] and social history today. REVIEW OF SYSTEMS No black or bloody stools. No bowel changes. No cough. All other reviewed and negative other than HPI. VITALS: BP 136/72 Pulse 67 Wt 115.7 kg (255 lb) SpO2 94% BMI 31.87 kg/m? Last 4 Encounter Wt Readings: Date: Wt: 08/04/2024 115.7 kg (255 lb) 07/04/2024 113.9 kg (251 lb) 04/07/2024 109 kg (240 lb 4.8 oz) 01/02/2024 103.4 kg (228 lb) PHYSICAL EXAMINATION: General appearance: Well appearing, [...] Bowel sounds normal. No masses, organomegaly Extremities: trace ankle edema. No calf tenderness. Musculoskeletal: No joint swelling, deformity, or tenderness Peripheral pulses: Normal ASSESSMENT/PLAN: 1. SOB (shortness of breath) - ICD9: 786.05, ICD10: R06.02 (primary diagnosis) - lasix for three days given shortness of breath and weight gain. Get xray and labs. See cardiology for follow up. Will forward over to them. Red flags for re-assessment reviewed with patient in detail. - COMPLETE BLOOD COUNT AND DIFFERENTIAL - BASIC METABOLIC PANEL - NT PRO BNP - ECG COMPLETE- no EKG after his WI for comparison. Shows inferior changes and RBBB-? Related to previous WI. No acute abnormalities. NSR - XR CHEST 2V FRONTAL/LAT - CONSULT TO CARDIOLOGY 2. Essential hypertension, benign - ICD9: 401.1, (more content not included)... Normal [facility] ECG COMPLETEon 08-04-2024 ECG COMPLETE Ventricular Rate : 6 3 BPM Atrial Rate : 63 BPM P-R Interval : 180 ms QRS Duration : 158 ms Q-T Interval : 474 ms QTC Calculation(Bazett) : 485 ms Calculated P [place] : 60 degrees Calculated R [place] : 11 degrees Calculated T [place] : 29 degrees NORMAL SINUS RHYTHM COMPLETE RIGHT BUNDLE BRANCH BLOCK INFERIOR MYOCARDIAL INFARCTION , AGE UNDETERMINED ABNORMAL ECG Confirmed by MD MITCHELL GREGORY () on 08/05/2024 10:12:36 AM NAME : FREEMAN SARABIA PID : [id number] : 1950 Gender : Male Race : ORD : [id number] Procedure Date : Aug 04 2024 09:22:06 Edit Date : Aug 05 2024 10:12:41 Diagnosis: NORMAL SINUS RHYTHM COMPLETE RIGHT BUNDLE BRANCH BLOCK INFERIOR MYOCARDIAL INFARCTION , AGE UNDETERMINED ABNORMAL ECG Confirmed by MD MITCHELL GREGORY () on 08/05/2024 10:12:36 AM Test Reason : I25.10 Coronary artery disease involving [place] coronary artery of [place] heart Location : 185 : [facility] Overread By : MD MITCHELL GREGORY Edited By : MD MITCHELL GREGORY Referred By : , Acquired by : Clive William [facility] Magnesium SerPl-mCncon 08-04 Magnesium [Mass/Vol] 1.9 mg/dL Normal 1.7-2.3 [facility] Comment on above: Order Comment: Speci men Type: BLOOD SPECIMENOrdering Facility: [facility] Address: [address] [place] [address] Performed By: #### 1 9123-9, 45363-4, 99721-5 ####[facility] LABCLIA [id number] [place] [address] [place] NT-proBNP SerPl-mCncon 08-04 Natriuretic peptide.B prohormone N-Terminal [Mass/Vol] 139 pg/mL Normal <450 [facility] Comment on above: Order Comment: Speci men Type: BLOOD SPECIMENOrdering Facility: [facility] Address: [address] [place] [address] Performed By: #### 1 9123-9, 92376-0, 89581-7 ####[facility] LABCLIA [id number] [facility] [id number] [address] [place] [facility] XR CHEST 2V FRONTAL/LATon XR CHEST 2V FRONTAL/LAT * * *Final Report* * * DATE OF EXAM: Aug 04 2024 10:13AM WOX 5291 - XR CHEST 2V FRONTAL/LAT / PROCEDURE REASON: multiple diagnoses * * * * Physician Interpretation * * * * EXAMINATION: CHEST RADIOGRAPH (2 VIEW FRONTAL and LATERAL) CLINICAL HISTORY: SOB (shortness of breath) Edema, unspecified type MQ: XC2_6 EXAM DATE/TIME: 08/04/2024 10:13 AM COMPARISON: Chest x-ray dated 07/10/2022 RESULT: Lines, tubes, and devices: None. Lungs and pleura: No consolidation. No lung mass. No pleural effusion. No pneumothorax. Cardiomediastinal silhouette: Stable cardiomediastinal silhouette. Bones and soft tissues: Degenerative changes are present within the thoracic spine. IMPRESSION: No acute radiographic abnormality. Title Camera Operator: OLGA Transcribe Date/Time: Aug 04 2024 11:51A Dictated by : FANNY CALLEJAS MD This examination was interpreted and the report reviewed and electronically signed by: FANNY CALLEJAS MD on Aug 04 2024 11:51AM EST [id number] Normal [facility] XR Chest PA and Lateralon IMPRESSION: No acute radiographic abnormality. Title Camera Operator: OLGA Transcribe Date/Time: Aug 04 2024 11:51A Dictated by : FANNY CALLEJAS MD This examination was interpreted and the report reviewed and electronically signed by: FANNY CALLEJAS MD on Aug 04 2024 11:51AM EST DIVISION OF RADIOLOGY * * *Final Report* * * DATE OF EXAM: Aug 04 2024 10:13AM WOX 5291 - XR CHEST 2V FRONTAL/LAT / PROCEDURE REASON: multiple diagnoses * * * * Physician Interpretation * * * * EXAMINATION: CHEST RADIOGRAPH (2 VIEW FRONTAL & LATERAL) CLINICAL HISTORY: SOB (shortness of breath) Edema, unspecified type MQ: XC2_6 EXAM DATE/TIME: 08/04/2024 10:13 AM COMPARISON: Chest x-ray dated 07/10/2022 RESULT: Lines, tubes, and devices: None. Lungs and pleura: No consolidation. No lung mass. No pleural effusion. No pneumothorax. Cardiomediastinal silhouette: Stable cardiomediastinal silhouette. Bones and soft tissues: Degenerative changes are present within the thoracic spine. DIVISION OF RADIOLOGY Provider, [facility] - 08/04/2024 * * *Final Report* * * DATE OF EXAM: Aug 04 2024 10:13AM WOX 5291 - XR CHEST 2V FRONTAL/LAT / PROCEDURE REASON: multiple diagnoses * * * * Physician Interpretation * * * * EXAMINATION: CHEST RADIOGRAPH (2 VIEW FRONTAL & LATERAL) CLINICAL HISTORY: SOB (shortness of breath) Edema, unspecified type MQ: XC2_6 EXAM DATE/TIME: 08/04/2024 10:13 AM COMPARISON: Chest x-ray dated 07/10/2022 RESULT: Lines, tubes, and devices: None. Lungs and pleura: No consolidation. No lung mass. No pleural effusion. No pneumothorax. Cardiomediastinal silhouette: Stable cardiomediastinal silhouette. Bones and soft tissues: Degenerative changes are present within the thoracic spine. IMPRESSION IMPRESSION: No acute radiographic abnormality. Title Camera Operator: OLGA Transcribe Date/Time: Aug 04 2024 11:51A Dictated by : FANNY CALLEJAS MD This examination was interpreted and the report reviewed and electronically signed by: FANNY CALLEJAS MD on Aug 04 2024 11:51AM EST [facility] Radiology Study observation (narrative) [facility] XR Chest PA and LateralOrder ed By: [facility] Provider on 08-04-2024 [facility] CNOVon 07-04-2024 CNOV Office Visit (FAMPWS ) FREEMAN SARABIA ([id number]) 1950 M Date Time Provider Department 07/04/24 4:00 PM CALVIN STEPHENS [facility]AMP[facility] During your visit today, we recorded the following information about you: Pulse Blood pressure Weight Height 74/minute 140/66 113.9 kg 1.905 m Calvin Stephens MD 07/04/2024 5:31 PM Signed Freeman Sarabia is a 73 year old male here for a Medicare wellness visit. Medicare Health Risk Assessment General Health fair Exercise: Minutes/Day 15 minutes. Exercise: Days/Week Three to four days a week Alcohol: Daily Use occasional Alcohol: Drinks/Day none Alcohol: 6 or more drinks none Feel off balance none Concerns: Teeth/Dentures none Concerns: Sexual function Not working for 25 years. Has tried meds Troubled by feelings No. Sertraline is working well. Frequency: Eating healthy diet Not healthy. ADLs requiring help none Safety precautions in home/vehicle none Smoke, vape, chews tobacco none Difficulty hearing Yes. Does not wear hearing aides. Red flags for re-assessment reviewed with patient in detail. Difficulty seeing Wears glasses Current Providers Specialists: I have reviewed specialist-related care of the patient in the medical record. Current care team: Patient Care Team: Calvin Stephens MD as PCP - General (Family Medicine) Outside specialists seen: [facility] [place] [facility] for his knee. Sees optometry. Overdue to see [employer]. Medical/Family history review Reviewed and updated problem list, medical/surgical/family/soc ial history, medications, and allergies. Opioid use review Opioid Medications (last 90 days) No data to display Anxiety/Depression screenin Phq 2 negative. Has anxiety daily. Recommendation: continuing current treatment plan, much is situational. Cognitive screening Mini Cog Score: 5 Cognitive screening reviewed and No further action needed (score 3-5). Functional Observation Was the patient's Timed Up AND Go test unsteady or >= 12 seconds? Yes Advance Care Planning Surrogate decision maker and/or advance care plan documented is his surrogate Discussed health maintenance, including regular aerobic exercise, low fat diet, and periodic exams. Needs colonoscopy. Had discussion with patient regarding risks and benefits of prostate screening. Allowed them to decide if they wished to proceed with screening including LUMA and PSA. REVIEW OF SYSTEMS RESPIRATORY: Negative for cough, hemoptysis, wheezing, COPD, dyspnea or shortness of breath CARDIOVASCULAR: Negative for chest pain, leg swelling, hypertension, CHF or palpitations GI: No nausea, vomiting, or diarrhea : No history of dysuria, frequency or incontinence SKIN: Negative for lesions, rash, and itching Measurements Vision Screening: Right: Left: Both: Assessment/Plan Medicare annual wellness visit, initial (Z00.00) - Counseled on healthy diet and regular exercise - Fall avoidance information provided - Personalized prevention plan provided Labs in six months for prostate, cbc, cmp and lipid for bp and lipids. Set up for colonoscopy. Administer covid and flu Calvin Stephens MD RTO in six months and bp check in one month Allergies As of Date: 07/04/2024 (No Known Allergies) Date Reviewed: 07/04/2024 Reviewed by: Danitza Snow MA - Fully Assessed Reason for Visit: Medicare Wellness Exam [4060] Primary Visit Diagnosis:Medicare annual wellness visit, subsequent [Z00.00] Other Visit Diagnoses:Need for vaccination [Z23] History of colonic polyps [Z86.0100] Screening for prostate cancer [Z12.5] Mixed hyperlipidemia [E78.2] Essential hypertension, benign [I10] Order(s):ComQi COVID-19 VACCINE AGE 12+ YR (COMIRNATY) [64417CUR] Order #: [id number] INFLUENZA VACCINE, PRSV FREE, AGE 65+ YR, HIGH DOSE, TRIVALENT (FLUZONE HIGH-DOSE) [71207KSQ] Order #: [id number] CONSULT TO GENERAL SURGERY [9055] Order #: [id number]: 1 FUTURE COMPLETE BLOOD COUNT AND DIFFERENTIAL [SQCBCDIF] Order #: [id number] FUTURE COMPREHENSIVE METABOLIC PANEL [SQCMP] Order #: [id number] FUTURE LIPID PANEL BASIC [SQLIPB] Order #: [id number] FUTURE PSA/PROSTATE SPECIFIC ANTIGEN SCREENING [SQPSAS1] Order #: [id number] FUTURE Prescriptions as of 07/04/2024 - sertraline (ZOLOFT) 50 mg tablet Take 1 tablet by mouth once daily. - verapamil SR (CALAN SR) 120 mg CR tablet Take 120 mg by mouth once daily. - potassium chloride (K-TAB) 10 mEq tablet Take 1 tablet by mouth daily with breakfast. - losartan (COZAAR) 100 mg tablet Take 1 tablet by mouth once daily. - hydroCHLOROthiazide 12.5 mg capsule Take 1 capsule by mouth once daily. - aspirin 81 mg chewable tablet Take 1 tablet by mouth once daily. - atorvastatin (LIPITOR) 80 mg tablet Take 80 mg by mouth once daily. - Cholecalciferol, Vitamin D3, 25 mcg (1,0 (more content not included)... Normal [facility] CNOVon 04-07-2024 [facility] FREEMAN SARABIA ([id number]) 1950 M Date Time Provider Department 04/07/24 7:15 AM JESÚS WAN [facility] During your visit today, we recorded the following information about you: Temperature Pulse Respiration Blood pressure 96.9 degrees 76/minute 16/minute 142/84 Weight 109 kg Jesús Wan PA 04/07/2024 7:21 AM Signed This note was created using [employer]. Subjective Freeman Sarabia is a 73 year old male. HPI 73 [id number] male presents for cough, chest congestion, nasal congestion for 2 weeks. Patient states he starting sick 2 weeks ago with cough. He is coughing up some phlegm. He has yellow nasal congestion. He has not had any fevers. No chest pain or shortness of breath. He denies any history of COPD or asthma. His recently had pneumonia. No other complaint. PAST MEDICAL HISTORY Diagnosis Date BPH (benign [...] ALLERGIES Patient has no known allergies. MEDICATIONS sertraline (ZOLOFT) 50 mg tablet Take 1 tablet by mouth once daily. verapamil SR (CALAN SR) 120 mg CR tablet Take 120 mg by mouth once daily. potassium chloride (K-TAB) 10 mEq tablet Take 1 tablet by mouth daily with breakfast. losartan (COZAAR) 100 mg tablet Take 1 tablet by mouth once daily. hydroCHLOROthiazide 12.5 mg capsule Take 1 capsule by mouth once daily. aspirin 81 mg chewable tablet Take 1 tablet by mouth once daily. atorvastatin (LIPITOR) 80 mg tablet Take 80 mg by mouth once daily. BRILINTA 90 mg tablet Take 1 tablet by mouth every 12 hours. Cholecalciferol, Vitamin D3, 25 mcg (1,000 unit) cap Take 1,000 Units by mouth once daily. doxycycline (VIBRA-TABS) 100 mg tablet Take 1 tablet by mouth two times a day for 7 days. predniSONE (DELTASONE) 10 mg tablet Take 4 tabs daily for 3 days, then 2 tabs daily for 3 days, then 1 tab daily for 3 days with food. benzonatate (TESSALON PERLE) 100 mg capsule Take 1 capsule by mouth three times a day as needed. FAMILY HISTORY Problem Relation Age of Onset COPD Mother Smoker Alcohol/Drug Mother COPD Father Smoker Alcohol/Drug Father Arthritis Sister Colon Cancer Sister Social History Tobacco Use Smoking status: Never Smokeless tobacco: Never Substance Use Topics Alcohol use: Yes Comment: rarely Drug use: No Review of Systems Constitutional: Negative for chills and fever. HENT: Positive for congestion. Negative for sore throat. Respiratory: Positive for cough. Negative for shortness of breath. Gastrointestinal: Negative for diarrhea and vomiting. Objective BP 142/84 Pulse 76 Temp 36.1 ?C (96.9 ?F) Resp 16 Wt 109 kg (240 lb 4.8 oz) SpO2 96% BMI 30.04 kg/m? Physical Exam Vitals and nursing note reviewed. Constitutional: General: He is not in acute distress. Appearance: Normal appearance. He is not toxic-appearing. HENT: Right Ear: Tympanic membrane and ear canal normal. Left Ear: Tympanic membrane and ear canal normal. Nose: Congestion present. Mouth/Throat: Mouth: Mucous membranes are moist. Eyes: Conjunctiva/sclera: Conjunctivae normal. Cardiovascular: Rate and Rhythm: Normal rate and regular rhythm. Pulmonary: Effort: Pulmonary effort is normal. Breath sounds: Examination of the right-lower field reveals wheezing and rhonchi. Wheezing and rhonchi present. No rales. Skin: General: Skin is warm and dry. Neurological: Mental Status: He is alert. Assessment and Plan ASSESSMENT/PLAN: 1. Sinobronchitis - ICD9: 473.9, 490, ICD10: J32.9, J40 -Recommended chest x-ray due to cough x 2 weeks with wheezing and rhonchi on exam. However, XR not available for another hour. Patient does not want to have to come back or wait. He declined. -Will treat with doxycycline, prednisone, Tessalon Perles. If no improvement, he needs close follow-up with PCP. Patient agreeable. - Will begin treatment with Doxycycline - Supportive care with plenty of fluids, rest, and analgesia prn. - Follow up in 3-5 days if symptoms persist or worsen. Diagnosis and treatment plan were discussed and questions were answered to the patient's satisfaction. Pt acknowledged understanding of concepts and follow up plan. Specific signs and symptoms that would indicate the need for higher level of care were discussed in de (more content not included)... Normal [facility] LIPID PANEL (OUTSIDE)on 03-23 Cholesterol [Mass/Vol] 122 mg/dL [facility] Cholesterol in HDL [Mass/Vol] 40 mg/dL [facility] Cholesterol in LDL [Mass/Vol] 47 mg/dL [facility] LDL:HDL Ratio [facility] Non-HDL Cholesterol [facility] TC:HDL Ratio [facility] Triglyceride [Mass/Vol] 176 mg/dL [facility] VLDL Cholesterol 35 [place] [facility] Cardiology Visit Reporton Cardiology Visit Report [facility] [address] [place], [place] [address] OFFICE VISIT Date of Service: 04/01/24 MR#: [id number] Acct: [id number] Name: FREEMAN SARABIA Rep #: [id number] : 1950 Provider: Dr. Viktor Rutledge MD Age/Sex: 73/M Location: BMS.G Status: Signed HPI [facility] History of Present Illness Details: This gentleman has history of inferior ST elevation myocardial infarction status post drug-eluting stent to the RCA. Denies any complaints today. No chest pains. No shortness of breath. No orthopnea or PND. No ankle edema. Tolerating atorvastatin well and denies any muscle aches or pains. Per patient, his intermittent palpitations have completely resolved after starting on verapamil. Intake Vital Signs 01/15/24 15:11 04/01/24 08:59 Height 6 ft 3.2 in 6 ft 3 in Weight: 230 lb 244 lb BMI 28.5 30.4 BP 138/90 H 145/78 H Blood Pressure Location Lt brachial Lt brachial Position Sitting Sitting Respiration 16 18 Pulse 68 68 Pulse Source Monitor NIBP Intake Visit Reasons: 6 M FU Sheet Metal Operator Required: No Is patient in pain?: No Allergies No Known Allergies Allergy (Verified 04/01/24 14:41) Medications ???Medication ???Instructions ???Recorded ???Confirmed ???Type aspirin 81 mg tablet,delayed 81 mg PO DAILY #90 tabs 03/22/23 04/01/24 Rx release (Adult Aspirin Regimen) cholecalciferol (vitamin D3) 25 25 mcg PO DAILY 05/08/23 04/01/24 History mcg (1,000 unit) capsule sertraline 50 mg tablet 50 mg PO DAILY 05/08/23 04/01/24 History hydrochlorothiazide 12.5 mg tablet 12.5 mg PO DAILY 12/07/23 04/01/24 History potassium chloride 10 mEq 10 meq PO QDAY 01/15/24 04/01/24 History tablet,extended release verapamil 120 mg tablet,extended 120 mg PO BID #60 tabs 01/15/24 04/01/24 Rx release atorvastatin 80 mg tablet 80 mg PO QHS #90 tabs 03/18/24 04/01/24 Rx losartan 100 mg tablet 100 mg PO QDAY 04/01/24 04/01/24 History Ejection fraction %: 55 Have you fallen in the past year?: No PFSH Medical History Ascending aortic aneurysm Atherosclerotic heart disease of [place] coronary artery without angina pectoris Nonsustained ventricular tachycardia Acute ST elevation myocardial infarction (STEMI) Hypertension Surgical History History of Mohs surgery for squamous cell carcinoma of skin Stented coronary artery (02/19/23) Hx of appendectomy History of herniorrhaphy History of total right hip replacement Family History Father Myocardial infarction CAD (coronary artery disease) Social History Smoking Status: Never smoker alcohol intake: current alcohol intake frequency: a few times a month substance use type: does not use caffeine: No ROS Const Const: Negative for fatigue, weakness or headache(s) Eyes Eyes: Negative for change in vision ENT ENT: Negative for headache(s), dizziness, Nosebleed/epistaxis or balance problems Cardio Chest Pain: No Palpitations: No Edema: None Muscle aches with walking: None Resp Respiratory: Positive for Cough (Occasional productive cough of yellow sputum); Negative for SOB with activity, SOB at rest or SOB orthopnea SOB lying down GI GI: Negative nausea, vomiting or heartburn : Negative for hematuria Musc Musc: Negative for muscle aches/ myalgia, muscle weakness, joint pain or balance problems Skin Skin: Negative rash Neuro Neuro: Negative for dizziness, lightheadedness, near syncope, syncope, headache(s) or weakness [place] Hematologic/Lymphatic: Negative for easy bleeding or easy bruising Endo Endo: Negative for fatigue Allergy Allergy/Immunology: Negative for rash Cardiology Exam Const Appearance: comfortable and no acute distress Nutritional Appearance: well nourished Neck Neck: no JVD Carotids: Negative bruit Chest Auscultation: Bilateral: Clear to Auscultation Cardio Rate: regular rate Rhythm: regular rhythm Heart sounds: S1 normal and S2 normal Neuro General: patient alert, patient awake and patient oriented x3 Extremities Lower Extremity Edema: None: Bilateral Supplemental Info Supplemental Information Echocardiogram 01/2023: The estimated ejection fraction is 55 %. No evidence for diastolic dysfunction. Hypokinesis of the distal inferior wall Mild (1+) aortic valve insufficiency. Mild to moderately dilated ascending aorta Cardiac cath 01/2023: CAD as described. Successful thrombectomy and JAVI to dRCA RECOMMENDATIONS CORONARY ANGIOGRAPHY DOMINANCE: Right Dominant LEFT MAIN: Mild luminal irregularities LEFT ANTERIOR DESCENDING ARTERY: Ectatic vessel. 60% pLAD (more content not included)... Normal [facility] Comprehensive Metabolic Prof ilon 04-01-2024 Albumin [Mass/Vol] 3.4 g/dL Normal 3.2-5.0 [facility] Comment on above: Performed By: #### L 500.4050, L500.4100 #### [facility] [address] [place], [address] Albumin/Globulin [Mass ratio] 1.0 {ratio} Normal 0.9-2.4 [facility] Comment on above: Performed By: #### L 500.4050, L500.4100 #### [facility] [address] [place], [address] ALK P 89 U/L Normal 45-117 [facility] Comment on above: Performed By: #### L 500.4050, L500.4100 #### [facility] [address] [place], [address] ALT [Catalytic activity/Vol] 20 U/L Normal 16-61 [facility] Comment on above: Performed By: #### L 500.4050, L500.4100 #### [facility] [address] [place], [address] AST [Catalytic activity/Vol] 17 U/L Normal 15-37 [facility] Comment on above: Performed By: #### L 500.4050, L500.4100 #### [facility] [address] [place], [address] Bilirubin [Mass/Vol] 1.10 mg/dL High 0.20-1.00 [facility] Comment on above: Result Comment: For patients on eltrombopag therapy, use of Dimension [place] TBIL is not recommended. Performed By: #### L 500.4050, L500.4100 #### [facility] [address] [place], [address] BUN/CRE 14.4 RATIO Normal 10-20 [facility] Comment on above: Performed By: #### L 500.4050, L500.4100 #### [facility] [address] [place], [address] CA,Total 8.8 mg/dL Normal 8.5-10.1 [facility] Comment on above: Performed By: #### L 500.4050, L500.4100 #### [facility] [address] [place], [address] Chloride [Moles/Vol] 103 mmol/L Normal 98-107 [facility] Comment on above: Performed By: #### L 500.4050, L500.4100 #### [facility] [address] [place], [address] CO2 [Moles/Vol] 30.0 mmol/L Normal 21.0-32.0 [facility] Comment on above: Performed By: #### L 500.4050, L500.4100 #### [facility] [address] [place], [address] Creatinine [Mass/Vol] 0.97 mg/dL Normal 0.70-1.30 [facility] Comment on above: Result Comment: The validity of the calculated GFR GFRAA in patients over 70 years has not been determined. Clinical correlation is essential. Performed By: #### L 500.4050, L500.4100 #### [facility] [address] [place], [address] EST GFR - AA 97 mL/min Normal >60 [facility] Comment on above: Result Comment: Afri can Hungarian GFR Calc Performed By: #### L 500.4050, L500.4100 #### [facility] [address] [place], [address] GAP 5 Normal 5-15 [facility] Comment on above: Performed By: #### L 500.4050, L500.4100 #### [facility] [address] [place], [address] GFR/1.73 sq M.predicted among non-blacks MDRD (S/P/Bld) [Vol rate/Area] 80 mL/min/{1.73_m2} Normal >60 [facility] Comment on above: Result Comment: Non- GFR Calc Performed By: #### L 500.4050, L500.4100 #### [facility] [address] [place], [address] Globulin (S) [Mass/Vol] 3.3 g/dL Normal 2.2-4.2 [facility] Comment on above: Performed By: #### L 500.4050, L500.4100 #### [facility] [address] [place], [address] Glucose [Mass/Vol] 95 mg/dL Normal 74-106 [facility] Comment on above: Performed By: #### L 500.4050, L500.4100 #### [facility] [address] [place], [address] Potassium [Moles/Vol] 3.5 mmol/L Normal 3.5-5.1 [facility] Comment on above: Performed By: #### L 500.4050, L500.4100 #### [facility] [address] [place], [address] Sodium [Moles/Vol] 138 mmol/L Normal 136-145 [facility] Comment on above: Performed By: #### L 500.4050, L500.4100 #### [facility] [address] [place], [address] T PROT 6.7 g/dL Normal 6.4-8.2 [facility] Comment on above: Performed By: #### L 500.4050, L500.4100 #### [facility] [address] [place], [address] Urea nitrogen [Mass/Vol] 14 mg/dL Normal 7-18 [facility] Comment on above: Performed By: #### L 500.4050, L500.4100 #### [facility] [address] [place], [address] Lipid Profileon 04-01-2024 Cholesterol [Mass/Vol] 122 mg/dL Normal 200 [facility] Comment on above: Result Comment: <200 mg/dL Desirable 200-240 mg/dL Borderline >240 mg/dL High Risk Performed By: #### L 500.4050, L500.4100 #### [facility] [address] [place], [address] Cholesterol in HDL [Mass/Vol] 40 mg/dL Normal [facility] Comment on above: Result Comment: The drugs N-Acetylcysteine and Metamizole may falsely depress this assay. Reference Range HDL <40 mg/dL Low HDL Cholesterol HDL >or= 60 mg/dL High HDL Cholesterol Performed By: #### L 500.4050, L500.4100 #### [facility] [address] [place], [address] Cholesterol in LDL [Mass/Vol] 47 mg/dL Normal 0-130 [facility] Comment on above: Performed By: #### L 500.4050, L500.4100 #### [facility] [address] [place], [address] Cholesterol in VLDL [Mass/Vol] 35 mg/dL Normal 5-40 [facility] Comment on above: Performed By: #### L 500.4050, L500.4100 #### [facility] [address] [place], [address] Triglyceride [Mass/Vol] 176 mg/dL Normal [facility] Comment on above: Result Comment: The drugs N-Acetylcysteine and Metamizole may falsely depress this assay. Serum Triglycerides Reference Interval Normal <150 mg/dL Borderline high 150 - 199 mg/dL High 200 - 499 mg/dL Very High > or = 500 mg/dL Performed By: #### L 500.4050, L500.4100 #### [facility] [address] [place], [address] CREATININE FINGERSTICKon CREATININE WB < 1.0 Normal 0.70-1.30 [facility] Comment on above: Performed By: #### L 9100.0200 #### [facility] [address] [place], [address] EGFR WB > 60.0000 Normal >60 [facility] Comment on above: Performed By: #### L 9100.0200 #### [facility] [address] [place], [address] CTA Chest W/WO Contraston CTA Chest W/WO Contrast [facility] [address] [place] [address] CTA Chest W/WO Contrast MR#: [id number] Acct: [id number] Name: FREEMAN SARABIA Rep #: [id number] : 1950 M 73 From: Greg hurt MD PCP: Dr. Calvin Stephens MD Status: DEP [facility] Study: CTA Chest W/WO Contrast Date of Exam: 01/30/24 Exam# [id number] Ordering Dr: Vincent Garcia NP FACE CLEANER-C [id number] STUDY: CTA CHEST REASON FOR EXAM: Male, 73 years old. Aortic Root Measurement RADIATION DOSAGE (If Supplied By Facility): CTDIvol = ( 22.01 ) mGy, DLP = ( 490.26 ) mGycm TECHNIQUE: The examination was performed with the intravenous administration of IV 100mL Isovue-370. Post-processing of the angiographic images was performed, with multiplanar reformation and 3D reconstruction. Individualized dose optimization techniques were used for this CT. COMPARISON: None. FINDINGS: Normal enhancement of the main pulmonary artery and right and left pulmonary arteries. Normal enhancement of the bilateral peripheral pulmonary arteries. There is no demonstrated pulmonary embolism. There is aneurysmal dilatation of the ascending aorta. The transverse diameter of the ascending aorta measures 46.8 mm''s. Mild atherosclerotic plaque formation of the aortic arch. There is no demonstrated aortic dissection. There are calcifications of the coronary arteries. There are visualized mediastinal lymph nodes, which are within normal size limits, and with normal morphology. Normal hilar regions. Normal visualized trachea and bronchi. The lungs are well expanded. Normal pulmonary parenchyma. Normal pleura. Normal chest wall structures. Normal osseous structures. Normal visualized upper abdomen. CT/CTA Chest W/WO Contrast IMPRESSION: The aortic root is dilated measuring 46.8 mm in transverse dimension. Electronically Signed: Greg Weaver MD at 9:20 EDT Reading Location ID and State: [address] [place] [address] , Service support , CC: ELDA Garcia; Dr. Calvin Stephens MD Title Camera Operator: Signed Normal [facility] 12 Lead EKG performed by [facility] on 01-15-2024 12 Lead EKG performed by [facility] [address] [place] [address] 12 Lead EKG performed by [facility] 01/15/24 1522 MR#: [id number] Acct: [id number] Name: FREEMAN SARABIA Rep #: [id number] : 1950 73 From: Vincent Garcia NP FACE CLEANER-C Attending Dr: ELDA Bond Status: DEP AMB Ordering Dr: Vincent Garcia NP FACE CLEANER-C Date: 01/15/24 Location: [facility] Sex: M C Admitted: BMS/12 Lead EKG performed by [facility] ECG Report Interpretation S inus Rhythm - frequent ectopic ventricular beat s # VECs = 2-Incomplete right bundle branch block. ABNORMAL Electronically signed on 08/18/2024 at 10:[address] Viktor Rushwood Software Version [id number] 08/18/24 1014 Date Vincent SCHROEDER CC: Dr. Calvin Stephens MD Date Dictated: 01/15/24 1522 Date Transcribed: 01/15/241521 Title Camera Operator: FE Signed Normal [facility] Cardiology Visit Reporton Cardiology Visit Report [facility] [address] [place] [address] OFFICE VISIT Date of Service: 01/15/24 MR#: [id number] Acct: [id number] Name: FREEMAN SARABIA Rep #: [id number] : 1950 Provider: ELDA hinojosa Age/Sex: 73/M Location: [facility] Status: Signed [facility] History of Present Illness Details: Freeman Sarabia is a 73-year-old gentleman that presents here today for a cardiovascular patient follow-up. He presented to [facility] on 02/18/2023 with an anterior inferior wall STEMI. He had chest pain 1 hour prior to arrival while he was mowing his lawn. He is EKG noted ST elevation in V4 through V6, 2, 3, and aVF with about [address] depression in V1, V2, and VR. Patient was urgently taken to the Real Estate Legal Secretary. He underwent thrombectomy and drug-eluting stent to his RCA. Echocardiogram demonstrated inferior wall hypokinesis with an ejection fraction of 55% and aortic root measuring 4.8 cm. He was discharged home on Brilinta, carvedilol, aspirin, statin. He stopped taking his amlodipine and hydrochlorothiazide. He does have a history of hypertension and dilated ascending aorta. Was seen with primary care team and evaluated for PVCs. Laboratory testing showed a potassium level 3.6. He was started on potassium. He denies chest, arm, jaw, or neck discomfort. He acknowledges palpitations that he describes as fast. He denies bilateral lower extremity edema. He denies claudication. He states shortness of breath with activity that he describes as slight. He denies shortness of breath at rest, orthopnea, or PND. He denies chronic cough. He denies significant, sudden weight gain. He denies lightheadedness, dizziness, near-syncope, or syncope. He denies blood in urine, blood in stool, or epistaxis. He denies fever with chills. He denies myalgia. He states fatigue. His exercise level has remained stable. Intake Vital Signs 05/08/23 08:38 01/15/24 15:11 Height 6 ft 3.2 in 6 ft 3.2 in Weight: 230 lb BMI 28.5 BP 138/90 H Blood Pressure Location Lt brachial Position Sitting Respiration 16 Pulse 68 Pulse Source Monitor Intake Visit Reasons: 6 M FU Sheet Metal Operator Required: No Accompanied by: Is patient in pain?: No Allergies No Known Allergies Allergy (Verified 01/15/24 15:12) Medications ???Medication ???Instructions ???Recorded ???Confirmed ???Type atorvastatin 80 mg tablet 80 mg PO QHS #30 tabs 03/06/23 01/15/24 Rx ticagrelor 90 mg tablet (Brilinta) 90 mg PO BID #60 tabs 03/06/23 01/15/24 Rx aspirin 81 mg tablet,delayed 81 mg PO DAILY #90 tabs 03/22/23 01/15/24 Rx release (Adult Aspirin Regimen) cholecalciferol (vitamin D3) 25 25 mcg PO DAILY 05/08/23 01/15/24 History mcg (1,000 unit) capsule sertraline 50 mg tablet 50 mg PO DAILY 05/08/23 01/15/24 History hydrochlorothiazide 12.5 mg tablet 12.5 mg PO DAILY 12/07/23 01/15/24 History losartan 50 mg tablet 50 mg PO QDAY 01/15/24 01/15/24 History potassium chloride 10 mEq 10 meq PO QDAY 01/15/24 01/15/24 History tablet,extended release verapamil 120 mg tablet,extended 120 mg PO BID #60 tabs 01/15/24 01/15/24 Rx release Ejection fraction %: 55 Have you fallen in the past year?: No PFSH Medical History Ascending aortic aneurysm Atherosclerotic heart disease of [place] coronary artery without angina pectoris Nonsustained ventricular tachycardia Acute ST elevation myocardial infarction (STEMI) Hypertension Surgical History History of Mohs surgery for squamous cell carcinoma of skin Stented coronary artery (02/19/23) Hx of appendectomy History of herniorrhaphy History of total right hip replacement Family History Father Myocardial infarction CAD (coronary artery disease) Social History Smoking Status: Never smoker alcohol intake: current alcohol intake frequency: a few times a month substance use type: does not use caffeine: No ROS Const Const: Positive for fatigue and difficulty sleeping; Negative for weakness, headache(s), frequent falls or excessive sweating Eyes Eyes: Negative for loss of peripheral vision, transient loss of vision, blurry vision, double vision or tunnel vision ENT ENT: Negative for headache(s), dizziness, Nosebleed/epistaxis or balance problems Cardio Chest Pain: No Palpitations: Yes feels like its: fast Edema: None Muscle aches with walking: None Resp Respiratory: Positive for SOB with activity (slightly); Negative for SOB at rest, SOB orthopnea SOB lying down, Cough or paroxysmal nocturnal dyspnea GI GI: Negative nausea, vomiting, heartburn or black,tarry stools : Posit (more content not included)... Normal [facility] 12 Lead EKG performed by [facility] on 12-07-2023 12 Lead EKG performed by [facility] [address] [place] [address] 12 Lead EKG performed by [facility] 12/07/23 0811 MR#: [id number] Acct: [id number] Name: FREEMAN SARABIA Rep #: [id number] : 1950 73 From: Vincent Garcia NP FACE CLEANER-C Attending Dr: Vincent Garcia FACE CLEANER-C Status: DEP AMB Ordering Dr: Vincent Garcia NP FACE CLEANER-C Date: 12/07/23 Location: [facility] Sex: M C Admitted: BMS/12 Lead EKG performed by [facility] ECG Report Interpretation S inus Rhythm -Frequent pvcs -ventricular bigeminy -Nonspecific QRS widening. - Nonspecific T-abnormality. ABNORMAL Electronically signed on 12/23/2023 at 16:51 by Ilya Blairwood Software Version [id number] 12/23/23 1655 Date Vincent Garcia NP FACE CLEANER-C CC: Dr. Calvin Stephens MD Date Dictated: 12/07/23810 Date Transcribed: 12/07/23810 Title Camera Operator: FE Signed Normal [facility] Absolute lymphocyte countOrd ered By: George Raymond on 08-09-2023 Lymphocytes Auto (Unsp spec) [#/Vol] 1.09 10*3/uL 0.83-4.51 [facility] Automated lymphocyte count a s percentage of total leukocytesOrdered By: George Raymond on 08-09-2023 Lymphocytes/100 WBC Auto (Unsp spec) 23.4 % 19-41 [facility] Basophil percentageOrdered B y: George Raymond on 08-09-2023 Basophils/100 WBC (Bld) 0.4 % 0-1 [facility] Eosinophils/100 WBC (Bld) 5.2 % 0-5 [facility] Hemoglobin (Bld) [Mass/Vol] 14.3 g/dL 13.0-16.5 [facility] Monocytes/100 WBC (Bld) 9.7 % 0-10 [facility] Neutrophils (Bld) [#/Vol] 2.9 10*3/uL 2.0-7.7 [facility] Neutrophils/100 WBC (Bld) 61.1 % 47-70 [facility] WBC (Bld) [#/Vol] 4.7 10*3/uL 4.4-11.0 [facility] Blood maria dolores cells detection b y light microscopyOrdered By: George Raymond on 08-09-2023 [place] cells LM Ql (Bld) 4.7 [facility] Determination of erythrocyte mean corpuscular volume (MCV)Ordered By: George Raymond on 08-09-2023 MCV (RBC) [Entitic vol] 94.2 fL 80-94 [facility] Erythrocyte distribution wid th ratioOrdered By: George Raymond on 08-09-2023 Erythrocyte distribution width (RBC) [Ratio] 13.3 % 11.6-14.6 [facility] Erythrocyte distribution wid th standard deviationOrdered By: George Raymond on 08-09-2023 Erythrocyte distribution width (RBC) [Entitic vol] 45.5 fL 35.1-43.9 [facility] Erythrocyte sedimentation ra teOrdered By: George Raymond on 08-09-2023 ESR (Bld) [Velocity] 4 mm/h 0-20 [facility] Hematocrit Auto (Bld) [Volum e fraction]Ordered By: George Raymond on 08-09-2023 Hematocrit (Bld) [Volume fraction] 42.5 % 40-54 [facility] Immature granulocytes/100 WB C Auto (Bld)Ordered By: George Raymond on 08-09-2023 Immature granulocytes/100 WBC (Bld) 0.200 % 0.0-0.9 [facility] Comment on above: IG% - Immature Granu locytes (promyelocytes, myelocytes and metamyelocytes) > 1% indicates that a LEFT SHIFT is Present. Laboratory - Hematology and Cell countsOrdered By: George Raymond on 08-09-2023 MCH (RBC) [Entitic mass] 31.7 pg 27.0-32.0 [facility] MCHC (RBC) [Mass/Vol] 33.6 g/dL 32-36 [facility] Nucleated RBC/100 WBC (Bld) [Ratio] 0 % 0-5 [facility] Platelets (Bld) [#/Vol] 220 10*3/uL 150-450 [facility] No Panel InformationOrdered By: George Raymond on 08-09-2023 C-Reactive Protein Extended Range < 2.90 mg/L 0.0-3.0 [facility] Comment on above: C-Reactive Protein ( CRP) provides useful information for thediagnosis, therapy and monitoring of inflammatory processesand associated diseases. For the evaluation of Relative Riskfor Cardiovascular Disease, a High Sensitivity CRP (HSCRP)should be ordered. Platelet mean volume Basil-Ec ker (Bld) [Entitic vol]Ordered By: George Raymond on 08-09-2023 Platelet mean volume (Bld) [Entitic vol] 10.3 fL 6.2-12.0 [facility] RBC Auto (Bld) [#/Vol]Ordere d By: George Raymond on 08-09-2023 RBC (Bld) [#/Vol] 4.51 10*6/uL 4.6-6.2 [facility] Absolute lymphocyte countOrd ered By: Merced Willard on 02-20-2023 Lymphocytes Auto (Unsp spec) [#/Vol] 1.35 10*3/uL 0.83-4.51 [facility] Basophil percentageOrdered B y: Merced Willard on 02-20-2023 Basophils/100 WBC (Bld) 0.5 % 0-1 [facility] Chloride [Moles/Vol] 106 mmol/L 98-107 [facility] Eosinophils/100 WBC (Bld) 1.8 % 0-5 [facility] Glucose [Mass/Vol] 109 mg/dL 74-106 [facility] Comment on above: Fasting Glucose resu lt from 100 to 125 mg/dL suggests IMPAIRED HOMEOSTASIS per A.D.A. criteria. Neutrophils (Bld) [#/Vol] 5.8 10*3/uL 2.0-7.7 [facility] Neutrophils/100 WBC (Bld) 71.2 % 47-70 [facility] Potassium [Moles/Vol] 3.5 mmol/L 3.5-5.1 [facility] Sodium [Moles/Vol] 140 mmol/L 136-145 [facility] WBC (Bld) [#/Vol] 8.2 10*3/uL 4.4-11.0 [facility] Blood erythrocytes count (nu mber/volume)Ordered By: Merced Willard on 02-20-2023 RBC (Bld) [#/Vol] 4.20 10*6/uL 4.6-6.2 [facility] Blood hemoglobin measurement (mass/volume)Ordered By: Merced Willard on 02-20-2023 Hemoglobin (Bld) [Mass/Vol] 13.5 g/dL 13.0-16.5 [facility] Blood lymphocytes/100 leukoc ytesOrdered By: Merced Willard on 02-20-2023 Lymphocytes/100 WBC (Bld) 16.5 % 19-41 [facility] Blood monocytes/100 leukocyt esOrdered By: Merced Willard on 02-20-2023 Monocytes/100 WBC (Bld) 9.6 % 0-10 [facility] Blood platelet mean volumeOr dered By: Merced Willard on 02-20-2023 Platelet mean volume (Bld) [Entitic vol] 9.4 fL 6.2-12.0 [facility] Determination of erythrocyte mean corpuscular volume (MCV)Ordered By: Merced Willard on 02-20-2023 MCV (RBC) [Entitic vol] 93.6 fL 80-94 [facility] Hematocrit Auto (Bld) [Volum e fraction]Ordered By: Merced Willard on 02-20-2023 Hematocrit (Bld) [Volume fraction] 39.3 % 40-54 [facility] Laboratory - Chemistry and C hemistry - challengeOrdered By: Merced Willard on 02-20-2023 CO2 [Moles/Vol] 29.0 mmol/L 21.0-32.0 [facility] Urea nitrogen/Creatinine [Mass ratio] 14.3 mg/mg 10-20 [facility] Laboratory - Hematology and Cell countsOrdered By: Merced Willard on 02-20-2023 Erythrocyte distribution width (RBC) [Entitic vol] 42.1 fL 35.1-43.9 [facility] Erythrocyte distribution width (RBC) [Ratio] 12.2 % 11.6-14.6 [facility] Immature granulocytes/100 WBC (Bld) 0.400 % 0.0-0.9 [facility] Comment on above: IG% - Immature Granu locytes (promyelocytes, myelocytes and metamyelocytes) > 1% indicates that a LEFT SHIFT is Present. MCH (RBC) [Entitic mass] 32.1 pg 27.0-32.0 [facility] Nucleated RBC/100 WBC (Bld) [Ratio] 0 % 0-5 [facility] MCHC Auto (RBC) [Mass/Vol]Or dered By: Merced Willard on 02-20-2023 MCHC (RBC) [Mass/Vol] 34.4 g/dL 32-36 [facility] No Panel InformationOrdered By: Merced Willard on 02-20-2023 Estimated Creatinine Clearance Calc 70.21 ml/min [facility] Estimated GFR (MDRD) Amer 83 mL/min >60 [facility] Comment on above: GFR Calc Estimated GFR (MDRD) Non-Af Amer 68 mL/min >60 [facility] Comment on above: Non- GFR Calc Platelets bldOrdered By: George Willard on 02-20-2023 Platelets (Bld) [#/Vol] 232 10*3/uL 150-450 [facility] Serum or plasma calcium marcie urement (mass/volume)Ordered By: Merced Willard on 02-20-2023 Calcium [Mass/Vol] 8.4 mg/dL 8.5-10.1 [facility] Serum or plasma creatinine m easurement (mass/volume)Ordered By: Merced Willard on 02-20-2023 Creatinine [Mass/Vol] 1.12 mg/dL 0.70-1.30 [facility] Comment on above: The validity of the calculated GFR & GFRAA in patients over 70 years has not been determined. Clinical correlation is essential. Serum or plasma urea nitroge n measurement (mass/volume)Ordered By: Merced Willard on 02-20-2023 Urea nitrogen [Mass/Vol] 16 mg/dL 7-18 [facility] Thin prep Papanicolaou smear with manual screeningOrdered By: Merced Willard on 02-20-2023 Thin prep Papanicolaou smear with manual screening 5 5-15 [facility] Basophil percentageOrdered B y: Emre Domingo on 02-19-2023 Basophil percentage 2.4 mg/dL 2.5-4.9 [facility] Bilirubin [Mass/Vol] 0.90 mg/dL 0.20-1.00 [facility] Comment on above: For patients on eltr ombopag therapy, use of Dimension [place] TBIL is not recommended. Cholesterol [Mass/Vol] 165 mg/dL <200 [facility] Comment on above: <200 mg/dL Desirable 200-240 mg/dL Borderline >240 mg/dL High Risk Protein [Mass/Vol] 5.8 g/dL 6.4-8.2 [facility] Triglyceride [Mass/Vol] 173 mg/dL <199 [facility] Comment on above: The drugs N-Acetylcy steine and Metamizole may falsely depress this assay.Serum Triglycerides Reference Interval Normal <150 mg/dL Borderline high 150 - 199 mg/dL High 200 - 499 mg/dL Very High > or = 500 mg/dL Direct bilirubinOrdered By: Emre Domingo on 02-19-2023 Bilirubin.direct [Mass/Vol] 0.20 mg/dL 0.00-0.30 [facility] Laboratory - Chemistry and C hemistry - challengeOrdered By: Emre Domingo on 02-19-2023 ALP [Catalytic activity/Vol] 70 U/L 45-117 [facility] ALT [Catalytic activity/Vol] 35 U/L 16-61 [facility] Globulin (S) [Mass/Vol] 3.1 g/dL 2.2-4.2 [facility] No Panel InformationOrdered By: Emre Domingo on 02-19-2023 Thyroid Stimulating Hormone (TSH) 2.16 uIU/mL 0.358-3.74 [facility] Serum or plasma albumin marcie urement (mass/volume)Ordered By: Emre Domingo on 02-19-2023 Albumin [Mass/Vol] 2.7 g/dL 3.2-5.0 [facility] Serum or plasma albumin/glob ulin mass ratioOrdered By: Mame Foss on 02-19-2023 Albumin/Globulin [Mass ratio] 0.9 {ratio} 0.9-2.4 [facility] Serum or plasma cholesterol in HDL measurement (mass/volume)Ordered By: Emre Domingo on 02-19-2023 Cholesterol in HDL [Mass/Vol] 31 mg/dL >40 [facility] Comment on above: The drugs N-Acetylcy steine and Metamizole may falsely depress this assay. Reference Range HDL <40 mg/dL Low HDL Cholesterol HDL >or= 60 mg/dL High HDL Cholesterol Serum or plasma cholesterol in VLDL measurement (mass/volume)Ordered By: Emre Domingo on 02-19-2023 Cholesterol in VLDL [Mass/Vol] 35 mg/dL 5-40 [facility] Serum or plasma low density lipoprotein (LDL) cholesterol measurement (mass/volume)Ordered By: Emre Domingo on 02-19-2023 Cholesterol in LDL [Mass/Vol] 99 mg/dL 0-130 [facility] Thin prep Papanicolaou smear with manual screeningOrdered By: Emre Domingo on 02-19-2023 Thin prep Papanicolaou smear with manual screening 135 U/L 15-37 [facility] Whole blood hemoglobin A1c/t otal hemoglobin ratio (mass fraction)Ordered By: Emre Domingo on 02-19-2023 HbA1c (Bld) [Mass fraction] 5.5 % 3.8-5.6 [facility] Comment on above: Normal < 5.7 % Predi abetic 5.7 - 6.4 % Diabetic >or= 6.5 % Please note range changes. Absolute lymphocyte countOrd ered By: Kris Rose on 02-18-2023 Lymphocytes Auto (Unsp spec) [#/Vol] 1.45 10*3/uL 0.83-4.51 [facility] Basophil percentageOrdered B y: Kris Rose on 02-18-2023 Basophils/100 WBC (Bld) 0.3 % 0-1 [facility] Chloride [Moles/Vol] 104 mmol/L 98-107 [facility] Eosinophils/100 WBC (Bld) 0.8 % 0-5 [facility] Glucose [Mass/Vol] 108 mg/dL 74-106 [facility] Comment on above: Fasting Glucose resu lt from 100 to 125 mg/dL suggests IMPAIRED HOMEOSTASIS per A.D.A. criteria. Neutrophils (Bld) [#/Vol] 7.8 10*3/uL 2.0-7.7 [facility] Neutrophils/100 WBC (Bld) 77.3 % 47-70 [facility] Potassium [Moles/Vol] 3.6 mmol/L 3.5-5.1 [facility] Sodium [Moles/Vol] 138 mmol/L 136-145 [facility] WBC (Bld) [#/Vol] 10.1 10*3/uL 4.4-11.0 [facility] Blood erythrocytes count (nu mber/volume)Ordered By: Kris Rose on 02-18-2023 RBC (Bld) [#/Vol] 4.71 10*6/uL 4.6-6.2 [facility] Blood hemoglobin measurement (mass/volume)Ordered By: Kris Rose on 02-18-2023 Hemoglobin (Bld) [Mass/Vol] 15.2 g/dL 13.0-16.5 [facility] Blood lymphocytes/100 leukoc ytesOrdered By: Kris Rose on 02-18-2023 Lymphocytes/100 WBC (Bld) 14.3 % 19-41 [facility] Blood monocytes/100 leukocyt esOrdered By: Kris Rose on 02-18-2023 Monocytes/100 WBC (Bld) 7.1 % 0-10 [facility] Blood platelet mean volumeOr dered By: Kris Rose on 02-18-2023 Platelet mean volume (Bld) [Entitic vol] 9.7 fL 6.2-12.0 [facility] Determination of erythrocyte mean corpuscular volume (MCV)Ordered By: Kris Rose on 02-18-2023 MCV (RBC) [Entitic vol] 92.1 fL 80-94 [facility] Hematocrit Auto (Bld) [Volum e fraction]Ordered By: Kris Rose on 02-18-2023 Hematocrit (Bld) [Volume fraction] 43.4 % 40-54 [facility] INR in Blood by Coagulation assayOrdered By: Kris Rose on 02-18-2023 INR Coag (Bld) [Relative time] 1.0 {INR} [facility] Laboratory - Chemistry and C hemistry - challengeOrdered By: Kris Rose on 02-18-2023 CO2 [Moles/Vol] 29.0 mmol/L 21.0-32.0 [facility] Urea nitrogen/Creatinine [Mass ratio] 15.0 mg/mg 10-20 [facility] Laboratory - Chemistry and C hemistry - challengeOrdered By: Emre Domingo on 02-18-2023 Magnesium [Mass/Vol] 1.9 mg/dL 1.6-2.6 [facility] Laboratory - CoagulationOrde red By: Kris Rose on 02-18-2023 aPTT Coag (Bld) [Time] 26.2 s 24.1-36.2 [facility] PT Coag (PPP) [Time] 13.3 s 11.7-14.9 [facility] Laboratory - Hematology and Cell countsOrdered By: Kris Rose on 02-18-2023 Erythrocyte distribution width (RBC) [Entitic vol] 40.9 fL 35.1-43.9 [facility] Erythrocyte distribution width (RBC) [Ratio] 12.0 % 11.6-14.6 [facility] Immature granulocytes/100 WBC (Bld) 0.200 % 0.0-0.9 [facility] Comment on above: IG% - Immature Granu locytes (promyelocytes, myelocytes and metamyelocytes) > 1% indicates that a LEFT SHIFT is Present. MCH (RBC) [Entitic mass] 32.3 pg 27.0-32.0 [facility] Nucleated RBC/100 WBC (Bld) [Ratio] 0 % 0-5 [facility] MCHC Auto (RBC) [Mass/Vol]Or dered By: Kris Rose on 02-18-2023 MCHC (RBC) [Mass/Vol] 35.0 g/dL 32-36 [facility] No Panel InformationOrdered By: Mame Foss on 02-18-2023 Troponin I High Sensitivity 73586 pg/mL 3.0-78.0 [facility] Comment on above: Critical Result(s) C alled at: 23:04:31 02/18/2023 by: Chiquita Upton to Ximena Sultana. Results read back by same. Please Note: New Test Units and Gender Specific Reference Ranges. For more information see Policy Stat Procedure [place] High Sensitivity Troponin (TNIH) and attachments. No Panel InformationOrdered By: Kris Rose on 02-18-2023 Estimated Creatinine Clearance Calc 61.91 ml/min [facility] Estimated GFR (MDRD) Amer 71 mL/min >60 [facility] Comment on above: GFR Calc Estimated GFR (MDRD) Non-Af Amer 59 mL/min >60 [facility] Comment on above: Non- GFR Calc Troponin I High Sensitivity 22 pg/mL 3.0-78.0 [facility] Comment on above: Please Note: New [place] t Units and Gender Specific Reference Ranges. For more information see Policy Stat Procedure [place] High Sensitivity Troponin (TNIH) and attachments. Platelets bldOrdered By: Cristina Rose on 02-18-2023 Platelets (Bld) [#/Vol] 271 10*3/uL 150-450 [facility] Serum or plasma calcium marcie urement (mass/volume)Ordered By: Kris Rose on 02-18-2023 Calcium [Mass/Vol] 9.1 mg/dL 8.5-10.1 [facility] Serum or plasma creatinine m easurement (mass/volume)Ordered By: Kris Rose on 02-18-2023 Creatinine [Mass/Vol] 1.27 mg/dL 0.70-1.30 [facility] Comment on above: The validity of the calculated GFR & GFRAA in patients over 70 years has not been determined. Clinical correlation is essential. Serum or plasma urea nitroge n measurement (mass/volume)Ordered By: Kris Rose on 02-18-2023 Urea nitrogen [Mass/Vol] 19 mg/dL 7-18 [facility] Thin prep Papanicolaou smear with manual screeningOrdered By: Kris Rose on 02-18-2023 Thin prep Papanicolaou smear with manual screening 5 5-15 [facility] Absolute lymphocyte countOrd ered By: Dr. Shelley on 08-21-2022 Lymphocytes Auto (Unsp spec) [#/Vol] 1.38 10*3/uL 0.83-4.51 [facility] Basophil percentageOrdered B y: Dr. Shelley on 08-21-2022 Basophils/100 WBC (Bld) 0.5 % 0-1 [facility] Eosinophils/100 WBC (Bld) 2.1 % 0-5 [facility] Neutrophils (Bld) [#/Vol] 3.7 10*3/uL 2.0-7.7 [facility] Neutrophils/100 WBC (Bld) 64.7 % 47-70 [facility] WBC (Bld) [#/Vol] 5.7 10*3/uL 4.4-11.0 [facility] Blood erythrocytes count (nu mber/volume)Ordered By: Dr. Shelley on 08-21-2022 RBC (Bld) [#/Vol] 4.65 10*6/uL 4.6-6.2 [facility] Blood hemoglobin measurement (mass/volume)Ordered By: Dr. Shelley on 08-21-2022 Hemoglobin (Bld) [Mass/Vol] 14.8 g/dL 13.0-16.5 [facility] Blood lymphocytes/100 leukoc ytesOrdered By: Dr. Shelley on 08-21-2022 Lymphocytes/100 WBC (Bld) 24.2 % 19-41 [facility] Blood monocytes/100 leukocyt esOrdered By: Dr. Shelley on 08-21-2022 Monocytes/100 WBC (Bld) 8.1 % 0-10 [facility] Blood platelet mean volumeOr dered By: Dr. Shelley on 08-21-2022 Platelet mean volume (Bld) [Entitic vol] 9.9 fL 6.2-12.0 [facility] Determination of erythrocyte mean corpuscular volume (MCV)Ordered By: Dr. Shelley on 08-21-2022 MCV (RBC) [Entitic vol] 91.4 fL 80-94 [facility] Erythrocyte sedimentation ra teOrdered By: Dr. Shelley on 08-21-2022 ESR (Bld) [Velocity] 6 mm/h 0-20 [facility] Hematocrit Auto (Bld) [Volum e fraction]Ordered By: Dr. Shelley on 08-21-2022 Hematocrit (Bld) [Volume fraction] 42.5 % 40-54 [facility] Laboratory - Hematology and Cell countsOrdered By: Dr. Shelley on 08-21-2022 Erythrocyte distribution width (RBC) [Entitic vol] 41.1 fL 35.1-43.9 [facility] Erythrocyte distribution width (RBC) [Ratio] 12.4 % 11.6-14.6 [facility] Immature granulocytes/100 WBC (Bld) 0.400 % 0.0-0.9 [facility] Comment on above: IG% - Immature Granu locytes (promyelocytes, myelocytes and metamyelocytes) > 1% indicates that a LEFT SHIFT is Present. MCH (RBC) [Entitic mass] 31.8 pg 27.0-32.0 [facility] Nucleated RBC/100 WBC (Bld) [Ratio] 0 % 0-5 [facility] MCHC Auto (RBC) [Mass/Vol]Or dered By: Dr. Shelley on 08-21-2022 MCHC (RBC) [Mass/Vol] 34.8 g/dL 32-36 [facility] Platelets bldOrdered By: Dr. Shelley on 08-21-2022 Platelets (Bld) [#/Vol] 226 10*3/uL 150-450 [facility] Serum or plasma C reactive p rotein measurement (mass/volume)Ordered By: Dr. Shelley on 08-21-2022 CRP [Mass/Vol] 4.56 mg/L 0.0-3.0 [facility] Comment on above: C-Reactive Protein ( CRP) provides useful information for thediagnosis, therapy and monitoring of inflammatory processesand associated diseases. For the evaluation of Relative Riskfor Cardiovascular Disease, a High Sensitivity CRP (HSCRP)should be ordered. XR Chest PA and Lateralon IMPRESSION: Stable exam without acute findings. Title Camera Operator: OLGA Transcribe Date/Time: Jul 12 2022 8:23A Dictated by : SAVANNA DALY MD This examination was interpreted and the report reviewed and electronically signed by: SAVANNA DALY MD on Jul 12 2022 8:24AM [facility] DIVISION OF RADIOLOGY * * *Final Report* * * DATE OF EXAM: Jul 10 2022 3:40PM WOX 5291 - XR CHEST 2V FRONTAL/LAT / PROCEDURE REASON: Bronchitis * * * * Physician Interpretation * * * * EXAMINATION: CHEST RADIOGRAPH (2 VIEW FRONTAL & LATERAL) CLINICAL HISTORY: Bronchitis MQ: XC2_6 EXAM DATE/TIME: 07/10/2022 3:40 PM COMPARISON: Chest x-ray on 12/01/2021 RESULT: Lines, tubes, and devices: None. Lungs and pleura: No consolidation. No lung mass. No pleural effusion. No pneumothorax. There is a large left-sided pericardial fat pad. Cardiomediastinal silhouette: Stable cardiac silhouette, with tortuosity of the thoracic aorta. Bones and soft tissues: The spine shows degenerative changes. DIVISION OF RADIOLOGY Provider, [facility] - 07/12/2022 * * *Final Report* * * DATE OF EXAM: Jul 10 2022 3:40PM WOX 5291 - XR CHEST 2V FRONTAL/LAT / PROCEDURE REASON: Bronchitis * * * * Physician Interpretation * * * * EXAMINATION: CHEST RADIOGRAPH (2 VIEW FRONTAL & LATERAL) CLINICAL HISTORY: Bronchitis MQ: XC2_6 EXAM DATE/TIME: 07/10/2022 3:40 PM COMPARISON: Chest x-ray on 12/01/2021 RESULT: Lines, tubes, and devices: None. Lungs and pleura: No consolidation. No lung mass. No pleural effusion. No pneumothorax. There is a large left-sided pericardial fat pad. Cardiomediastinal silhouette: Stable cardiac silhouette, with tortuosity of the thoracic aorta. Bones and soft tissues: The spine shows degenerative changes. IMPRESSION IMPRESSION: Stable exam without acute findings. Title Camera Operator: ASHLYividence Transcribe Date/Time: Jul 12 2022 8:23A Dictated by : SAVANNA DALY MD This examination was interpreted and the report reviewed and electronically signed by: SAVANNA DALY MD on Jul 12 2022 8:24AM EST [facility] XR Chest PA and LateralOrder ed By: Ccf Provider on 07-12-2022 [facility] XR Chest PA and Lateralon Radiology Study observation (narrative) [facility] XR CHEST 2V FRONTAL/LATon [facility] XR Chest PA and Lateralon IMPRESSION: Stable chest. No acute radiographic abnormality. Title Camera Operator: PSCB Transcribe Date/Time: Dec 01 2021 10:55A Dictated by : MARYANNE CRANE MD This examination was interpreted and the report reviewed and electronically signed by: MARYANNE CRANE MD on Dec 01 2021 10:59AM EST [email or web address]_ USE_DIVISIO N OF RADIOLOGY * * *Final Report* * * DATE OF EXAM: Dec 01 2021 9:51AM WOX 5291 - XR CHEST 2V FRONTAL/LAT / PROCEDURE REASON: SOB (shortness of breath) * * * * Physician Interpretation * * * * EXAMINATION: CHEST RADIOGRAPH (2 VIEW FRONTAL & LATERAL) CLINICAL HISTORY: SOB (shortness of breath). MQ: XC2_6 EXAM DATE/TIME: 12/01/2021 9:51 AM COMPARISON: Comparison is made to prior chest dated 12/02/2015.i RESULT: Lines, tubes, and devices: None. Lungs and pleura: There is no focal consolidation or acute pleural process. There is no vascular redistribution to suggest pulmonary edema. Cardiomediastinal silhouette: Unchanged cardiomediastinal silhouette. Bones and soft tissues: No acute process. [facility]_DO_NOT_ USE_DIVISIO N OF RADIOLOGY Provider, Joselo obrien [place] - 12/01/2021 * * *Final Report* * * DATE OF EXAM: Dec 01 2021 9:51AM WOX 5291 - XR CHEST 2V FRONTAL/LAT / PROCEDURE REASON: SOB (shortness of breath) * * * * Physician Interpretation * * * * EXAMINATION: CHEST RADIOGRAPH (2 VIEW FRONTAL & LATERAL) CLINICAL HISTORY: SOB (shortness of breath). MQ: XC2_6 EXAM DATE/TIME: 12/01/2021 9:51 AM COMPARISON: Comparison is made to prior chest dated 12/02/2015.i RESULT: Lines, tubes, and devices: None. Lungs and pleura: There is no focal consolidation or acute pleural process. There is no vascular redistribution to suggest pulmonary edema. Cardiomediastinal silhouette: Unchanged cardiomediastinal silhouette. Bones and soft tissues: No acute process. IMPRESSION IMPRESSION: Stable chest. No acute radiographic abnormality. Title Camera Operator: PSCB Transcribe Date/Time: Dec 01 2021 10:55A Dictated by : MARYANNE CRANE MD This examination was interpreted and the report reviewed and electronically signed by: MARYANNE CRANE MD on Dec 01 2021 10:59AM EST [facility] Radiology Study observation (narrative) [facility] XR Chest PA and LateralOrder ed By: Ccf Provider on 12-01-2021 [facility] Vital Signs Date Time Vital Sign Value Performing Clinician Facility 01-05-2025 09:17-0400 Body mass index (BMI) [Ratio] 32.25 kg/m2 Calvin Stephens MD Work Phone: [facility] 01-05-2025 09:17-0400 Body weight 117.03 kg Calvin Stephens MD Work Phone: [facility] 01-05-2025 09:17-0400 Diastolic blood pressure 62 mm[Hg] Calvin Stephens MD Work Phone: [facility] 01-05-2025 09:17-0400 Heart rate 64 /min Calvin Stephens MD Work Phone: [facility] 01-05-2025 09:17-0400 SaO2% (BldA) [Mass fraction] 95 % Calvin Stephens MD Work Phone: [facility] 01-05-2025 09:17-0400 Systolic blood pressure 110 mm[Hg] Calvin Stephens MD Work Phone: [facility] 10-06-2024 08:05-0400 Body height 190.[address] Calvin Stephens MD Work Phone: [facility] 10-06-2024 08:05-0400 Body mass index (BMI) [Ratio] 31.7 kg/m2 Dr. Calvin Stephens MD Work Phone: [facility] 10-06-2024 08:05-0400 Body weight 115.[address] Calvin Stephens MD Work Phone: [facility] 10-06-2024 08:05-0400 Diastolic blood pressure 80 mm[Hg] Dr. Calvin Stephens MD Work Phone: [facility] 10-06-2024 08:05-0400 Heart rate 68 /min Dr. Calvin Stephens MD Work Phone: [facility] 10-06-2024 08:05-0400 Respiratory rate 18 /min Dr. Calvin Stephens MD Work Phone: [facility] 10-06-2024 08:05-0400 Systolic blood pressure 132 mm[Hg] Dr. Calvin Stephens MD Work Phone: [phone] [place] [address] 09-22-2024 10:41-0500 Heart rate 60 /min Benedict Torres MD Work Phone: [facility] 09-22-2024 10:41-0500 SaO2% (BldA) [Mass fraction] 97 % Benedict Torres MD Work Phone: [facility] 09-22-2024 10:31-0500 Diastolic blood pressure 82 mm[Hg] Benedict Torres MD Work Phone: [facility] 09-22-2024 10:31-0500 Respiratory rate 16 /min Benedict Torres MD Work Phone: [facility] 09-22-2024 10:31-0500 Systolic blood pressure 129 mm[Hg] Benedict Torres MD Work Phone: [facility] 08-31-2024 08:37-0500 Body mass index (BMI) [Ratio] 31.16 kg/m2 Toña Callow [employer] MACHINE OPERATOR Work Phone: [facility] 08-31-2024 08:37-0500 Body temperature 96.8 [degF] Toña Callow [employer]ING MACHINE OPERATOR Work Phone: [facility] 08-31-2024 08:37-0500 Body weight 113.07 kg Toña Callow [employer]ING MACHINE OPERATOR Work Phone: [facility] 08-31-2024 08:37-0500 Diastolic blood pressure 82 mm[Hg] Toña Callow [employer]ING MACHINE OPERATOR Work Phone: [facility] 08-31-2024 08:37-0500 Heart rate 70 /min Toña Callow [employer]ING MACHINE OPERATOR Work Phone: [facility] 08-31-2024 08:37-0500 Respiratory rate 18 /min Toña Callow [employer]ING MACHINE OPERATOR Work Phone: [facility] 08-31-2024 08:37-0500 SaO2% (BldA) [Mass fraction] 97 % Toña Callow [employer].CORING MACHINE OPERATOR Work Phone: [facility] 08-31-2024 08:37-0500 Systolic blood pressure 140 mm[Hg] Toña Best [employer].CORING MACHINE OPERATOR Work Phone: [facility] 08-18-2024 08:49-0500 Body height 190.5 cm Calvin Stephens MD Work Phone: [facility] 08-18-2024 08:49-0500 Body mass index (BMI) [Ratio] 31.75 kg/m2 Calvin Stephens MD Work Phone: [facility] 08-18-2024 08:49-0500 Body weight 115.21 kg Calvin Stephens MD Work Phone: [facility] 08-18-2024 08:49-0500 Diastolic blood pressure 73 mm[Hg] Calvin Stephens MD Work Phone: [facility] 08-18-2024 08:49-0500 Heart rate 69 /min Calvin Stephens MD Work Phone: [facility] 08-18-2024 08:49-0500 Systolic blood pressure 133 mm[Hg] Calvin Stephens MD Work Phone: [facility] 08-11-2024 09:06-0500 Body height 190.5 cm Latonia Baldev [employer]ING MACHINE OPERATOR Work Phone: [facility] 08-11-2024 09:06-0500 Body mass index (BMI) [Ratio] 31.62 kg/m2 Latonia Baldev [employer]ING MACHINE OPERATOR Work Phone: [facility] 08-11-2024 09:06-0500 Body temperature 97.3 [degF] Latonia Baldev [employer]ING MACHINE OPERATOR Work Phone: [facility] 08-11-2024 09:06-0500 Body weight 114.76 kg Latonia Baldev [employer]ING MACHINE OPERATOR Work Phone: [facility] 08-11-2024 09:06-0500 Diastolic blood pressure 82 mm[Hg] Latonia Baldev [employer]ING MACHINE OPERATOR Work Phone: [facility] 08-11-2024 09:06-0500 Heart rate 75 /min Latonia Baldev [employer].CORING MACHINE OPERATOR Work Phone: [facility] 08-11-2024 09:06-0500 SaO2% (BldA) [Mass fraction] 96 % Latonia Fontaine [employer].CORING MACHINE OPERATOR Work Phone: [facility] 08-11-2024 09:06-0500 Systolic blood pressure 146 mm[Hg] Latonia Fontaine [employer].CORING MACHINE OPERATOR Work Phone: [facility] 08-05-2024 10:46-0500 Body mass index (BMI) [Ratio] 31.6 kg/m2 Dr. Calvin Stephens MD Work Phone: [facility] 08-05-2024 10:46-0500 Body weight 114.[address] Calvin Stephens MD Work Phone: [facility] 08-05-2024 10:46-0500 Diastolic blood pressure 80 mm[Hg] Dr. Calvin Stephens MD Work Phone: [facility] 08-05-2024 10:46-0500 Heart rate 68 /min Dr. Calvin Stephens MD Work Phone: [facility] 08-05-2024 10:46-0500 Respiratory rate 18 /min Dr. Calvin Stephens MD Work Phone: [facility] 08-05-2024 10:46-0500 SaO2% (BldA) [Mass fraction] 97 % Dr. Calvin Stephens MD Work Phone: [facility] 08-05-2024 10:46-0500 Systolic blood pressure 137 mm[Hg] Dr. Calvin Stephens MD Work Phone: [facility] 08-04-2024 08:42-0500 Body mass index (BMI) [Ratio] 31.87 kg/m2 Calvin Stephens MD Work Phone: [facility] 08-04-2024 08:42-0500 Body weight 115.67 kg Calvin Stephens MD Work Phone: [facility] 08-04-2024 08:42-0500 Diastolic blood pressure 72 mm[Hg] Calvin Stephens MD Work Phone: [facility] 08-04-2024 08:42-0500 Heart rate 67 /min Calvin Stephens MD Work Phone: [facility] 08-04-2024 08:42-0500 SaO2% (BldA) [Mass fraction] 94 % Calvin Stephens MD Work Phone: [facility] 08-04-2024 08:42-0500 Systolic blood pressure 136 mm[Hg] Calvin Stephens MD Work Phone: [facility] 07-04-2024 15:45-0500 Body height 190.5 cm Calvin Stephens MD Work Phone: [facility] 07-04-2024 15:45-0500 Body mass index (BMI) [Ratio] 31.37 kg/m2 Calvin Stephens MD Work Phone: [facility] 07-04-2024 15:45-0500 Body weight 113.85 kg Calvin Stephens MD Work Phone: [facility] 07-04-2024 15:45-0500 Diastolic blood pressure 66 mm[Hg] Calvin tSephens MD Work Phone: [facility] 07-04-2024 15:45-0500 Heart rate 74 /min Calvin Stephens MD Work Phone: [facility] Comment on above: irregular 07-04-2024 15:45-0500 SaO2% (BldA) [Mass fraction] 99 % Calvin Stephens MD Work Phone: [facility] 07-04-2024 15:45-0500 Systolic blood pressure 140 mm[Hg] Calvin Stephens MD Work Phone: [facility] 04-07-2024 07:11-0400 Body mass index (BMI) [Ratio] 30.04 kg/m2 Jesús JIMÉNEZ Work Phone: [facility] 04-07-2024 07:11-0400 Body temperature 96.91 [degF] Jesús JIMÉNEZ Work Phone: [facility] 04-07-2024 07:11-0400 Body weight 109 kg Krislyn Aberegg PA Work Phone: [facility] 04-07-2024 07:11-0400 Diastolic blood pressure 84 mm[Hg] Krislyn Aberegg PA Work Phone: [facility] 04-07-2024 07:11-0400 Heart rate 76 /min Krislyn Aberegg PA Work Phone: [facility] 04-07-2024 07:11-0400 Respiratory rate 16 /min Krislyn Aberegg PA Work Phone: [facility] 04-07-2024 07:11-0400 SaO2% (BldA) [Mass fraction] 96 % Krislyn Aberegg PA Work Phone: [facility] 04-07-2024 07:11-0400 Systolic blood pressure 142 mm[Hg] Krislyn Aberegg PA Work Phone: [facility] 01-02-2024 16:12-0400 Body height 190.5 cm Calvin Stephens MD Work Phone: [facility] 01-02-2024 16:12-0400 Body mass index (BMI) [Ratio] 28.5 kg/m2 Calvin Stephens MD Work Phone: [facility] 01-02-2024 16:12-0400 Body weight 103.42 kg Calvin Stephens MD Work Phone: [facility] 01-02-2024 16:12-0400 Diastolic blood pressure 74 mm[Hg] Calvin Stephens MD Work Phone: [facility] 01-02-2024 16:12-0400 Heart rate 67 /min Calvin Stephens MD Work Phone: [facility] 01-02-2024 16:12-0400 SaO2% (BldA) [Mass fraction] 99 % Calvin Stephens MD Work Phone: [facility] 01-02-2024 16:12-0400 Systolic blood pressure 120 mm[Hg] Calvin Stephens MD Work Phone: [facility] 12-04-2023 16:12-0400 Body height 190.5 cm Calvin Stephens MD Work Phone: [facility] 12-04-2023 16:12-0400 Body mass index (BMI) [Ratio] 28.5 kg/m2 Calvin Stephens MD Work Phone: [facility] 12-04-2023 16:12-0400 Body weight 103.42 kg Calvin Stephens MD Work Phone: [facility] 12-04-2023 16:12-0400 Diastolic blood pressure 86 mm[Hg] Calvin Stephens MD Work Phone: [facility] 12-04-2023 16:12-0400 Heart rate 50 /min Calvin Stephens MD Work Phone: [facility] 12-04-2023 16:12-0400 SaO2% (BldA) [Mass fraction] 99 % Calvin Stephens MD Work Phone: [facility] 12-04-2023 16:12-0400 Systolic blood pressure 184 mm[Hg] Calvin Stephens MD Work Phone: [facility] 09-04-2023 16:20-0500 Diastolic blood pressure 80 mm[Hg] Noreen Suppan [employer].ASSOC[employer]ATE [employer] Work Phone: [facility] 09-04-2023 16:20-0500 Heart rate 55 /min Noreen Suppan [employer].ASSOC[employer]ATE [employer] Work Phone: [facility] 09-04-2023 16:20-0500 Systolic blood pressure 161 mm[Hg] Noreen Suppan [employer].ASSOC[employer]ATE [employer] Work Phone: [facility] 09-04-2023 16:10-0500 Body weight 101.61 kg Noreen Suppan [employer].ASSOC[employer]ATE [employer] Work Phone: [facility] 09-04-2023 16:10-0500 Respiratory rate 16 /min Noreen Suppan [employer].ASSOC[employer]ATE [employer] Work Phone: [facility] 09-04-2023 16:10-0500 SaO2% (BldA) [Mass fraction] 97 % Noreen Rush [employer].ASSOC[employer]ATE [employer] Work Phone: [facility] 05-22-2023 15:50-0400 Body weight 100.61 kg 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 Work Phone: [facility] 05-22-2023 15:50-0400 Diastolic blood pressure 82 mm[Hg] 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 Work Phone: [facility] 05-22-2023 15:50-0400 Heart rate 52 /min 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 Work Phone: [facility] 05-22-2023 15:50-0400 Respiratory rate 16 /min 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 Work Phone: [facility] 05-22-2023 15:50-0400 SaO2% (BldA) [Mass fraction] 97 % 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 Work Phone: [facility] 05-22-2023 15:50-0400 Systolic blood pressure 136 mm[Hg] 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 Work Phone: [facility] 05-08-2023 15:36-0400 Diastolic blood pressure 70 mm[Hg] Dr. Calvin Stephens Work Phone: [facility] 05-08-2023 15:36-0400 Systolic blood pressure 120 mm[Hg] Dr. Calvin Stephens Work Phone: [facility] 05-08-2023 08:38-0400 Body height 191.[address] Calvin Stephens Work Phone: [phone] [place] [address] 05-08-2023 08:38-0400 Body mass index (BMI) [Ratio] 27.8 kg/m2 Dr. Calvin Stephens Work Phone: 2(017)[phone] [place] [address] 05-08-2023 08:38-0400 Body weight 101.[address] Calvin Stephens Work Phone: 3(360)[phone] [place] [address] 05-08-2023 08:38-0400 Heart rate 54 /min Dr. Calvin Stephens Work Phone: [facility] 05-08-2023 08:38-0400 Respiratory rate 16 /min Dr. Calvin Stephens Work Phone: [facility] 05-04-2023 16:46-0400 Diastolic blood pressure 76 mm[Hg] Calvin Stephens MD Work Phone: [facility] 05-04-2023 16:46-0400 Systolic blood pressure 144 mm[Hg] Calvin Stephens MD Work Phone: [facility] 05-04-2023 16:27-0400 Body weight 102.51 kg Calvin Stephens MD Work Phone: [facility] 05-04-2023 16:27-0400 Heart rate 60 /min Calvin Stephens MD Work Phone: [facility] 03-22-2023 16:31-0400 Body height 185.4 cm Calvin Stephens MD Work Phone: [facility] 03-22-2023 16:31-0400 Body weight 107.05 kg Calvin Stephens MD Work Phone: [facility] 03-22-2023 16:31-0400 Diastolic blood pressure 74 mm[Hg] Calvin Stephens MD Work Phone: [facility] 03-22-2023 16:31-0400 Heart rate 51 /min Calvin Stephens MD Work Phone: [facility] 03-22-2023 16:31-0400 Systolic blood pressure 158 mm[Hg] Calvin Stephens MD Work Phone: [facility] 02-23-2023 14:58-0400 Diastolic blood pressure 86 mm[Hg] Calvin Stephens MD Work Phone: [facility] 02-23-2023 14:58-0400 Systolic blood pressure 139 mm[Hg] Calvin Stephens MD Work Phone: [facility] 02-23-2023 14:55-0400 Heart rate 64 /min Calvin Stephens MD Work Phone: [facility] 02-23-2023 14:39-0400 Body weight 114.31 kg Calvin Stephens MD Work Phone: [facility] 02-23-2023 14:39-0400 SaO2% (BldA) [Mass fraction] 97 % Calvin Stephens MD Work Phone: [facility] 02-20-2023 13:12-0400 Body temperature 97.5 [degF] Dr. Calvin Stephens Work Phone: [facility] 02-20-2023 13:12-0400 Diastolic blood pressure 74 mm[Hg] Dr. Calvin Stephens Work Phone: 9(032)941-583921 [place] [address] 02-20-2023 13:12-0400 Heart rate 72 /min Dr. Calvin Stephens Work Phone: 1(857)185-766021 [place] [address] 02-20-2023 13:12-0400 Respiratory rate 18 /min Dr. Calvin Stephens Work Phone: [facility] 02-20-2023 13:12-0400 SaO2% (BldA) [Mass fraction] 92 % Dr. Calvin Stephens Work Phone: 6(677)[phone] [place] [address] 02-20-2023 13:12-0400 Systolic blood pressure 122 mm[Hg] Dr. Calvin Stephens Work Phone: 7(631)837-892721 [place] [address] 02-20-2023 05:05-0400 Body mass index (BMI) [Ratio] 32.1 kg/m2 Dr. Calvin Stephens Work Phone: [facility] 02-20-2023 05:05-0400 Body weight [address] Calvin Stephens Work Phone: 3(919)[phone] [place] [address] 02-19-2023 09:06-0400 Body height 191.[address] Calvin Stephens Work Phone: 0(098)823-416520 [place] [address] 02-18-2023 17:46-0400 Inhaled oxygen flow rate 3 L/min Dr. Calvin Stephens Work Phone: 5(230)[phone] [place] [address] 02-18-2023 15:44-0400 Body temperature 97.6 [degF] [facility] 02-18-2023 15:44-0400 Diastolic blood pressure 99 mm[Hg] [facility] 02-18-2023 15:44-0400 Heart rate 76 /min [facility] 02-18-2023 15:44-0400 Inhaled oxygen flow rate 3 L/min [facility] 02-18-2023 15:44-0400 Respiratory rate 16 /min [facility] 02-18-2023 15:44-0400 SaO2% (BldA) [Mass fraction] 100 % [facility] 02-18-2023 15:44-0400 Systolic blood pressure 169 mm[Hg] [facility] 02-18-2023 15:05-0400 Body mass index (BMI) [Ratio] 31.8 kg/m2 [facility] 02-18-2023 15:05-0400 Body weight 115.7 kg [facility] 02-18-2023 15:03-0400 Body height 190.5 cm [facility] 08-15-2022 17:40-0500 Diastolic blood pressure 72 mm[Hg] 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 Work Phone: [facility] 08-15-2022 17:40-0500 Systolic blood pressure 132 mm[Hg] 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 Work Phone: [facility] 08-15-2022 15:51-0500 Body weight 113.4 kg 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 Work Phone: [facility] 08-15-2022 15:51-0500 Heart rate 71 /min 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 Work Phone: [facility] 08-15-2022 15:51-0500 Respiratory rate 18 /min 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 Work Phone: [facility] 08-15-2022 15:51-0500 SaO2% (BldA) [Mass fraction] 97 % Leatha Howellagen [employer] VOLLEYBALL COACH.CORING MACHINE OPERATOR Work Phone: [facility] 07-27-2022 08:17-0500 Diastolic blood pressure 81 mm[Hg] 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 Work Phone: [facility] 07-27-2022 08:17-0500 Heart rate 60 /min Leatha Zaragoza [employer] VOLLEYBALL COACH.CORING MACHINE OPERATOR Work Phone: [facility] 07-27-2022 08:17-0500 Systolic blood pressure 133 mm[Hg] 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 Work Phone: [facility] 07-27-2022 08:13-0500 Body weight 114.31 kg Leatha Dantekaren [employer] VOLLEYBALL COACH.CORING MACHINE OPERATOR Work Phone: [facility] 07-27-2022 08:13-0500 Respiratory rate 18 /min Leatha Zaragoza [employer] VOLLEYBALL COACH.CORING MACHINE OPERATOR Work Phone: [facility] 07-27-2022 08:13-0500 SaO2% (BldA) [Mass fraction] 94 % Leatha Zaragoza [employer] VOLLEYBALL COACH.CORING MACHINE OPERATOR Work Phone: [facility] 07-10-2022 14:56-0500 Body weight 115.21 kg Calvin Stephens MD Work Phone: [facility] 07-10-2022 14:56-0500 Diastolic blood pressure 72 mm[Hg] Calvin Stephens MD Work Phone: [facility] 07-10-2022 14:56-0500 Heart rate 83 /min Calvin Stephens MD Work Phone: [facility] 07-10-2022 14:56-0500 SaO2% (BldA) [Mass fraction] 97 % Calvin Stephens MD Work Phone: [facility] 07-10-2022 14:56-0500 Systolic blood pressure 158 mm[Hg] Calvin Stephens MD Work Phone: [facility] 06-29-2022 16:57-0500 Diastolic blood pressure 82 mm[Hg] Nannette Skelton PA-C Work Phone: [facility] 06-29-2022 16:57-0500 Systolic blood pressure 162 mm[Hg] Nannette Denbow PA-C Work Phone: [facility] 06-29-2022 16:38-0500 Body temperature 97.9 [degF] Nannette Denbow PA-C Work Phone: [facility] 06-29-2022 16:38-0500 Body weight 117.39 kg Nnanette Denbow PA-C Work Phone: [facility] 06-29-2022 16:38-0500 Heart rate 83 /min Nannette Denbow PA-C Work Phone: [facility] 06-29-2022 16:38-0500 Respiratory rate 20 /min Nannette Denbow PA-C Work Phone: [facility] 06-29-2022 16:38-0500 SaO2% (BldA) [Mass fraction] 94 % Nannette Denbow PA-C Work Phone: [facility] 05-30-2022 16:43-0500 Body height 185.4 cm Calvin Stephens MD Work Phone: [facility] 05-30-2022 16:43-0500 Body weight 113.85 kg Calvin Stephens MD Work Phone: [facility] 05-30-2022 16:43-0500 Diastolic blood pressure 88 mm[Hg] Calvin Stephens MD Work Phone: [facility] 05-30-2022 16:43-0500 Heart rate 54 /min Calvin Stephens MD Work Phone: [facility] 05-30-2022 16:43-0500 SaO2% (BldA) [Mass fraction] 99 % Calvin Stephens MD Work Phone: [facility] 05-30-2022 16:43-0500 Systolic blood pressure 146 mm[Hg] Calvin Stephens MD Work Phone: [facility] 12-15-2021 16:40-0400 Body weight 111.13 kg Calvin Stephens MD Work Phone: [facility] 12-15-2021 16:40-0400 Diastolic blood pressure 82 mm[Hg] Calvin Stephens MD Work Phone: [facility] 12-15-2021 16:40-0400 Heart rate 64 /min Calvin Stephens MD Work Phone: [facility] 12-15-2021 16:40-0400 Systolic blood pressure 132 mm[Hg] Calvin Stephens MD Work Phone: [facility] 12-01-2021 08:20-0400 Body weight 113.85 kg Calvin Stephens MD Work Phone: [facility] 12-01-2021 08:20-0400 Diastolic blood pressure 82 mm[Hg] Calvin Stephens MD Work Phone: [facility] 12-01-2021 08:20-0400 Heart rate 67 /min Calvin Stephens MD Work Phone: [facility] 12-01-2021 08:20-0400 SaO2% (BldA) [Mass fraction] 98 % Calvin Stephens MD Work Phone: [facility] 12-01-2021 08:20-0400 Systolic blood pressure 132 mm[Hg] Calvin Stephens MD Work Phone: [facility] 11-18-2021 16:00-0400 Body weight 115.21 kg Calvin Stephens MD Work Phone: [facility] 11-18-2021 16:00-0400 Diastolic blood pressure 88 mm[Hg] Calvin Stephens MD Work Phone: [facility] 11-18-2021 16:00-0400 Heart rate 72 /min Calvin Stephens MD Work Phone: [facility] 11-18-2021 16:00-0400 Systolic blood pressure 138 mm[Hg] Calvin Stephens MD Work Phone: [facility] Encounters Encounter Date Encounter Type Care Provider Facility Start: 01-19-2025 End: 01-19-2025 ambulatory CALVIN STEPHENS Facility:[facility] Start: 01-09-2025 End: 01-09-2025 Refill Calvin Stephens MD Work Phone: [facility] Comment on above: Refill Request Start: 01-05-2025 End: 01-05-2025 Patient encounter procedure Calvin Stephens MD Work Phone: [facility] Comment on above: 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 (Primary Dx); Essential hypertension, benign; Aortic dilatation; Mixed hyperlipidemia; History of skin cancer; Benign prostatic hyperplasia without lower urinary tract symptoms; Iliac artery aneurysm, right; Encounter for screening examination for other mental health and behavioral disorders; Screening for depression Start: 01-05-2025 End: 01-05-2025 ambulatory CALVIN STEPHENS Facility:[facility] Start: 12-25-2024 End: 12-25-2024 Refill Calvin Stephens MD Work Phone: [facility] Comment on above: Refill Request Start: 11-24-2024 Non-patient / Non-visit Dr. Viktor hallman MD -[facility] Start: 11-24-2024 End: 11-24-[address] Calvin Stephens MD Work Phone: [facility] Work Phone: Start: 11-24-2024 End: 11-24-[address] Viktor Rutledge MD -Cardiovascular Services Work Phone: Start: 11-24-2024 End: 11-24-2024 ambulatory Viktor Aamir Facility:[facility] Start: 10-06-2024 End: 10-06-[address] Viktor Rutledge MD -[facility] Work Phone: Start: 10-06-2024 End: 10-06-[address] Calvin Stephens MD Work Phone: [facility] Work Phone: Start: 10-06-2024 End: 10-06-2024 ambulatory Viktor Rutledge Facility:[facility] Start: 10-02-2024 End: 10-03-2024 Refill Calvin Stephens MD Work Phone: [facility] [place] Comment on above: Refill Request Start: 09-24-2024 End: 11-24-2024 Follow-up encounter Latonia Fontaine APRN.CORING MACHINE OPERATOR Work Phone: General Surgery Start: 09-22-2024 End: 09-22-2024 ambulatory BENEDICT TORRES Facility:[facility] Start: 09-22-2024 End: 09-22-2024 Subsequent hospital visit by physician Benedict Torres MD Work Phone: Ambulatory Surgery Comment on above: History of colonic p olyps [Z86.0100] Start: 09-04-2024 End: 09-17-2024 Telephone encounter Latonia Fontaine APRN.CORING MACHINE OPERATOR Work Phone: General Surgery Comment on above: surgical clearance Start: 08-31-2024 End: 08-31-2024 ambulatory TOÑA BEST Facility:[facility] Start: 08-31-2024 End: 08-31-2024 Patient encounter procedure Toña Best APRN.CORING MACHINE OPERATOR Work Phone: [facility] Comment on above: Bronchitis (Primary Dx); Bacterial sinusitis Start: 08-18-2024 Non-patient / Non-visit Dr. Viktor hallman MD -[facility] Start: 08-18-2024 End: 08-18-2024 ambulatory Mady JIMÉNEZ Facility:[facility] Start: 08-18-2024 End: 08-18-2024 Patient encounter procedure Calvin Stephens MD Work Phone: [facility] Comment on above: SOB (shortness of br eath) (Primary Dx); SVT (supraventricular tachycardia) (HCC); Aortic dilatation (HCC); 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; Essential hypertension, benign Start: 08-15-2024 ambulatory Mady JIMÉNEZ Facility:[facility] Start: 08-15-2024 Non-patient / Non-visit Dr. Jess MORALES -[facility] Work Phone: Start: 08-15-2024 End: 08-15-2024 Patient encounter procedure Mady JIMÉNEZ -Cardiovascular Services Work Phone: Start: 08-15-2024 End: 08-15-2024 ambulatory Mady JIMÉNEZ Facility:[facility] Start: 08-15-2024 Non-patient / Non-visit Dr. Viktor hallmna MD -[facility] Start: 08-11-2024 End: 08-11-2024 ambulatory LATONIA FONTAINE Facility:[facility] Start: 08-11-2024 End: 08-11-2024 Patient encounter procedure Latonia Fontaine JOSHUA Work Phone: General Surgery Comment on above: Screen for colon can cer (Primary Dx); History of colonic polyps Start: 08-05-2024 End: 08-05-2024 Patient encounter procedure Mady JIMÉNEZ -[facility] Work Phone: Start: 08-05-2024 End: 08-05-2024 ambulatory Mady JIMÉNEZ Facility:[facility] Start: 08-04-2024 End: 08-04-2024 Subsequent hospital visit by physician [facility] Work Phone: Radiology Comment on above: SOB (shortness of br eath) [R06.02] Start: 08-04-2024 End: 08-04-2024 ambulatory CALVIN STEPHENS Facility:[facility] Start: 08-04-2024 End: 08-04-2024 Patient encounter procedure Calvin Stephens MD Work Phone: [facility] Comment on above: SOB (shortness of br eath) (Primary Dx); Essential hypertension, benign; Mixed hyperlipidemia; Aortic dilatation (HCC); 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; SVT (supraventricular tachycardia) (HCC); Edema, unspecified type Start: 08-04-2024 End: 08-04-2024 ambulatory CALVIN STEPHENS Facility:[facility] Start: 07-04-2024 End: 07-04-2024 ambulatory CALVIN STEPHENS Facility:[facility] Start: 07-04-2024 End: 07-04-2024 Patient encounter procedure Calvin Stephens MD Work Phone: [facility] Comment on above: Medicare annual well ness visit, subsequent (Primary Dx); Need for vaccination; History of colonic polyps; Screening for prostate cancer; Mixed hyperlipidemia; Essential hypertension, benign Start: 04-07-2024 End: 04-07-2024 ambulatory CALVIN STEPHENS Facility:[facility] Start: 04-07-2024 End: 04-07-2024 Patient encounter procedure Jesús JIMÉNEZ Work Phone: [facility] Comment on above: Sinobronchitis (Prim kimberly Dx) Start: 04-02-2024 End: 04-02-2024 Chart abstracting Calvin Stephens MD Work Phone: [facility] Start: 04-01-2024 End: 04-01-2024 [facility] Facility[facility] Start: 04-01-2024 End: 04-01-2024 ambulatory [facility] Facility:[facility] Start: 03-21-2024 End: 03-21-2024 Refill Calvin Stephens MD Work Phone: [facility] Comment on above: Refill Request Start: 02-08-2024 ambulatory Michael Diop [facility] Start: 02-08-2024 Patient encounter procedure Michael Diop [facility] Comment on above: Population Health Na vigation Outreach ([place]) Start: 01-30-2024 End: 01-30-2024 ambulatory Vincent Garcia [employer] Facility:[facility] Start: 01-15-2024 End: 01-15-2024 ambulatory Vincent Garcia FACE CLEANER Facility:[facility] Start: 01-02-2024 End: 01-02-2024 Patient encounter procedure Calvin Stephens MD Work Phone: [facility] Comment on above: Essential hypertensi on, benign (Primary Dx); Aortic dilatation (HCC); 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; SVT (supraventricular tachycardia) (HCC); Hypokalemia Start: 12-26-2023 Refill Calvin Stephens MD Work Phone: [facility] Comment on above: Refill Request Start: 12-07-2023 End: 12-07-2023 ambulatory Vincent Nicolás Jose COBIAN Facility:[facility] Start: 12-04-2023 End: 12-04-2023 Patient encounter procedure Calvin Stephens MD Work Phone: [facility] Comment on above: Essential hypertensi on, benign (Primary Dx); Mixed hyperlipidemia; Aortic dilatation (HCC); 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; Benign prostatic hyperplasia without lower urinary tract symptoms Start: 11-29-2023 Refill Calvin Stephens MD Work Phone: [facility] Comment on above: Refill Request Start: 11-25-2023 Refill Noreen A S uppan [employer] VOLLEYBALL COACH.ASSOCIATE [employer] Work Phone: [facility] Comment on above: Refill Request Start: 10-10-2023 ambulatory Mirian Leenikunjshannan [facility] Start: 10-10-2023 Patient encounter procedure Mirian Amadoshannan [facility] Comment on above: Population Health Na vigation Outreach ([place] [facility] ) Start: 09-05-2023 ambulatory Noreen A S uppan [employer] VOLLEYBALL COACH.ASSOCIATE [employer] Work Phone: [facility] Comment on above: [facility] Start: 09-04-2023 End: 09-04-2023 Office outpatient visit 15 minutes Noreen A Suppan [employer] VOLLEYBALL COACH.ASSOCIATE [employer] Work Phone: [facility] Comment on above: Essential hypertensi on, benign (Primary Dx); Dysuria Start: 09-03-2023 ambulatory Calvin Stephens MD Work Phone: [facility] Comment on above: Hypertension Start: 08-09-2023 End: 08-09-[address] Calvin Stephens Work Phone: [facility] Work Phone: Start: 08-09-2023 End: 08-09-[address] Calvin Stephens Work Phone: [facility] Work Phone: Start: 05-22-2023 End: 05-22-2023 Office outpatient visit 15 minutes Leatha Zaragoza APRN.CNP Work Phone: [facility] Comment on above: Essential hypertensi on, benign (Primary Dx) Start: 05-08-2023 End: 05-08-[address] 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 (Primary Dx); Encounter for immunization; Aortic dilatation (HCC); Essential hypertension, benign Start: 04-04-2023 Refill Calvin Stephens MD Work Phone: [facility] Comment on above: Refill Request Start: 03-22-2023 End: 03-22-2023 Patient encounter procedure Calvin Stephens MD Work Phone: [facility] Comment on above: Essential hypertensi on, benign (Primary Dx); Mixed hyperlipidemia; Aortic dilatation (HCC); 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 Jessica Stephens Work Phone: [facility] Work Phone: Start: 02-20-2023 Non-patient / Non-visit Dr. Jessica Stephens Work Phone: [facility] Start: 02-19-2023 Non-patient / Non-visit Dr. Jessica Stephens Work Phone: [facility] Work Phone: Start: 02-19-2023 Non-patient / Non-visit Dr. Jessica Stephens Work Phone: [facility] Start: 02-18-2023 Non-patient / Non-visit Dr. Jessica Stephens Work Phone: [facility] Start: 02-18-2023 End: 02-20-2023 Evaluation and management of inpatient [facility] Work Phone: Start: 12-01-2022 Refill Calvin Stephens MD Work Phone: [facility] Comment on above: Refill Request Start: 08-21-2022 End: 08-21-2022 ambulatory [facility] Work Phone: Start: 08-21-2022 End: 08-21-2022 Patient encounter procedure [facility] Start: 08-15-2022 End: 08-15-2022 Patient encounter procedure Leatha Zaragoza APRN.CORING MACHINE OPERATOR Work Phone: [facility] Comment on above: Essential hypertensi on, benign (Primary Dx); Mixed hyperlipidemia; Bilateral swelling of feet; Skin lesion; Aortic dilatation (HCC) Start: 08-04-2022 Telephone encounter Leatha jones APRN.CORING MACHINE OPERATOR Work Phone: [facility] Comment on above: Results Start: 07-27-2022 End: 07-27-2022 Office outpatient visit 15 minutes Leatha Zaragoza APRN.CORING MACHINE OPERATOR Work Phone: [facility] Comment on above: Bilateral swelling o f feet (Primary Dx); Essential hypertension, benign Start: 07-25-2022 ambulatory Calvin Stephens MD Work Phone: [facility] Comment on above: feet swelling Start: 07-24-2022 ambulatory Calvin Stephens MD Work Phone: [facility] Comment on above: SWELLING FEET Start: 07-10-2022 End: 07-10-2022 Subsequent hospital visit by physician Xr [facility] Work Phone: Radiology Comment on above: Bronchitis [J40] Start: 07-10-2022 End: 07-10-2022 Patient encounter procedure Calvin Stephens MD Work Phone: [facility] Comment on above: Essential hypertensi on, benign (Primary Dx); Bronchitis Start: 07-03-2022 Telephone encounter M Flo Steven PA-C Work Phone: [facility] Comment on above: Blood Pressure Check ; High blood pressure Start: 06-29-2022 End: 06-29-2022 Patient encounter procedure Nannette ALBRIGHTC Work Phone: [facility] Comment on above: Flu-like symptoms (P rimary Dx); Acute cough; SOB (shortness of breath); Hypertension, essential Start: 05-30-2022 End: 05-30-2022 Patient encounter procedure Calvin Stephens MD Work Phone: [facility] Comment on above: Arthralgia, unspecif ied joint (Primary Dx); Essential hypertension, benign; Mixed hyperlipidemia; Benign prostatic hyperplasia without lower urinary tract symptoms; Screening for prostate cancer Start: 12-15-2021 End: 12-15-2021 Patient encounter procedure Calvin Stephens MD Work Phone: [facility] Comment on above: Wheezing (Primary Dx ); SOB (shortness of breath); Essential hypertension, benign Start: 12-01-2021 End: 12-01-2021 Subsequent hospital visit by physician Xr [facility] [place] Work Phone: Radiology Comment on above: ov Start: 12-01-2021 End: 12-01-2021 Patient encounter procedure Calvin Stephens MD Work Phone: [facility] Comment on above: SOB (shortness of br eath) (Primary Dx); Essential hypertension, benign; Mixed hyperlipidemia; Hypokalemia Start: 11-18-2021 End: 11-18-2021 Patient encounter procedure Calvin Stephens MD Work Phone: [facility] [place] Comment on above: Essential hypertensi on, benign; Hypokalemia; History of skin cancer Start: 11-18-2021 Refill Calvin Stephens MD Work Phone: [facility] [place] Comment on above: Refill Request Procedures Date Procedure Procedure Detail Performing Clinician Start: 01-05-2025 Adult depression scr eening assessment Calvin Stephens MD Work Phone: Start: 09-22-2024 Colonoscopy flx dx w /collj spec when pfrmd Latoniaashley Fontaine [employer] COACH.CORING MACHINE OPERATOR Work Phone: Start: 09-22-2024 Colonoscopy Benedict stewart MD Work Phone: Start: 08-15-2024 Radionuclide imaging of perfusion of myocardium under exercise stress Dr. Calvin Stephens MD Work Phone: Start: 08-04-2024 Radiologic exam ches t 2 views Calvin Stephens MD Work Phone: Start: 08-04-2024 Ecg routine ecg w/le ast 12 lds i&r only Calvin Stephens MD Work Phone: Start: 07-04-2024 [employer] COVI D-19 VACCINE AGE 12+ YR (COMIRNATY) Calvin Stephens MD Work Phone: Start: 04-01-2024 Lipid panel [facility] Prov[facility] Start: 04-01-2024 Lipid 1996 panel - S tamir or Plasma Calvin Stephens MD Work Phone: Start: 12-27-2023 Lipid 1996 panel - S tamir or Plasma Calvin Stephens MD Work Phone: Start: 12-04-2023 Adult depression scr eening assessment Calvin Stephens MD Work Phone: Start: 05-22-2023 Lipid 1996 panel - S tamir or Plasma Calvin Stephens MD Work Phone: Start: 05-04-2023 INFLUENZA VACCINE, P RSV FREE, AGE 65+ YR, HIGH DOSE, QUADRIVALENT (FLUZONE HIGH-DOSE) Calvin Stephens MD Work Phone: Start: 02-18-2023 Plain chest X-ray Start: 08-21-2022 Lipid 1996 panel - S tamir or Plasma Calvin Stephens MD Work Phone: Start: 07-10-2022 Radiologic exam ches t 2 views Calvin Stephens MD Work Phone: Start: 12-01-2021 Radiologic exam ches t 2 views Calvin Stephens MD Work Phone: Start: 11-18-2021 Adult depression scr eening assessment Calvin Stephens MD Work Phone: Start: 04-03-2018 Colonoscopy Calvin Liu MD Work Phone: Plan of Treatment Date Care Activity Detail Author Start: 09-22-2029 Screening for malign ant neoplasm of colon [facility] Start: 04-01-2029 Lipid panel Lipid Screening [facility] Start: 12-26-2028 Lipid panel Lipid Screening [facility] Start: 05-22-2028 Lipid panel Lipid Screening [facility] Start: 08-21-2027 Lipid 1996 panel - S tamir or Plasma Lipid Screening [facility] Start: 08-21-2027 LIPID SCREEN LIPID SCREEN [facility] Start: 08-04-2027 Diabetes Screening [facility] Start: 12-26-2026 Diabetes Screening [facility] Start: 11-30-2026 LIPID SCREEN LIPID SCREEN [facility] Start: 05-22-2026 Diabetes Screening Diabetes Screenin g [facility] Start: 02-27-2026 DIABETES SCREEN DIABETES SCREEN [facility] Start: 02-27-2026 Diabetes Screening Diabetes Screenin g [facility] Start: 01-05-2026 Annual PCP Team Manual Lathe Machinist faye Disease Visit Annual PCP Team Chronic Disease Visit [facility] Start: 01-05-2026 Anxiety Screening Anxiety Screening [facility] Start: 01-05-2026 Covid-19 Vaccine ( season) Covid-19 Vaccine () [facility] Comment on above: Postponed from 01/02 (Declined at this time) Start: 01-05-2026 Depression Screening Depression Scre ening [facility] Start: 01-05-2026 RSV Vaccine (1 - 1-d ose 75+ series) RSV Vaccine (1 - 1-dose 75+ series) [facility] Comment on above: Postponed from 07/26 (Declined at this time) Start: 01-05-2026 Shingrix Vaccine (2 of 3) Avilez grix Vaccine (2 of 3) [facility] Comment on above: Postponed from 10/01 (Declined at this time) Start: 01-05-2026 Urine microalbumin profile DTaP,Tdap,Td Vaccine (3 - Td or Tdap) [facility] Comment on above: Postponed from 06/20 (Declined at this time) Start: 08-21-2025 DIABETES SCREEN DIABETES SCREEN [facility] Start: 08-18-2025 Annual PCP Team Manual Lathe Machinist faye Disease Visit Annual PCP Team Chronic Disease Visit [facility] Start: 08-04-2025 Annual PCP Team Manual Lathe Machinist faye Disease Visit Annual PCP Team Chronic Disease Visit [facility] Start: 07-14-2025 End: 07-14-2025 Patient encounter procedure 07/14/2025 10:00 AM EST Office Visit [facility] [address] [place] [id number] Calvin Stephens MD [address] [place] [id number] physical/6 mo [facility] Comment on above: physical/6 mo Start: 07-04-2025 Annual PCP Team Manual Lathe Machinist faye Disease Visit Annual PCP Team Chronic Disease Visit [facility] Start: 06-22-2025 DIABETES SCREEN DIABETES SCREEN [facility] Start: 04-01-2025 Hepatitis B surface antibody level LDL Cholesterol [facility] Start: 01-05-2025 End: 01-05-2025 Patient encounter procedure 01/05/2025 9:20 AM EDT Office Visit [facility] [address] [place] [id number] Calvin Stephens MD [address] [place] [id number] 6 mo follow up [facility] [place] Comment on above: 6 mo follow up Start: 01-02-2025 End: 04-03-2025 CBC W Auto Differential panel - Blood COMPLETE BLOOD COUNT AND DIFFERENTIAL Lab Routine Essential hypertension, benign Expected: 01/02/2025, Expires: 04/03/2025 [facility] Work Phone: Comment on above: Expected: 01/02/2025 , Expires: 04/03/2025 Start: 01-02-2025 End: 04-03-2025 Comprehensive metabolic 2000 panel - Serum or Plasma COMPREHENSIVE METABOLIC PANEL Lab Routine Essential hypertension, benign Expected: 01/02/2025, Expires: 04/03/2025 [facility] Comment on above: Expected: 01/02/2025 , Expires: 04/03/2025 Start: 01-02-2025 Covid-19 Vaccine () Covid-19 Vaccine () [facility] Start: 01-02-2025 End: 04-03-2025 Lipid 1996 panel - Serum or Plasma LIPID PANEL BASIC Lab Routine Mixed hyperlipidemia Essential hypertension, benign Expected: 01/02/2025, Expires: 04/03/2025 [facility] Comment on above: Expected: 01/02/2025 , Expires: 04/03/2025 Start: 01-02-2025 End: 04-03-2025 PSA/PROSTATE SPECIFIC ANTIGEN SCREENING PSA/PROSTATE SPECIFIC ANTIGEN SCREENING Lab Routine Screening for prostate cancer Expected: 01/02/2025, Expires: 04/03/2025 [facility] Comment on above: Expected: 01/02/2025 , Expires: 04/03/2025 Start: 01-01-2025 Annual PCP Team Manual Lathe Machinist faye Disease Visit Annual PCP Team Chronic Disease Visit [facility] Start: 01-01-2025 BP Controlled (<130/80) BP Controlle d (<130/80) [facility] Start: 01-01-2025 Shingrix Vaccine (2 of 3) Avilez grix Vaccine (2 of 3) [facility] Comment on above: Postponed from 10/01 (Declined at this time) Start: 12-26-2024 Hepatitis B surface antibody level LDL Cholesterol [facility] Start: 12-03-2024 Annual PCP Team Manual Lathe Machinist faye Disease Visit Annual PCP Team Chronic Disease Visit [facility] Start: 12-03-2024 Anxiety Screening Anxiety Screening [facility] Start: 12-03-2024 Covid-19 Vaccine () Covid-19 Vaccine () [facility] Comment on above: Postponed from 03/23 (Declined at this time) Start: 12-03-2024 Depression Screening Depression Scre ening [facility] Start: 12-03-2024 RSV Vaccine (1 - 1-d ose 60+ series) RSV Vaccine (1 - 1-dose 60+ series) [facility] Comment on above: Postponed from 07/26 (Declined at this time) Start: 12-03-2024 RSV Vaccine (1 - 1-d ose 75+ series) RSV Vaccine (1 - 1-dose 75+ series) [facility] Comment on above: Postponed from 07/26 (Declined at this time) Start: 12-03-2024 Urine microalbumin profile DTaP,Tdap,Td Vaccine (3 - Td or Tdap) [facility] Comment on above: Postponed from 06/20 (Declined at this time) Start: 11-30-2024 DIABETES SCREEN DIABETES SCREEN [facility] Start: 09-29-2024 End: 09-29-2024 Patient encounter procedure 09/29/2024 1:00 PM EDT Office Visit General Surgery [address] [place] [address] Latonia Fontaine APRN.CORING MACHINE OPERATOR [address] [place] [address] 09-22 colonoscopy follow up General Surgery Comment on above: 09-22 colonoscopy fo llow up Start: 09-22-2024 End: 09-22-2024 Patient encounter procedure 09/22/2024 10:00 AM EST Appointment Ambulatory Surgery [address] [place] [address] Benedict Torres MD [address] [place] [address] Ambulatory Surgery Start: 08-18-2024 End: 08-18-2024 Patient encounter procedure 08/18/2024 9:00 AM EST Office Visit [facility] [place] [address] [facility] [place] [address] Calvin Stephens MD [address] [place] [address] 2 week follow up Family [facility] [place] Comment on above: 2 week follow up Start: 08-11-2024 End: 08-11-2024 Patient encounter procedure 08/11/2024 9:30 AM EST Office Visit General Surgery [address] [place], [place] [phone] Latonia Fontaine APRN.CORING MACHINE OPERATOR [address] [place] [address] History of colonic polyps [Z86.0100] General Surgery Comment on above: History of colonic p olyps [Z86.0100] Start: 08-04-2024 End: 11-03-2024 Basic metabolic 2000 panel - Serum or Plasma [facility] Comment on above: Expected: 08/04/2024 , Expires: 11/03/2024 Start: 08-04-2024 End: 11-03-2024 CBC W Auto Differential panel - Blood [facility] Work Phone: Comment on above: Expected: 08/04/2024 , Expires: 11/03/2024 Start: 08-04-2024 End: 11-03-2024 Magnesium [Mass/volume] in Serum or Plasma [facility] Comment on above: Expected: 08/04/2024 , Expires: 11/03/2024 Start: 08-04-2024 End: 11-03-2024 Natriuretic peptide.B prohormone N-Terminal [Mass/volume] in Serum or Plasma [facility] Comment on above: Expected: 08/04/2024 , Expires: 11/03/2024 Start: 08-04-2024 End: 08-04-2024 Patient encounter procedure 08/04/2024 9:00 AM EST Office Visit [facility] [place] [address] [place] [address] Calvin Stephens MD [address] [place], [place] [id number] BP check-if normal can go [facility] [place] Comment on above: BP check-if normal c an go Start: 2024 RSV Vaccine (1 - 1-d ose 75+ series) RSV Vaccine (1 - 1-dose 75+ series) [facility] Start: 07-23-2024 Advance Directive Discussion Advance Directive Discussion [facility] Start: 07-23-2024 Medicare Advantage A nnual Wellness Visit Medicare Advantage Annual Wellness Visit [facility] Start: 07-17-2024 Annual PCP Team Manual Lathe Machinist faye Disease Visit Annual PCP Team Chronic Disease Visit [facility] Start: 07-04-2024 End: 07-04-2024 Patient encounter procedure [facility] [place] Comment on above: 6 month follow up 6 month follow up/Me [facility] Wellness Start: 05-22-2024 Annual PCP Team Manual Lathe Machinist faye Disease Visit Annual PCP Team Chronic Disease Visit [facility] Start: 05-22-2024 Hepatitis B surface antibody level LDL Cholesterol [facility] Start: 05-04-2024 Annual PCP Team Manual Lathe Machinist faye Disease Visit Annual PCP Team Chronic Disease Visit [facility] Start: 03-23-2024 Covid-19 Vaccine ( season) Covid-19 Vaccine ( season) [facility] Start: 03-23-2024 Covid-19 Vaccine ( season) Covid-19 Vaccine ( season) [facility] Start: 03-23-2024 Influenza vaccination Influenza Vacc ine (#1) [facility] Start: 03-22-2024 ANNUAL PCP TEAM ETHANOL OPERATIONS MANAGER FAYE DISEASE VISIT ANNUAL PCP TEAM CHRONIC DISEASE VISIT [facility] Start: 03-22-2024 COVID-19 VACCINE (5 - Pfizer series) COVID-19 VACCINE (5 - Pfizer series) [facility] Comment on above: Postponed from 09/02 (Declined at this time) Start: 02-24-2024 ANNUAL PCP TEAM ETHANOL OPERATIONS MANAGER FAYE DISEASE VISIT ANNUAL PCP TEAM CHRONIC DISEASE VISIT [facility] Start: 02-01-2024 End: 05-02-2024 Potassium [Moles/volume] in Serum or Plasma POTASSIUM Lab Routine Hypokalemia Expected: 02/01/2024, Expires: 05/02/2024 [facility] Work Phone: Comment on above: Expected: 02/01/2024 , Expires: 05/02/2024 Start: 01-02-2024 End: 01-02-2024 Patient encounter procedure 01/02/2024 4:20 PM EDT Office Visit [facility] [address] [facility] [place], [place] [id number] Calvin Stephens MD [address] [place], [place] [phone] 4 week follow up. HTN Family [facility] [place] Comment on above: 4 week follow up. HT N Start: 12-31-2023 SHINGRIX VACCINE (2 of 3) AVILEZ GRIX VACCINE (2 of 3) [facility] Comment on above: Postponed from 10/01 (Declined at this time) Start: 12-14-2023 LIPID SCREEN LIPID SCREEN [facility] Start: 12-04-2023 End: 12-04-2023 Patient encounter procedure 12/04/2023 4:20 PM EDT Office Visit [facility] [address] [facility] [place], [place] [phone] Calvin Stephens MD [address] [facility] [place] [place] [id number] 3 month f/u [facility] Comment on above: 3 month f/u Start: 12-04-2023 End: 03-04-2024 Basic metabolic 2000 panel - Serum or Plasma BASIC METABOLIC PANEL Lab Routine Essential hypertension, benign Expected: 12/04/2023, Expires: 03/04/2024 [facility] Work Phone: Comment on above: Expected: 12/04/2023 , Expires: 03/04/2024 Start: 08-21-2023 Hepatitis B surface antibody level LDL CHOLESTEROL [facility] Start: 08-15-2023 ANNUAL PCP TEAM ETHANOL OPERATIONS MANAGER FAYE DISEASE VISIT ANNUAL PCP TEAM CHRONIC DISEASE VISIT [facility] Start: 08-07-2023 DIABETES SCREEN DIABETES SCREEN [facility] Start: 07-27-2023 ANNUAL PCP TEAM ETHANOL OPERATIONS MANAGER FAYE DISEASE VISIT ANNUAL PCP TEAM CHRONIC DISEASE VISIT [facility] Start: 07-23-2023 Advance Directive Discussion Advance Directive Discussion [facility] Start: 07-23-2023 Behavioral Health Screening Behavioral Health Screening [facility] Start: 07-23-2023 Depression Assessment Depression Ass essment [facility] Start: 07-10-2023 ANNUAL PCP TEAM ETHANOL OPERATIONS MANAGER FAYE DISEASE VISIT ANNUAL PCP TEAM CHRONIC DISEASE VISIT [facility] Start: 06-20-2023 Urine microalbumin profile [facility] Start: 05-30-2023 ANNUAL PCP TEAM ETHANOL OPERATIONS MANAGER FAYE DISEASE VISIT ANNUAL PCP TEAM CHRONIC DISEASE VISIT [facility] Start: 04-06-2023 End: 06-06-2023 CBC W Auto Differential panel - Blood CBC + DIFF Lab Routine Mixed hyperlipidemia Essential hypertension, benign Expected: 04/06/2023, Expires: 06/06/2023 [facility] Work Phone: Comment on above: Expected: 04/06/2023 , Expires: 06/06/2023 Start: 04-06-2023 End: 06-06-2023 Comprehensive metabolic 2000 panel - Serum or Plasma COMP METABOLIC PANEL Lab Routine Mixed hyperlipidemia Essential hypertension, benign Expected: 04/06/2023, Expires: 06/06/2023 [facility] Work Phone: Comment on above: Expected: 04/06/2023 , Expires: 06/06/2023 Start: 04-06-2023 End: 06-06-2023 Lipid 1996 panel - Serum or Plasma LIPID PANEL BASIC Lab Routine Mixed hyperlipidemia Essential hypertension, benign Expected: 04/06/2023, Expires: 06/06/2023 [facility] Work Phone: Comment on above: Expected: 04/06/2023 , Expires: 06/06/2023 Start: 04-03-2023 Colonoscopy COLONOSCOPY [facility] Start: 04-03-2023 COLORECTAL CANCER SCREENING COLORECTAL CANCER SCREENING [facility] Start: 04-03-2023 Screening for malign ant neoplasm of colon [facility] Start: 03-23-2023 Covid-19 Vaccine () Covid-19 Vaccine () [facility] Start: 03-23-2023 Influenza vaccination [facility] Start: 02-23-2023 End: 04-25-2023 Basic metabolic 2000 panel - Serum or Plasma BASIC METABOLIC PNL Lab Routine Essential hypertension, benign Expected: 02/23/2023, Expires: 04/25/2023 [facility] Work Phone: Comment on above: Expected: 02/23/2023 , Expires: 04/25/2023 Start: 02-20-2023 Patient referral [facility] Work Phone: Start: 02-20-2023 Patient discharge [facility] Start: 02-19-2023 Care planning and pr oblem solving actions [facility] Start: 02-18-2023 Following clinical pathway protocol [facility] Start: 02-18-2023 Assessment of risk o f venous thromboembolism [facility] Start: 02-18-2023 Continuous pulse oximetry [facility] Start: 02-18-2023 Insertion of cathete r into peripheral vein [facility] Start: 02-18-2023 Measuring intake and output [facility] Start: 02-18-2023 Oxygen therapy [facility] Start: 02-18-2023 Providing care accor ding to standard [facility] Start: 02-18-2023 Cardiac monitoring [facility] Start: 02-18-2023 Cardiac rehabilitati on - phase 1 [facility] Start: 02-18-2023 Cardiac rehabilitati on - phase 2 [facility] Start: 02-18-2023 End: 02-18-2023 Notification of physician [facility] Start: 02-18-2023 Patient discharge [facility] Start: 02-18-2023 Systemic arterial pressure monitoring [facility] Start: 02-18-2023 Vascular disease ris k assessment [facility] Start: 02-18-2023 Vital signs measurements [facility] Start: 02-18-2023 End: 02-18-2023 [facility] Start: 02-18-2023 Patient education [facility] Start: 02-18-2023 Provision of activit y privileges [facility] Start: 02-18-2023 Pulse taking [facility] Start: 02-18-2023 End: 02-18-2023 Taking patient vital signs [facility] Start: 02-18-2023 Wound care [facility] Start: 02-18-2023 Referral to principle industrial hygienist [facility] Start: 02-18-2023 Tobacco use cessatio n education [facility] Start: 02-18-2023 [facility] Start: 02-18-2023 Catheterization of vein [facility] Start: 02-18-2023 Chart related administrative procedure [facility] Start: 02-18-2023 Verification routine [facility] Start: 02-18-2023 Admission procedure [facility] Start: 02-18-2023 End: 02-19-2023 [facility] Start: 02-18-2023 [facility] Start: 02-01-2023 End: 08-04-2023 Echocardiography ECHO Cardiology Routine Aortic dilatation (HCC) Expected: 02/01/2023, Expires: 08/04/2023 [facility] Work Phone: Comment on above: Expected: 02/01/2023 , Expires: 08/04/2023 Start: 12-15-2022 ANNUAL PCP TEAM ETHANOL OPERATIONS MANAGER FAYE DISEASE VISIT ANNUAL PCP TEAM CHRONIC DISEASE VISIT [facility] Start: 12-01-2022 ANNUAL PCP TEAM ETHANOL OPERATIONS MANAGER FAYE DISEASE VISIT ANNUAL PCP TEAM CHRONIC DISEASE VISIT [facility] Start: 11-18-2022 Adult depression screening assessment DEPRESSION SCREENING [facility] Start: 11-18-2022 ANNUAL PCP TEAM ETHANOL OPERATIONS MANAGER FAYE DISEASE VISIT ANNUAL PCP TEAM CHRONIC DISEASE VISIT [facility] Start: 09-02-2022 COVID-19 VACCINE (5 - Pfizer series) COVID-19 VACCINE (5 - Pfizer series) [facility] Start: 08-15-2022 End: 10-15-2022 Comprehensive metabolic 2000 panel - Serum or Plasma COMP METABOLIC PANEL Lab Routine Mixed hyperlipidemia Expected: 08/15/2022, Expires: 10/15/2022 [facility] Work Phone: Comment on above: Expected: 08/15/2022 , Expires: 10/15/2022 Start: 08-15-2022 End: 10-15-2022 Lipid 1996 panel - Serum or Plasma LIPID PANEL BASIC Lab Routine Mixed hyperlipidemia Expected: 08/15/2022, Expires: 10/15/2022 [facility] Work Phone: Comment on above: Expected: 08/15/2022 , Expires: 10/15/2022 Start: 07-23-2022 ADVANCE DIRECTIVE DISCUSSION ADVANCE DIRECTIVE DISCUSSION [facility] Start: 07-23-2022 DEPRESSION ASSESSMENT DEPRESSION ASS ESSMENT [facility] Start: 05-30-2022 End: 07-30-2022 Basic metabolic 2000 panel - Serum or Plasma BASIC METABOLIC PNL Lab Routine Arthralgia, unspecified joint Expected: 05/30/2022, Expires: 07/30/2022 [facility] Work Phone: Comment on above: Expected: 05/30/2022 , Expires: 07/30/2022 Start: 05-30-2022 End: 07-30-2022 CBC W Auto Differential panel - Blood CBC + DIFF Lab Routine Arthralgia, unspecified joint Expected: 05/30/2022, Expires: 07/30/2022 [facility] Work Phone: Comment on above: Expected: 05/30/2022 , Expires: 07/30/2022 Start: 05-30-2022 End: 07-30-2022 Creatine kinase [Enzymatic activity/volume] in Serum or Plasma CK CREATINE KINASE Lab Routine Arthralgia, unspecified joint Expected: 05/30/2022, Expires: 07/30/2022 [facility] Work Phone: Comment on above: Expected: 05/30/2022 , Expires: 07/30/2022 Start: 05-30-2022 End: 07-30-2022 Erythrocyte sedimentation rate SED RATE WESTERGREN Lab Routine Arthralgia, unspecified joint Expected: 05/30/2022, Expires: 07/30/2022 [facility] Work Phone: Comment on above: Expected: 05/30/2022 , Expires: 07/30/2022 Start: 05-30-2022 End: 07-30-2022 PSA/PROSTSPECAG SCRN PSA/PROSTSPECAG SCRN Lab Routine Screening for prostate cancer Expected: 05/30/2022, Expires: 07/30/2022 [facility] Work Phone: Comment on above: Expected: 05/30/2022 , Expires: 07/30/2022 Start: 01-01-2022 End: 03-03-2022 HEPATIC FUNCTION PNL HEPATIC FUNCTION PNL Lab Routine Mixed hyperlipidemia Expected: 01/01/2022, Expires: 03/03/2022 [facility] Work Phone: Comment on above: Expected: 01/01/2022 , Expires: 03/03/2022 Start: 01-01-2022 End: 03-03-2022 LIPID PANEL BASIC LIPID PANEL BASIC Lab Routine Mixed hyperlipidemia Expected: 01/01/2022, Expires: 03/03/2022 [facility] Work Phone: Comment on above: Expected: 01/01/2022 , Expires: 03/03/2022 Start: 12-01-2021 End: 01-31-2022 Basic metabolic 2000 panel - Serum or Plasma BASIC METABOLIC PNL Lab Routine Hypokalemia Expected: 12/01/2021, Expires: 01/31/2022 [facility] [facility] Work Phone: Comment on above: Expected: 12/01/2021 , Expires: 01/31/2022 Start: 11-18-2021 End: 11-18-2022 CBC W Auto Differential panel - Blood CBC + DIFF Lab Routine Essential hypertension, benign Expected: 11/18/2021, Expires: 11/18/2022 [facility] Work Phone: Comment on above: Expected: 11/18/2021 , Expires: 11/18/2022 Start: 11-18-2021 End: 11-18-2022 Comprehensive metabolic 2000 panel - Serum or Plasma COMP METABOLIC PANEL Lab Routine Essential hypertension, benign Expected: 11/18/2021, Expires: 11/18/2022 [facility] Work Phone: Comment on above: Expected: 11/18/2021 , Expires: 11/18/2022 Start: 11-18-2021 End: 11-18-2022 LIPID PANEL BASIC LIPID PANEL BASIC Lab Routine Essential hypertension, benign Expected: 11/18/2021, Expires: 11/18/2022 [facility] Work Phone: Comment on above: Expected: 11/18/2021 , Expires: 11/18/2022 Start: 09-19-2021 COVID-19 VACCINE (4 - Booster for Pfizer series) COVID-19 VACCINE (4 - Booster for Pfizer series) [facility] Start: 07-23-2021 DEPRESSION ASSESSMENT DEPRESSION ASS ESSMENT [facility] Start: 03-18-2019 BP CONTROLLED (<130/80) BP CONTROLLE D (<130/80) [facility] Start: 06-20-2014 FECAL OCCULT BLOOD FECAL OCCULT BLOO D [facility] Start: 06-20-2014 Screening for malign ant neoplasm of colon Fecal Occult Blood [facility] Start: 10-01-2013 SHINGRIX VACCINE (2 of 3) AVILEZ GRIX VACCINE (2 of 3) [facility] Start: 2009 RSV Vaccine (1 - 1-d ose 60+ series) RSV Vaccine (1 - 1-dose 60+ series) [facility] Start: 1994 COLOGUARD (FIT-DNA) COLOGUARD (FIT-D NA) [facility] Start: [address] COLONOGRAPHY [facility] Start: 1994 Screening for malign ant neoplasm of colon [facility] Start: 1994 SIGMOIDOSCOPY SIGMOIDOSCOPY 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 SVT (supraventricular tachycardia) (HCC) SOB (shortness of breath) 08/04/2024 9:22 AM EST [facility] End: 07-27-2023 Echocardiography ECHO Cardiology Routine Bilateral swelling of feet 1 Occurrences starting 07/27/2022 until 07/27/2023 [facility] Work Phone: Comment on above: 1 Occurrences starti ng 07/27/2022 until 07/27/2023 Influenza virus A an d B RNA and SARS-CoV-2 (COVID-19) N gene panel - Respiratory specimen by KALIE with probe detection COVID WITH FLUA+B, ROUTINE Microbiology Routine Flu-like symptoms 06/29/2022 4:53 PM EST [facility] Work Phone: Magnesium [Mass/volu me] in Serum or Plasma [facility] Patient Education Coronary Stent s Cardiac Catheterization Dc [facility] Work Phone: Patient referral [facility] Work Phone: End: 08-09-2023 Radiologic exam chest 2 views XR CHEST 2V FRONTAL/LAT Radiology Routine Bronchitis 1 Occurrences starting 07/10/2022 until 08/09/2023 [facility] Work Phone: Comment on above: 1 Occurrences starti ng 07/10/2022 until 08/09/2023 Radiologic exam ches t 2 views XR CHEST 2V FRONTAL/LAT Radiology Routine Bronchitis 07/10/2022 3:40 PM EST [facility] Work Phone: Tissue Pathology bio psy report [facility] Work Phone: Comment on above: Release Upon Orderin g for 1 Occurrences starting 09/22/2024, [address] 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[facility]) Calvin Stephens MD Work Phone: [facility] 07-04-2024 influenza, high dose seasonal, preservative-free Calvin Stephens MD Work Phone: [facility] 05-04-2023 influenza (HD-IIV4) vaccine, age 65+ yr, high dose, quadrivalent, PF (FLUZONE HIGH-DOSE) Calvin Stephens MD Work Phone: [facility] 05-04-2023 influenza virus vacc ine, unspecified formulation Michael Diop [facility] 05-02-2022 influenza, high-dose , quadrivalent vaccine (FLUZONE HIGH DOSE QUADRIVALENT) Calvin Stephens MD Work Phone: [facility] 05-02-2022 influenza virus vacc ine, unspecified formulation Calvin Stephens MD Work Phone: [facility] 05-19-2021 COVID-19 vaccine, ag e 12+ yr (PFIZER-BIONTECH - PURPLE TOP) Calvin Stephens MD Work Phone: [facility] 05-19-2021 influenza, high dose seasonal, preservative-free Calvin Stephens MD Work Phone: [facility] 09-28-2020 COVID-19 vaccine, ag e 12+ yr (PFIZER-BIONTECH - PURPLE TOP) Calvin Stephens MD Work Phone: [facility] 09-08-2020 COVID-19 vaccine, ag e 12+ yr (PFIZER-BIONTECH - PURPLE TOP) Calvin Stephens MD Work Phone: [facility] 06-04-2020 influenza (aIIV4) vaccine, age 65+ yr, quadrivalent, PF (FLUAD QUADRIVALENT) Calvin Stephens MD Work Phone: [facility] 06-04-2020 influenza, high dose seasonal, preservative-free Calvin Stephens MD Work Phone: [facility] 06-07-2019 influenza, high dose seasonal, preservative-free Calvin Stephens MD Work Phone: [facility] 07-04-2018 influenza, high dose seasonal, preservative-free Calvin Stephens MD Work Phone: [facility] Work Phone: 10-02-2016 pneumococcal polysaccharide vaccine, 23 valent Calvin Stephens MD Work Phone: [facility] Work Phone: 02-15-2015 pneumococcal conjuga te vaccine, 13 valent Calvin Stephens MD Work Phone: [facility] 08-19-2014 influenza, high dose seasonal, preservative-free Calvin Stephens MD Work Phone: [facility] 08-06-2013 zoster vaccine, live Calvin Stephens MD Work Phone: [facility] 06-20-2013 influenza virus vacc ine, unspecified formulation Calvin Stephens MD Work Phone: [facility] 06-20-2013 tetanus toxoid, redu amber diphtheria toxoid, and acellular pertussis vaccine, adsorbed Calvin Stephens MD Work Phone: [facility] 06-18-2007 influenza virus vacc ine, unspecified formulation Calvin Stephens MD Work Phone: [facility] Work Phone: 06-09-2003 diphtheria and tetan us toxoids, adsorbed for pediatric use Calvin Stephens MD Work Phone: [facility] Work Phone: Payers Date Payer Category Payer Self-pay [id number] 2021 Medicare (Managed Care) [facility] [id number] 2021 Unknown [employer] REZA S AND BLUE SHIELD [facility] [id number] 2021-Present [phone] [address] [place] [address] HMO [id number] 2021 Unknown [id number] 2021 Medicare [id number] 2014 Unknown [facility] [id number] Medicare MEDICARE PART A B [id number] Unknown COMMERCIAL OTHER [id number] Unknown [id number] 462 Unknown [id number]. 462 Unknown [id number]. 462 Unknown [id number]. 462 Unknown [id number]. 462 Unknown [id number]. 462 Unknown [id number]. 462 Unknown [id number]. 462 Unknown [id number]. 462 Unknown [id number]. 462 Unknown [id number]. 462 Unknown [id number] [id number]. 462 Unknown [id number] [id number]. 462 Unknown [id number] [id number]. 462 Unknown [id number]. 462 Unknown [id number]. 462 Social History Date Type Detail Facility Start: 02-11-2014 End: 05-08-2023 Tobacco smoking status NHIS Never smoked tobacco [facility] Start: 11-18-2021 End: 01-05-2025 Alcohol intake Current drinker of alcohol (finding) [facility] Start: 1950 Sex Assigned At Not on file [facility] Start: 11-19-2021 End: 05-30-2022 Exposure to SARS-CoV-2 (event) Not sure [facility] Work Phone: Start: 02-11-2014 Tobacco use and exposure Smokeless tobacco non-user [facility] Start: 10-29-2016 End: 05-08-2023 Tobacco smoking status FLIS Unknown if ever smoked [facility] Start: 1950 Sex Assigned At Male [facility] Start: 12-30-2022 End: 02-23-2023 History of Social function [facility] Work Phone: Start: 12-30-2022 End: 02-23-2023 Tobacco use panel [facility] Work Phone: Adult Depression Screening Assessment 0 [facility] Work Phone: Start: 10-11-2024 Sex Male (finding) [facility] Medical Equipment Procedure Code Equipment Code Equipment Origin al Text Equipment Identifier Dates Mesh Srg Flat Te c 6x6in Kalina - [id number] Start: 12-27-2011 Comment on above: Description: Donaldo stone [id number] FDA Start: 02-18-2023 Drug-eluting cor onary artery stent, [id number] [id number] FDA Start: 02-18-2023 [id number] FDA Start: 02-18-2023 [id number] FDA Start: 02-18-2023 [id number] FDA Start: 02-18-2023 Goals Date Patient Goal Desired Activity /State Functional Status Date Assessment Result Facility 02-20-2023 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 [employer];[facility] Work Phone: 02-15-2015 Are you deaf, or do you have serious difficulty hearing No 02/15/2015 5:53 PM EDT Diamond Mcguire LPN No [facility] 02-15-2015 Are you blind, or do you have serious difficulty seeing, even when wearing glasses No 02/15/2015 5:53 PM EDT Diamond Mcguire LPN No [facility] 02-15-2015 Do you have serious difficulty walking or climbing stairs No 02/15/2015 5:53 PM EDT Diamond Mcguire LPN No [facility] 02-15-2015 Do you have difficul ty dressing or bathing No 02/15/2015 5:53 PM EDT Diamond Mcguire LPN No [facility] 02-15-2015 Because of a physica l, mental, or emotional condition, do you have difficulty doing errands alone such as visiting a physician's office or shopping No 02/15/2015 5:53 PM EDT Diamond Mcguire LPN No [facility] Mental Status Date Assessment Result Facility 02-20-2023 Cognitive function Voice/Name [facility] Work Phone: 02-18-2023 Cognitive function Level Of Cons ciousness Awake;Alert;Appropriate;Fol lows Commands [facility] Work Phone: 02-15-2015 Because of a physica l, mental, or emotional condition, do you have serious difficulty concentrating, remembering, or making decisions No 02/15/2015 5:53 PM EDT Diamond Mcguire LPN No [facility] Clinical Notes 05-20-2021 to 01-09-2025 Telephone Encounter - Diamond Mcguire LPN - 01/09/2025 2:08 PM EDTTelephone Encounter - Diamond Mcguire LPN - 01/09/2025 2:08 PM Calvin Hart MD - 01/05/2025 12:47 PM EDTPatient Instructions Note Date & Type Note Facility 01-09-2025 Telephone encounter Note Prescription Refill Information The patient has been identified by name and date of : Yes Caregiver verified no other encounters exist for this prescription request: Yes Caregiver confirmed with patient/requestor that no other refills are due, in the near future, with this provider at this time: Yes The last office visit in the department: 01/05/25 Does the patient have a future office visit with this provider/department: Yes Requested Prescriptions Pending Prescriptions Disp Refills sertraline (ZOLOFT) 50 mg tablet 90 tablet 3 Sig: Take 1 tablet by mouth once daily. Diamond Mcguire LPN January 09, 2025 2:08 PM [facility] 01-09-2025 Miscellaneous Notes Prescription Refill Information The patient has been identified by name and date of : Yes Caregiver verified no other encounters exist for this prescription request: Yes Caregiver confirmed with patient/requestor that no other refills are due, in the near future, with this provider at this time: Yes The last office visit in the department: 01/05/25 Does the patient have a future office visit with this provider/department: Yes Requested Prescriptions Pending Prescriptions Disp Refills sertraline (ZOLOFT) 50 mg tablet 90 tablet 3 Sig: Take 1 tablet by mouth once daily. Diamond Mcguire LPN January 09, 2025 2:08 PM documented in this encounter [facility] 01-05-2025 Note HNO ID: [id number] Author: CALVIN STEPHENS MD Service: ? Author Type: Physician Type: Progress Notes Filed: 01/05/2025 12:49 Note Text: Freeman Sarabia is a 74-year-old male with a history of HTN, presenting for a follow-up visit to address dyspnea and review recent test results. HPI Dyspnea: - Reports improvement in dyspnea since last visit. - Denies current chest pain or edema. Aortic Ectasia: - Recent ultrasound on 11/24 showed mild enlargement of the abdominal aorta, not considered aneurysmal. - Aortic root enlargement noted. 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 Diastolic Dysfunction: - Echocardiogram on 11/24 showed normal left ventricular systolic function with EF of 65%. - Stage 1 diastolic dysfunction noted. - Mild mitral and aortic valve insufficiency observed. Skin Cancer: - History of skin cancer. - Freeman has not followed up with dermatology recently. - Denies new skin rashes or lesions. 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 - Reports difficulty sleeping due to stress. - Denies feeling down, depressed, or hopeless in the last two weeks. - Denies loss of interest or pleasure in activities. MEDICATIONS: Current Outpatient Medications Medication Sig hydroCHLOROthiazide 12.5 mg capsule Take 1 capsule by mouth once daily. losartan (COZAAR) 100 mg tablet Take 1 tablet by mouth once daily. potassium chloride (K-TAB) 10 mEq tablet Take 1 tablet by mouth daily with breakfast. aspirin 81 mg chewable tablet Take 1 tablet by mouth once daily. fluticasone (FLONASE) 50 mcg/actuation nasal spray Use 2 Sprays in each nostril once daily. Rinse mouth after use. sertraline (ZOLOFT) 50 mg tablet Take 1 tablet by mouth once daily. verapamil SR (CALAN SR) 120 mg CR tablet Take 120 mg by mouth two times a day. atorvastatin (LIPITOR) 80 mg tablet Take 80 mg by mouth once daily. Cholecalciferol, Vitamin D3, [...] Use Smoking status: Never Smokeless tobacco: Never Vaping Use Vaping status: Never Used Substance Use Topics Alcohol use: Yes Comment: rarely Drug use: No Reviewed current medications, allergies, past medical history, surgical history, family history and social history today. REVIEW OF SYSTEMS Constitutional: (+) weight gain, (+) insomnia Cardiovascular: (-) chest pain, (-) edema Skin: (-) rash, (-) skin lesion Psychiatric: (+) anxiety, (-) depressed mood, (-) anhedonia HEALTH MAINTENANCE: Reviewed health maintenance issues today and recommended the following in detail. Medicare Advantage Annual Wellness Visit due on 07/23/2024 LAB REVIEWED: Imaging: (11/24) Abdominal Ultrasound: - Abdominal aorta: Ectasia - Right iliac artery: Aneurysm - Left iliac artery: Ectasia, not aneurysmal Echocardiogram: - Left Ventricular Ejection Fraction: 65% (normal) - Stage 1 diastolic dysfunction - Mild mitral and aortic insufficiency - Slightly enlarged aortic root Tests: Colonoscopy: One polyp identified, recommended repeat in 5 years VITALS: BP 110/62 Pulse 64 Wt 117 kg (258 lb) SpO2 95% BMI 32.25 kg/m? Last 4 Encounter Wt Readings: Date: Wt: 01/05/2025 117 kg (258 lb) 08/31/2024 113.1 kg (249 lb 4.4 oz) 08/18/2024 115.2 kg (254 lb) 08/11/2024 114.8 kg (253 lb) PHYSICAL EXAMINATION: GENERAL: NAD, alert and oriented. SKIN: Unremarkable, no rash or skin lesions. LUNGS: Clear to auscultation bilaterally, no wheezes/rhonchi/rales. HEART: Regular rate and rhythm, no murmurs. No ectopy. EXTREMITIES: Normal, no deformities, no skin discoloration, no edema. ABDOMEN: Soft, non-tender, positive bowel sounds. NEURO: Awake, alert and oriented x3, cranial nerves II-XII grossly intact, normal gait, no involuntary motions. ASSESSMENT AND PLAN 1. Essential hypertension, benign (I10) - Blood pressure readings are stable. - (more content not included)... [facility] 01-05-2025 History of Present illness Narrative Freeman Sarabia is a 74-year-old male with a history of HTN, presenting for a follow-up visit to address dyspnea and review recent test results. HPI Dyspnea: - Reports improvement in dyspnea since last visit. - Denies current chest pain or edema. Aortic Ectasia: - Recent ultrasound on 11/24 showed mild enlargement of the abdominal aorta, not considered aneurysmal. - Aortic root enlargement noted. 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 Diastolic Dysfunction: - Echocardiogram on 11/24 showed normal left ventricular systolic function with EF of 65%. - Stage 1 diastolic dysfunction noted. - Mild mitral and aortic valve insufficiency observed. Skin Cancer: - History of skin cancer. - Freeman has not followed up with dermatology recently. - Denies new skin rashes or lesions. 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 - Reports difficulty sleeping due to stress. - Denies feeling down, depressed, or hopeless in the last two weeks. - Denies loss of interest or pleasure in activities. MEDICATIONS: Current Outpatient Medications Medication Sig hydroCHLOROthiazide 12.5 mg capsule Take 1 capsule by mouth once daily. losartan (COZAAR) 100 mg tablet Take 1 tablet by mouth once daily. potassium chloride (K-TAB) 10 mEq tablet Take 1 tablet by mouth daily with breakfast. aspirin 81 mg chewable tablet Take 1 tablet by mouth once daily. fluticasone (FLONASE) 50 mcg/actuation nasal spray Use 2 Sprays in each nostril once daily. Rinse mouth after use. sertraline (ZOLOFT) 50 mg tablet Take 1 tablet by mouth once daily. verapamil SR (CALAN SR) 120 mg CR tablet Take 120 mg by mouth two times a day. atorvastatin (LIPITOR) 80 mg tablet Take 80 mg by mouth once daily. Cholecalciferol, Vitamin D3, [...] Use Smoking status: Never Smokeless tobacco: Never Vaping Use Vaping status: Never Used Substance Use Topics Alcohol use: Yes Comment: rarely Drug use: No Reviewed current medications, allergies, past medical history, surgical history, family history and social history today. REVIEW OF SYSTEMS Constitutional: (+) weight gain, (+) insomnia Cardiovascular: (-) chest pain, (-) edema Skin: (-) rash, (-) skin lesion Psychiatric: (+) anxiety, (-) depressed mood, (-) anhedonia HEALTH MAINTENANCE: Reviewed health maintenance issues today and recommended the following in detail. Medicare Advantage Annual Wellness Visit due on 07/23/2024 LAB REVIEWED: Imaging: (11/24) Abdominal Ultrasound: - Abdominal aorta: Ectasia - Right iliac artery: Aneurysm - Left iliac artery: Ectasia, not aneurysmal Echocardiogram: - Left Ventricular Ejection Fraction: 65% (normal) - Stage 1 diastolic dysfunction - Mild mitral and aortic insufficiency - Slightly enlarged aortic root Tests: Colonoscopy: One polyp identified, recommended repeat in 5 years VITALS: BP 110/62 Pulse 64 Wt 117 kg (258 lb) SpO2 95% BMI 32.25 kg/m Last 4 Encounter Wt Readings: Date: Wt: 01/05/2025 117 kg (258 lb) 08/31/2024 113.1 kg (249 lb 4.4 oz) 08/18/2024 115.2 kg (254 lb) 08/11/2024 114.8 kg (253 lb) PHYSICAL EXAMINATION: GENERAL: NAD, alert and oriented. SKIN: Unremarkable, no rash or skin lesions. LUNGS: Clear to auscultation bilaterally, no wheezes/rhonchi/rales. HEART: Regular rate and rhythm, no murmurs. No ectopy. EXTREMITIES: Normal, no deformities, no skin discoloration, no edema. ABDOMEN: Soft, non-tender, positive bowel sounds. NEURO: Awake, alert and oriented x3, cranial nerves II-XII grossly intact, normal gait, no involuntary motions. ASSESSMENT AND PLAN 1. Essential hypertension, benign (I10) - Blood pressure readings are stable. - Continue current antihypertensive regimen. - Reinforced importance of maintaining tight blood pressure control to mitigate risks associated with aortic dilatation and iliac artery aneurysm. 2. 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 (I25.10) - No current chest pain or dyspnea. - Recent echocardiogram on 11/24/24 shows normal left ventricular systolic function with an ejection fraction of 65%. - Mild diastolic dysfunction (stage 1) and minimal mitral and aortic valve insufficiency noted; no immediate concerns. - Continue current management; monitor for any new symptoms. 3. Aortic dilatation (I77.819) - Abdominal aorta shows ectasia but is not aneurysmal per ultrasound on 11/24/24. - Aortic root enlargement noted on echocardiogram; condition is stable. - [employer] Agent Dr. Rutledge to continue monitoring. 4. Mixed hyperlipidemia (E78.2) - Ordered fasting lipid panel; patient to complete at their convenience. - Continue current lipid-lowering therapy. 5. History of skin cancer (Z85.828) - No new skin rashes or lesions observed. - Advised annual dermatological follow-up. 6. Benign prostatic hyperplasia without lower urinary tract symptoms (N40.0) - Ordered PSA test; patient to complete at their convenience. - No current urinary symptoms reported. 7. Iliac artery aneurysm, right (I72.3) - Right iliac artery aneurysm identified on ultrasound dated 11/24/24. - [employer]fre[employer] Operations Agent Dr. Rutledge to monitor. 8. Encounter for screening examination for other mental health and behavioral disorders (Z13.39) 9. Screening for depression (Z13.31) - Patient experiencing situational anxiety related to impending assisted; no signs of depression or anhedonia. - Discussed coping strategies and encouraged finding hobbies post-assisted. (See patient after visit summary for additional instructions to patient) Calvin Stephens MD Recording using Inter[employer] software for draft documentation of the visit was discussed with the patient/authorized client support representative; all questions welcomed and answered. Patient/authorized client support representative agreed to proceed documented in this encounter [facility] 01-05-2025 Instructions Calvin Stephens MD - 01/05/2025 9:53 AM EDT - A refill for hydrochlorothiazide has been sent to your pharmacy; continue taking it as prescribed. - Obtain fasting blood tests (CBC, CMP, fasting lipid panel, PSA) at your convenience; if you ve eaten today, schedule them for another day while fasting. - Keep your blood pressure well controlled--this helps prevent further enlargement of your aorta and iliac arteries. - Continue with cardiology s monitoring of your aorta and iliac arteries; they will track any changes in the ectasia and aneurysm. - Schedule an annual skin exam with elbert Thibodeaux (or your dermatology provider) to check for new lesions. - Plan to repeat your colonoscopy in five years, per your last report of one polyp. - Consider getting RSV and shingles vaccines now while Medicare covers them; tetanus can also be done at the pharmacy under your prescription plan. - If you develop new or worsening shortness of breath, chest pain, or swelling, contact the office promptly. - Return for your next routine check-up in six months to review your blood pressure and overall health. documented in this encounter [facility] 12-25-2024 Telephone encounter Note Prescription Refill Information The patient has been identified by name and date of : Yes Caregiver verified no other encounters exist for this prescription request: Yes Caregiver confirmed with patient/requestor that no other refills are due, in the near future, with this provider at this time: Yes The last office visit in the department: 08-18-24 Does the patient have a future office visit with this provider/department: Yes Requested Prescriptions Pending Prescriptions Disp Refills losartan (COZAAR) 100 mg tablet 90 tablet 3 Sig: Take 1 tablet by mouth once daily. potassium chloride (K-TAB) 10 mEq tablet 90 tablet 3 Sig: Take 1 tablet by mouth daily with breakfast. Kenna Roberto December 25, 2024 9:22 AM [facility] 12-25-2024 Miscellaneous Notes Prescription Refill Information The patient has been identified by name and date of : Yes Caregiver verified no other encounters exist for this prescription request: Yes Caregiver confirmed with patient/requestor that no other refills are due, in the near future, with this provider at this time: Yes The last office visit in the department: 08-18-24 Does the patient have a future office visit with this provider/department: Yes Requested Prescriptions Pending Prescriptions Disp Refills losartan (COZAAR) 100 mg tablet 90 tablet 3 Sig: Take 1 tablet by mouth once daily. potassium chloride (K-TAB) 10 mEq tablet 90 tablet 3 Sig: Take 1 tablet by mouth daily with breakfast. Kenna Roberto December 25, 2024 9:22 AM documented in this encounter [facility] 10-02-2024 Telephone encounter Note Last apt 08/18/2024 Patient has been identified by name and date of : Yes Last office visit in this department: 08/18/2024 RX INSTRUCTIONS: Patient aware RX will be sent to pharmacy. No need to notify patient. Patient phones requesting refills as follows: Requested Prescriptions Pending Prescriptions Disp Refills aspirin 81 mg chewable tablet 90 tablet 3 Sig: Take 1 tablet by mouth once daily. Please review and advise. Anna Marie Roberto [facility] Work Phone: 10-02-2024 Miscellaneous Notes Last apt 08/18/2024 Patient has been identified by name and date of : Yes Last office visit in this department: 08/18/2024 RX INSTRUCTIONS: Patient aware RX will be sent to pharmacy. No need to notify patient. Patient phones requesting refills as follows: Requested Prescriptions Pending Prescriptions Disp Refills aspirin 81 mg chewable tablet 90 tablet 3 Sig: Take 1 tablet by mouth once daily. Please review and advise. Anna Marie Roberto documented in this encounter [facility] 09-22-2024 Note Formatting of this n ote might be different from the original. The patient received a copy of Colonoscopy discharge instructions that contain information for how to contact the physician who performed the procedure and when to seek medical care. [facility] 09-22-2024 Miscellaneous Notes The patient received a copy of Colonoscopy discharge instructions that contain information for how to contact the physician who performed the procedure and when to seek medical care. documented in this encounter [facility] 09-22-2024 History and physical note HISTORY AND PHYSICAL Freeman Sarabia : 1950 REFERRING PHYSICIAN: Calvin Sevilla [facility] [id number] CHIEF COMPLAINT: Patient presents with: Consult: Colonoscopy previous colonoscopy 2017 HPI: Freeman is a 74 year old male referred for endoscopy. Freeman notes due for colon cancer screening- hx of polyps(2014). Freeman denies abdominal pain.. Freeman denies diarrhea. Freeman notes occasional constipation. Freeman denies a change in bowel habits. Freeman denies melena. Freeman denies bright red blood per rectum. Freeman denies hemorrhoids. Freeman denies heartburn. Freeman denies dysphagia. Freeman denies a history of ulcers/ peptic ulcer disease. Freeman notes family history of colon issues. Freeman notes an increase in IYER & BLE edema for the last month. Hx of STEMI with stent to RCA in 2022. He had cardiology visit with [facility] on 08/05/24. ECHO & exercise stress test is is scheduled for 08/15/24. Freeman has undergone prior endoscopy. Last colonoscopy was 03/[address] Berrios at [facility]. Sedation:Midazolam 7 mg IV, Fentanyl 100 micrograms IV, Diphenhydramine 50 mg IV Impression: - Diverticulosis in the sigmoid colon. - Non-bleeding external and internal hemorrhoids. - No specimens collected. CURRENT MEDICATIONS Current Outpatient Medications Medication Sig furosemide (LASIX) 20 mg tablet Take 1 tablet by mouth once daily for 6 days. sertraline (ZOLOFT) 50 mg tablet Take 1 tablet by mouth once daily. verapamil SR (CALAN SR) 120 mg CR tablet Take 120 mg by mouth two times a day. potassium chloride (K-TAB) 10 mEq tablet Take 1 tablet by mouth daily with breakfast. losartan (COZAAR) 100 mg tablet Take 1 tablet by mouth once daily. hydroCHLOROthiazide 12.5 mg capsule Take 1 capsule by mouth once daily. aspirin 81 mg chewable tablet Take 1 tablet by mouth once daily. atorvastatin (LIPITOR) 80 mg tablet Take 80 mg by mouth once daily. Cholecalciferol, Vitamin D3, 25 mcg (1,000 unit) cap Take 1,000 Units by mouth once daily. No current facility-administered medications for this visit. ALLERGIES: Patient has no known allergies. PAST MEDICAL HISTORY PAST MEDICAL HISTORY Diagnosis Date BPH (benign prostatic hyperplasia) 09/04/2013 Essential hypertension, benign Family history of colon cancer sister Hyperlipidemia Snoring PAST SURGICAL HISTORY PAST SURGICAL HISTORY Procedure Laterality Date APPENDECTOMY [...] SLIDING ANY AGE Right 12/27/2011 FAMILY HISTORY FAMILY HISTORY Problem Relation Age of Onset COPD Mother Smoker Alcohol/Drug Mother COPD Father Smoker Alcohol/Drug Father Arthritis Sister Colon Cancer Sister SOCIAL HISTORY Social History Tobacco Use Smoking status: Never Smokeless tobacco: Never Vaping Use Vaping status: Never Used Substance Use Topics Alcohol use: Yes Comment: rarely Drug use: No REVIEW OF SYMPTOMS: The review of systems data was entered by the nurse and reviewed by me SEE NURSING NOTE PHYSICAL EXAMINATION: General: The patient is 74 year old, male well nourished, well hydrated in no acute distress. The patient is oriented to time, place, and person. VITALS: Blood pressure 146/82, pulse 75, temperature 36.3 C (97.3 F), height 190.5 cm (6' 3), weight 114.8 kg (253 lb), SpO2 96%. Body mass index is 31.62 kg/m . HEENT: Normal cephalic, ataumatic, pupils are equally round, sclera are anicteric, mucous membranes are moist, oropharynx is clear. Neck has no masses, asymmetry or lymphadenopathy. Respiratory: Clear to auscultation and percussion. Normal respiratory excursion and pattern. Cardiac: Examination is regular rate and rhythm. Normal S1/S2 Abdominal exam: Soft, nontender, with no palpable masses. No hepatosplenomegaly. No palpable hernias. Extremities: no clubbing, cyanosis or edema. No adenopathy. LABORATORY VALUES: As Noted RADIOLOGIC STUDIES: As Noted Assessment IMPRESSION: screen for colon cancer, history of polyps PLAN: I have reviewed my findings with the surgeon. Will plan for lower endoscopy. We discussed the risks and benefits of the planned endoscopy. I have informed the patient that complications can occur including failure to complete the endoscopy and perforation. Freeman had the opportunity to ask questions concerning the planned endoscopy. My staff has also explained the procedure to the patient in understandable terms and has given the patient printed material concerning the procedure. Freeman freely consents to surgery. I plan to use Golytely bowel preparation CARDIAC CLEARANCE FROM [facility] after ECHO and stress test both which are scheduled on Sunday08/15/[address] order for colonoscopy. Freeman is agreeable. I have explained to the patient the difference between IV conscious sedation and MAC anesthesia - and I have offered either, according to the patient's wishes. I have explained that with IV conscious sedation there is no anesthesia provider available and therefore there is a limitation of the amount of IV medications that can be given and that the patient may wake up in the middle of the procedure and/or experience pain/discomfort during the procedure. Further discussion was done and the patient was given the opportunity to ask questions and all questions were answered. Freeman chooses IV conscious sedation Freeman was counseled that if there are changes in his/her medical condition, to let the office know if surgery should proceed. If there are changes in patient's medical condition from time of this encounter to the day of the procedure that preclude anesthesia, patient may have procedure cancelled for patient's safety. Diagnoses: (Z12.11) Screen for colon cancer (primary encounter diagnosis) (Z86.0100) History of colonic polyps Consultation requested by Dr. Stephens for an opinion regarding history of polyps. My final recommendations will be communicated back to the requesting physician by way of shared Medical record or letter to requesting physician via US mail. Portions of this documentation were copied and pasted from previous office visit notes in order to provide a cohesive continuity of the history. The note has been reviewed and edited and updated as necessary. Latonia Fontaine APRN.CORING MACHINE OPERATOR UPDATED HISTORY AND PHYSICAL EXAMINATION SERVICE DATE: 09/22/2024 SERVICE TIME: 9:08 AM PHYSICAL EXAM MUST BE COMPLETED ON ADMISSION The History and Physical (completed in the past 30 days) has been reviewed and the patient has been examined. The contents accurately reflect the patient's condition with the following additions or revisions since the H&P was completed. Examination indicates no changes. This H&P can be found in the attached. SIGNATURE: Benedict Torres III, MD PATIENT NAME: Freeman Sarabia DATE: September 22, 2024 TIME: 9:08 AM [facility] 09-22-2024 History and physical note HISTORY AND PHYSICAL Freeman Sarabia : 1950 REFERRING PHYSICIAN: Calvin Stephens [address] [facility] [id number] CHIEF COMPLAINT: Patient presents with: Consult: Colonoscopy previous colonoscopy 2017 HPI: Freeman is a 74 year old male referred for endoscopy. rFeeman notes due for colon cancer screening- hx of polyps(2014). Freeman denies abdominal pain.. Freeman denies diarrhea. Freeman notes occasional constipation. Freeman denies a change in bowel habits. Freeman denies melena. Freeman denies bright red blood per rectum. Freeman denies hemorrhoids. Freeman denies heartburn. Freeman denies dysphagia. Freeman denies a history of ulcers/ peptic ulcer disease. Freeman notes family history of colon issues. Freeman notes an increase in IYER & BLE edema for the last month. Hx of STEMI with stent to RCA in 2022. He had cardiology visit with [facility] on 08/05/24. ECHO & exercise stress test is is scheduled for 08/15/24. Freeman has undergone prior endoscopy. Last colonoscopy was 03/[address] Berrios at [facility]. Sedation:Midazolam 7 mg IV, Fentanyl 100 micrograms IV, Diphenhydramine 50 mg IV Impression: - Diverticulosis in the sigmoid colon. - Non-bleeding external and internal hemorrhoids. - No specimens collected. CURRENT MEDICATIONS Current Outpatient Medications Medication Sig furosemide (LASIX) 20 mg tablet Take 1 tablet by mouth once daily for 6 days. sertraline (ZOLOFT) 50 mg tablet Take 1 tablet by mouth once daily. verapamil SR (CALAN SR) 120 mg CR tablet Take 120 mg by mouth two times a day. potassium chloride (K-TAB) 10 mEq tablet Take 1 tablet by mouth daily with breakfast. losartan (COZAAR) 100 mg tablet Take 1 tablet by mouth once daily. hydroCHLOROthiazide 12.5 mg capsule Take 1 capsule by mouth once daily. aspirin 81 mg chewable tablet Take 1 tablet by mouth once daily. atorvastatin (LIPITOR) 80 mg tablet Take 80 mg by mouth once daily. Cholecalciferol, Vitamin D3, 25 mcg (1,000 unit) cap Take 1,000 Units by mouth once daily. No current facility-administered medications for this visit. ALLERGIES: Patient has no known allergies. PAST MEDICAL HISTORY PAST MEDICAL HISTORY Diagnosis Date BPH (benign prostatic hyperplasia) 09/04/2013 Essential hypertension, benign Family history of colon cancer sister Hyperlipidemia Snoring PAST SURGICAL HISTORY PAST SURGICAL HISTORY Procedure Laterality Date APPENDECTOMY [...] SLIDING ANY AGE Right 12/27/2011 FAMILY HISTORY FAMILY HISTORY Problem Relation Age of Onset COPD Mother Smoker Alcohol/Drug Mother COPD Father Smoker Alcohol/Drug Father Arthritis Sister Colon Cancer Sister SOCIAL HISTORY Social History Tobacco Use Smoking status: Never Smokeless tobacco: Never Vaping Use Vaping status: Never Used Substance Use Topics Alcohol use: Yes Comment: rarely Drug use: No REVIEW OF SYMPTOMS: The review of systems data was entered by the nurse and reviewed by me SEE NURSING NOTE PHYSICAL EXAMINATION: General: The patient is 74 year old, male well nourished, well hydrated in no acute distress. The patient is oriented to time, place, and person. VITALS: Blood pressure 146/82, pulse 75, temperature 36.3 C (97.3 F), height 190.5 cm (6' 3), weight 114.8 kg (253 lb), SpO2 96%. Body mass index is 31.62 kg/m . HEENT: Normal cephalic, ataumatic, pupils are equally round, sclera are anicteric, mucous membranes are moist, oropharynx is clear. Neck has no masses, asymmetry or lymphadenopathy. Respiratory: Clear to auscultation and percussion. Normal respiratory excursion and pattern. Cardiac: Examination is regular rate and rhythm. Normal S1/S2 Abdominal exam: Soft, nontender, with no palpable masses. No hepatosplenomegaly. No palpable hernias. Extremities: no clubbing, cyanosis or edema. No adenopathy. LABORATORY VALUES: As Noted RADIOLOGIC STUDIES: As Noted Assessment IMPRESSION: screen for colon cancer, history of polyps PLAN: I have reviewed my findings with the surgeon. Will plan for lower endoscopy. We discussed the risks and benefits of the planned endoscopy. I have informed the patient that complications can occur including failure to complete the endoscopy and perforation. Freeman had the opportunity to ask questions concerning the planned endoscopy. My staff has also explained the procedure to the patient in understandable terms and has given the patient printed material concerning the procedure. Freeman freely consents to surgery. I plan to use Golytely bowel preparation CARDIAC CLEARANCE FROM [facility] after ECHO and stress test both which are scheduled on Sunday08/15/[address] order for colonoscopy. Freeman is agreeable. I have explained to the patient the difference between IV conscious sedation and MAC anesthesia - and I have offered either, according to the patient's wishes. I have explained that with IV conscious sedation there is no anesthesia provider available and therefore there is a limitation of the amount of IV medications that can be given and that the patient may wake up in the middle of the procedure and/or experience pain/discomfort during the procedure. Further discussion was done and the patient was given the opportunity to ask questions and all questions were answered. Freeman chooses IV conscious sedation Freeman was counseled that if there are changes in his/her medical condition, to let the office know if surgery should proceed. If there are changes in patient's medical condition from time of this encounter to the day of the procedure that preclude anesthesia, patient may have procedure cancelled for patient's safety. Diagnoses: (Z12.11) Screen for colon cancer (primary encounter diagnosis) (Z86.0100) History of colonic polyps Consultation requested by Dr. Stephens for an opinion regarding history of polyps. My final recommendations will be communicated back to the requesting physician by way of shared Medical record or letter to requesting physician via US mail. Portions of this documentation were copied and pasted from previous office visit notes in order to provide a cohesive continuity of the history. The note has been reviewed and edited and updated as necessary. Latonia Fontaine APRN.CORING MACHINE OPERATOR UPDATED HISTORY AND PHYSICAL EXAMINATION SERVICE DATE: 09/22/2024 SERVICE TIME: 9:08 AM PHYSICAL EXAM MUST BE COMPLETED ON ADMISSION The History and Physical (completed in the past 30 days) has been reviewed and the patient has been examined. The contents accurately reflect the patient's condition with the following additions or revisions since the H&P was completed. Examination indicates no changes. This H&P can be found in the attached. SIGNATURE: Benedict Torres III, MD PATIENT NAME: Freeman Sarabia DATE: September 22, 2024 TIME: 9:08 AM documented in this encounter [facility] 09-04-2024 Telephone encounter Note Surgical clearance form received via fax and is as follows. Scanned into [employer]. Scan on 09/04/2024 1:29 PM by Provider, External, PA-C: Surgical Clearace Sayda Son MA [facility] 09-04-2024 Miscellaneous Notes Surgical clearance form received via fax and is as follows. Scanned into [employer]. Scan on 09/04/2024 1:29 PM by Provider, External, HANNAH: Surgical Clearace Sayda Son MA documented in this encounter [facility] 08-31-2024 Note HNO ID: [id number] Author: TOÑA BEST APRN.CORING MACHINE OPERATOR Service: ? Author Type: Nurse Practitioner Type: Progress Notes Filed: 08/31/2024 08:49 Note Text: Subjective HPI Freeman presents today with 10 day hx of sinus congestion, pnd, productive cough. He states two days ago he developed a fever. He is eating and drinking well, using otc decongestant. PAST MEDICAL HISTORY Diagnosis Date BPH (benign [...] ALLERGIES Patient has no known allergies. MEDICATIONS sertraline (ZOLOFT) 50 mg tablet Take 1 tablet by mouth once daily. verapamil SR (CALAN SR) 120 mg CR tablet Take 120 mg by mouth two times a day. potassium chloride (K-TAB) 10 mEq tablet Take 1 tablet by mouth daily with breakfast. losartan (COZAAR) 100 mg tablet Take 1 tablet by mouth once daily. hydroCHLOROthiazide 12.5 mg capsule Take 1 capsule by mouth once daily. aspirin 81 mg chewable tablet Take 1 tablet by mouth once daily. atorvastatin (LIPITOR) 80 mg tablet Take 80 mg by mouth once daily. Cholecalciferol, Vitamin D3, 25 mcg (1,000 unit) cap Take 1,000 Units by mouth once daily. furosemide (LASIX) 20 mg tablet Take 1 tablet by mouth once daily for 6 days. (Patient not taking: Reported on 08/18/2024) FAMILY HISTORY Problem Relation Age of Onset COPD Mother Smoker Alcohol/Drug Mother COPD Father Smoker Alcohol/Drug Father Arthritis Sister Colon Cancer Sister Social History Tobacco Use Smoking status: Never Smokeless tobacco: Never Vaping Use Vaping status: Never Used Substance Use Topics Alcohol use: Yes Comment: rarely Drug use: No Review of Systems Constitutional: Positive for fever. HENT: Positive for congestion and sinus pain. Respiratory: Positive for cough. All other systems reviewed and are negative. Objective Physical Exam Vitals reviewed. Constitutional: General: He is not in acute distress. Appearance: Normal appearance. HENT: Head: Normocephalic and atraumatic. Right Ear: Tympanic membrane, ear canal and external ear normal. Left Ear: Tympanic membrane, ear canal and external ear normal. Nose: Congestion present. Comments: Bilateral turbinate edema, Mouth/Throat: Mouth: Mucous membranes are moist. Pharynx: Oropharynx is clear. No oropharyngeal exudate or posterior oropharyngeal erythema. Comments: Pnd noted Eyes: Extraocular Movements: Extraocular movements intact. Conjunctiva/sclera: Conjunctivae normal. Pupils: Pupils are equal, round, and reactive to light. Cardiovascular: Rate and Rhythm: Normal rate and regular rhythm. Pulses: Normal pulses. Heart sounds: Normal heart sounds. Pulmonary: Effort: Pulmonary effort is normal. No respiratory distress. Breath sounds: Normal breath sounds. No stridor. No wheezing, rhonchi or rales. Chest: Chest wall: No tenderness. Abdominal: General: Bowel sounds are normal. Palpations: Abdomen is soft. Musculoskeletal: General: Normal range of motion. Cervical back: Normal range of motion and neck supple. Skin: General: Skin is warm and dry. Capillary Refill: Capillary refill takes less than 2 seconds. Neurological: General: No focal deficit present. Mental Status: He is alert and oriented to person, place, and time. Psychiatric: Mood and Affect: Mood normal. ASSESSMENT/PLAN: 1. Bronchitis - ICD9: 490, ICD10: J40 (primary diagnosis) Vaporizer at bedside Tea and honey Increase fluids 2. Bacterial sinusitis - ICD9: 473.9, 041.9, ICD10: J32.9, B96.89 - Will begin treatment with Augmentin 875 mg PO BID for 10 days - The patient should also be given OTC decongestants prn, warm salt water gargles, throat lozenges and/or OTC throat spray as needed, and nasal saline gtts and suction prn for the first 5-7 days of treatment. - Supportive care with plenty of fluids, rest, and analgesia prn. - Follow up in 3-5 days if symptoms persist or worsen. Toña Best APRN.[facility] 08-31-2024 History of Present illness Narrative Subjective HPI Freeman presents today with 10 day hx of sinus congestion, pnd, productive cough. He states two days ago he developed a fever. He is eating and drinking well, using otc decongestant. PAST MEDICAL HISTORY Diagnosis Date BPH (benign [...] ALLERGIES Patient has no known allergies. MEDICATIONS sertraline (ZOLOFT) 50 mg tablet Take 1 tablet by mouth once daily. verapamil SR (CALAN SR) 120 mg CR tablet Take 120 mg by mouth two times a day. potassium chloride (K-TAB) 10 mEq tablet Take 1 tablet by mouth daily with breakfast. losartan (COZAAR) 100 mg tablet Take 1 tablet by mouth once daily. hydroCHLOROthiazide 12.5 mg capsule Take 1 capsule by mouth once daily. aspirin 81 mg chewable tablet Take 1 tablet by mouth once daily. atorvastatin (LIPITOR) 80 mg tablet Take 80 mg by mouth once daily. Cholecalciferol, Vitamin D3, 25 mcg (1,000 unit) cap Take 1,000 Units by mouth once daily. furosemide (LASIX) 20 mg tablet Take 1 tablet by mouth once daily for 6 days. (Patient not taking: Reported on 08/18/2024) FAMILY HISTORY Problem Relation Age of Onset COPD Mother Smoker Alcohol/Drug Mother COPD Father Smoker Alcohol/Drug Father Arthritis Sister Colon Cancer Sister Social History Tobacco Use Smoking status: Never Smokeless tobacco: Never Vaping Use Vaping status: Never Used Substance Use Topics Alcohol use: Yes Comment: rarely Drug use: No Review of Systems Constitutional: Positive for fever. HENT: Positive for congestion and sinus pain. Respiratory: Positive for cough. All other systems reviewed and are negative. Objective Physical Exam Vitals reviewed. Constitutional: General: He is not in acute distress. Appearance: Normal appearance. HENT: Head: Normocephalic and atraumatic. Right Ear: Tympanic membrane, ear canal and external ear normal. Left Ear: Tympanic membrane, ear canal and external ear normal. Nose: Congestion present. Comments: Bilateral turbinate edema, Mouth/Throat: Mouth: Mucous membranes are moist. Pharynx: Oropharynx is clear. No oropharyngeal exudate or posterior oropharyngeal erythema. Comments: Pnd noted Eyes: Extraocular Movements: Extraocular movements intact. Conjunctiva/sclera: Conjunctivae normal. Pupils: Pupils are equal, round, and reactive to light. Cardiovascular: Rate and Rhythm: Normal rate and regular rhythm. Pulses: Normal pulses. Heart sounds: Normal heart sounds. Pulmonary: Effort: Pulmonary effort is normal. No respiratory distress. Breath sounds: Normal breath sounds. No stridor. No wheezing, rhonchi or rales. Chest: Chest wall: No tenderness. Abdominal: General: Bowel sounds are normal. Palpations: Abdomen is soft. Musculoskeletal: General: Normal range of motion. Cervical back: Normal range of motion and neck supple. Skin: General: Skin is warm and dry. Capillary Refill: Capillary refill takes less than 2 seconds. Neurological: General: No focal deficit present. Mental Status: He is alert and oriented to person, place, and time. Psychiatric: Mood and Affect: Mood normal. ASSESSMENT/PLAN: 1. Bronchitis - ICD9: 490, ICD10: J40 (primary diagnosis) Vaporizer at bedside Tea and honey Increase fluids 2. Bacterial sinusitis - ICD9: 473.9, 041.9, ICD10: J32.9, B96.89 - Will begin treatment with Augmentin 875 mg PO BID for 10 days - The patient should also be given OTC decongestants prn, warm salt water gargles, throat lozenges and/or OTC throat spray as needed, and nasal saline gtts and suction prn for the first 5-7 days of treatment. - Supportive care with plenty of fluids, rest, and analgesia prn. - Follow up in 3-5 days if symptoms persist or worsen. Toña Best APRN.CORING MACHINE OPERATOR documented in this encounter [facility] 08-18-2024 History of Present illness Narrative Patient presents with: Follow Up HPI: Patient presents today for office visit for 2 week follow up. Here for follow up from last OV on 08/04/24 where he presented for mildly swollen ankles and shortness of breath. Sent to Cardiology. Saw [facility] on 08/05/24. 24 hr Holter completed on 08/05/24. Stress test and Echo completed on 08/15/24. We do not hav any of those results. Denies any chest pain today. No new or worsening shortness of breath. Refers to being the same. Swelling is better. Did have some cough one night but otherwise ok. Chest xray was negative. Discussed considering pulmonary work up. Latest Ref Rng 08/04/2024 WBC 3.70 - 11.00 k/uL 7.75 RBC 4.20 - 6.00 m/uL 4.71 Hemoglobin 13.0 - 17.0 g/dL 14.9 Hematocrit 39.0 - 51.0 % 45.4 MCV 80.0 - 100.0 fL 96.4 MCH 26.0 - 34.0 pg 31.6 MCHC 30.5 - 36.0 g/dL 32.8 RDW-CV 11.5 - 15.0 % 13.1 Platelet Count 150 - 400 k/uL 244 MPV 9.0 - 12.7 fL 9.9 Neut% % 60.7 Abs Neut (ANC) 1.45 - 7.50 k/uL 4.70 Lymph% % 25.3 Abs Lymph 1.00 - 4.00 k/uL 1.96 Montcalm% % 9.5 Abs [place] <0.87 k/uL 0.74 Eosin% % 3.2 Abs Eosin <0.46 k/uL 0.25 Baso% % 0.8 Abs Baso <0.11 k/uL 0.06 Immature Gran % % 0.5 IMMATURE GRANS (ABS) <0.10 k/uL 0.04 NRBC /100 WBC 0.0 Absolute nRBC <0.01 k/uL <0.01 DTYPE Auto Glucose 74 - 99 mg/dL 100 (H) BUN 9 - 24 mg/dL 22 Creatinine 0.73 - 1.22 mg/dL 0.99 Sodium 136 - 144 mmol/L 142 Potassium 3.7 - 5.1 mmol/L 4.0 Chloride 98 - 107 mmol/L 103 CO2 22 - 30 mmol/L 28 Anion Gap 8 - 15 mmol/L 11 Calcium 8.5 - 10.2 mg/dL 9.4 eGFR >=60 mL/min/1.73m 79 NT Pro BNP <450 pg/mL 139 Magnesium 1.7 - 2.3 mg/dL 1.9 Legend: (H) High Note was copied and pasted, without alteration from last ov: Ankles are mildly swollen, no nearly like he had on the amlodipine. Feels like shortness of breath is getting worse. More fatigued. Blood pressure has been up at home. Had had edema in the past when on calcium channel blockers. His now on verapamil which is less likely to cause edema but can still cause some. Has been worse with exertion. Has noted it is worse with exertion. Last saw cardiology in March. Weight is up a little since March. Has not been watching the diet. Unsure if any salt intake. No chest pain. No syncope or near syncope. No pnd. No redness or warmth in the ankle. Last echo last year showed ef of 55 % and hypokinesis of inf wall. [facility] asked him about his irregular heartbeat? He is not feeling anything. No complaints of palpitations. Has known hx of svt. He is on verapamil from cardiology for same. Asking about taking magnesium before bedtime. MEDICATIONS: Current Outpatient Medications Medication Sig sertraline (ZOLOFT) 50 mg tablet Take 1 tablet by mouth once daily. verapamil SR (CALAN SR) 120 mg CR tablet Take 120 mg by mouth two times a day. potassium chloride (K-TAB) 10 mEq tablet Take 1 tablet by mouth daily with breakfast. losartan (COZAAR) 100 mg tablet Take 1 tablet by mouth once daily. hydroCHLOROthiazide 12.5 mg capsule Take 1 capsule by mouth once daily. aspirin 81 mg chewable tablet Take 1 tablet by mouth once daily. atorvastatin (LIPITOR) 80 mg tablet Take 80 mg by mouth once daily. Cholecalciferol, Vitamin D3, 25 mcg (1,000 unit) cap Take 1,000 Units by mouth once daily. furosemide (LASIX) 20 mg tablet Take 1 tablet by mouth once daily for 6 days. (Patient not taking: Reported on 08/18/2024) No current facility-administered medications for this visit. [...] Use Smoking status: Never Smokeless tobacco: Never Vaping Use Vaping status: Never Used Substance Use Topics Alcohol use: Yes Comment: rarely Drug use: No Reviewed current medications, allergies, past medical history, surgical history, family history and social history today. REVIEW OF SYSTEMS No fever or chills. All other reviewed and negative other than HPI. HEALTH MAINTENANCE: Reviewed health maintenance issues today and recommended the following in detail. BP Controlled (<130/80) due on 03/18/2019 Colorectal Cancer Screening -getting colonoscopy scheduled if cleared. Advance Directive Discussion- is his surrogate. VITALS: BP 133/73 Pulse 69 Ht 190.5 cm (6' 3) Wt 115.2 kg (254 lb) BMI 31.75 kg/m Last 4 Encounter Wt Readings: Date: Wt: 08/11/2024 114.8 kg (253 lb) 08/04/2024 115.7 kg (255 lb) 07/04/2024 113.9 kg (251 lb) 04/07/2024 109 kg (240 lb 4.8 oz) PHYSICAL EXAMINATION: General appearance: Well appearing, [...] ICD9: 786.05, ICD10: R06.02 (primary diagnosis) - wait on testing. Getting echo and stress test. Suggested pft's. He will consider. Red flags for re-assessment reviewed with patient in detail. 2. SVT (supraventricular tachycardia) (HCC) - ICD9: 427.89, ICD10: I47.10 - stable. 3. Aortic dilatation (HCC) - ICD9: 447.70, ICD10: I77.819 - per cardiology 4. 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 - ICD9: 414.01, ICD10: I25.10 - stable. 5. Essential hypertension, benign - ICD9: 401.1, ICD10: I10 - Controlled - Continue current medications Calvin Stephens documented in this encounter [facility] 08-18-2024 Note HNO ID: [id number] Author: CALVIN STEPHENS MD Service: ? Author Type: Physician Type: Progress Notes Filed: 08/18/2024 09:14 Note Text: Patient presents with: Follow Up HPI: Patient presents today for office visit for 2 week follow up. Here for follow up from last OV on 08/04/24 where he presented for mildly swollen ankles and shortness of breath. Sent to Cardiology. Saw [facility] on 08/05/24. 24 hr Holter completed on 08/05/24. Stress test and Echo completed on 08/15/24. We do not hav any of those results. Denies any chest pain today. No new or worsening shortness of breath. Refers to being the same. Swelling is better. Did have some cough one night but otherwise ok. Chest xray was negative. Discussed considering pulmonary work up. Latest Ref Rng 08/04/2024 WBC 3.70 - 11.00 k/uL 7.75 RBC 4.20 - 6.00 m/uL 4.71 Hemoglobin 13.0 - 17.0 g/dL 14.9 Hematocrit 39.0 - 51.0 % 45.4 MCV 80.0 - 100.0 fL 96.4 MCH 26.0 - 34.0 pg 31.6 MCHC 30.5 - 36.0 g/dL 32.8 RDW-CV 11.5 - 15.0 % 13.1 Platelet Count 150 - 400 k/uL 244 MPV 9.0 - 12.7 fL 9.9 Neut% % 60.7 Abs Neut (ANC) 1.45 - 7.50 k/uL 4.70 Lymph% % 25.3 Abs Lymph 1.00 - 4.00 k/uL 1.96 Montcalm% % 9.5 Abs [place] <0.87 k/uL 0.74 Eosin% % 3.2 Abs Eosin <0.46 k/uL 0.25 Baso% % 0.8 Abs Baso <0.11 k/uL 0.06 Immature Gran % % 0.5 IMMATURE GRANS (ABS) <0.10 k/uL 0.04 NRBC /100 WBC 0.0 Absolute nRBC <0.01 k/uL <0.01 DTYPE Auto Glucose 74 - 99 mg/dL 100 (H) BUN 9 - 24 mg/dL 22 Creatinine 0.73 - 1.22 mg/dL 0.99 Sodium 136 - 144 mmol/L 142 Potassium 3.7 - 5.1 mmol/L 4.0 Chloride 98 - 107 mmol/L 103 CO2 22 - 30 mmol/L 28 Anion Gap 8 - 15 mmol/L 11 Calcium 8.5 - 10.2 mg/dL 9.4 eGFR >=60 mL/min/1.73m? 79 NT Pro BNP <450 pg/mL 139 Magnesium 1.7 - 2.3 mg/dL 1.9 Legend: (H) High Note was copied and pasted, without alteration from last ov: Ankles are mildly swollen, no nearly like he had on the amlodipine. Feels like shortness of breath is getting worse. More fatigued. Blood pressure has been up at home. Had had edema in the past when on calcium channel blockers. His now on verapamil which is less likely to cause edema but can still cause some. Has been worse with exertion. Has noted it is worse with exertion. Last saw cardiology in March. Weight is up a little since March. Has not been watching the diet. Unsure if any salt intake. No chest pain. No syncope or near syncope. No pnd. No redness or warmth in the ankle. Last echo last year showed ef of 55 % and hypokinesis of inf wall. [facility] asked him about his irregular heartbeat? He is not feeling anything. No complaints of palpitations. Has known hx of svt. He is on verapamil from cardiology for same. Asking about taking magnesium before bedtime. MEDICATIONS: Current Outpatient Medications Medication Sig sertraline (ZOLOFT) 50 mg tablet Take 1 tablet by mouth once daily. verapamil SR (CALAN SR) 120 mg CR tablet Take 120 mg by mouth two times a day. potassium chloride (K-TAB) 10 mEq tablet Take 1 tablet by mouth daily with breakfast. losartan (COZAAR) 100 mg tablet Take 1 tablet by mouth once daily. hydroCHLOROthiazide 12.5 mg capsule Take 1 capsule by mouth once daily. aspirin 81 mg chewable tablet Take 1 tablet by mouth once daily. atorvastatin (LIPITOR) 80 mg tablet Take 80 mg by mouth once daily. Cholecalciferol, Vitamin D3, 25 mcg (1,000 unit) cap Take 1,000 Units by mouth once daily. furosemide (LASIX) 20 mg tablet Take 1 tablet by mouth once daily for 6 days. (Patient not taking: Reported on 08/18/2024) No current facility-administered medications for this visit. [...] Use Smoking status: Never Smokeless tobacco: Never Vaping Use Vaping status: Never Used Substance Use Topics Alcohol use: Yes Comment: rarely Drug use: No Reviewed current medications, allergies, past medical history, surgical history, family history and social history today. REVIEW OF SYSTEMS No fever or chills. All other reviewed and negative other than HPI. (more content not included)... [facility] 08-11-2024 History of Present illness Narrative HISTORY AND PHYSICAL Freeman Sarabia : 1950 REFERRING PHYSICIAN: Calvin Cedillo[address] [facility] [id number] CHIEF COMPLAINT: Patient presents with: Consult: Colonoscopy previous colonoscopy 2017 HPI: Freeman is a 74 year old male referred for endoscopy. Freeman notes due for colon cancer screening- hx of polyps(2014). Freeman denies abdominal pain.. Freeman denies diarrhea. Freeman notes occasional constipation. Freeman denies a change in bowel habits. Freeman denies melena. Freeman denies bright red blood per rectum. Freeman denies hemorrhoids. Freeman denies heartburn. Freeman denies dysphagia. Freeman denies a history of ulcers/ peptic ulcer disease. Freeman notes family history of colon issues. Freeman notes an increase in IYER & BLE edema for the last month. Hx of STEMI with stent to RCA in 2022. He had cardiology visit with [facility] on 08/05/24. ECHO & exercise stress test is is scheduled for 08/15/24. Freeman has undergone prior endoscopy. Last colonoscopy was 03/[address] Berrios at [facility]. Sedation:Midazolam 7 mg IV, Fentanyl 100 micrograms IV, Diphenhydramine 50 mg IV Impression: - Diverticulosis in the sigmoid colon. - Non-bleeding external and internal hemorrhoids. - No specimens collected. Current Outpatient Medications Medication Sig furosemide (LASIX) 20 mg tablet Take 1 tablet by mouth once daily for 6 days. sertraline (ZOLOFT) 50 mg tablet Take 1 tablet by mouth once daily. verapamil SR (CALAN SR) 120 mg CR tablet Take 120 mg by mouth two times a day. potassium chloride (K-TAB) 10 mEq tablet Take 1 tablet by mouth daily with breakfast. losartan (COZAAR) 100 mg tablet Take 1 tablet by mouth once daily. hydroCHLOROthiazide 12.5 mg capsule Take 1 capsule by mouth once daily. aspirin 81 mg chewable tablet Take 1 tablet by mouth once daily. atorvastatin (LIPITOR) 80 mg tablet Take 80 mg by mouth once daily. Cholecalciferol, Vitamin D3, 25 mcg (1,000 unit) cap Take 1,000 Units by mouth once daily. No current facility-administered medications for this visit. ALLERGIES: Patient has no known allergies. PAST MEDICAL HISTORY Diagnosis Date BPH (benign [...] Use Smoking status: Never Smokeless tobacco: Never Vaping Use Vaping status: Never Used Substance Use Topics Alcohol use: Yes Comment: rarely Drug use: No REVIEW OF SYMPTOMS: The review of systems data was entered by the nurse and reviewed by me SEE NURSING NOTE PHYSICAL EXAMINATION: General: The patient is 74 year old, male well nourished, well hydrated in no acute distress. The patient is oriented to time, place, and person. VITALS: Blood pressure 146/82, pulse 75, temperature 36.3 C (97.3 F), height 190.5 cm (6' 3), weight 114.8 kg (253 lb), SpO2 96%. Body mass index is 31.62 kg/m . HEENT: Normal cephalic, ataumatic, pupils are equally round, sclera are anicteric, mucous membranes are moist, oropharynx is clear. Neck has no masses, asymmetry or lymphadenopathy. Respiratory: Clear to auscultation and percussion. Normal respiratory excursion and pattern. Cardiac: Examination is regular rate and rhythm. Normal S1/S2 Abdominal exam: Soft, nontender, with no palpable masses. No hepatosplenomegaly. No palpable hernias. Extremities: no clubbing, cyanosis or edema. No adenopathy. LABORATORY VALUES: As Noted RADIOLOGIC STUDIES: As Noted Assessment IMPRESSION: screen for colon cancer, history of polyps PLAN: I have reviewed my findings with the surgeon. Will plan for lower endoscopy. We discussed the risks and benefits of the planned endoscopy. I have informed the patient that complications can occur including failure to complete the endoscopy and perforation. Freeman had the opportunity to ask questions concerning the planned endoscopy. My staff has also explained the procedure to the patient in understandable terms and has given the patient printed material concerning the procedure. Freeman freely consents to surgery. I plan to use Golytely bowel preparation CARDIAC CLEARANCE FROM [facility] after ECHO and stress test both which are scheduled on Sunday08/15/[address] order for colonoscopy. Freeman is agreeable. I have explained to the patient the difference between IV conscious sedation and MAC anesthesia - and I have offered either, according to the patient's wishes. I have explained that with IV conscious sedation there is no anesthesia provider available and therefore there is a limitation of the amount of IV medications that can be given and that the patient may wake up in the middle of the procedure and/or experience pain/discomfort during the procedure. Further discussion was done and the patient was given the opportunity to ask questions and all questions were answered. Freeman chooses IV conscious sedation Freeman was counseled that if there are changes in his/her medical condition, to let the office know if surgery should proceed. If there are changes in patient's medical condition from time of this encounter to the day of the procedure that preclude anesthesia, patient may have procedure cancelled for patient's safety. Diagnoses: (Z12.11) Screen for colon cancer (primary encounter diagnosis) (Z86.0100) History of colonic polyps Consultation requested by Dr. Stephens for an opinion regarding history of polyps. My final recommendations will be communicated back to the requesting physician by way of shared Medical record or letter to requesting physician via US mail. Portions of this documentation were copied and pasted from previous office visit notes in order to provide a cohesive continuity of the history. The note has been reviewed and edited and updated as necessary. Latonia Fontaine APRN.CORING MACHINE OPERATOR REVIEW OF SYSTEMS: General: The patient denies fatigue, denies weight loss, denies weight gain, denies feeling hot, and denies feelings of cold. Eyes: The patient denies glaucoma, denies eye injury/surgery, wears glasses or contacts. Ear/Nose/Throat: The patient denies allergies, denies hayfever, denies ear infections, and denies bloody noses. Cardiovascular: The patient denies chest pain, denies heart disease, denies high blood pressure,notes cardiac stent, notes prior heart attack, notes irregular heart beat, denies high cholesterol, denies poor circulation, denies heart failure, other cardiac issues, denies claudication, denies cold feet, denies peripheral arterial stent. Respiratory: The patient denies tuberculosis, denies pneumonia, denies frequent cough, denies pulmonary embolism, denies shortness of breath, and denies coughing up blood. Gastrointestinal: The patient denies difficulty swallowing, denies acid reflux, denies ulcers, denies vomiting, denies jaundice/hepatitis, denies gallbladder problems, denies black or tarry stools, denies hemorrhoids, denies bleeding from rectum, denies diverticulitis, denies constipation, denies diarrhea, denies loss of stool control, and denies hernias. Kidney/Bladder: The patient denies kidney stones, denies urine infections, and denies bloody urine. Skin: The patient notes a history of skin cancer, denies bleeding/changing moles, and denies a history of skin rash. Neurologic: The patient denies a history of epilepsy/convulsions, denies headaches, denies head/spinal injuries, and denies stroke/TIA. Psychiatric: The patient denies psychiatric medications, denies depression, and denies voices, denies substance abuse. Endocrine: The patient denies thyroid disorders, denies diabetes, and denies hormonal problems. Hematologic: The patient denies a history of bruising, denies bleeding, and denies anemia, denies blood clots. Infections: The patient denies a history of measles and mumps, denies rheumatic fever, and denies sexually transmitted diseases. Musculoskeletal: The patient denies back pain/injury, denies back problems, denies sciatica, denies knee/foot trouble, denies arthritis, or denies gout. When was patient's last Mammogram screening? N/A Last Colonoscopy: 2017 Karina Stanley LPN documented in this encounter [facility] 08-11-2024 Note HNO ID: [id number] Author: LATONIA FONTAINE APRN.CORING MACHINE OPERATOR Service: ? Author Type: Nurse Practitioner Type: Progress Notes Filed: 08/11/2024 09:39 Note Text: HISTORY AND PHYSICAL Freeman Sarabia : 1950 REFERRING PHYSICIAN: Calvin Sevilla [facility] [id number] CHIEF COMPLAINT: Patient presents with: Consult: Colonoscopy previous colonoscopy 2017 HPI: Freeman is a 74 year old male referred for endoscopy. Freeman notes due for colon cancer screening- hx of polyps(2014). Freeman denies abdominal pain.. Freeman denies diarrhea. Freeman notes occasional constipation. Freeman denies a change in bowel habits. Freeman denies melena. Freeman denies bright red blood per rectum. Freeman denies hemorrhoids. Freeman denies heartburn. Freeman denies dysphagia. Freeman denies a history of ulcers/ peptic ulcer disease. Freeman notes family history of colon issues. Freeman notes an increase in IYER AND BLE edema for the last month. Hx of STEMI with stent to RCA in 2022. He had cardiology visit with [facility] on 08/05/24. ECHO AND exercise stress test is is scheduled for 08/15/24. Freeman has undergone prior endoscopy. Last colonoscopy was 03/[address] Berrios at [facility]. Sedation:Midazolam 7 mg IV, Fentanyl 100 micrograms IV, Diphenhydramine 50 mg IV Impression: - Diverticulosis in the sigmoid colon. - Non-bleeding external and internal hemorrhoids. - No specimens collected. Current Outpatient Medications Medication Sig furosemide (LASIX) 20 mg tablet Take 1 tablet by mouth once daily for 6 days. sertraline (ZOLOFT) 50 mg tablet Take 1 tablet by mouth once daily. verapamil SR (CALAN SR) 120 mg CR tablet Take 120 mg by mouth two times a day. potassium chloride (K-TAB) 10 mEq tablet Take 1 tablet by mouth daily with breakfast. losartan (COZAAR) 100 mg tablet Take 1 tablet by mouth once daily. hydroCHLOROthiazide 12.5 mg capsule Take 1 capsule by mouth once daily. aspirin 81 mg chewable tablet Take 1 tablet by mouth once daily. atorvastatin (LIPITOR) 80 mg tablet Take 80 mg by mouth once daily. Cholecalciferol, Vitamin D3, 25 mcg (1,000 unit) cap Take 1,000 Units by mouth once daily. No current facility-administered medications for this visit. ALLERGIES: Patient has no known allergies. PAST MEDICAL HISTORY Diagnosis Date BPH (benign [...] Use Smoking status: Never Smokeless tobacco: Never Vaping Use Vaping status: Never Used Substance Use Topics Alcohol use: Yes Comment: rarely Drug use: No REVIEW OF SYMPTOMS: The review of systems data was entered by the nurse and reviewed by me SEE NURSING NOTE PHYSICAL EXAMINATION: General: The patient is 74 year old, male well nourished, well hydrated in no acute distress. The patient is oriented to time, place, and person. VITALS: Blood pressure 146/82, pulse 75, temperature 36.3 ?C (97.3 ?F), height 190.5 cm (6' 3), weight 114.8 kg (253 lb), SpO2 96%. Body mass index is 31.62 kg/m?. HEENT: Normal cephalic, ataumatic, pupils are equally round, sclera are anicteric, mucous membranes are moist, oropharynx is clear. Neck has no masses, asymmetry or lymphadenopathy. Respiratory: Clear to auscultation and percussion. Normal respiratory excursion and pattern. Cardiac: Examination is regular rate and rhythm. Normal S1/S2 Abdominal exam: Soft, nontender, with no palpable masses. No hepatosplenomegaly. No palpable hernias. Extremities: no clubbing, cyanosis or edema. No adenopathy. LABORATORY VALUES: As Noted RADIOLOGIC STUDIES: As Noted Assessment IMPRESSION: screen for colon cancer, history of polyps PLAN: I have reviewed my findings with the surgeon. Will plan for lower endoscopy. We discussed the risks and benefits of the planned endoscopy. I have informed the patient that complications can occur including failure to complete the endoscopy and perforation. Freeman had the opportunity to ask questions concerning the planned endoscopy. My staff has also explained the procedure to the patient in understandable terms and has given the patient printed material concerning the procedure. Freeman freely consents (more content not included)... [facility] 08-11-2024 Note HNO ID: [id number] Author: KARINA STANLEY LPN Service: ? Author Type: LICENSED NURSE Type: Progress Notes Filed: 08/11/2024 09:39 Note Text: REVIEW OF SYSTEMS: General: The patient denies fatigue, denies weight loss, denies weight gain, denies feeling hot, and denies feelings of cold. Eyes: The patient denies glaucoma, denies eye injury/surgery, wears glasses or contacts. Ear/Nose/Throat: The patient denies allergies, denies hayfever, denies ear infections, and denies bloody noses. Cardiovascular: The patient denies chest pain, denies heart disease, denies high blood pressure,notes cardiac stent, notes prior heart attack, notes irregular heart beat, denies high cholesterol, denies poor circulation, denies heart failure, other cardiac issues, denies claudication, denies cold feet, denies peripheral arterial stent. Respiratory: The patient denies tuberculosis, denies pneumonia, denies frequent cough, denies pulmonary embolism, denies shortness of breath, and denies coughing up blood. Gastrointestinal: The patient denies difficulty swallowing, denies acid reflux, denies ulcers, denies vomiting, denies jaundice/hepatitis, denies gallbladder problems, denies black or tarry stools, denies hemorrhoids, denies bleeding from rectum, denies diverticulitis, denies constipation, denies diarrhea, denies loss of stool control, and denies hernias. Kidney/Bladder: The patient denies kidney stones, denies urine infections, and denies bloody urine. Skin: The patient notes a history of skin cancer, denies bleeding/changing moles, and denies a history of skin rash. Neurologic: The patient denies a history of epilepsy/convulsions, denies headaches, denies head/spinal injuries, and denies stroke/TIA. Psychiatric: The patient denies psychiatric medications, denies depression, and denies voices, denies substance abuse. Endocrine: The patient denies thyroid disorders, denies diabetes, and denies hormonal problems. Hematologic: The patient denies a history of bruising, denies bleeding, and denies anemia, denies blood clots. Infections: The patient denies a history of measles and mumps, denies rheumatic fever, and denies sexually transmitted diseases. Musculoskeletal: The patient denies back pain/injury, denies back problems, denies sciatica, denies knee/foot trouble, denies arthritis, or denies gout. When was patient's last Mammogram screening? N/A Last Colonoscopy: 2017 Karina Stanley LPN [facility] 08-05-2024 Evaluation note Diagnosis Onset Date Resolution Nonsustained ventricular tachycardia acute August 05, 2024 10:45am Stented coronary artery February 19, 2023 acute August 05, 2024 10:45am Ascending aortic aneurysm chronic August 05, 2024 10:45am Hypertension chronic July 10:45am Frequent PVCs resolved July 10:45am Stented coronary artery February 19, 2023 acute October 06, 2024 10:30am Aortic valve regurgitation chronic October 06, 2024 10:30am Coronary artery disease chronic October 06, 2024 10:30am Dyslipidemia chronic October 06, 2024 10:30am Hypertension chronic October 06, 2024 10:30am Thoracic aortic aneurysm chronic October 06, 2024 10:30am Frequent PVCs resolved October 06, 2024 10:30am [facility] Work Phone: [phone] 310-273101-13-2025 History of Present illness Narrative* Elizabeth Milan RT(R) - 08/04/2024 10:00 AM EST Radiology Service Progress Note PATIENT NAME: Freeman Sarabia DATE OF SERVICE: August 04, 2024 TIME: 10:01 AM PATIENT IDENTITY VERIFICATION COMPLETED USING TWO (2) IDENTIFIERS: Name and Date of confirmedby patient verbally. FALL SCREENING: Has the patient had 2 falls in the last year or 1 fall with injury or currently using an Ambulatory Assistive Device (Walker, Cane, Wheelchair, Crutches, etc.)? No PATIENT GENDER DATA: Assigned male at PATIENT RELEVANT IMPLANT DATA REVIEWED: Yes PATIENT PRESENTS WITH AN IMPLANTABLE OR ATTACHED CARDIOLOGY CLINICAL CONSULTANT: No RADIOLOGY DEPARTMENT: General X-ray: Exam(s) Completed: Chest X-Ray PERIPHERAL IV DATA: Not applicable SIGNED BY: GORGE Moore) August 04, 2024 10:01 AM documented in [facility]25 NoteHNO ID: [id number] Author: ELIZABETH MILAN RT(R) Service: ? Author Type: Tool Marker Type: Progress Notes Filed: 08/04/2024 10:16 Note Text: Radiology Service Progress Note PATIENT NAME: Freeman Sarabia DATE OF SERVICE: August 04, 2024 TIME: 10:01 AM PATIENT IDENTITY VERIFICATION COMPLETED USING TWO (2) IDENTIFIERS: Name and Date of confirmed by patient verbally. FALL SCREENING: Has the patient had 2 falls in the last year or 1 fall with injury or currently using an Ambulatory Assistive Device (Walker, Cane, Wheelchair, Crutches, etc.)? No PATIENT GENDER DATA: Assigned male at PATIENT RELEVANT IMPLANT DATA REVIEWED: Yes PATIENT PRESENTS WITH AN IMPLANTABLE OR ATTACHED CARDIOLOGY CLINICAL CONSULTANT: No RADIOLOGY DEPARTMENT: General X-ray: Exam(s) Completed: Chest X-Ray PERIPHERAL IV DATA: Not applicable SIGNED BY: GORGE Moore) August 04, 2024 10:01 [facility]01-13-2025 NoteHNO ID: [id number] Author: CALVIN STEPHENS MD Service: ? Author Type: Physician Type: Progress Notes Filed: 08/04/2024 09:46 Note Text: Patient presents with: Blood Pressure HPI: Patient presents today for office visit for follow up. Ankles are mildly swollen, no nearly like he had on the amlodipine. Feels like shortness of breath is getting worse. More fatigued. Blood pressure has been up at home. Had had edema in the past when on calcium channel blockers. His now on verapamil which is less likely to cause edema but can still cause some. Has been worse with exertion. Has noted it is worse with exertion. Last saw cardiology in March. Weight is up a little since March. Has not been watching the diet. Unsure if any salt intake. No chest pain. No syncope or near syncope. No pnd. No redness or warmth in the ankle. Last echo last year showed ef of 55 % and hypokinesis of inf wall. [facility] asked him about his irregular heartbeat? He is not feeling anything. No complaints of palpitations. Has known hx of svt. He is on verapamil from cardiology for same. Asking about taking magnesium before bedtime. MEDICATIONS: Current Outpatient Medications Medication Sig sertraline (ZOLOFT) 50 mg tablet Take 1 tablet by mouth once daily. verapamil SR (CALAN SR) 120 mg CR tablet Take 120 mg by mouth once daily. potassium chloride (K-TAB) 10 mEq tablet Take 1 tablet by mouth daily with breakfast. losartan (COZAAR) 100 mg tablet Take 1 tablet by mouth once daily. hydroCHLOROthiazide 12.5 mg capsule Take 1 capsule by mouth once daily. aspirin 81 mg chewable tablet Take 1 tablet by mouth once daily. atorvastatin (LIPITOR) 80 mg tablet Take 80 mg by mouth once daily. Cholecalciferol, Vitamin D3, [...] and social history today. REVIEW OF SYSTEMS No black or bloody stools. No bowel changes. No cough. All other reviewed and negative other than HPI. VITALS: BP 136/72 Pulse 67 Wt 115.7 kg (255 lb) SpO2 94% BMI 31.87 kg/m? Last 4 Encounter Wt Readings: Date: Wt: 08/04/2024 115.7 kg (255 lb) 07/04/2024 113.9 kg (251 lb) 04/07/2024 109 kg (240 lb 4.8 oz) 01/02/2024 103.4 kg (228 lb) PHYSICAL EXAMINATION: General appearance: Well appearing, [...] Bowel sounds normal. No masses, organomegaly Extremities: trace ankle edema. No calf tenderness. Musculoskeletal: No joint swelling, deformity, or tenderness Peripheral pulses: Normal ASSESSMENT/PLAN: 1. SOB (shortness of breath) - ICD9: 786.05, ICD10: R06.02 (primary diagnosis) - lasix for three days given shortness of breath and weight gain. Get xray and labs. See cardiology for follow up. Will forward over to them. Red flags for re-assessment reviewed with patient in detail. - COMPLETE BLOOD COUNT AND DIFFERENTIAL - BASIC METABOLIC PANEL - NT PRO BNP - ECG COMPLETE- no EKG after his WI for comparison. Shows inferior changes and RBBB-? Related to previous WI. No acute abnormalities. NSR - XR CHEST 2V FRONTAL/LAT - CONSULT TO CARDIOLOGY 2. Essential hypertension, benign - ICD9: 401.1, ICD10: I10 - Controlled - Continue current medications - MAGNESIUM 3. Mixed hyperlipidemia - ICD9: 272.2, ICD10: E78.2 - Controlled - Continue current medications 4. Aortic dilatation (HCC) - ICD9: 447.70, ICD10: I77.819 - per cardiology. (more content not included)...[facility] 08-04-2024 History of Present illness Narrative* Calvin Stephens MD - 08/04/2024 8:42 AM EST Patient presents with: Blood Pressure HPI: Patient presents today for office visit for follow up. Ankles are mildly swollen, no nearly like he had on the amlodipine. Feels like shortness of breath is getting worse. More fatigued. Blood pressure has been up at home. Had had edema in the past when on calcium channel blockers. His now on verapamil which is less likely to cause edema but can still cause some. Has been worse with exertion. Has noted it is worse with exertion. Last saw cardiology in March. Weight is up a little since March. Has not been watching the diet. Unsure if any salt intake. No chest pain. No syncope or near syncope. No pnd. No redness or warmth in the ankle. Last echo last year showed ef of 55 % and hypokinesis of inf wall. [facility] asked him about his irregular heartbeat? He is not feeling anything. No complaints ofpalpitations. Has known hx of svt. He is on verapamil from cardiology for same. Asking about taking magnesium before bedtime. MEDICATIONS: Current Outpatient Medications Medication Sig sertraline (ZOLOFT) 50 mg tablet Take 1 tablet by mouth once daily. verapamil SR (CALAN SR) 120 mg CR tablet Take 120 mg by mouth once daily. potassium chloride (K-TAB) 10 mEq tablet Take 1 tablet by mouth daily with breakfast. losartan (COZAAR) 100 mg tablet Take 1 tablet by mouth once daily. hydroCHLOROthiazide 12.5 mg capsule Take 1 capsule by mouth once daily. aspirin 81 mg chewable tablet Take 1 tablet by mouth once daily. atorvastatin (LIPITOR) 80 mg tablet Take 80 mg by mouth once daily. Cholecalciferol, Vitamin D3, [...] history andsocial history today. REVIEW OF SYSTEMS No black or bloody stools. No bowel changes. No cough. All other reviewed and negative other than HPI. VITALS: BP 136/72 Pulse 67 Wt 115.7 kg (255 lb) SpO2 94% BMI 31.87 kg/m Last 4 Encounter Wt Readings: Date: Wt: 08/04/2024 115.7 kg (255 lb) 07/04/2024 113.9 kg (251 lb) 04/07/2024 109 kg (240 lb 4.8 oz) 01/02/2024 103.4 kg (228 lb) PHYSICAL EXAMINATION: General appearance: Well appearing, [...] Bowel sounds normal. No masses, organomegaly Extremities: trace ankle edema. No calf tenderness. Musculoskeletal: No joint swelling, deformity, or tenderness Peripheral pulses: Normal ASSESSMENT/PLAN: 1. SOB (shortness of breath) - ICD9: 786.05, ICD10: R06.02 (primary diagnosis) - lasix for three days given shortness of breath and weight gain. Get xray and labs. See cardiology for follow up. Will forward over to them. Red flags for re-assessment reviewed with patient in detail. - COMPLETE BLOOD COUNT AND DIFFERENTIAL - BASIC METABOLIC PANEL - NT PRO BNP - ECG COMPLETE- no EKG after his WI for comparison. Shows inferior changes and RBBB-? Related to previous WI. No acute abnormalities. NSR - XR CHEST 2V FRONTAL/LAT - CONSULT TO CARDIOLOGY 2. Essential hypertension, benign - ICD9: 401.1, ICD10: I10 - Controlled - Continue current medications - MAGNESIUM 3. Mixed hyperlipidemia - ICD9: 272.2, ICD10: E78.2 - Controlled - Continue current medications 4. Aortic dilatation (HCC) - ICD9: 447.70, ICD10: I77.819 - per cardiology. 5. 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- ICD9: 414.01, ICD10: I25.10 - COMPLETE BLOOD COUNT AND DIFFERENTIAL - BASIC METABOLIC PANEL - NT PRO BNP - ECG COMPLETE - CONSULT TO CARDIOLOGY 6. SVT (supraventricular tachycardia) (HCC) - ICD9: 427.89, ICD10: I47.10 - ECG COMPLETE 7. Edema, unspecified type - ICD9: 782.3, ICD10: R60.9 - COMPLETE BLOOD COUNT AND DIFFERENTIAL - BASIC METABOLIC PANEL - NT PRO BNP - XR CHEST 2V FRONTAL/LAT - CONSULT TO CARDIOLOGY Calvin Stephens MD documented in this encounterHol[facility] [place]12-13-[facility]24 NoteHNO ID: [id number] Author: CALVIN STEPHENS MD Service: ? Author Type: Physician Type: Progress Notes Filed: 07/04/2024 17:31 Note Text: Freeman Sarabia is a 73 year old male here for a Medicare wellness visit. Medicare Health Risk Assessment General Health fair Exercise: Minutes/Day 15 minutes. Exercise: Days/Week Three to four days a week Alcohol: Daily Use occasional Alcohol: Drinks/Day none Alcohol: 6 or more drinks none Feel off balance none Concerns: Teeth/Dentures none Concerns: Sexual function Not working for 25 years. Has tried meds Troubled by feelings No. Sertraline is working well. Frequency: Eating healthy diet Not healthy. ADLs requiring help none Safety precautions in home/vehicle none Smoke, vape, chews tobacco none Difficulty hearing Yes. Does not wear hearing aides. Red flags for re-assessment reviewed with patient in detail. Difficulty seeing Wears glasses Current Providers Specialists: I have reviewed specialist-related care of the patient in the medical record. Current care team: Patient Care Team: Calvin Stephens MD as PCP - General (Family Medicine) Outside specialists seen: [facility] for his knee. Sees optometry. Overdue to see [facility]. Medical/Family history review Reviewed and updated problem list, medical/surgical/family/social history, medications, and allergies. Opioid use review Opioid Medications (last 90 days) No data to display Anxiety/Depression screenin Phq 2 negative. Has anxiety daily. Recommendation: continuing current treatment plan, much is situational. Cognitive screening Mini Cog Score: 5 Cognitive screening reviewed and No further action needed (score 3-5). Functional Observation Was the patient's Timed Up AND Go test unsteady or >= 12 seconds? Yes Advance Care Planning Surrogate decision maker and/or advance care plan documented is his surrogate Discussed health maintenance, including regular aerobic exercise, low fat diet, and periodic exams. Needs colonoscopy. Had discussion with patient regarding risks and benefits of prostate screening. Allowed them to decide if they wished to proceed with screening including LUMA and PSA. REVIEW OF SYSTEMS RESPIRATORY: Negative for cough, hemoptysis, wheezing, COPD, dyspnea or shortness of breath CARDIOVASCULAR: Negative for chest pain, leg swelling, hypertension, CHF or palpitations GI: No nausea, vomiting, or diarrhea : No history of dysuria, frequency or incontinence SKIN: Negative for lesions, rash, and itching Measurements Vision Screening: Right: 20/30 Left: 20/ 40 Both: 20/25 Assessment/Plan Medicare annual wellness visit, initial (Z00.00) - Counseled on healthy diet and regular exercise - Fall avoidance information provided - Personalized prevention plan provided Labs in six months for prostate, cbc, cmp and lipid for bp and lipids. Set up for colonoscopy. Administer covid and flu Calvin Stephens MD RTO in six months and bp check in one month[facility] History of Present illness Narrative* Calvin Stephens MD - 07/04/2024 3:45 PM EST Images from the original note were not included. Freeman Sarabia is a 73 year old male here for a Medicare wellness visit. Medicare Health Risk Assessment General Health fair Exercise: Minutes/Day 15 minutes. Exercise: Days/Week Three to four days a week Alcohol: Daily Use occasional Alcohol: Drinks/Day none Alcohol: 6 or more drinks none Feel off balance none Concerns: Teeth/Dentures none Concerns: Sexual function Not working for 25 years. Has tried meds Troubled by feelings No. Sertraline is working well. Frequency: Eating healthy diet Not healthy. ADLs requiring help none Safety precautions in home/vehicle none Smoke, vape, chews tobacco none Difficulty hearing Yes. Does not wear hearing aides. Red flags for re-assessment reviewed with patient in detail. Difficulty seeing Wears glasses Current Providers Specialists: I have reviewed specialist-related care of the patient in the medical record. Current care team: Patient Care Team: Calvin Stephens MD as PCP - General (Family Medicine) Outside specialists seen: [facility] for his [facility]. Sees optometry. Overdue to see [facility]. Medical/Family history review Reviewed and updated problem list, medical/surgical/family/social history, medications, and allergies. Opioid use review Opioid Medications (last 90 days) No data to display Anxiety/Depression screenin Phq 2 negative. Has anxiety daily. Recommendation: continuing current treatment plan, much is situational. Cognitive screening Mini Cog Score: 5 Cognitive screening reviewed and No further action needed (score 3-5). Functional Observation Was the patient's Timed Up & Go test unsteady or >= 12 seconds? Yes Advance Care Planning Surrogate decision maker and/or advance care plan documented is his surrogate Discussed health maintenance, including regular aerobic exercise, low fat diet, and periodic exams.Needs colonoscopy. Had discussion with patient regarding risks and benefits of prostate screening. Allowed them to decide if they wished to proceed with screening including LUMA and PSA. REVIEW OF SYSTEMS RESPIRATORY: Negative for cough, hemoptysis, wheezing, COPD, dyspnea or shortness of breath CARDIOVASCULAR: Negative for chest pain, leg swelling, hypertension, CHF or palpitations GI: No nausea, vomiting, or diarrhea : No history of dysuria, frequency or incontinence SKIN: Negative for lesions, rash, and itching Measurements Vision Screening: Right: 20/30 Left: 20/ 40 Both: 20/25 Assessment/Plan Medicare annual wellness visit, initial (Z00.00) - Counseled on healthy diet and regular exercise - Fall avoidance information provided - Personalized prevention plan provided Labs in six months for prostate, cbc, cmp and lipid for bp and lipids. Set up for colonoscopy. Administer covid and flu Calvin Stephens MD RTO in six months and bp check in one month documented in this encounterHolzer [facility] [place]09-16-2024 NoteHNO ID: [id number] Author: JESÚS WAN PA Service: ? Author Type: Physician Scientific Informatics Leader Type: Progress Notes Filed: 04/07/2024 07:21 Note Text: This note was created using [employer]. Subjective Freeman Sarabia is a 73 year old male. HPI 73 [id number] male presents for cough, chest congestion, nasal congestion for 2 weeks. Patient states he starting sick 2 weeks ago with cough. He is coughing up some phlegm. He has yellow nasal congestion. He has not had any fevers. No chest pain or shortness of breath. He denies any history of COPD or asthma. His recently had pneumonia. No other complaint. PAST MEDICAL HISTORY Diagnosis Date BPH (benign [...] ALLERGIES Patient has no known allergies. MEDICATIONS sertraline (ZOLOFT) 50 mg tablet Take 1 tablet by mouth once daily. verapamil SR (CALAN SR) 120 mg CR tablet Take 120 mg by mouth once daily. potassium chloride (K-TAB) 10 mEq tablet Take 1 tablet by mouth daily with breakfast. losartan (COZAAR) 100 mg tablet Take 1 tablet by mouth once daily. hydroCHLOROthiazide 12.5 mg capsule Take 1 capsule by mouth once daily. aspirin 81 mg chewable tablet Take 1 tablet by mouth once daily. atorvastatin (LIPITOR) 80 mg tablet Take 80 mg by mouth once daily. BRILINTA 90 mg tablet Take 1 tablet by mouth every 12 hours. Cholecalciferol, Vitamin D3, 25 mcg (1,000 unit) cap Take 1,000 Units by mouth once daily. doxycycline (VIBRA-TABS) 100 mg tablet Take 1 tablet by mouth two times a day for 7 days. predniSONE (DELTASONE) 10 mg tablet Take 4 tabs daily for 3 days, then 2 tabs daily for 3 days, then 1 tab daily for 3 days with food. benzonatate (TESSALON PERLE) 100 mg capsule Take 1 capsule by mouth three times a day as needed. FAMILY HISTORY Problem Relation Age of Onset COPD Mother Smoker Alcohol/Drug Mother COPD Father Smoker Alcohol/Drug Father Arthritis Sister Colon Cancer Sister Social History Tobacco Use Smoking status: Never Smokeless tobacco: Never Substance Use Topics Alcohol use: Yes Comment: rarely Drug use: No Review of Systems Constitutional: Negative for chills and fever. HENT: Positive for congestion. Negative for sore throat. Respiratory: Positive for cough. Negative for shortness of breath. Gastrointestinal: Negative for diarrhea and vomiting. Objective BP 142/84 Pulse 76 Temp 36.1 ?C (96.9 ?F) Resp 16 Wt 109 kg (240 lb 4.8 oz) SpO2 96% BMI 30.04 kg/m? Physical Exam Vitals and nursing note reviewed. Constitutional: General: He is not in acute distress. Appearance: Normal appearance. He is not toxic-appearing. HENT: Right Ear: Tympanic membrane and ear canal normal. Left Ear: Tympanic membrane and ear canal normal. Nose: Congestion present. Mouth/Throat: Mouth: Mucous membranes are moist. Eyes: Conjunctiva/sclera: Conjunctivae normal. Cardiovascular: Rate and Rhythm: Normal rate and regular rhythm. Pulmonary: Effort: Pulmonary effort is normal. Breath sounds: Examination of the right-lower field reveals wheezing and rhonchi. Wheezing and rhonchi present. No rales. Skin: General: Skin is warm and dry. Neurological: Mental Status: He is alert. Assessment and Plan ASSESSMENT/PLAN: 1. Sinobronchitis - ICD9: 473.9, 490, ICD10: J32.9, J40 -Recommended chest x-ray due to cough x 2 weeks with wheezing and rhonchi on exam. However, XR not available for another hour. Patient does not want to have to come back or wait. He declined. -Will treat with doxycycline, prednisone, Tessalon Perles. If no improvement, he needs close follow-up with PCP. Patient agreeable. - Will begin treatment with Doxycycline - Supportive care with plenty of fluids, rest, and analgesia prn. - Follow up in 3-5 days if symptoms persist or worsen. Diagnosis and treatment plan were discussed and questions were answered to the patient's satisfaction. Pt acknowledged understanding of concepts and follow up plan. Specific signs and symptoms that would indicate the need for higher level of care were discussed in detail warranting prompt ER evaluation. Jesús Wan [facility]09-16-2024 History of Present illness Narrative* Jesús Wan, PA - 04/07/2024 7:17 AM EDT This note was created using [employer]. Subjective Freeman Sarabia is a 73 year old male. HPI 73 [id number] male presents for cough, chest congestion, nasal congestion for 2 weeks. Patient states he starting sick 2 weeks ago with cough. He is coughing up some phlegm. He has yellow nasal congestion. He has not had any fevers. No chest pain or shortness of breath. He denies any historyof COPD or asthma. His recently had pneumonia. No other complaint. PAST MEDICAL HISTORY Diagnosis Date BPH (benign [...] ALLERGIES Patient has no known allergies. MEDICATIONS sertraline (ZOLOFT) 50 mg tablet Take 1 tablet by mouth once daily. verapamil SR (CALAN SR) 120 mg CR tablet Take 120 mg by mouth once daily. potassium chloride (K-TAB) 10 mEq tablet Take 1 tablet by mouth daily with breakfast. losartan (COZAAR) 100 mg tablet Take 1 tablet by mouth once daily. hydroCHLOROthiazide 12.5 mg capsule Take 1 capsule by mouth once daily. aspirin 81 mg chewable tablet Take 1 tablet by mouth once daily. atorvastatin (LIPITOR) 80 mg tablet Take 80 mg by mouth once daily. BRILINTA 90 mg tablet Take 1 tablet by mouth every 12 hours. Cholecalciferol, Vitamin D3, 25 mcg (1,000 unit) cap Take 1,000 Units by mouth once daily. doxycycline (VIBRA-TABS) 100 mg tablet Take 1 tablet by mouth two times a day for 7 days. predniSONE (DELTASONE) 10 mg tablet Take 4 tabs daily for 3 days, then 2 tabs daily for 3 days, then 1 tab daily for 3 days with food. benzonatate (TESSALON PERLE) 100 mg capsule Take 1 capsule by mouth three times a day as needed. FAMILY HISTORY Problem Relation Age of Onset COPD Mother Smoker Alcohol/Drug Mother COPD Father Smoker Alcohol/Drug Father Arthritis Sister Colon Cancer Sister Social History Tobacco Use Smoking status: Never Smokeless tobacco: Never Substance Use Topics Alcohol use: Yes Comment: rarely Drug use: No Review of Systems Constitutional: Negative for chills and fever. HENT: Positive for congestion. Negative for sore throat. Respiratory: Positive for cough. Negative for shortness of breath. Gastrointestinal: Negative for diarrhea and vomiting. Objective BP 142/84 Pulse 76 Temp 36.1 C (96.9 F) Resp 16 Wt 109 kg (240 lb 4.8 oz) SpO2 96% BMI 30.04 kg/m Physical Exam Vitals and nursing note reviewed. Constitutional: General: He is not in acute distress. Appearance: Normal appearance. He is not toxic-appearing. HENT: Right Ear: Tympanic membrane and ear canal normal. Left Ear: Tympanic membrane and ear canal normal. Nose: Congestion present. Mouth/Throat: Mouth: Mucous membranes are moist. Eyes: Conjunctiva/sclera: Conjunctivae normal. Cardiovascular: Rate and Rhythm: Normal rate and regular rhythm. Pulmonary: Effort: Pulmonary effort is normal. Breath sounds: Examination of the right-lower field reveals wheezing and rhonchi. Wheezing and rhonchi present. No rales. Skin: General: Skin is warm and dry. Neurological: Mental Status: He is alert. Assessment and Plan ASSESSMENT/PLAN: 1. Sinobronchitis - ICD9: 473.9, 490, ICD10: J32.9, J40 -Recommended chest x-ray due to cough x 2 weeks with wheezing and rhonchi on exam. However, XR not available for another hour. Patient does not want to have to come back or wait. He declined. -Will treat with doxycycline, prednisone, Tessalon Perles. If no improvement, he needs close follow-up with PCP. Patient agreeable. - Will begin treatment with Doxycycline - Supportive care with plenty of fluids, rest, and analgesia prn. - Follow up in 3-5 days if symptoms persist or worsen. Diagnosis and treatment plan were discussed and questions were answered to the patient's satisfaction. Pt acknowledged understanding of concepts and follow up plan. Specific signs and symptoms that would indicate the need for higher level of care were discussed in detail warranting prompt ER evaluation. TINO Webster documented in this encounterHol[facility]-30-[facility] Telephone encounter Note * Telephone Encounter - Maryanne Kinsey LPN - 03/21/2024 2:36 PM EDT The patient has been identified by name and date of : Yes Caregiver verified no other encounters exist for this prescription request: Yes Caregiver confirmed with patient/requestor that no other refills are due, in the near future, with this provider at this time: Yes The last office visit in the department: 01/02/2024 Does the patient have a future office visit with this provider/department: Yes 07/04/2024 Requested Prescriptions Pending Prescriptions Disp Refills sertraline (ZOLOFT) 50 mg tablet 90 tablet 3 Sig: Take 1 tablet by mouth once daily. Maryanne Kinsey LPN March 21, 2024 2:38 PM [facility]08-30-[facility]24 Miscellaneous Notes* Telephone Encounter - Maryanne Kinsey LPN - 03/21/2024 2:36 PM EDT The patient has been identified by name and date of : Yes Caregiver verified no other encounters exist for this prescription request: Yes Caregiver confirmed with patient/requestor that no other refills are due, in the near future, with this provider at this time: Yes The last office visit in the department: 01/02/2024 Does the patient have a future office visit with this provider/department: Yes 07/04/2024 Requested Prescriptions Pending Prescriptions Disp Refills sertraline (ZOLOFT) 50 mg tablet 90 tablet 3 Sig: Take 1 tablet by mouth once daily. Maryanne Kinsey LPN March 21, 2024 2:38 PM documented in this encounterHolzer Medical Center – [place]07-19-2024 NoteHNO ID: [id number] Author: ?, ?, ? Service: ? Author Type: ? Type: Progress Notes Filed: 02/08/2024 14:52 Note Text: POPULATION HEALTH NAVIGATION OUTREACH Action/FYI Updated PCP follow up to 40 minutes for medicare wellness. Reason for Outreach Care Gap/HCC or Scheduling Wellness Visits Care Gaps due: Medicare Annual Wellness Visit Patient Contacted: Unable or unnecessary to reach patient: Updated appointment notes Navigation Signature: Michael Diop Population Health Navigator February 08, 2024 2:51 [facility]07-19-2024 History of Present illness Narrative* Mario Population Health ChenatorMichael - 02/08/2024 2:51 PM EDT POPULATION HEALTH NAVIGATION OUTREACH Action/FYI Updated PCP follow up to 40 minutes for medicare wellness. Reason for Outreach Care Gap/HCC or Scheduling Wellness Visits Care Gaps due: Medicare Annual Wellness Visit Patient Contacted: Unable or unnecessary to reach patient: Updated appointment notes Navigation Signature: Michael Diop Population Health Navigator February 08, 2024 2:51 PM documented in this encounterHolzer Medical Center [facility] [place]07-19-2024 NotePatient Outreach (NETNAV) FREEMAN SARABIA ([id number]) 1950 M Date Time Provider Department 02/08/24 MICHAEL DIOP During your visit today, we recorded the following information about you: Mario [facility] Michael Ashley 02/08/2024 2:52 PM Signed POPULATION HEALTH NAVIGATION OUTREACH Action/FYI Updated PCP follow up to 40 minutes for medicare wellness. Reason for Outreach Care Gap/HCC or Scheduling Wellness Visits Care Gaps due: Medicare Annual Wellness Visit Patient Contacted: Unable or unnecessary to reach patient: Updated appointment notes Navigation Signature: Michael Diop [facility] Navigator February 08, 2024 2:51 PM Allergies As of Date: 02/08/2024 (No Known Allergies) Date Reviewed: 01/02/2024 Reviewed by: Danitza Snow MA - Fully Assessed Reason for Visit: Population Health Navigation Outreach [3910] Cmt: Almas SCHULTZ Prescriptions as of 02/08/2024 - verapamil SR (CALAN SR) 120 mg CR tablet Take 120 mg by mouth once daily. - potassium chloride (K-TAB) 10 mEq tablet Take 1 tablet by mouth daily with breakfast. - losartan (COZAAR) 100 mg tablet Take 1 tablet by mouth once daily. - hydroCHLOROthiazide 12.5 mg capsule Take 1 capsule by mouth once daily. - aspirin 81 mg chewable tablet Take 1 tablet by mouth once daily. - sertraline (ZOLOFT) 50 mg tablet Take 1/2 tab once a day orally for one week then 1 tab once a day - atorvastatin (LIPITOR) 80 mg tablet Take 80 mg by mouth once daily. - BRILINTA 90 mg tablet Take 1 tablet by mouth every 12 hours. - Cholecalciferol, Vitamin D3, 25 mcg (1,000 unit) cap Take 1,000 Units by mouth once daily. Problem List As Of Date 02/08/2024 Noted Resolved ELEV BL PRES W/O HYPERTN [...] (HCC) [I77.819] 08/04/2022 Coronary artery disease involving [place] curtis*02/23/2023 Nonsustained ventricular tachycardia (HCC) [I47*02/23/2023 02/23/2023 SVT (supraventricular tachycardia) (HCC) [I47.1*01/02/2024 Encounter Status:Closed by [employer] POPULATION HEALTH NAVIGATOR, MICHAEL Costello on 02/08/24[facility]06-12-2024 History of Present illness Narrative * Calvin Stephens MD - 01/02/2024 4:12 PM EDT Patient presents with: Follow Up HPI: Patient presents today for office visit for follow up. HTN: No longer taking Doxazosin or Carvedilol Started on HCTZ 12.5 mg daily No side effects. Continues on Losartan 100 mg daily Does mention he takes all his medications first thing in the morning all at once and has noticed he's more tired with less energy. Discussed moving his losartan to night. Monitoring his BP at home Readings have been stable Denies chest pain and shortness of breath Mentions his heart racing every now and then Denies dizziness and syncopal episodes Denies edema [facility] has since Rx'd Verapamil. Had svt on monitor. Latest Ref Rng 12/27/2023 Protein, Total 6.3 - 8.0 g/dL 6.6 Albumin 3.9 - 4.9 g/dL 3.9 Calcium 8.5 - 10.2 mg/dL 9.4 Bilirubin, Total 0.2 - 1.3 mg/dL 0.9 Alkaline Phosphatase 38 - 113 U/L 104 AST 14 - 40 U/L 24 ALT 10 - 54 U/L 22 Glucose 74 - 99 mg/dL 98 BUN 9 - 24 mg/dL 18 Creatinine 0.73 - 1.22 mg/dL 1.10 Sodium 136 - 144 mmol/L 142 Potassium 3.7 - 5.1 mmol/L 3.6 (L) Chloride 98 - 107 mmol/L 104 CO2 22 - 30 mmol/L 26 Anion Gap 8 - 15 mmol/L 12 eGFR >=60 mL/min/1.73m 70 WBC 3.70 - 11.00 k/uL 7.18 RBC 4.20 - 6.00 m/uL 4.56 Hemoglobin 13.0 - 17.0 g/dL 14.3 Hematocrit 39.0 - 51.0 % 43.3 MCV 80.0 - 100.0 fL 95.0 MCH 26.0 - 34.0 pg 31.4 MCHC 30.5 - 36.0 g/dL 33.0 RDW-CV 11.5 - 15.0 % 12.9 Platelet Count 150 - 400 k/uL 232 MPV 9.0 - 12.7 fL 10.1 Absolute nRBC <0.01 k/uL <0.01 Cholesterol, Total <200 mg/dL 131 Triglyceride <150 mg/dL 119 HDL Cholesterol >39 mg/dL 34 (L) Non HDL Cholesterol <130 mg/dL 97 Fasting Time hrs 14 VLDL Cholesterol <30 mg/dL 24 TC:HDL Ratio <5.10 3.85 LDL Cholesterol <100 mg/dL 73 LDL:HDL Ratio <2.54 2.15 Legend: (L) Low MEDICATIONS: Current Outpatient Medications Medication Sig verapamil SR (CALAN SR) 120 mg CR tablet Take 120 mg by mouth once daily. losartan (COZAAR) 100 mg tablet Take 1 tablet by mouth once daily. hydroCHLOROthiazide 12.5 mg capsule Take 1 capsule by mouth once daily. aspirin 81 mg chewable tablet Take 1 tablet by mouth once daily. sertraline (ZOLOFT) 50 mg tablet Take 1/2 tab once a day orally for one week then 1 tab once a day (Patient taking differently: Take 50 mg by mouth once daily.) atorvastatin (LIPITOR) 80 mg tablet Take 80 [...] today and recommended the following in detail. Shingrix Vaccine(2 of 3) due on 10/01/2013 BP Controlled (<130/80) due on 03/18/2019 Colorectal Cancer Screening -have discussed. VITALS: BP 120/74 Pulse 67 Ht 190.5 cm (6' 3) Wt 103.4 kg (228 lb) SpO2 99% BMI 28.50 kg/m Last 4 Encounter Wt Readings: Date: Wt: 01/02/2024 103.4 kg (228 lb) 12/04/2023 103.4 kg (228 lb) 09/04/2023 101.6 kg (224 lb) 07/17/2023 101.6 kg (224 lb) PHYSICAL EXAMINATION: General appearance: Well appearing, alert, in no acute distress, well-hydrated, well nourished. Skin: Skin color, texture, turgor normal, no suspicious rashes or lesions Head: Normocephalic, no masses, lesions, tenderness or abnormalities Neck: Supple, no adenopathy; thyroid symmetric, normal [...] ICD9: 401.1, ICD10: I10 (primary diagnosis) - Controlled - Continue current medications 2. Aortic dilatation (HCC) - ICD9: 447.70, ICD10: I77.819 - keep bp tight. 3. 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- ICD9: 414.01, ICD10: I25.10 - per cardiology 4. SVT (supraventricular tachycardia) (HCC) - ICD9: 427.89, ICD10: I47.10 - per cardiology 5. Hypokalemia - ICD9: 276.8, ICD10: E87.6 - given hx, add one dose of potassium and recheck lab in one month. - POTASSIUM CHLORIDE ER 10 MEQ TABLET,EXTENDED RELEASE - POTASSIUM Calvin Stephens MD documented in this encounterHolzer Medical Center [facility] [place]06-05-2024 Telephone encounter Note * Telephone Encounter - Claudia Heard - 12/26/2023 8:46 AM EDT Freeman is calling Calvin Stephens MD today to request Refill Request. Patient needs a new script for Losartan 100 mg tablet [facility] [place]. He states the pharmacy has been filling his old script of which he had to take 2 pills and he is short. Please contact patient when handled. Patient has been identified by name and birthdate. Duration of symptoms: N/A Person calling: self Call patient at: at home [phone] (home) [phone] (work) [phone] (cell) Was an appointment scheduled: No Closing statement: Claudia Brayden Abel Roberto [facility]06-05-2024 Miscellaneous Notes* Telephone Encounter - Claudia Heard - 12/26/2023 8:46 AM EDT Freeman is calling Calvin Stephens MD today to request Refill Request. Patient needs a new script for Losartan 100 mg tablet [facility] [place]. He states the pharmacy has been filling his old script of which he had to take 2 pills and he is short. Please contact patient when handled. Patient has been identified by name and birthdate. Duration of symptoms: N/A Person calling: self Call patient at: at home [phone] (home) [phone] (work) [phone] (cell) Was an appointment scheduled: No Closing statement: Claudia Owen Abel Pss documented in this encounterHolzer Medical Center [facility] [place]05-14-2024 History of Present illness Narrative* Calvin Stephens MD - 12/04/2023 4:20 PM EDT Patient presents with: Follow Up HPI: Patient presents today for office visit for follow up. HTN: Started Doxazosin 2mg qhs at last visit with Mary Rush. Continues on Losartan 100 mg daily Monitoring BP occ Denies chest pain and shortness of breath Denies headaches and dizziness Denies palpitations and syncope Denies edema- had edema with calcium channel blockers-has mild puffiness. Does not think the doxazosin has helped much. Was on diuretics in the past before his WI. The only issue we had was some hypokalemia. His watch at home is showing his pulse rate is ok. HLD: Continues on Atorvastatin 80 mg daily No myalgias Saw Ortho approx 2 wks ago. Concerns of irregular heartbeat while at visit. States HR was 30. Denies any symptoms at this time. [facility] and given 24hr holter. Waiting on results. Continues on Carvedilol and Brilinta. Seeing ortho for his hip. Has done therapy on his hip. Has not helped. They are waiting on Dr Bolden to consider a steroid shot. See last OV note: HISTORY OF PRESENT ILLNESS: Freeman Sarabia is a 73 year old male. Patient presents with: Hypertension: Elevated blood pressure last 2 days Headache Lingering blood pressure for last couple of weeks. Checked BP and it was high. Lost 41 lbs. Since heart attack. Cut back on salt. Stopped drinking Pepsi. Has only had 4 Pepsi's since January. No head injury or trauma. MEDICATIONS: Current Outpatient Medications Medication Sig aspirin 81 mg chewable tablet Take 1 tablet by mouth once daily. doxazosin (CARDURA) 2 mg tablet Take 1 tablet by mouth daily at bedtime. losartan (COZAAR) 100 mg tablet Take 1 tablet by mouth once daily. sertraline (ZOLOFT) 50 mg tablet Take 1/2 tab once a day orally for one week then 1 tab once a day (Patient taking differently: Take 50 mg by mouth once daily.) atorvastatin (LIPITOR) 80 mg tablet Take 80 [...] today and recommended the following in detail. RSV Vaccine(1 - 1-dose 60+ series) Never done BP Controlled (<130/80) due on 03/18/2019 Covid-19 Vaccine(2022- season) due on 03/23/2023 Colorectal Cancer Screening due on 04/03/2023 DTaP,Tdap,Td Vaccine(3 - Td or Tdap) due on 06/20/2023 Advance Directive Discussion- is his surrogate. Behavioral Health Screening No further intervention at this time VITALS: BP 184/86 Pulse (!) 50 Ht 190.5 cm (6' 3) Wt 103.4 kg (228 lb) SpO2 99% BMI 28.50 kg/m Last 4 Encounter Wt Readings: Date: Wt: 09/04/2023 101.6 kg (224 lb) 07/17/2023 101.6 kg (224 lb) 05/22/2023 100.6 kg (221 lb 12.8 oz) 05/04/2023 102.5 kg (226 lb) PHYSICAL EXAMINATION: General appearance: Well appearing, [...] ICD9: 401.1, ICD10: I10 (primary diagnosis) - Uncontrolled - stop cardura. - resume hctz at 12.5 mg a day Follow bmp in next four weeks. Recheck in one month. - HYDROCHLOROTHIAZIDE 12.5 MG CAPSULE - BASIC METABOLIC PANEL 2. Mixed hyperlipidemia - ICD9: 272.2, ICD10: E78.2 - Controlled - Continue current medications 3. Aortic dilatation (HCC) - ICD9: 447.70, ICD10: I77.819 - keep bp tight. 4. 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- ICD9: 414.01, ICD10: I25.10 - stable. Will not increase coreg given hr questions. Awaiting monitor. 5. Benign prostatic hyperplasia without lower urinary tract symptoms - ICD9: 600.00, ICD10: N40.0 - stable. Calvin Stephens MD RTO in one month. documented in this encounterHolzer Medical Center [facility] [place]05-09-2024 Telephone encounter Note * Telephone Encounter - Chyna Camilo - 11/29/2023 10:23 AM EDT Patient has been identified by name and date of : Yes, Provider Dolly Patient phones for refill(s): Requested Prescriptions Pending Prescriptions Disp Refills aspirin 81 mg chewable tablet Sig: Take 1 tablet by mouth once daily. doxazosin (CARDURA) 2 mg tablet 30 tablet 2 Sig: Take 1 tablet by mouth daily at bedtime. Date of last office visit in primary care: 09/04/2023 Date of next office visit in primary care: 12/04/2023 Please advise. Thank you. Chyna Roberto. [facility]-09-[facility]24 Miscellaneous Notes* Telephone Encounter - Chyna Camilo - 11/29/2023 10:23 AM EDT Patient has been identified by name and date of : Yes, Provider Dolly Patient phones for refill(s): Requested Prescriptions Pending Prescriptions Disp Refills aspirin 81 mg chewable tablet Sig: Take 1 tablet by mouth once daily. doxazosin (CARDURA) 2 mg tablet 30 tablet 2 Sig: Take 1 tablet by mouth daily at bedtime. Date of last office visit in primary care: 09/04/2023 Date of next office visit in primary care: 12/04/2023 Please advise. Thank you. Chyna Roberto. documented in this encounterHolzer Medical Center [facility] [place]03-20-2024 History of Present illness Narrative* Mirian Gil MA - 10/10/2023 9:25 AM EDT POPULATION HEALTH NAVIGATION OUTREACH Action/FYI Spoke to patient regarding Annual Medicare Wellness and patient declined scheduling. Reason for Outreach Care Gap/HCC or Scheduling Wellness Visits Care Gaps due: Medicare Annual Wellness Visit Patient Contacted: Spoke to patient/parent/or legal guardian Patient identified by name and : Yes Care Gap/HCC/Scheduling Wellness actions taken: Patient declined: Not interested in scheduling Navigation Signature: Mirian Gil October 10, 2023 9:25 AM documented in this encounterHolzer Medical Center [facility] [place]02-13-2024 Instructions* Patient Instructions* Noreen Rush APRN.CNS - 09/04/2023 4:41 PM EST 1) Start doxazosin 2mg at bedtime 2) Check 3 blood pressures in the next 2 weeks and send by [employer] [employer] end of August 3) Follow up in 3m unless headache does not go away or gets worse, let me know. documented in this encounterHolzer Medical Center – [place]02-13-2024 History of Present illness Narrative* Noreen Rush APRN.CNS - 09/04/2023 4:27 PM EST This is a 73 year old male who presents today with: Patient presents with: Hypertension: Elevated blood pressure last 2 days Headache HISTORY OF PRESENT ILLNESS: Freeman Sarabia is a 73 year old male. Patient presents with: Hypertension: Elevated blood pressure last 2 days Headache Lingering blood pressure for last couple of weeks. Checked BP and it was high. Lost 41 lbs. Since heart attack. Cut back on salt. Stopped drinking Pepsi. Has only had 4 Pepsi's since January. No head injury or trauma. PAST MEDICAL HISTORY: PAST MEDICAL HISTORY Diagnosis [...] use: Yes Comment: rarely Drug use: No REVIEW OF SYSTEMS PAIN ASSESSMENT: Right hip pain for 6 months, had ATTILA by Dr. Shelley GENERAL: Weight loss HEENT: Negative for frequent or significant headaches, No changes in hearing or vision, no nose bleeds or other nasal problems NECK: Negative for lumps, goiter, pain and significant neck swelling RESPIRATORY: Had Covid in May. Has had a little cough since then CARDIOVASCULAR: Negative for chest pain, leg swelling, hypertension, CHF or palpitations GI: No nausea, vomiting, or diarrhea : urinary frequency, no dysuria MUSCULOSKELETAL: no pain other than right hip PSYCH: Negative for sleep disturbance, mood disorder and recent psychosocial stressors All other reviewed and negative other than HPI. Blood pressure readings 170/83 with a heart rate of 56 165/83 with a heart rate of 55 161/80 with a heart rate of 56 155/80 with a heart rate of 85 Average 161/50 with a heart rate of 55 Home blood pressure readings 148/90 today 140/84 last evening 159/104 at 430 yesterday Home blood pressure validation: 166/91 with home cuff and 158/82 with office cuff. EXAM: BP 161/80 Pulse (!) 55 Resp 16 Wt 101.6 kg (224 lb) SpO2 97% BMI 28.00 kg/m PHYSICAL EXAM: General Appearance: Well appearing, alert, in no acute distress, well-hydrated, well nourished.. Skin: Skin color, texture, turgor normal, no suspicious rashes or lesions. Head: Normocephalic, no masses, lesions, tenderness or abnormalities. Lungs: Lungs clear to auscultation. No wheezing, rhonchi, rales.. Heart: RRR without murmur, gallop, or rubs. No ectopy. Extremities: No lower extremity edema, moves all extremities without difficulty. Neurologic: Cranial nerves III through XII intact, no [id number] ataxia ASSESSMENT/PLAN: 1. Essential hypertension, benign - ICD9: 401.1, ICD10: I10 (primary diagnosis) - Uncontrolled - Start doxazosin 2 mg at bedtime - Recommend home blood pressure monitoring, to bring results to next visit - Encouraged sodium restriction, DASH or Mediterranean diet - Recommend regular aerobic exercise - DOXAZOSIN 2 MG TABLET, not able to increase carvedilol because of bradycardia. Not able to increase losartan because he is at max dose. - Send BP readings via [employer] in 2 weeks, should have 3 blood pressure readings to report, may need to increase doxazosin. 2. Dysuria - ICD9: 788.1, ICD10: R30.0 chronic Will start doxazosin 2 mg at bedtime. This should improve blood pressure and urinary symptoms. - DOXAZOSIN 2 MG TABLET Discussed treatment plan and patient voices understanding. Patient's questions answered appropriately. Medications and potential side effects were discussed and patient voices understanding. Return to the office as scheduled or as needed for worsening/no improvement. Noreen Rush APRN.[employer] The patient indicates understanding of these issues and agrees with the plan. documented in this encounterHolzer Medical Center [facility] [place]02-13-2024 Nurse Note* Kaur Walsh Ma - 09/04/2023 4:15 PM EST 09/04/2023: Home BP Cuff Validated. Home BP: 166/91 Office BP: 158/82 Kaur Walsh Ma documented in this encounterHolzer Medical Center – [place]02-12-2024 Miscellaneous Notes* Telephone Encounter - Julia Quinn RN - 09/03/2023 9:02 AM EST Patient call in for hypertension with slight headache at times. Denies symptoms now. Nurse Triage assessment completed with protocol recommending for disposition of See PCP in 3 days. Patient has appointment with Mary scheduled for tomorrow 09/04/2023. Care advice reviewed with patient, patient stated understanding. Patient advised to contact office or seek evaluation in urgent care or ER if symptoms persist or gets worse. Reason for Disposition Systolic BP >= 160 OR Diastolic >= 100 Answer Assessment - Initial Assessment Questions 1. BLOOD PRESSURE: 155/103- when he woke up; 152/87 currently at work 2. ONSET: This morning and after he went to work and had taken blood pressure medication 3. HOW: Automatic Blood Pressure (Home); Regular Cuff at work 4. HISTORY: Yes 5. MEDICINES: Coreg, Losartan; Has not missed any doses 6. OTHER SYMPTOMS: Headache Protocols used: Blood Pressure - [id number] documented in this encounterHolzer Medical Center – [place]10-31-2023 Instructions* Patient Instructions* Leatha Zaragoza APRN.CNP - 05/22/2023 4:10 PM EDT Continue the same medication. Keep June appt with Elian. documented in this encounterHolzer Medical Center – [place]10-31-2023 History of Present illness Narrative* Leatha Zaragoza APRN.CNP - 05/22/2023 4:02 PM EDT This is a 72 year old male who presents today with: Patient presents with: Follow Up: 2 wk BP check HISTORY OF PRESENT ILLNESS: Freeman Sarabia is a 72 year old male. Patient presents with: Follow Up: 2 wk BP check Pt presents today for repeat BP check. Was in to see Dr. Stephens about 2 weeks ago. Increased the losartan [...] as needed for worsening/no improvement. Leatha Zaragoza APRN.CORING MACHINE OPERATOR documented in this encounterHolzer Medical Center – [place]10-13-2023 History of Present illness Narrative* Calvin Stephens MD - 05/04/2023 4:25 PM EDT Patient presents with: Hypertension HPI: [...] history andsocial history today. REVIEW OF SYSTEMS Did restart [...] refill. ASSESSMENT/PLAN: 1. 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- ICD9: 414.01, ICD10: I25.10 (primary diagnosis) - [...] Bp check and labs in two weeks. Calvin Stephens MD documented in this encounterHolzer Medical Center – [place]09-13-2023 Miscellaneous Notes* Telephone Encounter - Claudia Balderas - 04/04/2023 9:58 AM EDT Pt has decided to stay on this [...] and advise. Claudia Balderas documented in this encounterHolzer Medical Center – [place]08-31-2023 History of Present illness Narrative* Calvin Stephens MD - 03/22/2023 4:29 PM EDT Patient presents with: Follow Up HPI: Patient presents today for office visit for follow up. Started on trial of Sertraline 50 mg daily for anxiety post WI. He feels he no longer needs med. States he's no longer experiencing any anxiety. Refers to being overwhelmed due to his circumstances surrounding the heart attack because everything was happening so quickly. States he's feeling fine now. Moods are good. Wants to stop. Discussed tapering and discontinue meds. Following with [facility]. [place] 02/18/23 Continues on all medications. Denies chest [...] Pulse (!) 51 Ht 185.4 cm (6' 1) Wt 107 kg (236 lb) BMI 31.14 [...] as well. 4. 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- ICD9: 414.01, ICD10: I25.10 Continue meds. Doing well. Call if any issues. Calvin Stephens MD RTO in six weeks or prn. documented in this encounterHolzer Medical Center – [place]08-09-2023 Miscellaneous Notes* Telephone Encounter - Gwendolyn Danitza - 02/28/2023 11:15 AM EDT Patient informed and verbalized understanding. Danitza Snow * Telephone Encounter - Calvin Stephens MD - 02/28/2023 10:49 AM EDT Let him know is potassium is good without potassium as I thought. One kidney lab is slightly up. That is likely due to not drinking enough. Call if any issues and keep his next appt documented in this encounterHolzer Medical Center – [place]08-04-2023 Instructions* Patient Instructions* Calvin Stephens MD - 02/23/2023 3:47 PM EDT Guidelines [...] milk. Avoid sweet rolls, doughnuts, breakfast pastries (Guamanian), and sweetened packaged cereals (the added sugar [...] such as the one published by the [employer]. 5. Consult your physician if you have any questions. [facility] History of Present illness Narrative* Calvin Stephens MD - 02/23/2023 2:26 PM EDT Patient presents with: Hospital F/U HPI: Patient presents today for office visit for follow up. HOSPITAL/ER FOLLOW UP: Reason for visit: chest pain, felt like something sitting on chest, felt like was going to be sick.Was sudden and without warning while working outside. He had not had anything like this before. Which facility: [facility] Date of visit: 02/18/23 Discharge: 02/20/23 [...] but he should not need it necessarily buttermaker now that he is off of it. They had stopped his amlodipine as well. He has not been taking losartan and it is not mentioned to continue or discontinue it in the discharge. Discussed with him keeping it off for now. We discussed that he had an echo prior to his WI but that it is was not done when ordered by Leatha for CAD and that it was not a test to rule out CAD. It was to evaluate his enlarged aorta, that will need to continue to be monitored probably annually. Explained they do it after an WI, not to evaluate the coronary arteries but to evaluate the ejection fraction primarily. Discussed that he had ectatic coronary arteries as well and will require risk factor modification and close follow up with cardiology. His original echo was done when he saw her for edema that was due to the increase in his amlodipinewhich is a common side effect and that [...] refill. ASSESSMENT/PLAN: 1. 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- ICD9: 414.01, ICD10: I25.10 (primary diagnosis) -continue [...] to call if any sideeffects or questions. - SERTRALINE 50 MG TABLET Calvin Stephens MD RTO in one month. [facility] History of Past illness Narrative* Problem Noted Date Diagnosed Date Resolved Date Nonsustained ventricular tachycardia 02/23/2023 02/23/2023 Skin cancers 05/20/2021 05/20/2021 Overview: Had ear surgery remotely. Does not recall type of cancer or who did it. Special screening for malign ant neoplasms, colon 09/24/2014 09/24/2014 Urinary urgency 09/04/2013 12/30/2022 Frequency of urination 09/04/201303/18 Nocturia 09/04/2013 03/18/2018 Difficulty voiding 09/04/2013 Elevated blood pressure read ing without diagnosis of hypertension 04/22/2005 05/25/2005 Obesity, unspecified 04/22/2005 010 documented as of this encounter (statuses as of 02/24/2023) [facility] History of Past illness Narrative* Problem Noted [...] of this encounter (statuses as of 02/28/2023) [facility] History of Past illness Narrative* Problem Noted [...] of this encounter (statuses as of 03/23/2023) [facility] History of Past illness Narrative* Problem Noted [...] of this encounter (statuses as of 04/04/2023) [facility] History of Past illness Narrative* Problem Noted [...] of this encounter (statuses as of 05/05/2023) [facility] [place] History of Past illness Narrative* Problem Noted [...] of this encounter (statuses as of 05/23/2023) [facility] [place] History of Past illness Narrative* Problem Noted [...] as of this encounter (statuses as of 09/03/2023) [facility] History of Past illness Narrative* Problem Noted [...] as of this encounter (statuses as of 09/04/2023) [facility] [place] History of Past illness Narrative* Problem Noted [...] as of this encounter (statuses as of 09/05/2023) [facility] History of Past illness Narrative* Problem Noted Date Diagnosed Date Resolved Date Nonsustained ventricular tachycardia 02/23/2023 02/23/2023 Skin cancers 05/20/2021 05/20/2021 Overview: Had ear surgery remotely. Does not recall type of cancer or who did it. Special screening for malign ant neoplasms, colon 09/24/2014 09/24/2014 Urinary urgency 09/04/2013 12/30/2022 Frequency of urination 09/04/201303/18 Nocturia 09/04/2013 03/18/2018 Difficulty voiding 09/04/2013 Elevated blood pressure read ing without diagnosis of hypertension 04/22/2005 05/25/2005 Obesity, unspecified 04/22/2005 010 documented as of this encounter (statuses as of 10/10/2023) [facility] Progress note Author Merced Willard [facility] February 19, 2023 3:22pm Note Date/Time February 19, 2023 1:51 pm [facility] Medical Records Department [address] [place] [id number] Progress Note - Hospitalist 02/19/23 1351 MR#: [id number] Acct: [id number] Name: FREEMAN SARABIA Rep #:[id number] : 1950 72 From: Merced Willard MD PCP: Dr. Calvin Stephens MD Status:ADM I N Location: ICU ICU-1 Reason for Visit Reason for Visit: Diagnoses ST elevation (STEMI) myocardial infarction of unspecified site (02/18/23) Other ventricular tachycardia (02/18/23) Subjective Subjective Patient feeling well with no further chest pain this morning or shortness of breath Objective Data Objective Data Vital Signs: Vital Signs Temp Pulse Resp BP Pulse Ox O2 Del Method O2 Flow Rate 97.6 F L 64 16 106/74 94 Room Air 3 02/19/23 12:00 02/19/23 12:00 02/19/23 12:00 02/19/23 12:00 02/19/23 12:00 02/19/23 12:00 02/18/23 17:46 Oxygen Flow Rate (L/min) 3 Oxygen Delivery Method Room Air Weight: 115.2 kg Body Mass Index (BMI) 31.6 Intake & Output: Intake and Output for Last 24 Hours 02/17/23 02/18/23 02/19/23 23:59 23:59 23:59 Intake Total 123.69 / 143.69 1639.42 / 1639.42 Output Total 1475 / 1475 700 / 700 Balance -1351.31 / -1331.31 939.42 / 939.42 Lab / Micro Data 02/19/23 04:08 02/19/23 04:08 Labs: Laboratory Results - last 24 hr 02/18/23 15:17: WBC 10.1, RBC 4.71, Hgb 15.2, Hct 43.4, MCV 92.1, MCH 32.3 H, MCHC 35.0, RDW Std Deviation 40.9, RDW Coeff of Shante 12.0, Plt Count 271, MPV 9.7,Immature Gran % (Auto) 0.200, Neut % (Auto) 77.3 H, Lymph % (Auto) 14.3 L, [place] % (Auto) 7.1, Eos % (Auto) 0.8, Baso % (Auto) 0.3, Absolute Neuts (auto) 7.8 H, Absolute Lymphs (auto) 1.45, Nucleated RBC % 0, PT 13.3, INR 1.0, APTT 26.2, Sodium 138, Potassium 3.6, Chloride 104, Carbon Dioxide 29.0, Anion Gap 5, BUN 19 H, Creatinine 1.27, Estim Creat Clear Calc 61.91, Est GFR (MDRD) Af Amer 71, Est GFR (MDRD) Non-Af 59 L, BUN/Creatinine Ratio 15.0, Glucose 108 H, Calcium 9.1, Magnesium 1.9, Troponin I High Sens 22 02/18/23 18:20: WBC 9.4, RBC 4.44 L, Hgb 14.5, Hct 40.6, MCV 91.4, MCH 32.7 H, MCHC 35.7, RDW Std Deviation 40.1, RDW Coeff of Shante 12.0, Plt Count 233, MPV 9.5, Troponin I High Sens 3156 H* 02/18/23 22:10: Troponin I High Sens 16690 H* 02/19/23 04:08: WBC 9.2, RBC 4.23 L, Hgb 13.5, Hct 38.8 L, MCV 91.7, MCH 31.9, MCHC 34.8, RDW Std Deviation 40.1, RDW Coeff of Shante 12.0, Plt Count 246, MPV 9.6, Immature Gran % (Auto) 0.300, Neut % (Auto) 77.4 H, Lymph % (Auto) 12.1 L, [place] % (Auto) 8.7, Eos % (Auto) 1.2, Baso % (Auto) 0.3, Absolute Neuts (auto) 7.1, Absolute Lymphs (auto) 1.11, Nucleated RBC % 0, Sodium 140, Potassium 3.3 L, Chloride 108 H, Carbon Dioxide 25.0, Anion Gap 7, BUN 14, Creatinine 0.95, Estim Creat Clear Calc 82.77, Est GFR (MDRD) Af Amer 100, Est GFR (MDRD) Non-Af 83, BUN/Creatinine Ratio 14.8, Glucose 129 H, Hemoglobin A1c 5.5, Calcium 7.7 L,Phosphorus 2.4 L, Total Bilirubin 0.90, Direct Bilirubin 0.20, AST 135 H, ALT 35, Alkaline Phosphatase 70, Total Protein 5.8 L, Albumin 2.7 L, Globulin 3.1, Albumin/Globulin Ratio 0.9, Triglycerides 173, Cholesterol 165, LDL Cholesterol 99, VLDL Cholesterol 35, HDL Cholesterol 31 L, TSH 2.16 Radiography Diagnostic Testing: Radiology Impression Chest X-Ray 02/18/23 15:31 IMPRESSION: No acute findings in the chest. Electronically Signed: Momo Crump MD at 15:49 EDT , Echocardiogram 02/19/23 05:55 Interpretation Summary The estimated ejection fraction is 55 %. No evidence for diastolic dysfunction. Hypokinesis of the distal inferior wall Mild (1+) aortic valve insufficiency. Mild to moderately dilated ascending aorta. Ordering Physician: Emre Domingo Referring Physician: Mame Foss Performed By: Francia Alves RCS Physical Exam Narrative General: Alert, oriented, no apparent distress HEENT: Atraumatic, normocephalic Eyes: Anicteric, normal conjunctiva, extraocular movements grossly intact Neck: Supple Respiratory: Clear to auscultation bilaterally, normal respiratory effort Cardiovascular: Regular rate and rhythm GI: Soft, nontender, nondistended Extremities: No edema Musculoskeletal: Moving all extremities Neuro: No overt focal neurological deficits Skin: No rashes appreciated Psych: Cooperative Assessment & Plan Assessment/Plan (1) Acute ST elevation myocardial infarction (STEMI): QUALIFIERS: Involved coronary artery: unspecified coronary artery Qualified Code(s): I21.3 - ST elevation (STEMI) myocardial infarction of unspecified site PLAN: Plan This 72-year-old gentleman is being admitted for chest pressure and EKG changes consistent with anterior inferior wall STEMI. 1. Anterior inferior wall STEMI: STEMI protocol was followed in ED and the principle industrial hygienist was notified. 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 The patient was given aspirin 324 mg, Brilinta 180 mg loading dose and IV heparin drip in ED. Continue aspirin, Brilinta and high intensity statin. Depending upon hemodynamic status patient will be considered for beta-maribel and SARAH BETH/ARB. Fasting profile,, A1c, TSH tomorrow AM. 2D echo tomorrow AM. -02/19: Treated with thrombectomy and JAVI to RCA 02/18, continue medication management, transfer to PCU. Cardiology following. Echocardiogram with inferior hypokinesis with EF of 55% 2. Hypertension: Patient on HCTZ 25 mg daily, amlodipine 10 mg daily and K-Dur 10 mEq at home. Serum potassium 3.6 at lower lower limit normal. KCl 40 mEq 1 dose ordered. Serum magnesium and phosphorus ordered. -02/19: Continue present medications 3. VTE prophylaxis: Moderate-risk: Lovenox 40 mill subcu daily Time spent in the patient's overall evaluation,decision-making process, review of diagnostic data, adjustment of management, discussion with other providers, nursing nursing and ancillary staff involved in patient's care documentation, 36minutes Charges/Coding Visit Charges Inpatient E&M: 25479 Subs Hosp L2 02/19/23 1522 <Electronically signed by Merced Willard MD> Cosigner Signature (if applicable): CC: ~ Signed [facility] Work Phone: 1(968) 270-721007-31-2023 Evaluation note* Diagnosis Onset Date Resolution Status Ascending aortic aneurysm ac modesto Nonsustained ventricular tachycardia acute Stented coronary artery February 19, 2023 a cute Hypertension chronic [facility] Work Phone: [phone]) 627-161707-31-2023 Progress note Author Mame Foss [facility] February 19, 2023 11:11am Note Date/Time February 19, 2023 11:1 1am [facility] Medical Records Department [address] [place] [address] Progress Note - Cardiology 02/19/23 1108 MR#: [id number] Acct: [id number] Name: FREEMAN SARABIA Rep #:[id number] : 1950 72 From: Mame medley MD PCP: Dr. Calvin Stephens MD Status:ADM I N Location: ICU ICU04-1 Subjective Subjective Doing well. Denies any chest pain. Had short runs of nonsustained V. tach on telemetry. Objective Data Vital Signs: Vital Signs Temp Pulse Resp BP Pulse Ox O2 Del Method O2 Flow Rate 98.1 F 68 16 136/85 H 98 Room Air 3 02/19/23 00:00 02/19/23 10:00 02/19/23 10:00 02/19/23 08:55 02/19/23 10:00 02/19/23 10:00 02/18/23 17:46 Oxygen Flow Rate (L/min) 3 Oxygen Delivery Method Room Air Weight: 253 lb 15.56 oz Body Mass Index (BMI) 31.6 Intake & Output: Intake and Output for Last 24 Hours 02/17/23 02/18/23 02/19/23 23:59 23:59 23:59 Intake Total 123.69 / 143.69 1439.42 / 1439.42 Output Total 1475 / 1475 450 / 450 Balance -1351.31 / -1331.31 989.42 / 989.42 Lab / Micro Data 02/19/23 04:08 02/19/23 04:08 Labs: Laboratory Results - last 24 hr 02/18/23 15:17: WBC 10.1, RBC 4.71, Hgb 15.2, Hct 43.4, MCV 92.1, MCH 32.3 H, MCHC 35.0, RDW Std Deviation 40.9, RDW Coeff of Shante 12.0, Plt Count 271, MPV 9.7, Immature Gran % (Auto) 0.200, Neut % (Auto) 77.3 H, Lymph % (Auto) 14.3 L, [place] % (Auto) 7.1, Eos % (Auto) 0.8, Baso % (Auto) 0.3, Absolute Neuts (auto) 7.8 H, Absolute Lymphs (auto) 1.45, Nucleated RBC % 0, PT 13.3, INR 1.0, APTT 26.2, Sodium 138, Potassium 3.6, Chloride 104, Carbon Dioxide 29.0, Anion Gap 5,BUN 19 H, Creatinine 1.27, Estim Creat Clear Calc 61.91, Est GFR (MDRD) Af Amer 71, Est GFR (MDRD) Non-Af 59 L, BUN/Creatinine Ratio 15.0, Glucose 108 H, Calcium 9.1, Magnesium 1.9, Troponin I High Sens 22 02/18/23 18:20: WBC 9.4, RBC 4.44 L, Hgb 14.5, Hct 40.6, MCV 91.4, MCH 32.7 H, MCHC 35.7, RDW Std Deviation 40.1, RDW Coeff of Shante 12.0, Plt Count 233, MPV 9.5, Troponin I High Sens 3156 H* 02/18/23 22:10: Troponin I High Sens 57882 H* 02/19/23 04:08: WBC 9.2, RBC 4.23 L, Hgb 13.5, Hct 38.8 L, MCV 91.7, MCH 31.9, MCHC 34.8, RDW Std Deviation 40.1, RDW Coeff of Shante 12.0, Plt Count 246, MPV 9.6, Immature Gran % (Auto) 0.300, Neut % (Auto) 77.4 H, Lymph % (Auto) 12.1 L, [place] % (Auto) 8.7, Eos % (Auto) 1.2, Baso % (Auto) 0.3, Absolute Neuts (auto) 7.1, Absolute Lymphs (auto) 1.11, Nucleated RBC % 0, Sodium 140, Potassium 3.3 L, Chloride 108 H, Carbon Dioxide 25.0, Anion Gap 7, BUN 14, Creatinine 0.95, Estim Creat Clear Calc 82.77, Est GFR (MDRD) Af Amer 100, Est GFR (MDRD) Non-Af 83, BUN/Creatinine Ratio 14.8, Glucose 129 H, Hemoglobin A1c 5.5, Calcium 7.7 L,Phosphorus 2.4 L, Total Bilirubin 0.90, Direct Bilirubin 0.20, AST 135 H, ALT 35, Alkaline Phosphatase 70, Total Protein 5.8 L, Albumin 2.7 L, Globulin 3.1, Albumin/Globulin Ratio 0.9, Triglycerides 173, Cholesterol 165, LDL Cholesterol 99, VLDL Cholesterol 35, HDL Cholesterol 31 L, TSH 2.16 Cardiology Labs/Tests 02/18/23 15:17: WBC 10.1, RBC 4.71, Hgb 15.2, Hct 43.4, MCV 92.1, MCH 32.3 H, MCHC 35.0, Plt Count 271, MPV 9.7, Immature Gran % (Auto) 0.200, Neut % (Auto) 77.3 H, Lymph % (Auto) 14.3 L, [place] % (Auto) 7.1, Eos % (Auto) 0.8, Baso % (Auto) 0.3, Absolute Neuts (auto) 7.8 H, Nucleated RBC % 0, PT 13.3, INR 1.0, APTT 26.2, Sodium 138, Potassium 3.6, Chloride 104, Carbon Dioxide 29.0, Anion Gap 5, BUN 19 H, Creatinine 1.27, Est GFR (MDRD) Af Amer 71, Est GFR (MDRD) Non-Af 59 L, BUN/Creatinine Ratio 15.0, Glucose 108 H, Calcium 9.1, Magnesium 1.9 02/18/23 18:20: WBC 9.4, RBC 4.44 L, Hgb 14.5, Hct 40.6, MCV 91.4, MCH 32.7 H, MCHC 35.7, Plt Count 233, MPV 9.5 02/19/23 04:08: WBC 9.2, RBC 4.23 L, Hgb 13.5, Hct 38.8 L, MCV 91.7, MCH 31.9, MCHC 34.8, Plt Count 246, MPV 9.6, Immature Gran % (Auto) 0.300, Neut % (Auto) 77.4 H, Lymph % (Auto) 12.1 L, [place] % (Auto) 8.7, Eos % (Auto) 1.2, Baso % (Auto) 0.3, Absolute Neuts (auto) 7.1, Nucleated RBC % 0, Sodium 140, Potassium 3.3 L, Chloride 108 H, Carbon Dioxide 25.0, Anion Gap 7, BUN 14, Creatinine 0.95, Est GFR (MDRD) Af Amer 100, Est GFR (MDRD) Non-Af 83, BUN/Creatinine Ratio14.8, Glucose 129 H, Hemoglobin A1c 5.5, Calcium 7.7 L, Phosphorus 2.4 L, Total Bilirubin 0.90, Direct Bilirubin 0.20, Triglycerides 173, Cholesterol 165, LDL Cholesterol 99, VLDL Cholesterol 35, HDL Cholesterol 31 L Rhythm: EKG: ECHO: Stress Test: Cardiac Cath: PCI: CT Surgery: Holter monitor: EPS: PPM: CXR: Chest CT Scan: Radiography Diagnostic Testing: Radiology Impression Chest X-Ray 02/18/23 15:31 IMPRESSION: No acute findings in the chest. Electronically Signed: Momo Crump MD at 15:49 EDT , Physical Exam Const alert and oriented x3 HEENT normocephalic Eyes no scleral icterus Resp normal respiratory effort and clear to auscultation bilaterally Cardio regular rate Extremity no pedal edema Skin no rashes or lesions noted Psych mental status grossly normal Assessment & Plan Assessment/Plan (1) Acute ST elevation myocardial infarction (STEMI): QUALIFIERS: Involved coronary artery: unspecified coronary artery Qualified Code(s): I21.3 - ST elevation (STEMI) myocardial infarction of unspecified site PLAN: Treated with thrombectomy and drug-eluting stent placement to the RCA. Wewill keep the patient on aspirin, Brilinta, statin and beta-marible. 2D echo will be reviewed when available. (2) Nonsustained ventricular tachycardia: PLAN: In the setting of acute STEMI. Continue telemetry monitoring. Okay to transfer to PCU. Continue beta-maribel. Charges/Coding Visit Charges Inpatient E&M: 63997 Subs Hosp L2 02/19/23 1111 <Electronically signed by Mame Foss MD> Cosigner Signature (if applicable): CC: ~ Signed [facility] Work Phone: [phone] 477-181507-31-2023 Discharge summary Author Kris Rose [facility] February 19, 2023 12:16am Note Date/Time February 18, 2023 3:20 pm [facility] Medical Records Department [address] [place] [id number] Emergency Department Summary 02/18/23 MR#: [id number] Acct: [id number] Name: FREEMAN SARABIA Rep #:[id number] : 1950 72 From: Kris Osullivan PCP: Dr. Calvin Stephens MD Status:ADM I N [facility] History of Present Illness Chief Complaint: Chest Pain Informant: patient Onset/Context/Timing Onset: Today Activity at onset: sudden Timing: Continuous Quality: Positive for Pressure Location: Substernal Worsened By: Nothing Relieved By: Nothing Associated Symptoms: Positive for Nausea and Dyspnea; Negative for Vomiting, Diaphoresis, Cough, Fever, Lightheadedness, Acid Reflux or Palpitations Narrative Narrative: Presents with chest pain that began approximately 50 minutes prior to arrival. Patient states he was working on his car when he started having some pain in hischest. Patient describes it as a pressure. Patient states nothing makes it better nothing makes it worse. Patient denies any diaphoresis. Patient admits to nausea but denies any vomiting. Patient denies any cough or fevers. Patientstates he was able to mow his lawn earlier today. Patient admits to some slightshortness of breath. CVD Risk Factors: Positive for Hypertension; Negative for Diabetes, Hypercholesterolemia, Family History 1' </=55 or Smoking PE Risk Factors: Negative for Recent Travel/Surgery, Recent Immobilization, Prior DVT or PE or Cancer [facility] Medical History (Updated 02/18/23 @ 15:[address] Emre Domingo MD) Hypertension Home Medications hydrochlorothiazide 25 mg tablet 25 mg PO DAILY 04/08/14 [History Last Taken Unknown] potassium chloride 10 mEq tablet,extended release (Klor-Con) 10 meq PO DAILY 04/08/14 [History Last Taken 02/17/23] amlodipine 10 mg tablet mg 02/18/23 [History Last Taken 02/17/23] Allergy/AdvReac Type Severity Reaction Status Date / Time No Known Allergies Allergy Verified 02/18/23 15:03 Surgical History (Updated 02/18/23 @ 15:44 by Bernardo Quiles) History of herniorrhaphy History of total right hip replacement Hx of appendectomy Social History Smoking Status: Never smoker ROS ROS ED Constitutional Constitutional ED: Denies chills or fever(s) Eyes Eyes: Denies blurry vision or change in vision ENT ENT ED: Denies rhinorrhea or sore throat Cardiovascular Cardiovascular: Reports chest pain; Denies palpitations Respiratory/Chest Respiratory/Chest: Denies cough or dyspnea Gastrointestinal Gastrointestinal: Reports nausea; Denies abdominal pain or vomiting Genitourinary Genitourinary ED: Denies dysuria or hematuria Musculoskeletal Musculoskeletal: Denies back pain or neck pain Integumentary Denies abscess or rash Neurologic Neurologic: Denies headache(s) or weakness Allergic/Immunologic Allergic/Immunologic ED: Denies mouth swelling or urticaria EXAM Physical Exam Const Vital Signs: 02/18/23 15:03 02/18/23 15:08 02/18/23 15:13 Temperature 97.0 F L Temperature Source Temporal Pulse Rate 75 78 Respiratory Rate 18 10 L 13 Blood Pressure 173/100 H Blood Pressure Mean 124 Pulse Ox 97 97 Oxygen Delivery Method Room Air Room Air Oxygen Flow Rate (L/min) 02/18/23 15:17 02/18/23 15:21 02/18/23 15:23 Temperature Temperature Source Pulse Rate 78 77 Respiratory Rate 12 15 Blood Pressure 164/119 H 158/84 H Blood Pressure Mean 134 108 Pulse Ox 99 99 Oxygen Delivery Method Room Air Nasal Cannula Nasal Cannula Oxygen Flow Rate (L/min) 3 3 02/18/23 15:30 Temperature Temperature Source Pulse Rate 74 Respiratory Rate 11 L Blood Pressure 162/99 H Blood Pressure Mean 120 Pulse Ox 99 Oxygen Delivery Method Nasal Cannula Oxygen Flow Rate (L/min) Positive well nourished, well developed and obese General Appearance ED: well developed and NAD Nutritional Appearance: obese HEENT normocephalic and atraumatic Eyes PERRL and EOMs intact bilaterally Neck supple and no JVD Chest Wall palpation of chest normal Resp normal respiratory effort and clear to auscultation bilaterally Effort and Inspection: Negative for respiratory distress Cardio regular rate, regular rhythm and no murmurs GI normal to inspection, nondistended, normoactive bowel sounds, soft to palpation,non-tender and non-distended Extremity normal to inspection Extremity Narrative: Radial and femoral pulses are equal bilaterally. General Extremety ED: Negative for edema or tenderness General Extremity: Negative for edema Neuro oriented x3, CN's II-XII intact bilaterally and no sensory deficits noted Sensorium / Orientation: awake and alert Motor Exam: strength 5/5 throughout Psych mental status grossly normal Heart Score History: Highly Suspicious ECG: Significant ST-Depression Age: >/= 65 years Risk Factors: 1 or 2 Risk Factors Score: 7 MDM MDM MDM Narrative Medical decision making narrative: Differential diagnosis includes STEMI, and cardiac ischemia. EKG will be obtained to assess for cardiac ischemia and STEMI. CBC will be obtained to assess for leukocytosis and anemia. Basic metabolic profile will be obtained toassess for electrolyte abnormality and renal function. High-sensitivity troponin will be obtained to assess for cardiac ischemia. PT with INR and PTT will be obtained to assess for coagulopathy. Chest x-ray will be obtained to assess for pneumonia and widened mediastinum. Lab Data Attestation: I reviewed the patient's lab results. Lab results narrative: CBC was reviewed and was within normal limits. PT with INR and PTT were reviewed and were within normal limits. Basic metabolic profile was reviewed. BUN was slightly elevated at 19. Creatinine was 1.27. The remainder is within normal limits. High-sensitivity troponin was reviewed and was normal at 22. Labs: Laboratory Results - last 24 hr 02/18/23 15:17 WBC 10.1 RBC 4.71 Hgb 15.2 Hct 43.4 MCV 92.1 MCH 32.3 H MCHC 35.0 RDW Std Deviation 40.9 RDW Coeff of Shante 12.0 Plt Count 271 MPV 9.7 Immature Gran % (Auto) 0.200 Neut % (Auto) 77.3 H Lymph % (Auto) 14.3 L [place]m % (Auto) 7.1 Eos % (Auto) 0.8 Baso % (Auto) 0.3 Absolute Neuts (auto) 7.8 H Absolute Lymphs (auto) 1.45 Nucleated RBC % 0 PT 13.3 INR 1.0 APTT 26.2 Sodium 138 Potassium 3.6 Chloride 104 Carbon Dioxide 29.0 Anion Gap 5 BUN 19 H Creatinine 1.27 Estim Creat Clear Calc 61.91 Est GFR (MDRD) Af Amer 71 Est GFR (MDRD) Non-Af 59 L BUN/Creatinine Ratio 15.0 Glucose 108 H Calcium 9.1 Troponin I High Sens 22 Radiography Chest X-Ray - ED: 1 View, Read by ED Physician, Read by Radiologist and No AcuteDisease Diagnostic Testing: Portable 1 view chest x-ray was obtained. On my independent interpretation, lung jimenez are clear. There is normal cardiac silhouette. Bony thorax is normal. There is no acute process noted. Radiologist also interpreted the x-ray and agrees. EKG Initial EKG: Attestation: I personally reviewed and interpreted this EKG as follows: Interpretation: Sinus Rhythm (73), S-T Elevation (II, III, aVF, V4 throughV6) and S-T Depression (I, aVL, V1, and V2) Comments: EKG was obtained. On my independent interpretation, there is a normal sinus rhythm with a rate of 73. [place] interval was normal at 190 ms. QRS interval was normal at 118 ms. QTc interval was normal at 445 ms. [place] was normal at 30. There is ST elevation in leads II, III, aVF, V4, V5, and V6. Prior EKG tracings: not available for review Prior: No Prior Management Discussion w/another healthcare provider: Vice President Investor Relations (Dr. Foss) Treatment and Re-Evaluation :: STEMI alert was called. Patient was given aspirin, heparin, and Brilinta. Patient was also given a dose of morphine. Nitroglycerin was withheld due to the ST changes in the inferior leads. Case was discussed with Dr. Foss from cardiology. He will be in to evaluate the patient and take the patient to the Real Estate Legal Secretary. Case will be discussed with the hospitalist. Patient will be admitted to ICU after the Real Estate Legal Secretary to the service of Dr. Domingo. Patient understood and was agreeable with the plan. All questions were answered. Critical Care Time Critical Care Time: Yes Critical care time (excluding procedures): 30-74 minutes (31), Including time spent:, Discussing w/Patient &/or Family/Grit Removal Operator, Discussing w/Consultants, Arranging Admission or Transfer and Performing Direct Patient Care at Bedside Discharge Plan Dx/Rx/DC Orders Clinical Impression: Acute ST elevation myocardial infarction (STEMI), Hypertension Disposition Disposition: Acute Care Hospital [facility] What to do if you have Problems For any increased pain, shortness of breath, bleeding, nausea or vomiting, chestpain, or any unexpected problems, contact your Primary Care Provider. Call [facility] ([phone]) or report to the closest Emergency Room. Call 911 if necessary. 02/19/23 0016 <Electronically signed by Kris Rose DO> Cosigner Signature (if applicable): CC: Dr. Calvin Stephens MD ~ Signed [facility] Work Phone: 1(221) 374-242007-30-2023 Consult note Author Mame Foss [facility] February 18, 2023 5:44pm Note Date/Time February 18, 2023 5:43 pm [facility] Medical Records Department [address] [place] [address] Consultation - Cardiology 02/18/23 1741 MR#: [id number] Acct: [id number] Name: FREEMAN SARABIA Rep #:[id number] : 1950 72 From: Mame medley MD PCP: Dr. Calvin Stephens MD Status:ADM I N Location: ICU ICU04-1 Assessment & Plan Assessment/Plan (1) Acute ST elevation myocardial infarction (STEMI): QUALIFIERS: Involved coronary artery: unspecified coronary artery Qualified Code(s): I21.3 - ST elevation (STEMI) myocardial infarction of unspecified site PLAN: Treated with thrombectomy and drug-eluting stent placement to the RCA. Wejessicall keep the patient on aspirin, Brilinta, statin and beta-maribel. We will keep him on Integrilin overnight. Agree with 2D echo for LV function. HPI Consult Data Date of Consult: 02/18/23 HPI Narrative Reason for Consultation: STEMI HPI Narrative: FREEMAN SARABIA, is a 72 M who presents with chest pain. Patient was found to have inferior ST elevation WI on the EKG and a STEMI alert was called. Patient was evaluated and brought emergently to the cardiac Real Estate Legal Secretary and underwent coronary angiography. 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 He has some residual disease in the LAD and circumflex which are also ectatic. These lesions will be treated medically at this time. Patient is being admitted to the CCU for further management of his ST elevation WI. Review of systems: All systems reviewed. All else is negative except in HPI. [facility]LY [facility] Medical History Hypertension Home Medications hydrochlorothiazide 25 mg tablet 25 mg PO DAILY 04/08/14 [History Last Taken Unknown] potassium chloride 10 mEq tablet,extended release (Klor-Con) 10 meq PO DAILY 04/08/14 [History Last Taken 02/17/23] amlodipine 10 mg tablet mg 02/18/23 [History Last Taken 02/17/23] Allergy/AdvReac Type Severity Reaction Status Date / Time No Known Allergies Allergy Verified 02/18/23 15:03 Family History no significant family his Surgical History History of herniorrhaphy History of total right hip replacement Hx of appendectomy Social History Smoking Status: Never smoker Physical Exam Const alert and oriented x3 HEENT normocephalic Eyes no scleral icterus Resp normal respiratory effort Cardio Rate: regular rate Skin no rashes or lesions noted Psych mental status grossly normal Risk Stratification Risk Stratification Applicable: No Charges/Coding Visit Charges Inpatient E&M: 95258 Init Hosp L2 Objective Data Vital Signs: Vital Signs Temp Pulse Resp BP Pulse Ox O2 Del Method O2 Flow Rate 97.6 F L 76 16 169/99 H 100 Nasal Cannula 3 02/18/23 15:44 02/18/23 15:44 02/18/23 15:44 02/18/23 15:44 02/18/23 15:44 02/18/23 15:44 02/18/23 15:44 Oxygen Flow Rate (L/min) 3 Oxygen Delivery Method Nasal Cannula Weight: 255 lb 1.197 oz Body Mass Index (BMI) 31.8 Lab / Micro Data 02/18/23 15:17 02/18/23 15:17 Labs: Laboratory Results - last 24 hr 02/18/23 15:17: WBC 10.1, RBC 4.71, Hgb 15.2, Hct 43.4, MCV 92.1, MCH 32.3 H, MCHC 35.0, RDW Std Deviation 40.9, RDW Coeff of Shante 12.0, Plt Count 271, MPV 9.7, Immature Gran % (Auto) 0.200, Neut % (Auto) 77.3 H, Lymph % (Auto) 14.3 L, Montcalm % (Auto) 7.1, Eos % (Auto) 0.8, Baso % (Auto) 0.3, Absolute Neuts (auto) 7.8 H, Absolute Lymphs (auto) 1.45, Nucleated RBC % 0, PT 13.3, INR 1.0, APTT 26.2, Sodium 138, Potassium 3.6, Chloride 104, Carbon Dioxide 29.0, Anion Gap 5,BUN 19 H, Creatinine 1.27, Estim Creat Clear Calc 61.91, Est GFR (MDRD) Af Amer 71, Est GFR (MDRD) Non-Af 59 L, BUN/Creatinine Ratio 15.0, Glucose 108 H, Calcium 9.1, Magnesium 1.9, Troponin I High Sens 22 Cardiology Labs/Tests 02/18/23 15:17: WBC 10.1, RBC 4.71, Hgb 15.2, Hct 43.4, MCV 92.1, MCH 32.3 H, MCHC 35.0, Plt Count 271, MPV 9.7, Immature Gran % (Auto) 0.200, Neut % (Auto) 77.3 H, Lymph % (Auto) 14.3 L, Montcalm % (Auto) 7.1, Eos % (Auto) 0.8, Baso % (Auto) 0.3, Absolute Neuts (auto) 7.8 H, Nucleated RBC % 0, PT 13.3, INR 1.0, APTT 26.2, Sodium 138, Potassium 3.6, Chloride 104, Carbon Dioxide 29.0, Anion Gap 5, BUN 19 H, Creatinine 1.27, Est GFR (MDRD) Af Amer 71, Est GFR (MDRD) Non-Af 59 L, BUN/Creatinine Ratio 15.0, Glucose 108 H, Calcium 9.1, Magnesium 1.9 Rhythm: EKG: ECHO: Stress Test: Cardiac Cath: PCI: CT Surgery: Holter monitor: EPS: PPM: CXR: Chest CT Scan: Radiography Diagnostic Testing: Radiology Impression Chest X-Ray 02/18/23 15:31 IMPRESSION: No acute findings in the chest. Electronically Signed: Momo Crump MD at 15:49 EDT , 02/18/23 7273 <Electronically signed by Mame Foss MD> Cosigner Signature (if applicable): CC: Dr. Mame Foss MD; Dr. Calvin Stephens MD~ Signed [facility] Work Phone: [phone]) 116-647907-30-2023 History and physical note Author Emre Domingo [facility] February 20, 2023 1:36pm Note Date/Time February 18, 2023 3:49 pm [facility] Medical Records Department [address] [place] [address] H&P Exam - Hospitalist 02/18/23 1547 MR#: [id number] Acct: [id number] Name: FREEMAN SARABIA Rep #:[id number] : 1950 72 From: Emre Monge PCP: Dr. Calvin Stephens MD Status:ADM I N Location: ICU ICU04-1 HPI - General General Date of Admission: 02/18/23 Date of Service: 02/18/23 Chief Complaint: Sudden onset of chest pressure about 1 and half hours ago associated with shortness of breath. STEMI alert HPI Narrative FREEMAN SARABIA, is a 72 M with no significant past medical history except hypertension was brought to ED for chest pressure that is started about 50 minutes prior to arrival. Patient stated he was doing lawn mowing and then he was working on his car in the hot weather. He got tired and was resting in homewhen he got chest pressure. He described chest pressure as in the middle feels like heavyweight put on the chest, 6-7/10 in intensity without radiation to arms, back neck or in epigastric region. This is associated mild shortness of breath. Patient denies dizziness lightheadedness or vertigo. Patient never hadMRI ordered chest pain/pressure like this. He denies any chronic heart disease or lung disease. He is a non-smoker. In ED, patient had twelve-lead EKG, individually reviewed shows normal sinus rhythm at [address] elevation V4 to V6, 2 3 and aVF about [address] depression in V1 V2 and aVR. [place] interval 190 ms, QRS 118 ms, QTc 445 ms. Previous EKG reviewed in April 08, 2014, normal sinus rhythm [address]-T changes. Patient stated he recently had echo about a month ago in [facility]. He had treadmill EKG stress test many years ago and was normal at that time as per patient. Patient was straight taken to the Real Estate Legal Secretary from ER. [facility] Medical History Hypertension Home Medications hydrochlorothiazide 25 mg tablet 25 mg PO DAILY 04/08/14 [History Last Taken Unknown] potassium chloride 10 mEq tablet,extended release (Klor-Con) 10 meq PO DAILY 04/08/14 [History Last Taken 02/17/23] amlodipine 10 mg tablet mg 02/18/23 [History Last Taken 02/17/23] Allergy/AdvReac Type Severity Reaction Status Date / Time No Known Allergies Allergy Verified 02/18/23 15:03 Family History no significant family his no significant family history Surgical History History of herniorrhaphy History of total right hip replacement Hx of appendectomy Social History Smoking Status: Never smoker ROS ROS Narrative Constitutional: Reports fatigue and weakness. No fever. HEENT: Reports systems reviewed and no addt'l complaints, except as documented Respiratory/Chest: Associated mild shortness of breath as described in HPI. Denies chronic lung disease/COPD or emphysema. CVS: Continued chest pressure, no improvement or deterioration. Denies history of peripheral arterial disease Gastrointestinal: Denies coffee ground emesis, hematemesis or vomiting Genitourinary: Denies burning urination or new urinary tract symptoms Musculoskeletal: Denies acute joint pain or limited range of motion. No acute injury Neurologic: Denies seizure-like symptoms. No prior stroke. skin: No ulcer. No rash Endocrinology: Reports systems reviewed and no addt'l complaints, except as documented Hematologic/Lymphatic: Reports systems reviewed and no addt'l complaints, exceptas documented Rest 14 ROS are negative except as mentioned in HPI Vital Signs Vital Signs Vital Signs: 02/18/23 15:03 02/18/23 15:08 02/18/23 15:13 Temperature 97.0 F L Temperature Source Temporal Pulse Rate 75 78 Respiratory Rate 18 10 L 13 Blood Pressure 173/100 H Blood Pressure Mean 124 Pulse Ox 97 97 Oxygen Delivery Method Room Air Room Air Oxygen Flow Rate (L/min) 02/18/23 15:17 02/18/23 15:21 02/18/23 15:23 Temperature Temperature Source Pulse Rate 78 77 Respiratory Rate 12 15 Blood Pressure 164/119 H 158/84 H Blood Pressure Mean 134 108 Pulse Ox 99 99 Oxygen Delivery Method Room Air Nasal Cannula Nasal Cannula Oxygen Flow Rate (L/min) 3 3 02/18/23 15:30 02/18/23 15:44 Temperature 97.6 F L Temperature Source Temporal Pulse Rate 74 76 Respiratory Rate 11 L 16 Blood Pressure 162/99 H 169/99 H Blood Pressure Mean 120 122 Pulse Ox 99 100 Oxygen Delivery Method Nasal Cannula Nasal Cannula Oxygen Flow Rate (L/min) 3 Weight Weight: 255 lb 1.197 oz Body Mass Index (BMI) 31.8 Physical Exam Narrative General: Alert, Oriented x3, Cooperative HEENT: Atraumatic, PERRLA, EOMI, Normocephalic Oral: Oral mucosa dry. No Gingival or Mucosal Lesions/ Ulcerations Neck: Supple, No JVD, Negative Carotid Bruits Lungs: Air entry equal and symmetrical in bilateral lung bases. No crepitation/rhonchi Cardiovascular: Regular rate, Regular Rhythm, Normal S1, Normal S2, No murmurs Abdomen: Bowel Sounds Present, Soft, Non Tender, Non-Distended : No renal angle tenderness. No suprapubic tenderness. Extremities: No edema, Capillary Refill Less than 3 Seconds Skin: No rashes, No breakdown Musculoskeletal: No Tenderness to Palpation of Joints or Extremities. Muscle strength 5/5 at major joints of extremities. Neurological: Cranial nerves II-XII grossly intact, DTR 2+/4. No acute focal neurological defic Psych/Mental Status: Flat affect. Results Lab / Micro Data 02/18/23 15:17 02/18/23 15:17 Labs: Laboratory Results - last 24 hr 02/18/23 15:17: WBC 10.1, RBC 4.71, Hgb 15.2, Hct 43.4, MCV 92.1, MCH 32.3 H, MCHC 35.0, RDW Std Deviation 40.9, RDW Coeff of Shante 12.0, Plt Count 271, MPV 9.7, Immature Gran % (Auto) 0.200, Neut % (Auto) 77.3 H, Lymph % (Auto) 14.3 L, [place]calm % (Auto) 7.1, Eos % (Auto) 0.8, Baso % (Auto) 0.3, Absolute Neuts (auto) 7.8 H, Absolute Lymphs (auto) 1.45, Nucleated RBC % 0, PT 13.3, INR 1.0, APTT 26.2, Sodium 138, Potassium 3.6, Chloride 104, Carbon Dioxide 29.0, Anion Gap 5,BUN 19 H, Creatinine 1.27, Estim Creat Clear Calc 61.91, Est GFR (MDRD) Af Amer 71, Est GFR (MDRD) Non-Af 59 L, BUN/Creatinine Ratio 15.0, Glucose 108 H, Calcium 9.1, Troponin I High Sens 22 Assessment & Plan Assessment/Plan (1) Acute ST elevation myocardial infarction (STEMI): QUALIFIERS: Involved coronary artery: unspecified coronary artery Qualified Code(s): I21.3 - ST elevation (STEMI) myocardial infarction of unspecified site PLAN: Plan This 72-year-old gentleman is being admitted for chest pressure and EKG changes consistent with anterior inferior wall STEMI. 1. Anterior inferior wall STEMI: STEMI protocol was followed in ED and the principle industrial hygienist was notified. 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 The patient was given aspirin 324 mg, Brilinta 180 mg loading dose and IV heparin drip in ED. Continue aspirin, Brilinta and high intensity statin. Depending upon hemodynamic status patient will be considered for beta-maribel and SARAH BETH/ARB. Fasting profile,, A1c, TSH tomorrow AM. 2D echo tomorrow AM. 2. Hypertension: Patient on HCTZ 25 mg daily, amlodipine 10 mg daily and K-Dur 10 mEq at home. Serum potassium 3.6 at lower lower limit normal. KCl 40 mEq 1 dose ordered. Serum magnesium and phosphorus ordered. 3. VTE prophylaxis: Moderate-risk: Lovenox 40 mill subcu daily. Discontinue ifplatelet count drops less than 50,000 or hemoglobin less than 8 g% Living will/advanced directive/end of life care: Patient does have living will or advanced directive. 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 After discussion of benefits/risks procedures involved with full code, DNR CC arrest and DNR CC, the patient and his opted for full code for reversible causes of cardiac arrest/cardiopulmonary arrest Patient does want artificial life support including intubation, tube feed, ventilator and/chest compression, central venous catheter, vasopressor and DC shock if needed in the beginning but does not want to be in a very stable state if it becomes dependent on life support. Full code ordered Total time spent in [id number] encounter in discussion of advanced directive 17 minutes. Laboratory Results 02/18/23 15:17: WBC 10.1, RBC 4.71, Hgb 15.2, Hct 43.4, MCV 92.1, MCH 32.3 H, MCHC 35.0, RDW Std Deviation 40.9, RDW Coeff of Shante 12.0, Plt Count 271, MPV 9.7, Immature Gran % (Auto) 0.200, Neut % (Auto) 77.3 H, Lymph % (Auto) 14.3 L, [place]calm % (Auto) 7.1, Eos % (Auto) 0.8, Baso % (Auto) 0.3, Absolute Neuts (auto) 7.8 H, Absolute Lymphs (auto) 1.45, Nucleated RBC % 0, PT 13.3, INR 1.0, APTT 26.2, Sodium 138, Potassium 3.6, Chloride 104, Carbon Dioxide 29.0, Anion Gap 5, BUN 19 H, Creatinine 1.27, Estim Creat Clear Calc 61.91, Est GFR (MDRD) Af Amer 71, Est GFR (MDRD) Non-Af 59 L, BUN/Creatinine Ratio 15.0, Glucose 108 H, Calcium 9.1, Troponin I High Sens 22 Clinical Impression(s) from Imaging Studies Chest X-Ray 02/18/23 15:31 IMPRESSION: No acute findings in the chest. Charges/Coding Visit Charges Inpatient E&M: 66895 Init Hosp L3 Procedures Hospitalists Procedures: 06268 Advncd Care Plan 30 Min 02/18/23 1625 <Electronically signed by Emre Domingo MD> Cosigner Signature (if applicable): CC: Dr. Emre Domingo MD; Dr. Calvin Stephens MD~ Signed ADDENDUM by Dr. Emre Domingo MD on 02/20/23 at 1336 Addendum Postcardiac cath note: Dr. 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 It was long segment. PCI and stenting was done. Patient will be kept overnight on Integrilin drip. Typographic correction for very stable in advance directive section: Patient does not want to be in vegetable state 02/20/23 1336<Electronically signed by Emre Domingo MD> Cosigner Signature (if applicable): cc: Dr. Emre Domingo MD; Dr. Calvin Stephens MD ~* Signed [facility] Work Phone: 1(979) 544-628105-12-2023 Miscellaneous Notes* Telephone Encounter - Claudia Balderas [...] and advise. Claudia Balderas [facility] Instructions* Patient Instructions* Leatha Zaragoza APRN.CNP - 08/15/2022 4:13 PM EST Continue the same medications. Get the fasting labwork done in the next 1-2 weeks. Keep the scalp area clean and dry. Notify provider of any s/s of infection. documented in this encounterHolzer [facility] [place]-24-2023 History of Present illness Narrative* Leatha Zaragoza [...] was obtained. Time out performed. Cryotherapy using [id number] method to the skin lesion on the [...] plan. This note was partially generated using [employer] voice recognition system. Note was reviewed for accuracy. There may be minor misspellings or grammar miscues with Dragon voice recognition. documented in this encounterHolzer [facility] [place]01-13-2023 Miscellaneous Notes* Telephone Encounter - Brayden Galindo [...] months. Leatha Zaragoza APRN.CNP documented in this encounterHolzer [facility] [place]-05-2023 Instructions* Patient Instructions* Leatha Zaragoza APRN.CNP - 07/27/2022 8:24 AM EST Restart HCTZ 12.5mg daily. Decrease the amlodipine to 5 mg daily. Schedule echocardiogram. Recheck in 2 weeks. Sooner if needed. If you have trouble cutting the pills, let me know and I can send in the lower dose. documented in this encounterHolzer [facility] [place]-05-2023 History of Present illness Narrative* Leatha Zaragoza APRN.CORING MACHINE OPERATOR - 07/27/2022 7:47 AM EST This is [...] when sleeping. Refers that he went to [facility]. Refers that he has cataracts. Advised [...] improvement. Leatha Zaragoza APRN.CNP documented in this encounterHol[facility] [place]-03-2023 Miscellaneous Notes* Telephone Encounter - Leatha Zaragoza [...] his normal Protocols used: Leg Swelling and [id number] documented in this encounterHolzer [facility] [place]01-03-2023 Miscellaneous Notes* Telephone Encounter - Martha Pike RN - 07/25/2022 2:34 PM EST left for patient to call PCP office for further triage of stated symptoms in 07/24/22 message. Martha Pike RN documented in this encounterHolzer [facility] [place]12-19-2022 History of Present illness Narrative* Calvin Stephens MD - 07/10/2022 3:01 PM EST Patient [...] FRONTAL/LAT - DOXYCYCLINE MONOHYDRATE 100 MG TABLET Calvin Stephens MD documented in this encounterHolzer [facility] [place]12-12-2022 Miscellaneous Notes* Telephone Encounter - Sina Contreras [...] advise. Chanelle Ayers LPN documented in this encounterHolzer [facility] [place]12-08-2022 Instructions* Patient Instructions* Nannette Skelton PA-C - [...] influenza and pneumococcal vaccines. Ask yourdoctor or valve maker. Cough or bronchitis -- Viruses almost always [...] or saline nasal spray (available from the neighborhood drug store) to relieve congestion, or using [...] treatment and allow bacteria to multiply. Copyright 7769-1838 The [facility]. All rights reserved documented in this encounterHolzer Medical Center – [place]12-08-2022 History of Present illness Narrative* Nannette Skelton [...] testing ordered; Results will be released to [facility] in 24-48 hours. Discussed quarantine, social distancing, [...] plan. Nannette Skelton PA-C documented in this encounterHolzer Medical Center – [place]11-08-2022 Instructions* Patient Instructions* Calvin Stephens MD - 05/30/2022 5:15 PM EST Stop hctz and potassium Increase losartan to 100 mg a day. Bp check in one month Hold atorvastatin. Give update in a month of the meds. documented in this encounterHolzer [facility] [place]11-08-2022 History of Present illness Narrative* Calvin Stephens MD - 05/30/2022 4:43 PM EST Patient [...] Pulse (!) 54 Ht 185.4 cm (6' 1) Wt 113.9 kg (251 lb) SpO2 99% [...] proceed with screening including LUMA and PSA. Calvin Stephens MD documented in this encounterHolzer Medical Center – [place]05-26-2022 Instructions* Patient Instructions* Calvin Stephens MD - 12/15/2021 4:50 PM EDT Guidelines [...] milk. Avoid sweet rolls, doughnuts, breakfast pastries (Guamanian), and sweetened packaged cereals (the added sugar [...] such as the one published by the [employer]. 5. Consult your physician if you have any questions. documented in this encounterHolzer Medical Center – [place]05-26-2022 History of Present illness Narrative* Calvin Stephens MD - 12/15/2021 4:43 PM EDT Patient [...] month See previous ov: Was running lawn cigarette paper tester on Sunday. Noted shortness of breath starting [...] lab draw. The 10-year ASCVD risk score (Mon[place]reyenma PERDOMO Jr., et al., 2013) is: 30.2% [...] current medication(s) - Goal of BP <130/80 Calvin Stephens documented in this encounterHolzer Medical Center – [place]05-12-2022 History of Present illness Narrative* More Boogie, RT(R) - 12/01/2021 9:20 AM EDT Radiology Service Progress Note PATIENT NAME: Freeman Sarabia DATE OF SERVICE: December 01, 2021 TIME: 9:45 AM PATIENT IDENTITY VERIFICATION COMPLETED USING TWO (2) IDENTIFIERS: Name and Date of confirmedby patient verbally. FALL SCREENING: Has the patient had 2 falls in the last year or 1 fall with injury or currently using an Ambulatory Assistive Device (Walker, Cane, Wheelchair, Crutches, etc.)? No PATIENT GENDER DATA: Male PATIENT RELEVANT IMPLANT DATA REVIEWED: Yes RADIOLOGY DEPARTMENT: General X-ray: Exam(s) Completed: Chest X-Ray PERIPHERAL IV DATA: Not applicable SIGNED BY: RT Arabella(R) December 01, 2021 9:45 AM documented in this encounterHolzer Medical Center [facility] [place]05-12-2022 History of Present illness Narrative* Calvin Stephens MD - 12/01/2021 8:22 AM EDT Patient presents with: Shortness of Breath HPI: Patient presents today for office visit for acute visit. Was running lawn cigarette paper tester on Sunday. Noted shortness of breath starting [...] lab draw. The 10-year ASCVD risk score ([place] LEANNE Jr., et al., 2013) is: 30.2% Values [...] Abs Lymph 1.00 - 4.00 k/uL 1.89 Montcalm% % 10.4 Abs Montcalm <0.87 k/uL 0.65 Eosin% % 3.4 Abs [...] next lab draw. - BASIC METABOLIC PNL Calvin Stephens RTO in two weeks. and prn. documented in this encounterHolzer Medical [facility] [place]05-02-2022 Miscellaneous Notes* Telephone Encounter - Calvin Stephens MD - 11/21/2021 10:31 AM EDT I am confused. Both 50 mg and 25 were sent and received at office visit. Did they not receive the 25? * Telephone Encounter - Sina Contreras LPN - 11/21/2021 10:07 AM EDT Images from the original note were not included. documented in this encounterHolzer [facility] [place]04-29-2022 History of Present illness Narrative* Calvin Stephens MD - 11/18/2021 4:09 PM EDT Patient [...] ICD9: V10.83, ICD10: Z85.828 Follow with derm. Calvin Stephens RTO in six months and prn. documented in this encounterHolzer [facility] [place]10-29-2021 History of Past illness Narrative* Problem Noted [...] of this encounter (statuses as of 11/18/2021) [facility] History of Past illness Narrative* Problem Noted [...] of this encounter (statuses as of 11/21/2021) [facility] [place] History of Past illness Narrative* Problem Noted [...] of this encounter (statuses as of 12/01/2021) [facility] History of Past illness Narrative* Problem Noted [...] of this encounter (statuses as of 12/15/2021) [facility] History of Past illness Narrative* Problem Noted [...] of this encounter (statuses as of 05/31/2022) [facility] History of Past illness Narrative* Problem Noted [...] of this encounter (statuses as of 06/30/2022) [facility] History of Past illness Narrative* Problem Noted [...] of this encounter (statuses as of 07/03/2022) [facility] History of Past illness Narrative* Problem Noted [...] of this encounter (statuses as of 07/10/2022) [facility] History of Past illness Narrative* Problem Noted [...] of this encounter (statuses as of 07/27/2022) [facility] History of Past illness Narrative* Problem Noted [...] of this encounter (statuses as of 07/28/2022) [facility] History of Past illness Narrative* Problem Noted [...] of this encounter (statuses as of 08/04/2022) [facility] History of Past illness Narrative* Problem Noted [...] of this encounter (statuses as of 08/10/2022) [facility] History of Past illness Narrative* Problem Noted [...] of this encounter (statuses as of 08/16/2022) [facility] History of Past illness Narrative* Problem Noted [...] of this encounter (statuses as of 12/02/2022) [facility] Merced Willard [facility] February 20, 2023 1:12pm Note Date/Time February 20, 2023 1:0 9pm [facility] Medical Records Department [address] [place] [address] Instructions for Home/Discharge Instructions 02/20/23 1308 MR#: [id number] Acct: [id number] Name: FREEMAN SARABIA Rep #:[id number] : 1950 72 From: Merced Willard MD PCP: Dr. Calvin Stephens MD Status:ADM I N Discharge Instructions Diet Discharge Diet: - (DASH diet) Activity Discharge Activity: Return to Normal Activity Follow Up Care Test Results: Test results from this visit will be discussed in further detail at your follow- up appointment, if applicable. Discharge Plan Admission Admit Date/Time: 02/18/23 15:50 Primary Reason for Your Visit: Heart attack Attending Provider: Merced Willard Primary Care Provider: Calvin Stephens Consulting Providers: Emre Domingo; Mame Foss Instructions Patient Instructions: Coronary Stents, Cardiac Catheterization Dc Additional Instructions / Restrictions: DISCHARGE INSTRUCTIONS PLEASE READ *Please take this with you to your next doctors appointment* -You will be started on an aspirin, statin, carvedilol, and Brilinta -You will stop taking amlodipine and hydrochlorothiazide -You will need to follow-up with cardiology upon discharge. As Dr. Foss does not see patients in the office he can follow with Dr. Blair, please call the office upon discharge to schedule your hospital follow-up appointment (ph [phone]) -Please call your primary care provider's office upon discharge to schedule a hospital follow up within 1 week. -For any concerning signs or symptoms please call 911 or proceed to the nearest emergency department Discharge Orders/Prescriptions Prescriptions: New atorvastatin 80 mg Tablet 80 mg PO QHS 30 Days Qty: 30 0RF carvedilol 6.25 mg Tablet 6.25 mg PO BID 30 Days Qty: 60 0RF aspirin 81 mg Tablet,Chewable 81 mg PO BREAKFAST 30 Days Qty: 30 0RF Brilinta 90 mg Tablet 90 mg PO BID 30 Days Qty: 60 0RF Continued potassium chloride [Klor-Con 10] 10 MEQ tablet extended release 10 meq PO DAILY Discontinued hydrochlorothiazide 25 MG tablet 25 mg PO DAILY amlodipine 10 mg tablet Referrals / Follow Up: Ilya Blair MD [Med Staff - Active Staff] - Within 2 Weeks (-You will need to follow-up with cardiology upon discharge. As Dr. Foss does not see patients in the office he can follow with Dr. Blair, please call the office upondischarge to schedule your hospital follow-up appointment ( [phone])) Calvin Stephens MD [Primary Care Provider] - Within 1 Week Disposition Disposition (needs filled in before D/C Order can be placed): Home, Self Care 02/20/232<Electronically signed by Merced Willard MD>Merced Willard MD CC: Dr. Mame Foss MD; Dr. Emre Domingo MD; Dr. Calvin Stephens MD ~ Signed [facility] Work Phone: Discharge summary Author Merced Willard [facility] February 20, 2023 1:14pm Note Date/Time February 20, 2023 1:1 4pm [facility] Medical Records Department [address] [place] [address] Discharge Summary 02/20/231311 MR#: [id number] Acct: [id number] Name: FREEMAN SARABIA Rep #:[id number] : 1950 72 From: Merced Willard MD PCP: Dr. Calvin Stephens MD Status:ADM I N [facility] Date of Admission: 02/18/23 Date of Discharge: 02/20/23 Primary Care Physician: Dr. Calvin Stephens MD Consultations 02/18/23 16:20 Consult: Cardiology Stat Consulting Provider: Mame Foss Reason for Consult: Chest Pain EMERGENT Consult: No MD Notified: Yes Date Notified: 02/18/23 Time Notified: 15:20 Method of Notification: ED Physician Initiated Reason For Visit: ANTEROINFERIOR WALL STEMI Diagnosis Discharge Diagnosis (1) Acute ST elevation myocardial infarction (STEMI): Status: Acute Code(s): I21.3 - ST elevation (STEMI) myocardial infarction of unspecified site Qualifiers: Involved coronary artery: unspecified coronary artery Qualified Code(s): I21.3 - ST elevation (STEMI) myocardial infarction of unspecified site Plan #Anterior inferior wall STEMI #CAD s/p JAVI 2/2 #1 #Hypertension Medications at Discharge Home Medications potassium chloride 10 mEq tablet,extended release (Klor-Con) 10 meq PO DAILY 04/08/14 aspirin 81 mg chewable tablet 81 mg PO BREAKFAST 30 days #30 tabs 02/20/23 atorvastatin 80 mg tablet 80 mg PO QHS 30 days #30 tabs 02/20/23 carvedilol 6.25 mg tablet 6.25 mg PO BID 30 days #60 tabs 02/20/23 ticagrelor 90 mg tablet (Brilinta) 90 mg PO BID 30 days #60 tabs 02/20/23 Hospital Course Procedures Cardiac catheterization Summary of Care Provided Minutes Spent on Discharge: 32 Hospital Course: 72-year-old male with past medical history of hypertension presented to the emergency department 02/18/2023 with chest pressure for 1 hour prior to arrival while he was mowing his lawn. EKG showed ST elevation in V4 through V6, 2 3 andaVF and about [address] depression in V1, V2, and aVR and patient was taken to [facility] [employer] [facility] from ER for STEMI alert. Treated with thrombectomy and JAVI to RCA 02/18 and was started on medication management. Echocardiogram with inferior hypokinesis with EF of 55%. Patient did have some extraventricular beats on telemetry and was managed with beta-maribel and medication management. On day of discharge patient had no complaints. No chest pain or shortness of breath and reports his legs and swelling are back to normal. Discharge instructions asfollows: -You will be started on an aspirin, statin, carvedilol, and Brilinta -You will stop taking amlodipine and hydrochlorothiazide -You will need to follow-up with cardiology upon discharge. As Dr. Foss does not see patients in the office he can follow with Dr. Blair, please call the office upon discharge to schedule your hospital follow-up appointment ) -Please call your primary care provider's office upon discharge to schedule a hospital follow up within 1 week. -For any concerning signs or symptoms please call 911 or proceed to the nearest emergency department Physical Exam Narrative General: Alert, oriented, no apparent distress HEENT: Atraumatic, normocephalic Eyes: Anicteric, normal conjunctiva, extraocular movements grossly intact Neck: Supple Respiratory: Clear to auscultation bilaterally, normal respiratory effort Cardiovascular: Regular rate and rhythm GI: Soft, nontender, nondistended Extremities: Trace LE edema Musculoskeletal: Moving all extremities Neuro: No overt focal neurological deficits Skin: No rashes appreciated Psych: Cooperative Weight / BMI Weight Weight: 117 kg Body Mass Index (BMI) 32.1 ABG / Lab / Microbiology Data 02/20/23 03:50 02/20/23 03:50 Laboratory: Laboratory Results - last 24 hr 02/20/23 03:50: WBC 8.2, RBC 4.20 L, Hgb 13.5, Hct 39.3 L, MCV 93.6, MCH 32.1 H,MCHC 34.4, RDW Std Deviation 42.1, RDW Coeff of Shante 12.2, Plt Count 232, MPV 9.4, Immature Gran % (Auto) 0.400, Neut % (Auto) 71.2 H, Lymph % (Auto) 16.5 L, [place] % (Auto) 9.6, Eos % (Auto) 1.8, Baso % (Auto) 0.5, Absolute Neuts (auto) 5.8, Absolute Lymphs (auto) 1.35, Nucleated RBC % 0, Sodium 140, Potassium 3.5, Chloride 106, Carbon Dioxide 29.0, Anion Gap 5, BUN 16, Creatinine 1.12, Estim Creat Clear Calc 70.21, Est GFR (MDRD) Af Amer 83, Est GFR (MDRD) Non-Af 68, BUN/Creatinine Ratio 14.3, Glucose 109 H, Calcium 8.4 L D/C Instructions Discharge Diet: - (DASH diet) Meaningful Use Info Meaningful Use Diagnoses (Choose all that apply): AMI AMI/Post PCI/Angioplasty Aspirin given w/in 24hrs of arrival?: Yes ASA at discharge?: Yes Antiplatelet Therapy at Discharge:: Yes Statins at discharge?: Yes Sarah Beth/ARB at discharge?: No Reason Sarah Beth/ARB not ordered:: Hypotension Beta Maribel at discharge?: Yes Done w/ Acute WI measure.: Yes Documented LVEF (%): 55 Discharge Plan Admission Admit Date/Time: 02/18/23 15:50 Primary Reason for Your Visit: Heart attack Attending Provider: Merced Willard Primary Care Provider: Calvin Stephens Consulting Providers: Emre Domingo; Mame Foss Instructions Patient Instructions: Coronary Stents, Cardiac Catheterization Dc Additional Instructions / Restrictions: DISCHARGE INSTRUCTIONS PLEASE READ *Please take this with you to your next doctors appointment* -You will be started on an aspirin, statin, carvedilol, and Brilinta -You will stop taking amlodipine and hydrochlorothiazide -You will need to follow-up with cardiology upon discharge. As Dr. Foss does not see patients in the office he can follow with Dr. Blair, please call the office upon discharge to schedule your hospital follow-up appointment ) -Please call your primary care provider's office upon discharge to schedule a hospital follow up within 1 week. -For any concerning signs or symptoms please call 911 or proceed to the nearest emergency department Discharge Orders/Prescriptions Prescriptions: New atorvastatin 80 mg Tablet 80 mg PO QHS 30 Days Qty: 30 0RF carvedilol 6.25 mg Tablet 6.25 mg PO BID 30 Days Qty: 60 0RF aspirin 81 mg Tablet,Chewable 81 mg PO BREAKFAST 30 Days Qty: 30 0RF Brilinta 90 mg Tablet 90 mg PO BID 30 Days Qty: 60 0RF Continued potassium chloride [Klor-Con 10] 10 MEQ tablet extended release 10 meq PO DAILY Discontinued hydrochlorothiazide 25 MG tablet 25 mg PO DAILY amlodipine 10 mg tablet Referrals / Follow Up: Ilya Blair MD [Med Staff - Active Staff] - Within 2 Weeks (-You will need to follow-up with cardiology upon discharge. As Dr. Foss does not see patients in the office he can follow with Dr. Blair, please call the office upondischarge to schedule your hospital follow-up appointment ( [phone])) Calvin Stephens MD [Primary Care Provider] - Within 1 Week Disposition Disposition (needs filled in before D/C Order can be placed): Home, Self Care Charges/Coding Visit Charges Inpatient E&M: 00145 Disch Hosp >30min 02/20/23 1314 <Electronically signed by Merced Willard MD> Cosigner Signature (if applicable): CC: Dr. Merced Willard MD; Dr. Calvin Stephens MD~ Signed [facility] Work Phone: Evaluation note* Diagnosis Essential hypertension, benign Hypokalemia Hypopotassemia History of skin cancer Personal history of other malignant neoplasm of skin [facility] Diagnosis Essential hypertension, benign documented in this encounter [facility] note* Diagnosis SOB (shortness of breath)- Primary Shortness of breath Essential hypertension, benign Mixed hyperlipidemia Hypokalemia Hypopotassemia documented in this encounter [facility] note* Diagnosis Wheezing- Primary SOB (shortness of breath) Shortness of breath Essential hypertension, benign documented in this encounter [facility] note* Diagnosis Arthralgia, unspecified joint- Primary Essential hypertension, benign Mixed hyperlipidemia Benign prostatic hyperplasia without lower urinary tract symptoms Screening for prostate cancer Special screening for malignant neoplasm of prostate documented in this encounter [facility] note* Diagnosis Flu-like symptoms- Primary Other general symptoms Acute cough SOB (shortness of breath) Shortness of breath Hypertension, essential Unspecified essential hypertension documented in this encounter [facility] note* Diagnosis Essential hypertension, benign- Primary Bronchitis Bronchitis, not specified as acute or chronic documented in this encounter [facility] note* Diagnosis Bilateral swelling of feet- Primary Swelling of limb Essential hypertension, benign documented in this encounter [facility] note* Diagnosis Aortic dilatation (HCC)- Primary Aortic ectasia, unspecified site documented in this encounter [facility] note* Diagnosis Essential hypertension, benign- Primary Mixed hyperlipidemia Bilateral swelling of feet Swelling of limb Skin lesion Unspecified disorder of skin and subcutaneous tissue Aortic dilatation (HCC) Aortic ectasia, unspecified site documented in this encounter [facility] noteNo assessment information availableWChildren's Hospital for Rehabilitation Work Phone: evaluation note* Diagnosis Essential hypertension, benign Hypokalemia Hypopotassemia documented in this encounter [facility] note* Diagnosis Onset Date Resolution Status Acute ST elevation myocardial infarction (STEMI) acute Hypertension [facility] Work Phone: Evaluation note* Diagnosis Onset Date Resolution Status Acute ST elevation myocardial infarction (STEMI) acute Nonsustained ventricular tachycardia acute Hypertension [facility] Work Phone: Evaluation note* Diagnosis 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- Primary Mixed hyperlipidemia Essential hypertension, benign Aortic dilatation (HCC) Aortic ectasia, unspecified site Anxiety with depression documented in this encounter [facility] note* Diagnosis Essential hypertension, benign- Primary Mixed hyperlipidemia Aortic dilatation (HCC) Aortic ectasia, unspecified site 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 documented in this encounter [facility] note* Diagnosis Anxiety with depression [facility]* Diagnosis 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- Primary Encounter for immunization Need for other specified prophylactic vaccination against single bacterial disease Aortic dilatation (HCC) Aortic ectasia, unspecified site Essential hypertension, benign [facility]* Diagnosis Essential hypertension, benign- Primary [facility]* Diagnosis Essential hypertension, benign- Primary Dysuria [facility]* Diagnosis Essential hypertension, benign Dysuria [facility]* Diagnosis Essential hypertension, benign Dysuria [facility]* Diagnosis Essential hypertension, benign- Primary Mixed hyperlipidemia Aortic dilatation (HCC) Aortic ectasia, unspecified site 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 Benign prostatic hyperplasia without lower urinary tract symptoms [facility]* Diagnosis Essential hypertension, benign [facility]* Diagnosis Essential hypertension, benign- Primary Aortic dilatation (HCC) Aortic ectasia, unspecified site 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 SVT (supraventricular tachycardia) (HCC) Other specified cardiac dysrhythmias Hypokalemia Hypopotassemia [facility]* Diagnosis Anxiety with depression [facility]* Diagnosis Sinobronchitis- Primary Unspecified sinusitis (chronic) documented [facility]* Diagnosis Bronchitis Bronchitis, not specified as acute or chronic documented [facility]* Diagnosis SOB (shortness of breath) Shortness of breath [facility]* Diagnosis Medicare annual wellness visit, subsequent- Primary Routine general medical examination at a health care facility Need for vaccination Need for prophylactic vaccination and inoculation against unspecified single disease History of colonic polyps Personal history of colonic polyps Screening for prostate cancer Special screening for malignant neoplasm of prostate Mixed hyperlipidemia Essential hypertension, benign [facility]* Diagnosis SOB (shortness of breath)- Primary Shortness of breath Essential hypertension, benign Mixed hyperlipidemia Aortic dilatation (HCC) Aortic ectasia, unspecified site 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 SVT (supraventricular tachycardia) (HCC) Other specified cardiac dysrhythmias Edema, unspecified type SOB (shortness of breath) Shortness of breath Edema, unspecified type documented in this encounter [facility] note* Diagnosis SOB (shortness of breath) Shortness of breath Edema, unspecified type documented in this encounter [facility] note* Diagnosis Screen for colon cancer- Primary Special screening for malignant neoplasms, colon History of colonic polyps Personal history of colonic polyps documented in this encounter [facility] note* Diagnosis SOB (shortness of breath)- Primary Shortness of breath SVT (supraventricular tachycardia) (HCC) Other specified cardiac dysrhythmias Aortic dilatation (HCC) Aortic ectasia, unspecified site 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 Essential hypertension, benign documented in this encounter [facility] note* Diagnosis Bronchitis- Primary Bronchitis, not specified as acute or chronic Bacterial sinusitis Unspecified sinusitis (chronic) documented in this encounter [facility] note* Diagnosis Encounter for screening colonoscopy- Primary Special screening for malignant neoplasms, colon History of colonic polyps Personal history of colonic polyps Screen for colon cancer Special screening for malignant neoplasms, colon documented in this encounter [facility] note* Diagnosis Essential hypertension, benign Hypokalemia Hypopotassemia documented in this encounter [facility] note* Diagnosis 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- Primary Essential hypertension, benign Aortic dilatation Aortic ectasia, unspecified site Mixed hyperlipidemia History of skin cancer Personal history of other malignant neoplasm of skin Benign prostatic hyperplasia without lower urinary tract symptoms Iliac artery aneurysm, right Aneurysm of iliac artery Encounter for screening examination for other mental health and behavioral disorders Screening for depression documented in this encounter [facility] note* Diagnosis Anxiety with depression documented in this encounter [facility] Discharge instructionsAmbulatory Orders* Phase II, Outpatient Cardiac Rehab Location: None Selected [facility] Work Phone: Reason for referral (narrative)* Outpatient Procedure (Routine) - Closed Specialty Diagnoses / Procedures Referred By Contac t Referred To [facility] Diagnoses SOB (shortness of breath) Procedures ECG COMPLETE ECG ROUTINE ECG W/LEAST 12 LDS W/I&R Calvin Stephens MD [address] [place] [address] [facility] [address] [address] Referral ID Status Reason Start Date Expiration Date V isits Requested Visits Authorized [id number] Closed Auto-Generate d Referral 12/01/2021 12/01/2022 [facility] Outpatient Procedure (Routine) - Pending Review Specialty Diagnoses / Procedures Referred By Fatimah t Referred To Contact [facility] Diagnoses Bilateral swelling of feet Procedures ECHO ECHO TTHRC R-T 2D W/WOM-MODE COMPL SPEC&COLR Leatha Warren APRN.CORING MACHINE OPERATOR [address] [place] [address] [facility] [address] [address] Referral ID Status Reason Start Date Expiration Date Visits Requested Visits Authorized [id number] Pending Review Auto-Generat ed Referral 07/27/2022 07/27/2023 1 1 [facility] for referral (narrative)* Outpatient Procedure (Routine) - Pending Review Specialty Diagnoses / Procedures Referred By Fatimah rosario Referred To Contact [facility] Diagnoses Aortic dilatation (HCC) Procedures ECHO ECHO TTHRC R-T 2D W/WOM-MODE COMPL SPEC&COLR Leatha Warren APRN.CORING MACHINE OPERATOR [address] [place] [address] [facility] [address] [address] Referral ID Status Reason Start Date Expiration Date Visits Requested Visits Authorized [id number] Pending Review Auto-Generat ed Referral 02/01/2023 08/04/2023 1 1 [facility]No reason for referral information availableWChildren's Hospital for Rehabilitation Work Phone: Reason for visit Narrative* Outpatient Procedure (Routine) - Closed Specialty Diagnoses / Procedures Referred By Fatimah t Referred To Contact [facility] Diagnoses History of colonic polyps Screen for colon cancer Procedures COLONOSCOPY SCREENING COLONOSCOPY FLX DX W/COLLJ SPEC WHEN Latonia Gates, ELIDIA.CORING MACHINE OPERATOR [address] [place] [address] Phone: tel: fax: [facility] [address] [place] [address] Referral ID Status Reason Start Date Expiration Date V isits Requested Visits Authorized [id number] Closed Auto-Generate d Referral 09/04/2024 09/04/2025 1 1 [facility] Advance Directives No Advanced Directives Records FoundDocuments on File Type Date Recorded 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 Advance Directive(s) 04/03/2018 8:05 AM Documents on File Type Date Recorded 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 Advance Directive(s) 04/03/2018 8:05 AM Advance Directive Response Recorded Date/ Time Advance Directives No March 12:57pm Living Will No October 29, 2016 2:36am Power of Immunology Teacher No October 29 2:36am Advance Directive Response Recorded Date/ Time Advance Directives No March 1:57pm Living Will Yes February 18, 2023 3:05pm Power of Immunology Teacher Yes February 18 3:05pm Name of Medical Power of Immunology Teacher Susan February 18, 2023 3:05pm Advance Directive Response Recorded Date/ Time Name of Medical Power of Immunology Teacher Susan Sarabia February 18, 2023 5:57pm Advance Directives No March 1:57pm Living Will Yes February 18, 2023 5:57pm Power of Immunology Teacher Yes February 18 5:57pm Advance Directive Response Recorded Date/ Time Advance Directives No March 12:57pm Living Will Yes February 18, 2023 4:57pm Power of Immunology Teacher Yes February 18 4:57pm Advance Directive Response Recorded Date/ Time Advance Directives No March 1:57pm Chief Complaint and Reason for Visit Chief Complaint STEMI, HYPERTENSION Reason for Visit Acute ST elevation m yocardial infarction (STEMI) Hypertension Chief Complaint ANTEROINFERIOR WALL STEMI ANTEROINFERIOR WALL STEMI ANTEROINFERIOR WALL STEMI ANTEROINFERIOR WALL STEMI ANTEROINFERIOR WALL STEMI Reason for Visit Acute ST elevation m yocardial infarction (STEMI) Nonsustained ventricular tachycardia Hypertension Chief Complaint 2 M FU Reason for Visit Ascending aortic ane urysm Nonsustained ventricular tachycardia Stented coronary artery Hypertension Chief Complaint Admit Date CP PER DOLLY August 05, 2024 1 0:45am IYER August 15, 2024 1 2:00am IYER August 15, 2024 5 :50am IYER August 15, 2024 8 :55am IYER August 18, 2024 1 2:14pm 6 M FU October 06, 2024 10: 30am Reason for Visit Admit Date Nonsustained ventricular tachycardia Ab uary 2024 10:45am Stented coronary artery August 05 10:45am Ascending aortic aneurysm August 05, 2024 10:45am Hypertension August 05, 2024 1 0:45am Frequent PVCs August 05, 2024 1 0:45am Stented coronary artery October 06, 2024 10:30am Aortic valve regurgitation October 06, 2 025 10:30am Coronary artery disease October 06, 2024 10:30am Dyslipidemia October 06, 2024 10: 30am Hypertension October 06, 2024 10: 30am Thoracic aortic aneurysm October 06 10:30am Frequent PVCs October 06, 2024 10: 30am Chief Complaint Admit Date CP PER DOLLY August 05, 2024 1 0:45am IYER August 15, 2024 1 2:00am IYER August 15, 2024 5 :50am IYER August 15, 2024 8 :55am IYER August 18, 2024 1 2:14pm 6 M FU October 06, 2024 10: 30am Aneurysm of the ascending aorta, without rupture November 24, 2024 7:41am Family History No Family History Records Found Relationship Condition Age at Onset Recorded Date/T wilder father Myocardial infarction Unknown Coronary artery disease Unknown Reason for Referral Specialty Diagnoses / Procedures Referred By Contac t Referred To Contact General Surgery Diagnoses History of colonic polyps Procedures CONSULT TO GENERAL SURGERY OFFICE/OUTPATIENT [facility] 60 MINUTES Calvin Stephens MD [address] [place] [address] Referral ID Status Reason Start Date Expiration Date Visits Requested Visits Authorized [id number] Authorized PCP Requested Referral 07/04/2025 1 1 Specialty Diagnoses / Procedures Referred By Contac t Referred To Contact Cardiology Diagnoses 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 SOB (shortness of breath) Edema, unspecified type Procedures CONSULT TO CARDIOLOGY Calvin Stephens MD [address] [place] [address] Referral ID Status Reason Start Date Expiration Date Visits Requested Visits Authorized [id number] Authorized PCP Requested Referral 08/04/2024 08/04/2025 1 1 Specialty Diagnoses / Procedures Referred By Contac t Referred [facility] Diagnoses 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 SVT (supraventricular tachycardia) (HCC) SOB (shortness of breath) Procedures ECG COMPLETE ECG ROUTINE ECG W/LEAST 12 LDS W/I&R Calvin Stephens MD [address] [place] [address] [facility] [place] [address] [place] [address] Referral ID Status Reason Start Date Expiration Date Visits Requested Visits Authorized [id number] New Request Auto-Generat ed Referral 08/04/2024 08/04/2025 1 1 Summary Purpose Additional Source Comments Source Comments (unrecognize d section and content) In the event this informatio n is protected by the Federal Confidentiality of Alcohol and Drug Abuse Patient Records regulations: The Federal rules restrict any use of the information to criminally investigate or prosecute any alcohol or drug abuse patient.[facility] [place] the event this information is protected by the Federal Confidentiality of Alcohol and Drug Abuse Patient Records regulations: The Federal rules restrict any use of the information to criminally investigate or prosecute any alcohol or drug abuse patient.[facility] [place] the event this information is protected by the Federal Confidentiality of Alcohol and Drug Abuse Patient Records regulations: The Federal rules restrict any use of the information to criminally investigate or prosecute any alcohol or drug abuse patient.[facility] [place]In the event this information is protected by the Federal Confidentiality of Alcohol and Drug Abuse Patient Records regulations: The Federal rules restrict any use of the information to criminally investigate or prosecute any alcohol or drug abuse patient.[facility] [place]In the event this information is protected by the Federal Confidentiality of Alcohol and Drug Abuse Patient Records regulations: The Federal rules restrict any use of the information to criminally investigate or prosecute any alcohol or drug abuse patient.[facility] [place]In the event this information is protected by the Federal Confidentiality of Alcohol and Drug Abuse Patient Records regulations: The Federal rules restrict any use of the information to criminally investigate or prosecute any alcohol or drug abuse patient.[facility] [place]In the event this information is protected by the Federal Confidentiality of Alcohol and Drug Abuse Patient Records regulations: The Federal rules restrict any use of the information to criminally investigate or prosecute any alcohol or drug abuse patient.[facility] [place]In the event this information is protected by the Federal Confidentiality of Alcohol and Drug Abuse Patient Records regulations: The Federal rules restrict any use of the information to criminally investigate or prosecute any alcohol or drug abuse patient.[facility] [place]In the event this information is protected by the Federal Confidentiality of Alcohol and Drug Abuse Patient Records regulations: The Federal rules restrict any use of the information to criminally investigate or prosecute any alcohol or drug abuse patient.[facility] [place] the event this information is protected by the Federal Confidentiality of Alcohol and Drug Abuse Patient Records regulations: The Federal rules restrict any use of the information to criminally investigate or prosecute any alcohol or drug abuse patient.[facility] [place]In the event this information is protected by the Federal Confidentiality of Alcohol and Drug Abuse Patient Records regulations: The Federal rules restrict any use of the information to criminally investigate or prosecute any alcohol or drug abuse patient.[facility] [place]In the event this information is protected by the Federal Confidentiality of Alcohol and Drug Abuse Patient Records regulations: The Federal rules restrict any use of the information to criminally investigate or prosecute any alcohol or drug abuse patient.[facility] [place]In the event this information is protected by the Federal Confidentiality of Alcohol and Drug Abuse Patient Records regulations: The Federal rules restrict any use of the information to criminally investigate or prosecute any alcohol or drug abuse patient.[facility] [place]In the event this information is protected by the Federal Confidentiality of Alcohol and Drug Abuse Patient Records regulations: The Federal rules restrict any use of the information to criminally investigate or prosecute any alcohol or drug abuse patient.[facility] [place]In the event this information is protected by the Federal Confidentiality of Alcohol and Drug Abuse Patient Records regulations: The Federal rules restrict any use of the information to criminally investigate or prosecute any alcohol or drug abuse patient.[facility] [place]In the event this information is protected by the Federal Confidentiality of Alcohol and Drug Abuse Patient Records regulations: The Federal rules restrict any use of the information to criminally investigate or prosecute any alcohol or drug abuse patient.[facility] [place]In the event this information is protected by the Federal Confidentiality of Alcohol and Drug Abuse Patient Records regulations: The Federal rules restrict any use of the information to criminally investigate or prosecute any alcohol or drug abuse patient.[facility] [place]In the event this information is protected by the Federal Confidentiality of Alcohol and Drug Abuse Patient Records regulations: The Federal rules restrict any use of the information to criminally investigate or prosecute any alcohol or drug abuse patient.[facility] [place]In the event this information is protected by the Federal Confidentiality of Alcohol and Drug Abuse Patient Records regulations: The Federal rules restrict any use of the information to criminally investigate or prosecute any alcohol or drug abuse patient.[facility] [place]In the event this information is protected by the Federal Confidentiality of Alcohol and Drug Abuse Patient Records regulations: The Federal rules restrict any use of the information to criminally investigate or prosecute any alcohol or drug abuse patient.[facility] [place]In the event this information is protected by the Federal Confidentiality of Alcohol and Drug Abuse Patient Records regulations: The Federal rules restrict any use of the information to criminally investigate or prosecute any alcohol or drug abuse patient.[facility] [place]In the event this information is protected by the Federal Confidentiality of Alcohol and Drug Abuse Patient Records regulations: The Federal rules restrict any use of the information to criminally investigate or prosecute any alcohol or drug abuse patient.[facility] [place]In the event this information is protected by the Federal Confidentiality of Alcohol and Drug Abuse Patient Records regulations: The Federal rules restrict any use of the information to criminally investigate or prosecute any alcohol or drug abuse patient.[facility] [place]In the event this information is protected by the Federal Confidentiality of Alcohol and Drug Abuse Patient Records regulations: The Federal rules restrict any use of the information to criminally investigate or prosecute any alcohol or drug abuse patient.[facility] [place]In the event this information is protected by the Federal Confidentiality of Alcohol and Drug Abuse Patient Records regulations: The Federal rules restrict any use of the information to criminally investigate or prosecute any alcohol or drug abuse patient.[facility] [place]In the event this information is protected by the Federal Confidentiality of Alcohol and Drug Abuse Patient Records regulations: The Federal rules restrict any use of the information to criminally investigate or prosecute any alcohol or drug abuse patient.[facility] [place]In the event this information is protected by the Federal Confidentiality of Alcohol and Drug Abuse Patient Records regulations: The Federal rules restrict any use of the information to criminally investigate or prosecute any alcohol or drug abuse patient.[facility] [place]In the event this information is protected by the Federal Confidentiality of Alcohol and Drug Abuse Patient Records regulations: The Federal rules restrict any use of the information to criminally investigate or prosecute any alcohol or drug abuse patient.[facility] [place]In the event this information is protected by the Federal Confidentiality of Alcohol and Drug Abuse Patient Records regulations: The Federal rules restrict any use of the information to criminally investigate or prosecute any alcohol or drug abuse patient.[facility] [place]In the event this information is protected by the Federal Confidentiality of Alcohol and Drug Abuse Patient Records regulations: The Federal rules restrict any use of the information to criminally investigate or prosecute any alcohol or drug abuse patient.[facility] [place]In the event this information is protected by the Federal Confidentiality of Alcohol and Drug Abuse Patient Records regulations: The Federal rules restrict any use of the information to criminally investigate or prosecute any alcohol or drug abuse patient.[facility] [place]In the event this information is protected by the Federal Confidentiality of Alcohol and Drug Abuse Patient Records regulations: The Federal rules restrict any use of the information to criminally investigate or prosecute any alcohol or drug abuse patient.[facility] [place]In the event this information is protected by the Federal Confidentiality of Alcohol and Drug Abuse Patient Records regulations: The Federal rules restrict any use of the information to criminally investigate or prosecute any alcohol or drug abuse patient.[facility] [place]In the event this information is protected by the Federal Confidentiality of Alcohol and Drug Abuse Patient Records regulations: The Federal rules restrict any use of the information to criminally investigate or prosecute any alcohol or drug abuse patient.[facility] [place]In the event this information is protected by the Federal Confidentiality of Alcohol and Drug Abuse Patient Records regulations: The Federal rules restrict any use of the information to criminally investigate or prosecute any alcohol or drug abuse patient.[facility] [place]In the event this information is protected by the Federal Confidentiality of Alcohol and Drug Abuse Patient Records regulations: The Federal rules restrict any use of the information to criminally investigate or prosecute any alcohol or drug abuse patient.[facility] [place]In the event this information is protected by the Federal Confidentiality of Alcohol and Drug Abuse Patient Records regulations: The Federal rules restrict any use of the information to criminally investigate or prosecute any alcohol or drug abuse patient.[facility] [place]In the event this information is protected by the Federal Confidentiality of Alcohol and Drug Abuse Patient Records regulations: The Federal rules restrict any use of the information to criminally investigate or prosecute any alcohol or drug abuse patient.[facility] [place]In the event this information is protected by the Federal Confidentiality of Alcohol and Drug Abuse Patient Records regulations: The Federal rules restrict any use of the information to criminally investigate or prosecute any alcohol or drug abuse patient.[facility] [place]In the event this information is protected by the Federal Confidentiality of Alcohol and Drug Abuse Patient Records regulations: The Federal rules restrict any use of the information to criminally investigate or prosecute any alcohol or drug abuse patient.[facility] [place]In the event this information is protected by the Federal Confidentiality of Alcohol and Drug Abuse Patient Records regulations: The Federal rules restrict any use of the information to criminally investigate or prosecute any alcohol or drug abuse patient.[facility] [place]In the event this information is protected by the Federal Confidentiality of Alcohol and Drug Abuse Patient Records regulations: The Federal rules restrict any use of the information to criminally investigate or prosecute any alcohol or drug abuse patient.[facility] [place]In the event this information is protected by the Federal Confidentiality of Alcohol and Drug Abuse Patient Records regulations: The Federal rules restrict any use of the information to criminally investigate or prosecute any alcohol or drug abuse patient.[facility] [place]In the event this information is protected by the Federal Confidentiality of Alcohol and Drug Abuse Patient Records regulations: The Federal rules restrict any use of the information to criminally investigate or prosecute any alcohol or drug abuse patient.[facility] [place]In the event this information is protected by the Federal Confidentiality of Alcohol and Drug Abuse Patient Records regulations: The Federal rules restrict any use of the information to criminally investigate or prosecute any alcohol or drug abuse patient.[facility] [place]In the event this information is protected by the Federal Confidentiality of Alcohol and Drug Abuse Patient Records regulations: The Federal rules restrict any use of the information to criminally investigate or prosecute any alcohol or drug abuse patient.[facility] [place]In the event this information is protected by the Federal Confidentiality of Alcohol and Drug Abuse Patient Records regulations: The Federal rules restrict any use of the information to criminally investigate or prosecute any alcohol or drug abuse patient.[facility] [place]In the event this information is protected by the Federal Confidentiality of Alcohol and Drug Abuse Patient Records regulations: The Federal rules restrict any use of the information to criminally investigate or prosecute any alcohol or drug abuse patient.[facility] [place]In the event this information is protected by the Federal Confidentiality of Alcohol and Drug Abuse Patient Records regulations: The Federal rules restrict any use of the information to criminally investigate or prosecute any alcohol or drug abuse patient.[facility] Reason for Visit (unrecogniz ed section and content) Reason Comments Hypertension Reason Comments Refill Request Reason Comments Shortness [...] Comments Follow Up 2 wk BP check Reason Comments Hypertension Elevated blood press ure last 2 days Headache Reason Onset Date Comments Population Health Navigation Outreach 10/10/2023 [facility] Annual [facility]ness Visit Reason Onset Date Comments Refill Request 11/29/2023 Reason Onset Date Comments Refill Request 12/26/2023 Reason Onset Date Comments Population Health Navigation Outreach 02/08/2024 [facility] Reason Onset Date Comments Refill Request 03/21/2024 Reason Comments Chest Congestion cough x 2 weeks Reason Comments Medicare Wellness Exam Reason Comments Blood Pressure Reason Comments Consult Colonoscopy previous colonoscopy 2018 Specialty Diagnoses / Procedures Referred By Contac t Referred To Contact General Surgery Diagnoses History of colonic polyps Procedures CONSULT TO GENERAL SURGERY OFFICE/OUTPATIENT [facility] 60 MINUTES Calvin Stephens MD [address] [place] [address] Referral ID Status Reason Start Date Expiration Date V isits Requested Visits Authorized [id number] Closed PCP Requested Referral 07/04/2024 07/04/2025 1 1 Reason Comments Nasal Congestion cough, fever x 10 da ys Reason Comments surgical clearance Reason Onset Date Comments Refill Request 10/02/2024 Reason Onset Date Comments Refill Request 12/25/2024 Reason Onset Date Comments Refill Request 01/09/2025 Care Teams (unrecognized sec tion and content) Professor Of Management Relationship Specialty Start Date End Date Calvin Stephens MD [address] [place] [address] PCP - General Family Practice 06/20/13 Professor Of Management Relationship Specialty Start Date End Date Calvin Stephens MD [address] [place] [address] PCP - General Family Practice 06/20/13 Professor Of Management Relationship Specialty Start Date End Date Calvin Stephens MD [address] [place] [address] PCP - General Family Practice 06/20/13 Professor Of Management Relationship Specialty Start Date End Date Calvin Stephens MD [address] [facility] [place] [address] PCP - General Family Practice 06/20/13 Professor Of Management Relationship Specialty Start Date End Date Calvin Stephens MD [address] [place] [address] PCP - General Family Medicine 06/20/13 Professor Of Management Relationship Specialty Start Date End Date Calvin Stephens MD [address] [place] [address] PCP - General Family Medicine 06/20/13 Professor Of Management Relationship Specialty Start Date End Date Calvin Stephens MD [address] [place] [address] PCP - General Family Medicine 06/20/13 Professor Of Management Relationship Specialty Start Date End Date Calvin Stephens MD [address] [place] [address] PCP - General Family Medicine 06/20/13 Professor Of Management Relationship Specialty Start Date End Date Calvin Stephens MD [address] [place] [address] PCP - General Family Medicine 06/20/13 Professor Of Management Relationship Specialty Start Date End Date Calvin Stephens MD [address] [place] [address] PCP - General Family Medicine 06/20/13 Professor Of Management Relationship Specialty Start Date End Date Calvin Stephens MD [address] [place] [address] PCP - General Family Medicine 06/20/13 Professor Of Management Relationship Specialty Start Date End Date Calvin Stephens MD [address] [place] [address] PCP - General Family Medicine 06/20/13 Professor Of Management Relationship Specialty Start Date End Date Calvin Stephens MD [address] [place] [address] PCP - General Family Medicine 06/20/13 Team Status: Active Member Role Status Dates Dr. Calvin Stephens MD Family Provider Active Dr. Calvin Stephens MD Primary Care Provider Active Team Status: Inactive Member Role Status Dates Dr. Calvin Stephens MD Primary Care Provider Active Dr. Mundo Shelley MD Attending Provider, Referring Arsh alex Active Professor Of Management Relationship Specialty Start Date End Date Calvin Stephesn MD [address] [place] [address] PCP - General Family Medicine 06/20/13 Team Status: Active Member Role Status Dates Dr. Calvin Stephens MD Primary Care Provider Active Dr. Kris Rose DO Emergency Provider Active Dr. Mame Foss MD Referring Provider Activ e Dr. Emre Domingo MD Admit Provider, Attending Provi deja Active Team Status: Active Member Role Status Dates Dr. Calvin Stephens MD Primary Care Provider Active Dr. Kris Rose , DO Emergency Provider Active Dr. Mame Foss MD Attending Provider, Referring Provider, Other Provider Active Dr. Emre Domingo MD Admit Provider, Other Provider Active Team Status: Active Member Role Status Dates Dr. Calvin Stephens MD Primary Care Provider Active Dr. Kris Rose , Emergency Provider Active Dr. Mame Foss MD Attending Provider, Referring Provider, Other Provider Active Dr. Emre Domingo MD Admit Provider, Other Provider Active Dr. Merced Willard MD Other Provider Active Team Status: Active Member Role Status Dates Dr. Calvin Stephens MD Primary Care Provider Active Dr. Kris Rose DO Emergency Provider Active Dr. Mame Foss MD Referring Provider, Othe r Provider Active Dr. Emre Domingo MD Admit Provider, Other Provider Active Dr. Merced Willard MD Attending Provider, Other Provid er Active Team Status: Active Member Role Status Dates Dr. Calvin Stephens MD Primary Care Provider Active Dr. Mame Foss MD Attending Provider Activ e Team Status: Inactive Member Role Status Dates Dr. Calvin Stephens MD Primary Care Provider Active Dr. Kris Rose DO Emergency Provider Active Dr. Mame Foss MD Referring Provider, Othe r Provider Active Dr. Emre Domingo MD Admit Provider, Other Provider Active Dr. Merced Willard MD Attending Provider Active Professor Of Management Relationship Specialty Start Date End Date Calvin Stephens MD [address] [place], [place] [address] PCP - General Family Medicine 06/20/13 Professor Of Management Relationship Specialty Start Date End Date Calvin Stephens MD [address] [place] [address] PCP - General Family Medicine 06/20/13 Professor Of Management Relationship Specialty Start Date End Date Calvin Stephens MD [address] [place], [place] [id number] PCP - General Family Medicine 06/20/13 Professor Of Management Relationship Specialty Start Date End Date Calvin Stephens MD [address] [place], [place] [address] PCP - General Family Medicine 06/20/13 Professor Of Management Relationship Specialty Start Date End Date Calvin Stephens MD [address] [place], [place] [id number] PCP - General Family Medicine 06/20/13 Professor Of Management Relationship Specialty Start Date End Date Calvin Stephens MD [address] [place], [place] [address] PCP - General Family Medicine 06/20/13 Team Status: Inactive Member Role Status Dates Dr. Calvin Stephens MD Primary Care Provider, Referring Provider Active Mady JIMÉNEZ PA Attending Provider Active Team Status: Inactive Member Role Status Dates Dr. Calvin Stephens MD Primary Care Provider Active George JIMÉNEZ PA-C Attending Provider, Referring Pr ovider Active Professor Of Management Relationship Specialty Start Date End Date Calvin Stephens MD [address] [place], [place] [address] PCP - General Family Medicine 06/20/13 Professor Of Management Relationship Specialty Start Date End Date Calvin Stephens MD [address] [place], [place] [address] PCP - General Family Medicine 06/20/13 Professor Of Management Relationship Specialty Start Date End Date Calvin Stephens MD [address] [place], [place] [address] PCP - General Family Medicine 06/20/13 Professor Of Management Relationship Specialty Start Date End Date Calvin Stephens MD [address] [place], [place] [address] PCP - General Family Medicine 06/20/13 Professor Of Management Relationship Specialty Start Date End Date Calvin Stephens MD [address] [place], [place] [id number] PCP - General Family Medicine 06/20/13 Professor Of Management Relationship Specialty Start Date End Date Calvin Stephens MD [address] [place], [place] [address] PCP - General Family Medicine 06/20/13 Professor Of Management Relationship Specialty Start Date End Date Calvin Stephens MD [address] [place] [address] PCP - General Family Medicine 06/20/13 Professor Of Management Relationship Specialty Start Date End Date Calvin Stephens MD [address] [place], [place] [address] PCP - General Family Medicine 06/20/13 Leatha Zaragoza APRN.CORING MACHINE OPERATOR [address] [place], [place] [address] Conservation Assistant Family Medicine 06/30/24 Noreen Rush APRN.CORING MACHINE OPERATOR [address] [place], [place] [address] Conservation Assistant Family Medicine 06/30/24 Professor Of Management Relationship Specialty Start Date End Date Calvin Stephens MD [address] [place], [place] [id number] PCP - General Family Medicine 06/20/13 Leatha Zaragoza [employer] VOLLEY[employer] COACH.CORING MACHINE OPERATOR [address] [facility] [place] [address] [facility]/24 Noreen Rush [employer] VOLLEYBALL COACH.CORING MACHINE OPERATOR [address] [place] [address] [facility] 06/30/24 Professor Of Management Relationship Specialty Start Date End Date Clavin Stephens MD [address] [place] [address] PCP - General Family Medicine 06/20/13 Leatha Zaragoza APRN.CORING MACHINE OPERATOR [address] [facility] [place] [address] [facility] 06/30/24 Noreen Rush [employer] VOLLEYBALL COACH.CORING MACHINE OPERATOR [address] [place] [address] [facility] 06/30/24 Professor Of Management Relationship Specialty Start Date End Date Calvin Stephens MD [address] [place] [address] PCP - General Family Medicine 06/20/13 Leatha Zaragoza [employer] VOLLEYBALL COACH.CORING MACHINE OPERATOR [address] [facility] [address] [facility] 06/30/24 Noreen Rush [employer] VOLLEYBALL COACH.CORING MACHINE OPERATOR [address] [place] [address] [facility] 06/30/24 Professor Of Management Relationship Specialty Start Date End Date Calvin Stephens MD [address] [facility] [place] [address] PCP - General Family Medicine 06/20/13 Leatha Zaragoza APRN.CORING MACHINE OPERATOR [address] [place] [address] Conservation Assistant Family Medicine 06/30/24 Noreen Rush APRN.CORING MACHINE OPERATOR [address] [facility] [place] [address] [facility] 06/30/24 Professor Of Management Relationship Specialty Start Date End Date Calvin Stephens MD [address] [facility] [place] [address] PCP - General Family Medicine 06/20/13 Leatha Zaragoza APRN.CORING MACHINE OPERATOR [address] [facility] [place] [address] [facility] 06/30/24 Noreen Rush APRN.CORING MACHINE OPERATOR [address] [facility] [place] [address] [facility] 06/30/24 Professor Of Management Relationship Specialty Start Date End Date Calvin Stephens MD [address] [facility] [place] [address] PCP - General Family Medicine 06/20/13 Leatha Zaragoza APRN.CORING MACHINE OPERATOR [address] [facility] [place] [place] [address] Conservation Assistant Family Medicine 06/30/24 Noreen Rush APRN.CORING MACHINE OPERATOR [address] [place] [address] [facility] 06/30/24 Professor Of Management Relationship Specialty Start Date End Date Calvin Stephens MD [address] [place] [address] PCP - General Family Medicine 06/20/13 Leatha Zaragoza, [employer] VOLLEYBALL COACH.CORING MACHINE OPERATOR [address] [place] [address] [facility] 06/30/24 Noreen Rush [employer] VOLLEYBALL COACH.CORING MACHINE OPERATOR [address] [place] [address] [facility] 06/30/24 Professor Of Management Relationship Specialty Start Date End Date Cavlin Stephens MD [address] [place] [address] PCP - General Family Medicine 06/20/13 Leatha Zaragoza, [employer] VOLLEYBALL COACH.CORING MACHINE OPERATOR [address] [place] [address] [facility] 06/30/24 Noreen Rush, [employer] VOLLEYBALL COACH.CORING MACHINE OPERATOR [address] [place] [address] [facility] 06/30/24 Team Status: Inactive Member Role Status Dates Dr. Calvin Stephens MD Primary Care Provider Active Start: August 05, 2024 End: August 05, 2024 Dr. Calvin Stephens MD Referring Provider Active Start: August 05, 2024 End: August 05, 2024 Mady Fonseca PA, PA Attending Provider Active Start: August 05, 2024 End: August 05, 2024 Team Status: Active Member Role Status Dates Dr. Calvin Stephens MD Primary Care Provider Active Start: August 15, 2024 Dr. Viktor Rutledge MD Attending Provider Active Start: August 15, 2024 Mady JIMÉNEZ PA Referring Provider Active Start: August 15, 2024 Team Status: Inactive Member Role Status Dates Dr. Calvin Stephens MD Primary Care Provider Active Start: August 15, 2024 End: August 15, 2024 Mady JIMÉNEZ PA Attending Provider Active Start: August 15, 2024 End: August 15, 2024 Mady JIMÉNEZ PA Referring Provider Active Start: August 15, 2024 End: August 15, 2024 Team Status: Active Member Role Status Dates Dr. Calvin Stephens MD Primary Care Provider Active Start: August 15, 2024 Dr. Viktor Rutledge MD Attending Provider Active Start: August 15, 2024 Team Status: Active Member Role Status Dates Dr. Calvin Stephens MD Primary Care Provider Active Start: August 15, 2024 Dr. Ilya Blair MD Attending Provider Active S tart: August 15, 2024 Mady JIMÉNEZ, PA Referring Provider Active Start: August 15, 2024 Team Status: Active Member Role Status Dates Dr. Calvin Stephens MD Primary Care Provider Active Start: August 18, 2024 Mady JIMÉNEZ, PA Referring Provider Active Start: August 18, 2024 Mady JIMÉNEZ PA Other Provider Active Start: August 18, 2024 Dr. Viktor Rutledge MD Attending Provider Active Start: August 18, 2024 Team Status: Inactive Member Role Status Dates Dr. Calvin Stephens MD Primary Care Provider Active Start: October 06, 2024 End: October 06, 2024 Dr. Calvin Stephens MD Referring Provider Active Start: October 06, 2024 End: October 06, 2024 Dr. Viktor Rutledge MD Attending Provider Active Start: October 06, 2024 End: October 06, 2024 Team Status: Inactive Member Role Status Dates Dr. Calvin Stephens MD Primary Care Provider Active Start: October 06, 2024 End: October 06, 2024 Dr. Viktor Rutledge MD Attending Provider Active Start: October 06, 2024 End: October 06, 2024 Dr. Viktor Rutledge MD Referring Provider Active Start: October 06, 2024 End: October 06, 2024 Professor Of Management Relationship Specialty Start Date End Date Calvin Stephens MD [address] [facility] [place] [id number] PCP - General Family Medicine 06/20/13 Leatha Zaragoza, ELIDIA.CORING MACHINE OPERATOR [address] [place], [place] [address] Conservation Assistant [facility] 06/30/24 Noreen Rush APRN.CORING MACHINE OPERATOR [address] [place], [place] [id number] [facility] 06/30/24 Team Status: Active Member Role Status Dates Dr. Calvin Stephens MD Primary Care Provider Active Team Status: Inactive Member Role Status Dates Dr. Calvin Stephens MD Primary Care Provider Active Start: November 24, 2024 End: November 24, 2024 Dr. Viktor Rutledge MD Attending Provider Active Start: November 24, 2024 End: November 24, 2024 Dr. Viktor Rutledge MD Referring Provider Active Start: November 24, 2024 End: November 24, 2024 Team Status: Active Member Role Status Dates Dr. Calvin Stephens MD Primary Care Provider Active Start: November 24, 2024 Dr. Kris Nagel MD Attending Provider Active S tart: November 24, 2024 Team Status: Active Member Role Status Dates Dr. Calvin Stephens MD Primary Care Provider Active Start: November 24, 2024 Dr. Viktor Rutledge MD Attending Provider Active Start: November 24, 2024 Professor Of Management Relationship Specialty Start Date End Date Calvin Stephens MD [address] [place], [place] [id number] PCP - General Family Medicine 06/20/13 Leatha Zaragoza, [employer] VOLLEYBALL COACH.CORING MACHINE OPERATOR [address] [place], [place] [id number] [facility] 06/30/24 Noreen Rush APRN.CORING MACHINE OPERATOR [address] [place], [place] [address] [phone] [facility] 06/30/24 Professor Of Management Relationship Specialty Start Date End Date Calvin Stephens MD [address] [place], [place] [address] PCP - General Family Medicine 06/20/13 Leatha Zaragoza APRN.CORING MACHINE OPERATOR [address] [place], [place] [address]497 [phone] [facility] 06/30/24 Noreen Rush [employer]CHO[employer] VOLLEYBALL COACH.CORING MACHINE OPERATOR [address] [place], [place] [address]23[address] [phone] [facility] 06/30/24 Professor Of Management Relationship Specialty Start Date End Date Calvin Stephens MD [address] [place], [place] [address] PCP - General Family Medicine 06/20/13 Leatha Zaragoza, [employer]CHO[employer] VOLLEYBALL COACH.CORING MACHINE OPERATOR [address] [place], [place] 190641 [phone] [facility] 06/30/24 Noreen Rush [employer] SCHOOL VOLLEYBALL COACH.CORING MACHINE OPERATOR [address] [place], [place] [id number] [phone] [facility] 06/30/24 Goals (unrecognized section and content) Goals may be documented in a n alternate sectionGoals may be documented in an alternate sectionGoals may be documented in an alternate sectionGoals may be documented in an alternate sectionGoals may be documented in an alternate section (unrecognized sect ion and content) No Status Records FoundNo Status Records Found INFORMATION SOURCE (unrecogn ized section and content) DATE CREATED AUTHOR 11/30/2024 [facility] DATE CREATED AUTHOR AUTHOR'S MARINA MIRIAMPILLO 01/21/2025 [facility] FOR RECORDS PERTAINING TO PATIENTS WHO ARE [...] BE BASED ON THE PRIMARY CLINICAL RECORDS. [employer] provides no warranty or guarantee of the accuracy or completeness of information in this document.
== END | disposition home or self-care (01) ==
LOC: CT 06:18
PROVIDERS: PCP Family Medicine; Referring Provider Physician Assistant Medical; Visit Provider Physician Assistant Medical
DX: I71.21 Aneurysm of the ascending aorta, without rupture (principal)
CPT/HCPCS: 71275; Q9967